=== PATIENT | male | born 1935 | race Caucasian/White ===

== ENCOUNTER 2019-03-06 07:16 | Inpatient (IN) | payer MEDICARE, MEDICAID, SELFPAY ==
[2019-03-06] VITALS (32 sets, daily range): BP systolic 44–127; BP diastolic 34–107; PULSE 9–157; RESP 14–28; TEMP 36.1–36.6; O2SAT 93–100; BMI 21.7
--- NOTE | ~2019-03-06 | XR_ITS ---
EXAMINATION: XR chest ET placement INDICATION: Endotracheal tube placement TECHNIQUE: Portable AP chest at 2126 hours COMPARISON: 1108 hours FINDINGS: The endotracheal tube ends approximately 3.8 cm above the graciela. The nasogastric tube is i n the stomach. There are bilateral pleural effusions. No pneumothorax is identified. Cardiomegaly is noted. There are airspace opacities in the lung bases and right midlung zone. Median sternotomy wires are consistent with prior cardiac surgery. IMPRESSION: 1. Endotracheal and nasogastric tubes in adequate position. 2. Stable cardiomegaly. 3. Airspace opacities of the lung bases and right midlung zone, consistent with atelectasis versus pn eumonia. Reviewed, dictated and finalized at location A. G TECHNICIAN IMPRESSION: 1. Endotracheal and nasogastric tubes in adequate position. 2. Stable cardiomegaly. 3. Airspace opacities of the lung bases and right midlung zone, consistent with atelectasis versus pneumonia.
--- NOTE | ~2019-03-06 | XR_ITS ---
EXAMINATION: XR barium swallow modified DATE: 03/22/2019 12:20 INDICATION: Aspiration TECHNIQUE: The patient was given barium-containing material of multiple consistencies to swallow by t he speech pathologist while I performed fluoroscopy. Dose-area product was 0.673 Gy-cm2. 0.1 minutes fluoroscopy time FINDINGS: The patient terminated the procedure after the thin liquid trial. Oral Preparatory Stage: Normal Oral Stage: Normal Pharyngeal Phase: Minimal vallecular residue, clearing with second swallow Cervical/Esophageal Stage: Within functional limits IMPRESSION: Limited examination; patient terminated procedure prematurely. Modified esophagram findings as above. Please refer to the speech therapy report for specific recomme ndations. Reviewed, dictated and finalized at Location A. Reviewed, dictated and finalized at location A. UCTION CELL LEADER IMPRESSION: Limited examination; patient terminated procedure prematurely. Modified esophagram findings as above. Please refer to the speech therapy repor t for specific recommendations.
--- NOTE | ~2019-03-06 | XR_ITS ---
EXAMINATION: XR abdomen NG/feed tube insert EXAM DATE: 03/10/2019 08:47 INDICATION: Nasogastric tube insertion. TECHNIQUE: Frontal projection(s) of the abdomen for interpretation. Comparison is made to prior exami nation from 03/08/2019. FINDINGS: Feeding tube tip and side-port project over gastric bubble, adequate. Upper abdominal claudine l gas pattern is unremarkable. There is an endotracheal tube. Sternotomy wires. IMPRESSION: Feeding tube adequately positioned. Reviewed, dictated and finalized at location B. LOADER
--- NOTE | ~2019-03-06 | XR_ITS ---
XR chest 1V portable 03/18/2019 20:27 Indication: Respiratory failure. Dyspnea. Procedure: AP portable chest Comparison: Comparison to multiple prior studies sequentially, with oldest reviewed study dated 02/23. Findings: Status post median sternotomy for CABG. There is a prosthetic heart valve. There are epicar dial pacing leads. There is basilar atelectasis. Small right pleural effusion. No edema, focal pneumo elda or pneumothorax. No acute osseous abnormality. Impression: 1: Bibasilar atelectasis. 2: Cardiomegaly. 3: Small right pleural effusion. Reviewed, dictated and finalized at location A. D OPERATOR Impression: 1: Bibasilar atelectasis. 2: Cardiomegaly. 3: Small right pleural effusion.
--- NOTE | ~2019-03-06 | XR_ITS ---
EXAMINATION: XR abdomen/kub 1V EXAM DATE: 03/06/2019 15:40 INDICATION: Bowel distention and shortness of breath. TECHNIQUE: Frontal projection(s) of the abdomen for interpretation. Comparison is made to prior exami nation from 04/06/2008. FINDINGS: There is moderate amount of colonic stool and gas. Some air-filled small bowel, but within normal caliber limits. There are arterial calcifications, arteriosclerosis. There is no organome price suspected. Mild to moderate lumbar scoliosis. Small right pleural effusion. IMPRESSION: Moderate amount of bowel stool and gas. Nonobstructive pattern. Reviewed, dictated and finalized at location A. ATOR ERECTOR HELPER
--- NOTE | ~2019-03-06 | CT_ITS ---
EXAMINATION: CT chest abdomen pelvis wo con DATE: 03/09/2019 00:13 INDICATION: Respiratory failure, abdominal distention TECHNIQUE: Transaxial computed tomographic images of the chest, abdomen, and pelvis were obtained aft er the administration of 100 cc of Omnipaque 350 intravenous contrast. The dose-length product (DLP) was 1055.97 mGy-cm. Automated exposure control and iterative reconstruction technique were employed. COMPARISON: 07/16/2017 FINDINGS: CHEST CT: There are areas of chronic scarring in the upper lobes, consistent with radiation fibrosis. Moderate emphysema is noted. There are moderate-sized pleural effusions with associated dependent airspace opa cities in the lungs. No pneumothorax is identified. Stable cardiomegaly is noted. The endotracheal tu be is in adequate position. Calcified pulmonary nodules and calcified bilateral hilar and mediastinal lymph nodes are consistent with old granulomatous disease. There are changes of aortic valve surgery . ABDOMEN/PELVIS CT: There is a moderate volume of ascites. Cholelithiasis is noted. The gallbladder is not distended. The re is questionable gallbladder wall thickening which could be related to abdominal ascites. Punctate calcifications in otherwise normal appearing liver and spleen likely represent healed granulomatous d isease. The adrenal glands are unremarkable. Cysts of the kidneys measure up to 2 cm on the left. The re is calcified atherosclerosis of the aorta and many of the other arteries. No pathologically enlarg ed abdominal or pelvic lymph nodes are identified. A Padilla catheter is present in the bladder. There is a small left inguinal hernia containing the antimesenteric wall of a short segment of sigmoid colo n. There are multiple mildly dilated loops of small bowel with a questionable transition point in the right lower quadrant. There is moderate lumbar spondylosis. IMPRESSION: 1. Moderate-sized pleural effusions. 2. Bilateral dependent airspace opacities, consistent with atelectasis and/or pneumonia. 3. Multiple mildly dilated loops of small bowel with possible transition point in the right lower janel drant, ileus versus partial obstruction. 4. Cardiomegaly. 5. Moderate volume of ascites. 6. Cholelithiasis with questionable gallbladder wall thickening, possibly due to ascites. Correlate f or right upper quadrant pain. Reviewed, dictated and finalized at location A. UTER ARTIST IMPRESSION: 1. Moderate-sized pleural effusions. 2. Bilateral dependent airspace opacities, consistent with atelectasis and/or p neumonia. 3. Multiple mildly dilated loops of small bowel with possible transition point in the right lower quadrant, ileus versus partial obstruction. 4. Cardiomegaly. 5. Moderate volume of ascites. 6. Cholelithiasis with questionable gallbladder wall thickening, possibly due t o ascites. Correlate for right upper quadrant pain.
--- NOTE | ~2019-03-06 | XR_ITS ---
EXAMINATION: XR chest 1V portable INDICATION: Sepsis TECHNIQUE: Portable AP chest at 0511 hours COMPARISON: 03/18/2019 FINDINGS: There is stable cardiomegaly. There are patchy opacities in the mid and lower lung zones. T here are small pleural effusions. No pneumothorax is identified. Median sternotomy wires and mediasti nal surgical clips are seen, likely from prior coronary artery bypass grafting. IMPRESSION: 1. Stable cardiomegaly. 2. Minimal opacities of the lung bases, consistent with atelectasis versus pneumonia. 3. Small pleural effusions. Reviewed, dictated and finalized at location A. PREVENTION MANAGER IMPRESSION: 1. Stable cardiomegaly. 2. Minimal opacities of the lung bases, consistent with atelectasis versus pneu monia. 3. Small pleural effusions.
--- NOTE | ~2019-03-06 | XR_ITS ---
EXAMINATION: XR abdomen NG/feed tube insert INDICATION: Nasogastric tube placement TECHNIQUE: Portable AP KUB-NG at 2129 hours COMPARISON: 1531 hours FINDINGS: The nasogastric tube is in the stomach. Again seen are partially imaged dilated small bowel loops. There are pleural effusions and airspace opacities of the visualized lung bases. Cardiomegaly is noted. IMPRESSION: 1. Nasogastric tube in the stomach. Reviewed, dictated and finalized at location A. TANK TENDER
--- NOTE | ~2019-03-06 | XR_ITS ---
EXAMINATION: XR barium swallow modified DATE: 03/11/2019 12:07 INDICATION: Dysphagia. TECHNIQUE: The patient was given barium-containing material of multiple consistencies to swallow by brianna steve speech pathologist while I performed fluoroscopy. Dose-area product was 1.689 Gy-cm2. 2.7 minutes fluoroscopy time FINDINGS: Oral Stage: Within functional limits Pharyngeal Phase: Laryngeal penetration was noted with uncontrolled thin liquid . Aspiration was noted. Mild vallecular residue Cervical/Esophageal Stage: Within functional limits IMPRESSION: Modified esophagram findings as above. Please refer to the speech therapy report [facility]. Reviewed, dictated and finalized at Location A. Reviewed, dictated and finalized at location A. TABOUT HEAD IMPRESSION: Modified esophagram findings as above. Please refer to the speech t herapy report for specific recommendations.
--- NOTE | ~2019-03-06 | XR_ITS ---
EXAMINATION: XR chest 1V portable DATE: 03/25/2019 10:13 INDICATION: Shortness of breath. TECHNIQUE: A single frontal view of the chest was obtained. COMPARISON: Chest single view 03/21/2019, chest CT 03/09/2019 FINDINGS: There are chronic airspace opacities in the upper lung zones, likely scarring. There are mi ld patchy airspace opacities in the mid and lower lung zones. There are small pleural effusions. No p neumothorax. Cardiomegaly is noted. There are changes of aortic valve replacement. IMPRESSION: 1. Mild airspace opacities in the mid and lower lung zones with worsening on the left, consistent wit h pulmonary edema versus pneumonia. 2. Unchanged small pleural effusions. 3. Mild scarring in the upper lung zones. 4. Cardiomegaly. Reviewed, dictated and finalized at location A. SSIONS OFFICER IMPRESSION: 1. Mild airspace opacities in the mid and lower lung zones with worsening on th e left, consistent with pulmonary edema versus pneumonia. 2. Unchanged small pleural effusions. 3. Mild scarring in the upper lung zones. 4. Cardiomegaly.
--- NOTE | ~2019-03-06 | XR_ITS ---
XR chest 1V portable DATE: 03/14/2019 13:36 INDICATION: Increased shortness of breath TECHNIQUE: Portable upright AP chest on 03/14/2019 at 1335 hours COMPARISON: 03/11/2019 portable upright AP chest FINDINGS: Status post sternotomy and cardiac valve replacement. Cardiomegaly. There is aortic calcifi cation, ectasia and mild unfolding. There is mild prominence of the minor fissure. There is mild infiltrate or atelectasis in the mid and lower lung zones, mildly improved since 03/11/2019. Bilateral chronic upper lobe scarring is again noted. IMPRESSION: Mild improvement of bilateral infiltrates since 03/11/2019 Reviewed, dictated and finalized at location A. CTOR OF OFFICIATING
--- NOTE | ~2019-03-06 | XR_ITS ---
XR chest 1V portable DATE: 03/11/2019 05:46 INDICATION: Acute respiratory failure. TECHNIQUE: Portable AP chest on 03/11/2019 at 0518 hours COMPARISON: 03/10/2019 portable AP chest at 0517 hours FINDINGS: Status post sternotomy. Cardiac valve replacement. Cardiomegaly. Aortic calcification, ecta yamel, mild unfolding. Removal of ET and NG tube since 03/10/2019. There is bilateral hyperinflation suggesting COPD. The elderly chest can simulate this appearance. 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 There is persistent infiltrate in the right mid and lower and to a lesser extent left lower lung fie lds. Small pleural effusions are suggested. IMPRESSION: Removal of ET and NG tube since 03/10/2019; otherwise little interval change since 2018 Reviewed, dictated and finalized at location A. UM COOKER OPERATOR IMPRESSION: Removal of ET and NG tube since 03/10/2019; otherwise little interv al change since 03/10/2019
--- NOTE | ~2019-03-06 | XR_ITS ---
EXAMINATION: XR chest 2V DATE: 03/06/2019 08:30 INDICATION: Dyspnea. TECHNIQUE: Frontal and lateral views of the chest were obtained. COMPARISON: Chest single view 01/06/2019, chest CT 07/16/2017 FINDINGS: There are chronic airspace opacities in the upper lobes, consistent with scarring. A calcif ied right lung nodule and calcified hilar and mediastinal lymph nodes are consistent with old granulo matous disease. There are small pleural effusions. No pneumothorax. Cardiomegaly is noted. There are changes of aortic valve replacement. IMPRESSION: 1. Small pleural effusions. 2. Chronic scarring in the upper lobes. 3. Cardiomegaly. Reviewed, dictated and finalized at location B. EKEEPER CLEANING COOKING
--- NOTE | ~2019-03-06 | US_ITS ---
EXAMINATION: US renal BI DATE: 03/07/2019 13:32 INDICATION: Acute renal insufficiency TECHNIQUE: Multiple ultrasound grayscale images of the kidneys were obtained. COMPARISON: None. FINDINGS: The right kidney measures 8.7 x 4.9 x 4.7 cm. The left kidney measures 9.6 x 3.8 x 3.8 cm. The kidney s demonstrate normal echogenicity. 1.5 cm anechoic cyst at the upper pole of the right kidney and 3 a nechoic cysts in the left kidney the largest measuring 2.5 cm. There is no hydronephrosis in either k idney. No stones identified. The bladder is normal. Splenomegaly measuring 15.4 cm in length. Bilate ral pleural effusions. IMPRESSION: 1. Bilateral renal cysts. No hydronephrosis. 2. Bilateral pleural effusions. 3. Splenomegaly. Reviewed, dictated and finalized at location A. AGE DYEING MACHINE OPERATOR
--- NOTE | ~2019-03-06 | XR_ITS ---
XR chest 1V portable DATE: 03/10/2019 05:58 INDICATION: Acute respiratory failure. Ventilator. TECHNIQUE: Portable AP chest on 03/10/2019 at 0517 hours COMPARISON: 03/09/2019 CT chest abdomen pelvis 03/08/2019 portable AP chest FINDINGS: ET tube in satisfactory position 4.6 cm above graciela. NG tube in stomach. Status post sternotomy and cardiac valve replacement. There is cardiomegaly. There is aortic calcification. There are mild pleural effusions, greater on th e right. There are bilateral pulmonary infiltrates, greatest in the right mid and lower lung zones, w ith lesser involvement of the left lower lung, primarily left lower lobe. 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 IMPRESSION: Bilateral infiltrates, right greater than left and bilateral mild pleural effusions; john le interval change since 03/08/2019 Reviewed, dictated and finalized at location A. GER EDUCATION IMPRESSION: Bilateral infiltrates, right greater than left and bilateral mild p leural effusions; little interval change since 03/08/2019
--- NOTE | ~2019-03-06 | XR_ITS ---
EXAMINATION: XR chest 1V portable INDICATION: Shortness of breath TECHNIQUE: Portable AP chest at 1108 hours COMPARISON: 03/06/2019 FINDINGS: There is stable cardiomegaly. There is chronic scarring in the upper lobes. No acute airspa ce opacities or. Small pleural effusions are unchanged. There is no pneumothorax. Changes of cardiac valve surgery are noted. IMPRESSION: 1. Stable cardiomegaly. 2. Small pleural effusions. Reviewed, dictated and finalized at location A. LOPMENT ADMINISTRATOR
--- NOTE | ~2019-03-06 | XR_ITS ---
EXAMINATION: XR abdomen obstructive series DATE: 03/08/2019 15:39 INDICATION: Abdominal pain. TECHNIQUE: Upright and supine views of the abdomen were obtained. COMPARISON: Abdomen radiographs 03/06/2019 FINDINGS: There are dilated loops of small bowel. The colon is decompressed. No free intraperitoneal gas. There are changes of aortic valve replacement. IMPRESSION: 1. Dilated small bowel, consistent with adynamic ileus versus small bowel obstruction. Reviewed, dictated and finalized at location A. T DOUGH MIXER IMPRESSION: 1. Dilated small bowel, consistent with adynamic ileus versus small bowel obstr uction.
--- NOTE | 2019-03-06 07:33 | ECG_ITS ---
Measurements Intervals [place] Rate: 159 P: IN: 0 QRS: 74 QRSD: 120 T: 264 QT: 283 QTc: 460 Interpretive Statements ATRIAL FIBRILLATION WITH RAPID VENTRICULAR RESPONSE INTRAVENTRICULAR CONDUCTION DELAY ST-T WAVE ABNORMALITY IN ANTEROLAT/INF LEADS- CONSIDER ISCHEMIA BASELINE ARTIFACT- V3 ABNORMAL ECG Electronically Signed On 03-06-2019 7:44:08 POWER GENERATION PLANT OPERATOR by Jerel Tony D.O.
--- NOTE | 2019-03-06 07:35 | ED.SOB ---
HPI - SOB/Dyspnea General Chief Complaint: Shortness of Breath/Dyspnea Stated Complaint: SOB Time Seen by Provider: 03/06/19 07:25 Source: patient Mode of arrival: EMS Limitations: no limitations History of Present Illness HPI Narrative: Patient is a 3-year-old male presents to the emergency department via EMS with complaint of shortness of breath. Patient has history of oxygen dependent COPD and wears 4 to 5 L of oxygen at home. Patient states he is been developing shortness of breath for a couple weeks, but is worse today. Patient reports cough and subjective fever with chills and sweats. Patient has not taken his temperature at home. He denies any chest pain. Patient arrives in atrial fibrillation states he has prior history of Fredy starks MD elicited complaint: shortness of breath Pertinent past history: COPD, congestive heart failure and other (Atrial fibrillation) Onset (ago): week(s) Timing: constant and progressively worsening Known history of: COPD and congestive heart failure Associated symptoms: fever (Subjective), cough and diaphoresis Treatment prior to arrival: bronchodilator and other (IV Solu-Medrol by EMS) Related Data Home oxygen amount: 4 liters Home Medications Medication Instructions Recorded Confirmed albuterol sulfate 2.5 mg INHALATION BID 03/06/19 03/06/19 carvedilol 12.5 mg PO BID 03/06/19 03/06/19 fluticasone furoate-vilanterol 1 inh INHALATION DAILY 03/06/19 03/06/19 [Breo Ellipta] furosemide 20 mg PO QNOON 03/06/19 03/06/19 furosemide 40 mg PO DAILY 03/06/19 03/06/19 gabapentin 800 mg PO HS 03/06/19 03/06/19 ipratropium-albuterol [Combivent 1 puff INHALATION QID PRN 03/06/19 03/06/19 Respimat] isosorbide mononitrate 15 mg PO DAILY 03/06/19 03/06/19 levothyroxine 50 mcg PO DAILY 03/06/19 03/06/19 pantoprazole 40 mg PO DAILY 03/06/19 03/06/19 potassium chloride 20 meq PO DAILY 03/06/19 03/06/19 psyllium husk [Fiber (psyllium 0.4 g PO BID 03/06/19 03/06/19 husk)] trazodone 50 mg PO HS 03/06/19 03/06/19 warfarin 1 mg PO DAILY 03/06/19 03/06/19 Allergies Allergy/AdvReac Type Severity Reaction Status Date / Time baclofen Allergy Intermediate Confusion Verified 03/06/19 12:54 Review of Systems Review of Systems: All systems reviewed & are unremarkable except as noted in HPI and below Constitutional: Constitutional: Reports chills and Reports fever(s) (Subjective) Cardiovascular: Cardiovascular: Denies chest pain and Reports diaphoresis Respiratory: Respiratory: Reports cough and Reports dyspnea PMF Past Medical History Medical History Anemia Aortic valvular disease Status post mechanical aortic valve replacement March 1997. He is on long-term warfarin, with multiple episodes of supratherapeutic INR. Atrial fibrillation CHF (congestive heart failure) Echocardiogram in December 2017 showed combined systolic and diastolic congestive heart failure with a calculated ejection fraction 38% diastolic dysfunction grade 2 as well as mild pulmonary hypertension. CKD (chronic kidney disease) Stage III. Baseline creatinine appears to be around 1.40. Colonic stricture COPD (chronic obstructive pulmonary disease) Moderate COPD by PFTs in 2008. He is followed by Dr. Garcia. GERD (gastroesophageal reflux disease) GI bleed April 2018 hospitalization for GI bleed due to esophagitis and duodenal or sores. History of Morrison's esophagus History of peptic ulcer Hypothyroidism Kidney stones Non-small cell lung cancer Status post radiation to bilateral lung lanza in 2007. Nonsustained ventricular tachycardia Peptic ulcer disease Pneumothorax Trigeminal neuralgia Ventricular tachycardia Surgical History Surgical History History of aortic valve replacement with metallic valve April 12, 1997. History of appendectomy History of cystoscopy History of exploratory lapar
[2019-03-06] MEDS: IPRATROPIUM BR 0.02% INH SOLN 0.5 MG/2.5 ML VIAL 1.5 MG INHALATION (07:48)
[2019-03-06] MEDS: ALBUTEROL SULFATE NEB 2.5 MG/0.5 ML INH 15 MG INHALATION (07:48)
[2019-03-06 07:53] LABS: Basophils Absolute Auto 0.2 K/mm3 (0.0-0.1); Basophils Percent Auto 1.4 % (0.2-1.2); Eosinophils Absolute Auto 0.2 K/mm3 (0-0.3); Eosinophils Percent Auto 1.5 % (0-4.4); Hematocrit 42.1 % (42.0-52.0); Hemoglobin 12.2 g/dL (14.0-18.0); Immature Granulocyte Absolute 0.15 K/mm3 (0.00-0.031); Immature Granulocyte Percent A 1.3 % (0-0.5); Lymphocytes Absolute Auto 1.68 K/mm3 (0.9-3.2); Lymphocytes Percent Auto 14.2 % (18.3-44.2); Mean Corpuscular Hemoglobin 25.2 pg (26-34); Mean Corpuscular Volume 86.8 fl (80-100); Mean Platelet Volume 12.7 fl (7.4-10.4); Monocytes Absolute Auto 0.9 K/mm3 (0.1-0.6); Neutrophils Absolute Auto 8.7 K/mm3 (1.3-6.7); Neutrophils Percent Auto 73.6 % (45.5-73.1); Nucleated Red Blood Cells Perc 0.3 % (0.0-0.2); Platelet Count Result 394 k/mm3 (150-375); Red Blood Count 4.85 M/mm3 (4.6-6.20); Red Cell Distribution Width 16.1 % (11.5-14.5); White Blood Count 11.8 K/mm3 (4.5-10.0)
[2019-03-06 08:02] LABS: INR 2.5; Prothrombin Time 26.1 Seconds (11.1-14.7)
[2019-03-06 08:03] LABS: Partial Thromboplastin Time 37.3 SECONDS (22.3-36.8)
[2019-03-06 08:04] LABS: Alanine Aminotransferase 24 U/L (4-50); Albumin Level 4.6 g/dL (3.5-5.1); Alkaline Phosphatase 133 U/L (38-126); Aspartate Amino Transferase 36 U/L (17-59); Bilirubin,Total 1.7 mg/dL (0.2-1.3); Blood Urea Nitrogen 53 mg/dL (9-20); Calcium 9.1 mg/dL (8.4-10.2); Carbon Dioxide 28 mmol/L (22-30); Chloride 103 mmol/L (98-107); Estimated Glomerular Filt Rate 24; Glucose 190 mg/dL (75-110); Potassium 5.5 mmol/L (3.4-5.0); Sodium 142 mmol/L (137-145)
[2019-03-06 08:12] LABS: Alveolar/Arterial O2 Gradient 100.5 mmHg; Base Excess ABG -5.7 mEq/l (+/-2.0); Fractional Inspired Oxygen 36 %; HCO3 ABG 20.6 mEq/l (22.0-26.0); Oxygen Content ABG 17.3 %vol (16.0-22.0); Oxygen Saturation ABG 97.3 % (95.0-100.0); PCO2 ABG 43.3 mmHg (35.0-45.0); PO2 FiO2 Ratio Arterial Blood 2.94 %; Total Hemoglobin 12.7 g/dL (12.0-18.0); pH ABG 7.295 (7.350-7.450)
[2019-03-06 08:14] LABS: Device NASAL CANNULA; Site Drawn RIGHT BRACHIAL
[2019-03-06 08:16] LABS: NT Pro B Type Natriuretic Pept 19600 PG/ML (5-100); Troponin I 0.024 ng/mL (0.000-0.034)
[2019-03-06] MEDS: LACTATED RINGERS 1,000 ML 150 ML IV CONT (08:32)
[2019-03-06 08:48] LABS: Lactic Acid Reflex 1.9 mmol/L (0.7-2.1)
--- NOTE | 2019-03-06 09:12 | PC.NURSE ---
Pt unable to provide medication list, states that he is having his daughter bring it to the hospital later.
--- NOTE | 2019-03-06 12:51 | ADMGEN ---
This patient, Jeff Sampson, was admitted to IMU Room 206-02 on 03-06-19 at 1209. Patient/family oriented to hospital policies and general routines including ID bracelet, bed and alarms, visiting hours, pain management, procedures, bathroom and other care routines, personal items, smoking policy, room service/diet, and visiting hours. Valuables list has been completed. Information on how to activate the Rapid Response Team has been discussed. Patient/Family are encouraged to report perceived risks to care and to ask questions if they do not understand what they are told or what they should do.
[2019-03-06] MEDS: predniSONE 20 MG TABLET 60 MG PO (13:02)
--- NOTE | 2019-03-06 13:45 | PM.IMHP ---
H&P: HPI History of Present Illness Chief complaint: Shortness of breath. Narrative: Jeff Sampson is a 83 year old male with multiple medical problems including history of lung cancer, chronic respiratory failure with hypoxia on home oxygen, COPD, combined systolic and diastolic congestive heart failure, status post mechanical aortic valve replacement on long-term warfarin, paroxysmal atrial fibrillation, and chronic kidney disease who presented to the emergency department earlier this morning via EMS for evaluation of shortness of breath. He is on 4-5 L nasal cannula at home 24 hours a day, and at baseline he is short of breath when ambulating about the home. Over the last several weeks, he notes progressive dyspnea on lesser and lesser exertion to the point where he is hardly able to get out of bed over the last 24 hours due to shortness of breath. He has a cough that is rarely productive of thick clear phlegm and that has been going on for couple of days. Jeff tells me that it feels like he just cannot take in a good deep breath nor can he expel it completely, and he has noticed abdominal distention last couple of days. He states compliance with his home medication, inhalers, and nebulizers. His appetite has been fair and he denies nausea and vomiting. He has not had diarrhea or constipation. No chest pain or pleuritic pain. He occasionally has lower extremity edema, but none at this time. Review of Systems Review of Systems: Narrative: Twelve systems were reviewed with pertinent positives and negatives as per HPI. He denies fever, chills, and sweats. Apparently complained of subjective fever in the emergency department, but denies that to me. He has frequent sinus drainage, and this is unchanged. He notes mild orthopnea. No PND. He occasionally has lower extremity edema, but nothing significant at this time. He has chronic kidney disease, but has never been told of such previously. Creatinine level today's about twice what it typically runs, with further questioning he does note that his urine output has been a bit decreased last several days and his nose that is darker than usual. He denies any recent change in medication or additions to his medical regimen. Except as documented, all other systems reviewed and are negative. [facility] Past Medical History Medical History Anemia Aortic valvular disease Status post mechanical aortic valve replacement March 1997. He is on long-term warfarin, with multiple episodes of supratherapeutic INR. Atrial fibrillation CHF (congestive heart failure) Echocardiogram in December 2017 showed combined systolic and diastolic congestive heart failure with a calculated ejection fraction 38% diastolic dysfunction grade 2 as well as mild pulmonary hypertension. CKD (chronic kidney disease) Stage III. Baseline creatinine appears to be around 1.40. Colonic stricture COPD (chronic obstructive pulmonary disease) Moderate COPD by PFTs in 2008. He is followed by Dr. Hull and Linh. GERD (gastroesophageal reflux disease) GI bleed April 2018 hospitalization for GI bleed due to esophagitis and duodenal or sores. History of Morrison's esophagus History of peptic ulcer Hypothyroidism Kidney stones Non-small cell lung cancer Status post radiation to bilateral lung lanza in 2007. Nonsustained ventricular tachycardia Peptic ulcer disease Pneumothorax Trigeminal neuralgia Ventricular tachycardia Surgical History Surgical History History of aortic valve replacement with metallic valve April 12, 1997. History of appendectomy History of cystoscopy History of exploratory laparotomy With adhesiolysis in 2007. History of extraction of renal calculus History of right hemicolectomy For benign colic stricture in February 1998. Family History Family History (Reviewed 03/06/19 @ 23:33 by
[2019-03-06] MEDS: ALBUTEROL SULFATE NEB 2.5 MG/0.5 ML INH 5 MG INHALATION ×2 (14:01→20:06)
[2019-03-06] MEDS: IPRATROPIUM BR 0.02% INH SOLN 0.5 MG/2.5 ML VIAL INHALATION ×2 (14:01→20:06)
[2019-03-06 15:03] LABS: Basophils Percent Auto 0.4 % (0.2-1.2); Eosinophils Percent Auto 0.1 % (0-4.4); Hematocrit 39.8 % (42.0-52.0); Hemoglobin 11.5 g/dL (14.0-18.0); Immature Granulocyte Absolute 0.06 K/mm3 (0.00-0.031); Immature Granulocyte Percent A 0.8 % (0-0.5); Immature Platelet Fraction Pct 8.8 % (0.9-11.2); Lymphocytes Absolute Auto 0.23 K/mm3 (0.9-3.2); Lymphocytes Percent Auto 2.9 % (18.3-44.2); Mean Corpuscular HGB Conc 28.9 g/dl (32-36); Mean Corpuscular Hemoglobin 25.3 pg (26-34); Mean Corpuscular Volume 87.7 fl (80-100); Mean Platelet Volume 12.6 fl (7.4-10.4); Monocytes Absolute Auto 0.1 K/mm3 (0.1-0.6); Monocytes Percent Auto 0.6 % (2.6-8.5); Neutrophils Absolute Auto 7.5 K/mm3 (1.3-6.7); Neutrophils Percent Auto 95.2 % (45.5-73.1); Nucleated Red Blood Cells Perc 0.3 % (0.0-0.2); Platelet Count Result 238 k/mm3 (150-375); Red Blood Count 4.54 M/mm3 (4.6-6.20); White Blood Count 7.8 K/mm3 (4.5-10.0)
[2019-03-06 15:12] LABS: Blood Urea Nitrogen 57 mg/dL (9-20); Calcium 8.9 mg/dL (8.4-10.2); Carbon Dioxide 22 mmol/L (22-30); Chloride 103 mmol/L (98-107); Estimated CRCL calculation 18 ml/min; Estimated Glomerular Filt Rate 23; Glucose 209 mg/dL (75-110); Potassium 5.4 mmol/L (3.4-5.0); Sodium 139 mmol/L (137-145)
[2019-03-06 15:30] LABS: Hemoglobin A1C 5.8 % (<5.7)
[2019-03-06 15:43] LABS: Hypochromasia 2+ (NORMAL); Platelet Estimate Adequate (Adequate)
[2019-03-06 15:45] LABS: Alveolar/Arterial O2 Gradient 124.1 mmHg; Base Excess ABG -5.5 mEq/l (+/-2.0); Carboxyhemoglobin 0.5 % THb (0-2.0); Fractional Inspired Oxygen 40 %; HCO3 ABG 20.4 mEq/l (22.0-26.0); Methemoglobin ABG 0.4 %THb (0-1.5); Oxygen Content ABG 16.9 %vol (16.0-22.0); Oxygen Saturation ABG 97.8 % (95.0-100.0); Oxyhemoglobin 96.7 % THb (90.0-100.0); PCO2 ABG 41.2 mmHg (35.0-45.0); PO2 ABG 113.7 mmHg (80.0-100.0); PO2 FiO2 Ratio Arterial Blood 2.84 %; Reduced Hemoglobin 2.4 %THb (0-5.0); Site Drawn LEFT RADIAL; Total Hemoglobin 12.3 g/dL (12.0-18.0); pH ABG 7.312 (7.350-7.450)
[2019-03-06 15:46] LABS: Device NON-INVASIVE VENT; Modified Allen's Test Pass; Non-Invasive Expiratory Pressure 5 CMH2O; Non-Invasive Inspiratory Pressure 12 CMH2O; Non-Invasive Vent Rate 4 /MIN
--- NOTE | 2019-03-06 16:31 | PM.CNCAR ---
Assessment and Plan Assessment and plan (1) Atrial fibrillation with rapid ventricular response: Code(s): I48.91 - Unspecified atrial fibrillation Status: Acute Assessment and Plan: Patient has a history of paroxysmal atrial fibrillation. Heart rate currently controlled on diltiazem infusion. Given LV dysfunction referred to avoid calcium channel jacqueline. Transition to oral carvedilol and discontinue diltiazem drip. Caution with IV fluids given LV dysfunction and history of CHF. May hold Lasix for the time being given acute on chronic renal failure and hypotension at presentation. (2) Cardiomyopathy: Code(s): I42.9 - Cardiomyopathy, unspecified Status: Acute Assessment and Plan: Moderate LV dysfunction EF 35%, chronic. History of nonischemic cardiomyopathy [place] heart Association class 3. BNP markedly elevated, however, in setting of acute renal failure, hypoxic respiratory failure without clear clinical evidence of decompensated heart failure at this time. Patient need to monitor very closely nonetheless given tendency to become volume overloaded with aggressive fluid resuscitation. Check TSH. Patient not responding clinically as anticipated repeat 2D echocardiogram. I do not feel this is necessary at this time provided patient responds as expected. (3) Acute kidney injury superimposed on chronic kidney disease: Code(s): N17.9 - Acute kidney failure, unspecified; N18.9 - Chronic kidney disease, unspecified Status: Acute Assessment and Plan: As above, cautious IV fluids. Monitor for response. Avoid nephrotoxic agents at this time. (4) S/P AVR (aortic valve replacement): Code(s): Z95.2 - Presence of prosthetic heart valve Status: Acute Assessment and Plan: Prophylactic antibiotics. Goal INR 2-3. Continue warfarin. Therapeutic at 2.5 at presentation. Daily INR while in the hospital. (5) COPD exacerbation: Code(s): J44.1 - Chronic obstructive pulmonary disease with (acute) exacerbation Status: Acute Assessment and Plan: Per primary service. Predominant respiratory distress appears secondary to exacerbation of acute on chronic COPD and hypoxic respiratory failure with metabolic acidosis. Improving on BiPAP. Methylprednisolone, bronchodilator therapy. Avoid albuterol. History of Present Illness History of Present Illness Consult date/time: Date of service: 03/06/19 16:31 This is a cardiology consultation at request of Hillary Ventura NP of the [facility] service for our opinion regarding atrial fibrillation with rapid ventricular response. Consult reason: atrial fibrillation Reason For Visit: Shortness of breath. Narrative: Mr. Sampson is a very pleasant 83-year-old gentleman well known to me whom I follow in the office with a past medical history significant for nonobstructive CAD, nonischemic cardiomyopathy with moderate to severe LV dysfunction EF 35% by echo 10/2018, mechanical aortic valve replacement, hypertension, dyslipidemia, emphysema oxygen dependent 4-5 L O2, paroxysmal atrial fibrillation, history tobacco abuse, pulmonary hypertension who presented to the emergency department with complaints of progressive exertional dyspnea, fatigue and nonproductive cough over the preceding 3 weeks. Patient states for the past 3 days symptoms progressed more rapidly. She denies chest pain or palpitations at any time. He denies falls, near-syncope, syncope, bleeding, recent illnesses, or PND. He does admit to some fullness in his abdomen making it more difficult to lie flat. In the ER he was noted to be in acute respiratory distress and in atrial fibrillation with rapid ventricular response heart rate in the 150s. His given methylprednisolone, nebulizers, IVF for Acute on chronic renal failure, and placed on BiPAP. He remains on BiPAP at this time. He was started on a diltiazem drip 5 milligrams/hour and heart rate is in the 70s to
[2019-03-06] MEDS: carvediloL 12.5 MG TABLET PO (18:00)
[2019-03-06] MEDS: PSYLLIUM POWDER PACKET 1 PACKET PO (18:00)
[2019-03-06] MEDS: WARFARIN (*PBKC) 1 MG TABLET PO (18:00)
[2019-03-06] MEDS: LACTATED RINGERS 1,000 ML 75 ML IV CONT (18:01)
[2019-03-06] MEDS: methylPREDNISolone SOD SUCC 125 MG VIAL 60 MG IV PUSH ×2 (18:01→23:11)
[2019-03-06] MEDS: GABAPENTIN 400 MG CAPSULE 800 MG PO (21:28)
[2019-03-06 22:05] LABS: Blood Urea Nitrogen 58 mg/dL (9-20); Calcium 8.7 mg/dL (8.4-10.2); Carbon Dioxide 25 mmol/L (22-30); Chloride 101 mmol/L (98-107); Estimated CRCL calculation 18 ml/min; Estimated Glomerular Filt Rate 23; Glucose 176 mg/dL (75-110); Potassium 5.5 mmol/L (3.4-5.0); Sodium 140 mmol/L (137-145)
[2019-03-07] VITALS (25 sets, daily range): BP systolic 95–102; BP diastolic 62–75; PULSE 63–165; RESP 18–24; TEMP 36.2–36.7; O2SAT 93–100
[2019-03-07] MEDS: IPRATROPIUM BR 0.02% INH SOLN 0.5 MG/2.5 ML VIAL INHALATION ×4 (01:23→20:05)
[2019-03-07] MEDS: ALBUTEROL SULFATE NEB 2.5 MG/0.5 ML INH 5 MG INHALATION ×4 (01:23→20:05)
[2019-03-07] MEDS: LACTATED RINGERS 1,000 ML 75 ML IV CONT ×2 (05:01→16:30)
[2019-03-07] MEDS: LEVOTHYROXINE SODIUM 50 MCG TABLET PO (05:02)
[2019-03-07] MEDS: methylPREDNISolone SOD SUCC 125 MG VIAL 60 MG IV PUSH ×3 (05:02→16:27)
[2019-03-07 05:17] LABS: INR 2.5; Prothrombin Time 26.8 Seconds (11.1-14.7)
[2019-03-07 05:36] LABS: Alanine Aminotransferase 24 U/L (4-50); Albumin Level 4.3 g/dL (3.5-5.1); Alkaline Phosphatase 119 U/L (38-126); Aspartate Amino Transferase 28 U/L (17-59); Bilirubin,Total 1.7 mg/dL (0.2-1.3); Blood Urea Nitrogen 59 mg/dL (9-20); Calcium 8.9 mg/dL (8.4-10.2); Carbon Dioxide 24 mmol/L (22-30); Chloride 102 mmol/L (98-107); Estimated CRCL calculation 19 ml/min; Estimated Glomerular Filt Rate 24; Glucose 168 mg/dL (75-110); Potassium 5.2 mmol/L (3.4-5.0); Sodium 140 mmol/L (137-145)
[2019-03-07] MEDS: ISOSORBIDE MONONITRATE 15 MG TAB.ER.24H PO (08:24)
[2019-03-07] MEDS: carvediloL 12.5 MG TABLET PO (08:24)
[2019-03-07] MEDS: PSYLLIUM POWDER PACKET 1 PACKET PO (08:24)
[2019-03-07] MEDS: PANTOPRAZOLE 40 MG TABLET PO (08:24)
--- NOTE | 2019-03-07 11:32 | PM.IMPN ---
Progress Note: A&P Assessment and Plan (1) Atrial fibrillation with rapid ventricular response: Code(s): I48.91 - Unspecified atrial fibrillation Status: Acute Assessment and Plan: Started on Cardizem drip with improvement in his rate. Cardiology was consulted by the emergency department physician and their input is appreciated. Diltiazem drip transitioned to COreg. Keep in IMU and contineu to moitor rate. Add TSH in the morning. (2) Acute kidney injury superimposed on chronic kidney disease: Code(s): N17.9 - Acute kidney failure, unspecified; N18.9 - Chronic kidney disease, unspecified Status: Acute Assessment and Plan: Precipitating etiology is not clear. Baseline creatinine 1.2-1.4. Cr 2.7 on admission and no significant change today. Will hold nephrotoxic agents. Continue judicious IV fluid rehydration. Be midful of his volume status given his history of CHF. Check renal US. Considre placing Padilla. Repeat BMP later today. Padilla placed due to poor UOP. Renal US showing bilateral pleural effusions, splenomegaly and renal cysts but no hydronephrosis. (3) Acidosis, metabolic, with respiratory acidosis: Code(s): E87.4 - Mixed disorder of acid-base balance Status: Acute Assessment and Plan: Metabolic acidosis likely related to worsening renal function. No evidence to suggest underlying infection or sepsis. Lactic acid normal. Patient was treated with BiPAP and repeat blood gas did show improvement to suggest a respiratory component possibly. Continue to monitor. (4) COPD exacerbation: Code(s): J44.1 - Chronic obstructive pulmonary disease with (acute) exacerbation Status: Acute Assessment and Plan: COPD exacerbation suspected. He has been started on scheduled nebulizers q.6 hours as well as Solu-Medrol. This will make the BUN rise. Abx on hold. Currently at his 4L O2 NC that he uses chronically. Check sputum. (5) CHF (congestive heart failure): Qualifiers: Heart failure chronicity: chronic Heart failure type: combined systolic and diastolic Qualified Code(s): I50.42 - Chronic combined systolic (congestive) and diastolic (congestive) heart failure Code(s): I50.9 - Heart failure, unspecified Status: Acute Assessment and Plan: Patient with cardiomyopathy with recent echo in October showing severe global LV systolic dysfunction worse in the inferoposterior segments giving an EF of 36%. There is also pseudonormal diastolic dysfunction grade 2. He also had moderate to severe biatrial enlargement. Clinically compensated at this time despite the BNP of 19K. Currently on IVF at low volume. Continue IV fluid rehydration for today and possibly stop tomorrow. Lasix on hold. (6) Hyperkalemia: Code(s): E87.5 - Hyperkalemia Status: Acute Assessment and Plan: Potassium better this morning. [place] related to his renal failure. Continue to monitor. Continue IVF. (7) S/P AVR (aortic valve replacement): Code(s): Z95.2 - Presence of prosthetic heart valve Status: Acute Assessment and Plan: Patient has a mechanical aortic valve. He is on Coumadin long-term for this. Echocardiogram in October showed normal appearing mechanical aortic valve prosthesis. Continue Coumadin to ensure INR 2-3. INR 2.5 today. (8) Chronic respiratory failure: Qualifiers: Respiratory failure complication: hypoxia Qualified Code(s): J96.11 - Chronic respiratory failure with hypoxia Code(s): J96.10 - Chronic respiratory failure, unspecified whether with hypoxia or hypercapnia Status: Acute Assessment and Plan: Patient uses 4 L O2 nasal cannula at home. He states he is on chronic oxygen due to his COPD. Patient currently at baseline. Continue to monitor. Subjective Interval history: 83yo male here for AFib/RVR and [place]. Patient uses 4L O2 NC at home since the fall. Does no
--- NOTE | 2019-03-07 12:41 | PM.PNCARD ---
Progress Note: A&P Assessment and Plan (1) Atrial fibrillation with rapid ventricular response: Code(s): I48.91 - Unspecified atrial fibrillation Status: Acute Assessment and Plan: Patient has a history of paroxysmal atrial fibrillation. Remains in atrial fibrillation with rapid ventricular response. Asymptomatic. Carvedilol not controlling heart rate adequately. Change to metoprolol as tolerated. If remains rapid amiodarone short-term option until patient has improved clinically. Give IV Metoprolol 5mg x1 then start Metoprolol 75mg BID. monitor tolerance. Continue anticoagulation goal INR 2-3. (2) Cardiomyopathy: Code(s): I42.9 - Cardiomyopathy, unspecified Status: Acute Assessment and Plan: Moderate LV dysfunction EF 35%, chronic. History of nonischemic cardiomyopathy [place] heart Association class 3. BNP markedly elevated, however, in setting of acute renal failure, hypoxic respiratory failure without clear clinical evidence of decompensated heart failure at this time. Patient continues to complain of abdominal fullness very faint crackle at bases on exam but clinically improving. Monitor very closely given tendency to become volume overloaded with fluid resuscitation. Repeat CXR and BNP. Renal function not improving with IVF. I would favor gentle diuresis if CXR worse and back off on IVF. Stop Imdur if hypotensive. (3) Acute kidney injury superimposed on chronic kidney disease: Code(s): N17.9 - Acute kidney failure, unspecified; N18.9 - Chronic kidney disease, unspecified Status: Acute Assessment and Plan: No improvemnt thus far. Avoid nephrotoxic agents at this time. Further workup per primary service. (4) S/P AVR (aortic valve replacement): Code(s): Z95.2 - Presence of prosthetic heart valve Status: Acute Assessment and Plan: Prophylactic antibiotics. Goal INR 2-3. Continue warfarin. Therapeutic at 2.5 at presentation. Daily INR while in the hospital. (5) COPD exacerbation: Code(s): J44.1 - Chronic obstructive pulmonary disease with (acute) exacerbation Status: Acute Assessment and Plan: Per primary service. Predominant respiratory distress appears secondary to exacerbation of acute on chronic COPD and hypoxic respiratory failure with metabolic acidosis. Improved on BiPAP, currently on O2 via nasl canula. Methylprednisolone, bronchodilator therapy. Avoid albuterol. Subjective Interval history: Follow-up for atrial fibrillation with rapid ventricular response Paroxysmal atrial fibrillation with rapid ventricular response Acute on chronic hypoxic respiratory failure and COPD exacerbation Moderate LV systolic dysfunction, nonischemic EF 35% History of mechanical aortic valve replacement Chronic anticoagulation Hypertension Date of service: 03/07/2019 Feels a little better today but still fairly short of breath and fatigue. More tachycardic early this morning at the 150s to 160s. Better after receiving carvedilol 110's- 120s but still rapid. Patient denies palpitations, chest pain. Still complains of shortness of breath but off BiPAP. Appetite somewhat poor, eating very little due to complaints of abdominal fullness. Had small bowel movement earlier this morning. No bleeding. No dizziness or falls. No other new issues overnight. Review of Systems Review of Systems: All systems reviewed & are unremarkable except as noted in HPI and below Constitutional: Constitutional: Reports as per HPI, Reports no additional constitutional complaints, Reports difficulty sleeping, Reports fatigue and Reports weakness Eyes: Eyes: Reports as per HPI and Reports no additional eye complaints ENT: Reports system reviewed and no additional complaints, except as documented, Reports as per HPI and Denies dysphagia Cardiovascular: Cardiovascular: Reports as per HPI, Reports no additional cardiovascular complaints, Denies chest pa
[2019-03-07] MEDS: METOPROLOL TARTRATE INJ 5 MG/5 ML VIAL IV PUSH (13:10)
--- NOTE | 2019-03-07 15:27 | PCPTNOTE ---
Attempted PT eval. Pt refused therapy, states he just got in bed and is too tired. Will try again tomorrow.
[2019-03-07] MEDS: WARFARIN (*PBKC) 1 MG TABLET PO (16:28)
[2019-03-07 17:48] LABS: Add Urine Microscopic? YES; Amorphous Sediment Urine Few; Appearance Urine Clear (Clear); Bacteria Urine Trace /hpf; Bilirubin Urine Negative (Negative); Blood Urine 1+ (Negative); Color Urine Yellow (Yellow); Glucose Urine UA Negative (Negative); Ketones Urine Negative (Negative); Leukocyte Esterase Ur Negative LEU/UL (Negative); Mucus Urine Rare /lpf; Nitrate Urine Negative (Negative); Protein Urine 1+ mg/dL (Negative); RBC Urine 0-2 /hpf (0-2); Specific Grav Ur 1.015 (1.001-1.035); Squamous Epithelial Cell Urine Rare /hpf (Few); WBC Urine 0-3 /hpf
[2019-03-07 19:40] LABS: Blood Urea Nitrogen 69 mg/dL (9-20); Calcium 8.6 mg/dL (8.4-10.2); Carbon Dioxide 23 mmol/L (22-30); Chloride 98 mmol/L (98-107); Estimated CRCL calculation 19 ml/min; Estimated Glomerular Filt Rate 24; Glucose 206 mg/dL (75-110); Sodium 136 mmol/L (137-145)
[2019-03-07] MEDS: GABAPENTIN 400 MG CAPSULE 800 MG PO (20:42)
[2019-03-07] MEDS: TRAZODONE HCL 50 MG TABLET PO (20:42)
[2019-03-07] MEDS: METOPROLOL TARTRATE 50 MG TAB PO (20:43)
[2019-03-07] MEDS: METOPROLOL TARTRATE 25 MG TABLET PO (20:43)
[2019-03-07] MEDS: SODIUM POLYSTYRENE SULFONONATE 15 GM/60 ML BTL 30 GM PO (20:49)
[2019-03-07] MEDS: DEXTROSE 50% 25 GM/50 ML SYRINGE IV PUSH (20:50)
[2019-03-07] MEDS: SODIUM BICARBONATE 8.4% 50 MEQ/50 ML SYRINGE IV PUSH (20:50)
[2019-03-07] MEDS: CALCIUM GLUC 1,000 MG/NS 50 ML 1,000 MG/50 ML BAG 100 MG IVPB (21:24)
[2019-03-07] MEDS: INSULIN HUMAN REGULAR (*BKC) 100 UNITS/ML 10 UNITS IV PUSH (21:24)
[2019-03-07 23:53] LABS: Blood Urea Nitrogen 70 mg/dL (9-20); Calcium 8.7 mg/dL (8.4-10.2); Carbon Dioxide 24 mmol/L (22-30); Chloride 100 mmol/L (98-107); Estimated CRCL calculation 18 ml/min; Estimated Glomerular Filt Rate 23; Glucose 176 mg/dL (75-110); Potassium 4.8 mmol/L (3.4-5.0); Sodium 138 mmol/L (137-145)
[2019-03-08] VITALS (26 sets, daily range): BP systolic 103–115; BP diastolic 54–86; PULSE 68–140; RESP 12–35; TEMP 36.1–36.3; O2SAT 90–99
[2019-03-08] MEDS: methylPREDNISolone SOD SUCC 125 MG VIAL 60 MG IV PUSH ×4 (01:13→16:41)
[2019-03-08] MEDS: ALBUTEROL SULFATE NEB 2.5 MG/0.5 ML INH 5 MG INHALATION ×4 (02:06→20:40)
[2019-03-08] MEDS: IPRATROPIUM BR 0.02% INH SOLN 0.5 MG/2.5 ML VIAL INHALATION ×4 (02:06→20:40)
[2019-03-08 04:58] LABS: Basophils Percent Auto 0.1 % (0.2-1.2); Hematocrit 35.5 % (42.0-52.0); Hemoglobin 10.4 g/dL (14.0-18.0); Immature Granulocyte Absolute 0.08 K/mm3 (0.00-0.031); Immature Granulocyte Percent A 0.6 % (0-0.5); Immature Platelet Fraction Pct 12.4 % (0.9-11.2); Lymphocytes Absolute Auto 0.21 K/mm3 (0.9-3.2); Lymphocytes Percent Auto 1.7 % (18.3-44.2); Mean Corpuscular HGB Conc 29.3 g/dl (32-36); Mean Corpuscular Hemoglobin 24.9 pg (26-34); Mean Corpuscular Volume 84.9 fl (80-100); Mean Platelet Volume 13.4 fl (7.4-10.4); Monocytes Absolute Auto 0.4 K/mm3 (0.1-0.6); Monocytes Percent Auto 3.5 % (2.6-8.5); Neutrophils Absolute Auto 11.9 K/mm3 (1.3-6.7); Neutrophils Percent Auto 94.1 % (45.5-73.1); Platelet Count Result 226 k/mm3 (150-375); Red Blood Count 4.18 M/mm3 (4.6-6.20); Red Cell Distribution Width 16.1 % (11.5-14.5); White Blood Count 12.7 K/mm3 (4.5-10.0)
[2019-03-08 05:12] LABS: INR 4.1; Prothrombin Time 39.5 Seconds (11.1-14.7)
[2019-03-08 05:23] LABS: Blood Urea Nitrogen 73 mg/dL (9-20); Calcium 8.8 mg/dL (8.4-10.2); Carbon Dioxide 23 mmol/L (22-30); Chloride 99 mmol/L (98-107); Estimated CRCL calculation 19 ml/min; Estimated Glomerular Filt Rate 24; Glucose 168 mg/dL (75-110); Phosphorus 4.2 mg/dL (2.5-4.5); Potassium 4.9 mmol/L (3.4-5.0); Sodium 138 mmol/L (137-145)
[2019-03-08] MEDS: LACTATED RINGERS 1,000 ML 75 ML IV CONT (05:48)
[2019-03-08] MEDS: LEVOTHYROXINE SODIUM 50 MCG TABLET PO (05:51)
[2019-03-08 07:11] LABS: Ovalocytes 1+ (NORMAL); Platelet Estimate Adequate (Adequate); Poikilocytosis 1+ (NORMAL)
[2019-03-08] MEDS: ISOSORBIDE MONONITRATE 15 MG TAB.ER.24H PO (08:08)
[2019-03-08] MEDS: METOPROLOL TARTRATE 50 MG TAB PO (08:08)
[2019-03-08] MEDS: PANTOPRAZOLE 40 MG TABLET PO (08:08)
[2019-03-08] MEDS: METOPROLOL TARTRATE 25 MG TABLET PO (08:08)
[2019-03-08] MEDS: PSYLLIUM POWDER PACKET 1 PACKET PO ×2 (08:08→15:58)
--- NOTE | 2019-03-08 10:28 | PM.CNNEP ---
Assessment and Plan Assessment and plan (1) Abnormal results of kidney function studies: Code(s): R94.4 - Abnormal results of kidney function studies Status: Acute Assessment and Plan: The patient's creatinine is elevated. It has been stable since admission. His baseline creatinine is in the mid 1s. It is unclear if this is an acute process that coincides with his current illness or if this is some independent process. At this point it appears that he might have some pre renal factor due to cardiomyopathy and his rapid ventricular rate. He did receive IV fluids but I think he has had enough of these. We can stop the IV fluids and repeat a chest x-ray to see where we are with the fluid status. On physical exam he appears euvolemic. The patient could have other issues causing higher creatinine, such as obstruction, interstitial nephritis, or less likely some glomerulonephritis. We will check serology, immunofixation, renal ultrasound, urine electrolytes and eosinophils. We will stop IV fluids. Check a chest x-ray. Discussed with Dr. Yohannes grimaldo. (2) Chronic kidney disease, stage 3 (moderate): Code(s): N18.3 - Chronic kidney disease, stage 3 (moderate) Status: Acute Assessment and Plan: The patient has chronic kidney disease. This may be chronic pre renal azotemia. He could have vascular disease in the kidneys. He has not been evaluated for the CKD so we will do so now. (3) Atrial fibrillation with rapid ventricular response: Code(s): I48.91 - Unspecified atrial fibrillation Status: Acute Assessment and Plan: The patient is in atrial fibrillation. Discussed with Dr. James (4) Cardiomyopathy: Code(s): I42.9 - Cardiomyopathy, unspecified Status: Acute (5) Chronic respiratory failure: Qualifiers: Respiratory failure complication: hypoxia Qualified Code(s): J96.11 - Chronic respiratory failure with hypoxia Code(s): J96.10 - Chronic respiratory failure, unspecified whether with hypoxia or hypercapnia Status: Acute Assessment and Plan: The patient has significant COPD. (6) Anemia: Code(s): D64.9 - Anemia, unspecified Status: Acute Assessment and Plan: Hemoglobin has dropped with hydration. Will check stool guaiacs as well. The patient could also have some component from kidney disease as well. History of Present Illness Reason for Consult Consult date: 03/08/19 Reason for consult: Other (Elevated creatinine) Chief Complaint Chief complaint: Acute exacerbation COPD,atrial fibrillation w/ RVR History of Present Illness Narrative: Mr. vieira is a very pleasant gentleman who has multiple medical problems including history of lung cancer status post radiation therapy in 2007 now RICH, COPD, congestive heart failure, atrial fibrillation on warfarin, aortic valve replacement, chronic kidney disease with a baseline creatinine of around 1.5. The patient came in the hospital because he had progressive shortness of breath over about 2 weeks. He was not having any chest pain. No back pain or belly pain. On the day of admission he had gotten so bad that he could even get out of his chair so that he decided to come in to the emergency room. In the ER he was found to have atrial fibrillation with rapid ventricular rate. He is getting diltiazem now to slow the heart rate. He feels better. He was on a BiPAP mask for a while last night he slept with just nasal cannula then this morning he started getting short of breath again so now is back on the BiPAP mask. He is not having any chest pain. He has no swelling. The patient's creatinine generally runs about 1.4-1.5. On admission his creatinine was elevated at 2.6. This is felt to possibly be pre renal azotemia on the basis of his cardiac issues and so he was given some IV fluids and supportive care for his heart but the creatinine has not improved (but it has not worsened) so renal
--- NOTE | 2019-03-08 10:48 | PM.PNCARD ---
Progress Note: A&P Assessment and Plan (1) Atrial fibrillation with rapid ventricular response: Code(s): I48.91 - Unspecified atrial fibrillation Status: Acute Assessment and Plan: Patient has a history of paroxysmal atrial fibrillation. -Unacceptably tachycardic HR 150-160's in A.Fib/RVR. Stop Metoprolol, start IV Amiodarone 150mg IV bolus then continuous gtt per protocol. Concerned about underlying conduction system disease and seven response so will hold BB for now. He needs BB due to h/o CM, plan to reintroduce as tolerated. -Amiodarone best option given h/o cardiomyopathy, desire to avoid CCB, lack of HR control on BB, and worsening respiratory and renal status. -INR elevated, warfarin has been held. INR may climb with Amiodarone, poor intake, monitor INR and bleeding closely. Continue anticoagulation goal INR 2-3. (2) Cardiomyopathy: Code(s): I42.9 - Cardiomyopathy, unspecified Status: Acute Assessment and Plan: Moderate LV dysfunction EF 35%, chronic. History of nonischemic cardiomyopathy [place] heart Association class 3. BNP markedly elevated, however, in setting of acute renal failure, hypoxic respiratory failure. -Stop IVF. -Check CXR. -IV Lasix 60mg x1 likely based upon review of Echo. His volume status is difficult to gauge as he clinically does not appear all that volume overloaded with exception of complaints of abdominal fullness. -Stop Imdur (3) Acute kidney injury superimposed on chronic kidney disease: Code(s): N17.9 - Acute kidney failure, unspecified; N18.9 - Chronic kidney disease, unspecified Status: Acute Assessment and Plan: No improvemnt thus far, with further BUN increase. Avoid nephrotoxic agents at this time. Further workup per primary service. Greatly appreciate Nephrology involvement. Avoid Digoxin given renal failure, advanced age and underlying conduction system disease. Workup underway. (4) S/P AVR (aortic valve replacement): Code(s): Z95.2 - Presence of prosthetic heart valve Status: Acute Assessment and Plan: Prophylactic antibiotics. Goal INR 2-3. Continue warfarin. INR supratherapeutic at 4.1. Follow H/H closely. Daily INR while in the hospital. -Warfarin on hold. Resume when INR <3 but will need to adjust for Amidoarone and poor oral intake. (5) COPD exacerbation: Code(s): J44.1 - Chronic obstructive pulmonary disease with (acute) exacerbation Status: Acute Assessment and Plan: Per primary service. Predominant respiratory distress appears secondary to exacerbation of acute on chronic COPD and hypoxic respiratory failure. Methylprednisolone, bronchodilator therapy. Avoid albuterol. -Given underlying lung disease, would like to avoid Amiodarone due to pulmonary toxicity risk which was once again explained to patient. However, at this time HR poorly controlled and is complicating his medical management and I fear may jeopardize his clinical status. So, will initiate as above and monitor closely for tolerance to avoid bradycardia. Subjective Interval history: Follow-up for atrial fibrillation with rapid ventricular response Paroxysmal atrial fibrillation with rapid ventricular response Acute on chronic hypoxic respiratory failure and COPD exacerbation Moderate LV systolic dysfunction, nonischemic EF 35% History of mechanical aortic valve replacement Chronic anticoagulation Hypertension Date of service: 03/08/2019 More persistently tachycardic overnight HR 150s to 160s. More SOB this AM went back on BiPAP. No CP, palps, bleeding. INR 4.1, warfarin is being held. Appetite remains poor. No dizziness or falls. States abdomen
--- NOTE | 2019-03-08 10:56 | PM.IMPN ---
Progress Note: A&P Assessment and Plan (1) Atrial fibrillation with rapid ventricular response: Code(s): I48.91 - Unspecified atrial fibrillation Status: Acute Assessment and Plan: Started on Cardizem drip with improvement in his rate. Cardiology was consulted by the emergency department physician and their input is appreciated. Diltiazem drip transitioned to Coreg then to metoprolol. TSH normal. Heart rate elevated overnight. Discussed with Cardiology. Amiodarone to be started. Continue telemetry. INR supratherapeutic and Coumadin held. HR better controlled with AMio. (2) Acute kidney injury superimposed on chronic kidney disease: Code(s): N17.9 - Acute kidney failure, unspecified; N18.9 - Chronic kidney disease, unspecified Status: Acute Assessment and Plan: Precipitating etiology is not clear. Baseline creatinine 1.2-1.4. Cr 2.7 on admission and no significant change today. Renal US showing bilateral pleural effusions, splenomegaly and renal cysts but no hydronephrosis. Will continue to hold nephrotoxic agents. Stop IV fluids. More SOB and sounds congested. Will check CXR. Appreciate Nephrology input. (3) Acidosis, metabolic, with respiratory acidosis: Code(s): E87.4 - Mixed disorder of acid-base balance Status: Acute Assessment and Plan: Metabolic acidosis likely related to worsening renal function. No evidence to suggest underlying infection or sepsis. Lactic acid normal. Bicarb normal today but AG 16. Continue to monitor. (4) COPD exacerbation: Code(s): J44.1 - Chronic obstructive pulmonary disease with (acute) exacerbation Status: Acute Assessment and Plan: COPD exacerbation suspected. He has been started on scheduled nebulizers q.6 hours as well as Solu-Medrol. This has caused the BUN to rise. Abx on hold. Remains on 4L O2 NC that he uses chronically. Sputum ordered. Patietn became more SOB and was placed back on BiPAP today. CXR showing small pleural effusions and CMG. Hold lasix. Called by RN due to patient complaining of abd distention and cramping. No flatus. KUB ordering showing dilated SB. He appeared villalobos but no cyanosis. He was placed back on the BiPAP and ABG collected showing 7.22/53/72 on BiPAP. Will adjust settings. (5) CHF (congestive heart failure): Qualifiers: Heart failure chronicity: chronic Heart failure type: combined systolic and diastolic Qualified Code(s): I50.42 - Chronic combined systolic (congestive) and diastolic (congestive) heart failure Code(s): I50.9 - Heart failure, unspecified Status: Acute Assessment and Plan: Patient with cardiomyopathy with recent echo in October showing severe global LV systolic dysfunction worse in the inferoposterior segments giving an EF of 36%. There is also pseudonormal diastolic dysfunction grade 2 with moderate to severe biatrial enlargement. More SOB probably related to mild CHF given the uncontrolled rate and the IVF. Stop IVF. Check CXR. Lasix on hold. (6) Hyperkalemia: Code(s): E87.5 - Hyperkalemia Status: Acute Assessment and Plan: Potassium now remaining normal. [place] related to his renal failure. Continue to monitor. IVF stopped. (7) S/P AVR (aortic valve replacement): Code(s): Z95.2 - Presence of prosthetic heart valve Status: Acute Assessment and Plan: Patient has a mechanical aortic valve. He is on Coumadin long-term for this. Echo in October showed normal appearing mechanical aortic valve prosthesis. INR 4.1. Will hold Coumadin for now. (8) Chronic respiratory failure: Qualifiers: Respiratory failure complication: hypoxia Qualified Code(s): J96.11 - Chronic respiratory failure with hypoxia Code(s): J96.10 - Chronic respiratory failure, unspecified whether with hypoxia or hypercapnia Status: Acute Assessment and Plan: P
[2019-03-08] MEDS: AMIODARONE 150 MG/D5W 100 ML 150 MG/100 ML BAG 600 MG IV CONT (11:12)
[2019-03-08] MEDS: AMIODARONE 360 MG/D5W 200 ML 360 MG/200 ML BAG 33.3 MG IV CONT (11:12)
[2019-03-08 11:54] LABS: Sodium Urine Random < 5 meq/L
[2019-03-08 11:55] LABS: Creatinine Urine 138.9 mg/dL; Total Protein Urine Random 39 mg/dL
[2019-03-08 13:12] LABS: Creatine Kinase 46 U/L (55-170)
[2019-03-08 13:19] LABS: Add Urine Microscopic? YES; Appearance Urine Cloudy (Clear); Bacteria Urine Trace /hpf; Bilirubin Urine Negative (Negative); Blood Urine 3+ (Negative); Color Urine Red (Yellow); Glucose Urine UA Negative (Negative); Ketones Urine Negative (Negative); Leukocyte Esterase Ur 1+ LEU/UL (NEGATIVE); Nitrate Urine Negative (Negative); Protein Urine 2+ mg/dL (Negative); RBC Urine >75 /hpf (0-2); Specific Grav Ur 1.017 (1.001-1.035); Squamous Epithelial Cell Urine Rare /hpf (Few); WBC Urine 51-75 /hpf (0-3)
[2019-03-08 14:04] LABS: Erythrocyte Sedimentation Rate 1 mm/hr (0-20)
--- NOTE | 2019-03-08 14:21 | PCPTNOTE ---
ATTEMPTED TO EVAL THIS PATIENT THIS AFTERNOON....PT IS ON BIPAP, STATES THAT HE IS HAVING A HARD TIME BREATHING...SPOKE WITH NSG, SAID DEFER PT UNTIL TOMORROW...SEE TOMORROW APPROPRIATE
[2019-03-08] MEDS: SIMETHICONE 125 MG CHEW TAB PO (15:58)
[2019-03-08] MEDS: AMIODARONE 360 MG/D5W 200 ML 360 MG/200 ML BAG 16.7 MG IV CONT (16:42)
[2019-03-08 18:07] LABS: Alveolar/Arterial O2 Gradient 152.2 mmHg; Base Excess ABG -6.9 mEq/l (+/-2.0); Fractional Inspired Oxygen 40 %; HCO3 ABG 21.1 mEq/l (22.0-26.0); Oxygen Content ABG 17.1 %vol (16.0-22.0); Oxygen Saturation ABG 91.3 % (95.0-100.0); Oxyhemoglobin 90.5 % THb (90.0-100.0); PCO2 ABG 52.7 mmHg (35.0-45.0); PO2 ABG 72.4 mmHg (80.0-100.0); PO2 FiO2 Ratio Arterial Blood 1.81 %; Total Hemoglobin 13.4 g/dL (12.0-18.0)
[2019-03-08 18:08] LABS: Site Drawn LEFT RADIAL
[2019-03-08 18:09] LABS: Device NON-INVASIVE VENT; Modified Allen's Test Pass; Non-Invasive Inspiratory Pressure 12 CMH2O; Non-Invasive Vent Rate 4 /MIN
[2019-03-08 18:10] LABS: Non-Invasive Expiratory Pressure 5 CMH2O
[2019-03-08] MEDS: BISACODYL 10 MG SUPPOSITORY RECTAL (18:24)
[2019-03-08] MEDS: LORAZEPAM INJ 2 MG/ML VIAL 0.5 MG IV PUSH (18:51)
--- NOTE | 2019-03-08 19:45 | PM.EVENT ---
Event Note Event Note: S: I was notified around turn of shift this evening by the patient's nurse and attending hospitalist, Dr. Sevilla, of his increasing shortness of breath requiring initiation of BiPAP. Despite changes in BiPAP settings, his blood gases have not changed. Given his comorbidities and deterioration, the decision was made to transfer the patient to the intensive care unit for intubation. Consent was obtained by the floor nurse from the patient's daughter/power of ip technology transactions attorney Lisseth Allen. I discussed this with the patient as well, and he was in agreement. He continues to feel short of air, and ?just wants to take a nap.? He also complains of increasing abdominal distention and discomfort due to such, but no overt abdominal pain. He denies chest pain, pleuritic pain, nausea, and vomiting. O: Acute and chronically ill-appearing elderly male sitting up in bed on the BiPAP. He frequently reaches for the mask in attempt to remove it. Mildly tachypneic with decreased breath sounds throughout and expiratory wheezing. Increased AP diameter noted. He is tachycardic with an irregular rate and rhythm, telemetry showing atrial fibrillation/rapid ventricular response. Abdomen is slightly distended, is firm, and slightly tender to palpation diffusely throughout. No voluntary guarding or rebound tenderness. Bowel sounds very hypoactive. Skin is cool and dry. Capillary refill approximately 3 seconds. Extremities perfused. Alert and oriented x2. Occasionally answers questions inappropriately, I am not certain if he is not hearing my questions or if he is confused. A: Mr. Sampson has a complex medical history with chronic respiratory failure, COPD, congestive heart failure, chronic kidney disease, and several other comorbidities. I admitted him to the hospital 03/06/2019 after he presented with shortness of breath. He is currently being treated for the following: Acute on chronic respiratory failure: Currently on BiPAP without a whole lot of improvement as detailed above. Atrial fibrillation/rapid ventricular response: Initially on a Cardizem drip, transition to Coreg and ultimately metoprolol. Heart rate elevated last evening, now on an amiodarone drip. Coumadin on hold due to supratherapeutic INR. Acute kidney injury on chronic kidney disease: Baseline creatinine 1.2-1.4. Was 2.7 on admission without significant change despite holding diuretics and hydrating cautiously. Fluids stopped this afternoon due to increasing shortness of breath and congestion. Chest x-ray with small effusions. Padilla in place with minimal output over the last 2 hours. Mixed respiratory and metabolic acidosis: Media to be due to worsening renal function and respiratory failure respectively. No evidence to suggest infection with normal lactic acid level. He has intermittently been on BiPAP due to work of breathing, and is being treated for presumed COPD exacerbation. Back on BiPAP today and despite adjustments, no significant change in the subjective shortness of breath or in pH/pCO2. Combined systolic and diastolic congestive heart failure: Clinically appears dry and furosemide continues to be on hold. IV fluids have been stopped as detailed above. Ileus versus partial small-bowel obstruction: Noted on KUB this afternoon. NG tube to be placed. P: Patient is transferred to the intensive care unit after consulting Dr. Stout. He recommends intubation, and vent settings as well as sedation orders were given via telephone. Repeat blood gas in 1 hour. Post intubation chest x-ray reviewed by myself at bedside. ET tube approximately 2.5-3 cm above the graciela. Stable cardiomegaly. Increasing infiltrates bilaterally, right greater than left and right lower lobe atelectasis. NG tube placed for ileus versus partial small-bowel obstruction with KUB demonstrates NG tube in the stomach with dilated bowel. Continue amiodarone drip for rate control. Continue to hold Lasix give
[2019-03-08 20:06] LABS: Alveolar/Arterial O2 Gradient 150.3 mmHg; Base Excess ABG -6.6 mEq/l (+/-2.0); Fractional Inspired Oxygen 40 %; HCO3 ABG 21.6 mEq/l (22.0-26.0); Oxygen Content ABG 17.3 %vol (16.0-22.0); Oxygen Saturation ABG 91.3 % (95.0-100.0); PCO2 ABG 54.2 mmHg (35.0-45.0); PO2 ABG 72.6 mmHg (80.0-100.0); PO2 FiO2 Ratio Arterial Blood 1.81 %; Total Hemoglobin 13.5 g/dL (12.0-18.0)
[2019-03-08 20:08] LABS: Device NON-INVASIVE VENT; Modified Allen's Test Pass; Site Drawn LEFT RADIAL; pH ABG 7.218 (7.350-7.450)
[2019-03-08 20:09] LABS: Non-Invasive Expiratory Pressure 6 CMH2O; Non-Invasive Inspiratory Pressure 16 CMH2O; Non-Invasive Vent Rate 14 /MIN
--- NOTE | 2019-03-08 20:45 | PC.NURSE ---
This patient, Jeff Sampson, was received from [ ] on 03/09/19 at 0703. Personal belongings list checked and signed. Patient/family oriented to unit policies and routines
--- NOTE | 2019-03-08 20:45 | PC.NURSE ---
This patient, Jeff Sampson, was received from IMU on 03/08/19 at 2045. Personal belongings list checked and signed. Patient/family oriented to unit policies and routines
--- NOTE | 2019-03-08 20:45 | PC.NURSE ---
2044- Lisseth Allen (daughter) POA notified that patient is being transferred to ICU-2, for increased oxygen demands. Questions answered and daughter agrees to plan.
--- NOTE | 2019-03-08 21:15 | WPDPROCEDUR ---
Procedures Intubation: Intubation Date: 03/08/19 <Hillary Ventura PA-C - Last Filed: 03/08/19 21:45> Intubation Time: 21:15 <ANA Green Last Filed: 03/08/19 21:45> Consent: Consent obtained by bedside nurse from the patients POKathy/daughterLisseth. <Hillary Ventura PA-C - Last Filed: 03/08/19 21:45> A pre-procedural Time-Out was completed immediately before starting the procedure and confirmed: Patient Identification, Site, Procedure, Patient Position and the Availability of Requisite Equipment: Yes <ANA Green Last Filed: 03/08/19 21:45> Sedative: etomidate <Hillary Ventura PA-C - Last Filed: 03/08/19 21:45> Mg given: 15 <Hillary Ventura PA-C - Last Filed: 03/08/19 21:45> Paralytic: succinylcholine <Hillary Ventura PA-C - Last Filed: 03/08/19 21:45> Mg given: 75 <ANA Green Last Filed: 03/08/19 21:45> Laryngoscope: fiber optic video scope <ANA Green Last Filed: 03/08/19 21:45> ET tube size: 7.5 <ANA Green Last Filed: 03/08/19 21:45> Tube secured depth (cm): 21 <ANA Green Last Filed: 03/08/19 21:45> Tube secured location: lips <ANA Green Last Filed: 03/08/19 21:45> Tube placement confirmation: visualized tube passing through cords, equal breath sounds bilaterally, no breath sounds over epigastrium and confirmation by capnometry <ANA Green Last Filed: 03/08/19 21:45> Patient tolerated procedure: well and no complications <ANA Green Last Filed: 03/08/19 21:45> Intubation complications: none <Hillary Ventura PA-C - Last Filed: 03/08/19 21:45> Additional comments: Chest x-ray reviewed by myself at bedside. ET tube approximately 2.5-3 cm above the graciela. Stable cardiomegaly. Increasing infiltrates bilaterally, right greater than left and right lower lobe atelectasis. KUB demonstrates NG tube in the stomach with dilated bowel. Dr. Ross Buenrostro, attending ED physician, was notified prior to the procedure and was available if needed. <Hillary Ventura PA-C - Last Filed: 03/08/19 21:45>
[2019-03-08] MEDS: MIDAZOLAM HCL 50 MG in DEXTROSE 5% 90 ML IV CONT (21:41)
[2019-03-08] MEDS: ETOMIDATE 20 MG/10 ML AMPUL 15 MG IV PUSH (22:05)
[2019-03-08] MEDS: SUCCINYLCHOLINE CHLORIDE 20 MG/ML 10 ML VIAL 75 MG IV PUSH (22:05)
[2019-03-08 22:21] LABS: Alanine Aminotransferase 50 U/L (4-50); Albumin Level 4.4 g/dL (3.5-5.1); Alkaline Phosphatase 102 U/L (38-126); Aspartate Amino Transferase 80 U/L (17-59); Bilirubin,Total 2.4 mg/dL (0.2-1.3); Blood Urea Nitrogen 77 mg/dL (9-20); Calcium 8.3 mg/dL (8.4-10.2); Carbon Dioxide 18 mmol/L (22-30); Chloride 100 mmol/L (98-107); Estimated CRCL calculation 15 ml/min; Estimated Glomerular Filt Rate 18; Glucose 186 mg/dL (75-110); Potassium 6.2 mmol/L (3.4-5.0); Sodium 136 mmol/L (137-145)
[2019-03-08] MEDS: INSULIN HUMAN REGULAR (*BKC) 100 UNITS/ML 10 UNITS IV PUSH (22:54)
[2019-03-08] MEDS: DEXTROSE 50% 25 GM/50 ML SYRINGE IV PUSH (22:54)
[2019-03-08] MEDS: SODIUM BICARBONATE 8.4% 50 MEQ/50 ML SYRINGE IV PUSH (22:54)
[2019-03-08 23:14] LABS: Alveolar/Arterial O2 Gradient 405.2 mmHg; Base Excess ABG -0.5 mEq/l (+/-2.0); Carboxyhemoglobin 0.5 % THb (0-2.0); Fractional Inspired Oxygen 80 %; HCO3 ABG 26.3 mEq/l (22.0-26.0); Methemoglobin ABG 0.4 %THb (0-1.5); Oxygen Content ABG 17.9 %vol (16.0-22.0); Oxygen Saturation ABG 97.6 % (95.0-100.0); Oxyhemoglobin 96.5 % THb (90.0-100.0); PO2 ABG 110.6 mmHg (80.0-100.0); PO2 FiO2 Ratio Arterial Blood 1.38 %; Reduced Hemoglobin 2.6 %THb (0-5.0); Total Hemoglobin 13.1 g/dL (12.0-18.0); pH ABG 7.321 (7.350-7.450)
[2019-03-08 23:15] LABS: Device VENTILATOR; Modified Allen's Test Pass; Site Drawn RIGHT BRACHIAL
[2019-03-08 23:17] LABS: Arterial Blood Gas PEEP 5 cmH2O; Arterial Blood Gas Tidal Volume 500 ml; Arterial Blood Gas Vent Mode CMV; Arterial Blood Gas Ventilator rate 16 /MIN
[2019-03-08] MEDS: CALCIUM GLUC 1,000 MG/NS 50 ML 1,000 MG/50 ML BAG 100 MG IVPB (23:46)
[2019-03-09] VITALS (41 sets, daily range): BP systolic 79–133; BP diastolic 56–105; PULSE 84–127; RESP 16–19; TEMP 35.9–36.9; O2SAT 92–100
[2019-03-09 01:03] LABS: Reflex Lactic Acid Yes or No Add Lactic
[2019-03-09 01:06] LABS: Magnesium 2.2 mg/dL (1.6-2.3); Phosphorus 6.4 mg/dL (2.5-4.5)
[2019-03-09 01:08] LABS: Potassium 5.6 mmol/L (3.4-5.0)
[2019-03-09 01:09] LABS: Lactic Acid 4.6 mmol/L (0.7-2.1)
[2019-03-09] MEDS: SODIUM CHLORIDE 0.9% IV 250 ML 100 ML IV CONT (01:09)
[2019-03-09 01:12] LABS: Blood Urea Nitrogen 79 mg/dL (9-20); Calcium 8.5 mg/dL (8.4-10.2); Carbon Dioxide 17 mmol/L (22-30); Chloride 100 mmol/L (98-107); Estimated CRCL calculation 16 ml/min; Estimated Glomerular Filt Rate 19; Glucose 174 mg/dL (75-110); Sodium 138 mmol/L (137-145)
[2019-03-09] MEDS: methylPREDNISolone SOD SUCC 125 MG VIAL 60 MG IV PUSH ×4 (01:12→17:28)
[2019-03-09] MEDS: ALBUTEROL SULFATE NEB 2.5 MG/0.5 ML INH 5 MG INHALATION ×4 (01:42→19:41)
[2019-03-09] MEDS: IPRATROPIUM BR 0.02% INH SOLN 0.5 MG/2.5 ML VIAL INHALATION ×4 (01:43→19:41)
[2019-03-09 02:03] LABS: Prothrombin Time 64.3 Seconds (11.1-14.7)
[2019-03-09] MEDS: SODIUM CHLORIDE 0.9% IV 500 ML IV CONT (02:07)
[2019-03-09 02:08] LABS: INR 7.7
[2019-03-09 02:48] LABS: Mean Platelet Volume 11.9 fl (7.4-10.4); Platelet Count Result 232 k/mm3 (150-375)
[2019-03-09] MEDS: AMPICILLIN SODIUM/SULBACTAM 3 GM in SODIUM CHLORIDE 0.9% IV 100 ML IVPB ×3 (02:49→22:16)
[2019-03-09 03:01] LABS: Partial Thromboplastin Time 47.1 SECONDS (22.3-36.8)
[2019-03-09 03:02] LABS: Magnesium 1.9 mg/dL (1.6-2.3)
[2019-03-09 03:12] LABS: Fibrinogen 131 mg/dl (215-510)
--- NOTE | 2019-03-09 03:15 | P.PCNBED_ITS ---
Procedures Central Line Placement: Right Femoral: Discussed w/ patient and/or surrogate, the non-emergent placement of a central venous catheter, including its clinical necessity/indication & associated potential risks & complications.: Yes The patient and/or surrogate understand(s) and acknowledge(s) the need to proceed with central venous catheter insertion as an important element of the patient's clinical management.: Yes Central Line Date: 03/09/19 Central Line Time: 02:00 Pre-procedural Time-Out was completed immediately before starting the procedure and confirmed: Patient Identification, Site, Procedure, Patient Position and the Availability of Requisite Equipment.: Yes Patient Position: other (Vascular) Patient placed on monitor/pulse ox: Yes Provider Prep: mask, sterile gown, sterile gloves, Max. sterile barrier precautions, cap and hand hygiene Central line prep: Chlorhexidine scrub and sterile full body sheet applied Ultrasound used for placement: Yes Central line lumen inserted: triple Nepalese: 7 Length (cm): 16 Depth of Insertion (cm): 15 Post procedure: sutured in place, good blood return, all ports aspirated, flushed, capped, tegaderm, hemostatic disc and aseptic technique maintained throughout procedure Post procedure x-ray: other (Not indicated for femoral line) Patient tolerated procedure: well Additional comments: Patient's INR is 7. Patient had a fair amount of oozing and there was subsequently about 20-25 mL of estimated blood loss.
--- NOTE | 2019-03-09 03:26 | PM.EVENT ---
Event Note Event Note: The patient said further decline in his clinical condition. He has had persistent hypotension and worsening lactic acidosis. Subsequently I placed a right femoral central venous catheter. Patient was known to have an elevated INR but his INR continued to climb to 7.7. A DIC panel was ordered. Initially I given an order for 10 mg of IV vitamin K. However this still has not arrived from the pharmacy. Patient's bicarb remains low and his lactic acid is climbed to 4.6. I called brokerage purchase and sale clerk to discuss the patient's condition and new lab results. We had initially decided to give the patient a unit of cryoprecipitate since had already ordered the vitamin K we were not going to give FFP. However, patient still has not received vitamin K. so at this time I have discontinued the vitamin K and instead of ordered 1 unit of FFP and 1 unit of cryoprecipitate. Repeat labs have been ordered for a.m.. 30 minutes was spent in critical care activities in exclusion of procedures including initiating pressor therapy, and in consultation with brokerage purchase and sale clerk.
[2019-03-09] MEDS: AMIODARONE 360 MG/D5W 200 ML 360 MG/200 ML BAG 16.7 MG IV CONT ×2 (04:03→16:32)
[2019-03-09] MEDS: SODIUM BICARBONATE 8.4% 150 MEQ in DEXTROSE 5% 1,000 ML 950 ML 50 MEQ IV CONT (04:03)
[2019-03-09 04:36] LABS: Basophils Percent Auto 0.1 % (0.2-1.2); Eosinophils Percent Auto 0.1 % (0-4.4); Hematocrit 36.3 % (42.0-52.0); Immature Granulocyte Percent A 0.6 % (0-0.5); Immature Platelet Fraction Pct 10.2 % (0.9-11.2); Lymphocytes Absolute Auto 0.18 K/mm3 (0.9-3.2); Lymphocytes Percent Auto 1.1 % (18.3-44.2); Mean Corpuscular HGB Conc 30.3 g/dl (32-36); Mean Corpuscular Hemoglobin 25.2 pg (26-34); Mean Corpuscular Volume 83.3 fl (80-100); Mean Platelet Volume 12.6 fl (7.4-10.4); Monocytes Absolute Auto 1.1 K/mm3 (0.1-0.6); Monocytes Percent Auto 6.6 % (2.6-8.5); Neutrophils Absolute Auto 14.6 K/mm3 (1.3-6.7); Neutrophils Percent Auto 91.5 % (45.5-73.1); Nucleated Red Blood Cells Perc 0.2 % (0.0-0.2); Platelet Count Result 200 k/mm3 (150-375); Red Blood Count 4.36 M/mm3 (4.6-6.20)
[2019-03-09 04:50] LABS: Albumin Level 3.6 g/dL (3.5-5.1); Blood Urea Nitrogen 83 mg/dL (9-20); Carbon Dioxide 24 mmol/L (22-30); Chloride 99 mmol/L (98-107); Estimated CRCL calculation 15 ml/min; Estimated Glomerular Filt Rate 18; Glucose 142 mg/dL (75-110); Phosphorus 4.4 mg/dL (2.5-4.5); Sodium 136 mmol/L (137-145)
[2019-03-09 04:57] LABS: INR 7.8
[2019-03-09 05:42] LABS: Alveolar/Arterial O2 Gradient 279.6 mmHg; Base Excess ABG -0.1 mEq/l (+/-2.0); Fractional Inspired Oxygen 80 %; HCO3 ABG 24.9 mEq/l (22.0-26.0); Oxygen Content ABG 17.3 %vol (16.0-22.0); Oxygen Saturation ABG 99.6 % (95.0-100.0); PCO2 ABG 41.9 mmHg (35.0-45.0); PO2 ABG 246.8 mmHg (80.0-100.0); PO2 FiO2 Ratio Arterial Blood 3.09 %; Total Hemoglobin 12.1 g/dL (12.0-18.0); pH ABG 7.392 (7.350-7.450)
[2019-03-09 05:43] LABS: Device VENTILATOR; Modified Allen's Test Pass; Site Drawn LEFT RADIAL
[2019-03-09 05:44] LABS: Arterial Blood Gas PEEP 5 cmH2O; Arterial Blood Gas Tidal Volume 500 ml; Arterial Blood Gas Vent Mode CMV; Arterial Blood Gas Ventilator rate 16 /MIN
[2019-03-09] MEDS: SODIUM CHLORIDE 0.9% IV 250 ML 30 ML IV CONT (06:13)
[2019-03-09] MEDS: CENTRAL LINE FLUSH 10 ML XX ×3 (06:20→22:17)
[2019-03-09 07:22] LABS: Platelet Estimate Adequate (Adequate); Poikilocytosis 1+ (NORMAL)
[2019-03-09 07:23] LABS: Ovalocytes 1+ (NORMAL)
[2019-03-09] MEDS: DORNASE ALFA INH SOLN 1 MG/ML 2.5 ML AMP 2.5 MG INHALATION ×2 (08:53→19:40)
--- NOTE | 2019-03-09 09:22 | WPDCNINT ---
Assessment and Plan Assessment and plan (1) Acute respiratory failure: Code(s): J96.00 - Acute respiratory failure, unspecified whether with hypoxia or hypercapnia Status: Acute Assessment and Plan: acute respiratory failure likely related to COPD exacerbation, pneumonia, congestive heart failure due to diastolic dysfunction, pleural effusions as seen on CT scan of the chest. - It CMV mode of ventilation, will decrease tidal volumes, will decrease FiO2. Maintain O2 sats greater 90% - chest x-ray, CT scan of chest/abdomen /pelvis, ABGs reviewed - continue Unasyn, will add vancomycin - cultures have been obtained (2) Severe sepsis: Code(s): A41.9 - Sepsis, unspecified organism; R65.20 - Severe sepsis without septic shock Status: Acute Assessment and Plan: patient with severe sepsis elevated lactic acidosis, 4.6 last night, 2.0 this morning after receiving IV fluids - patient currently with decreased urine output, acute on chronic renal failure - continue bicarbonate infusion, will increase to 75 mL/hour - continue antibiotics as above, cultures have been obtained (3) CHF (congestive heart failure): Qualifiers: Heart failure chronicity: chronic Heart failure type: combined systolic and diastolic Qualified Code(s): I50.42 - Chronic combined systolic (congestive) and diastolic (congestive) heart failure Code(s): I50.9 - Heart failure, unspecified Status: Acute Assessment and Plan: echocardiogram thoughts on 11/20/2018 showed EF of 35%, related to diastolic dysfunction, moderate enlargement of the LV cavity, severe enlargement of LA, moderate enlargement of RA. Mild pulmonary hypertension with RVSP of 38 mmHg, normal appearing mechanical aortic valve prosthesis valve area of 1.17 cm2 (4) Acute kidney injury superimposed on chronic kidney disease: Code(s): N17.9 - Acute kidney failure, unspecified; N18.9 - Chronic kidney disease, unspecified Status: Acute Assessment and Plan: patient with history of chronic kidney disease. Now with worsening creatinine, likely secondary to hypotension, severe sepsis, pneumonia, hypoxia, hypovolemia - patient given IV fluid bolus and currently on maintenance IV fluids with sodium bicarb infusion. Patient also received FFP and cryoprecipitate - will continue to monitor urine output, renal function electrolytes - nephrology following the patient (5) A-fib: Code(s): I48.91 - Unspecified atrial fibrillation Status: Acute Assessment and Plan: patient with history of AFib, was in AFib RVR overnight and started on amiodarone infusion - currently on amiodarone infusion at 0.5 mg, rate controlled (6) COPD exacerbation: Code(s): J44.1 - Chronic obstructive pulmonary disease with (acute) exacerbation Status: Acute Assessment and Plan: patient with history of severe COPD and uses 4-5 L of oxygen at at home at all times according the daughter - chest CT shows blebs - will decrease tidal volume on the mechanical ventilator, will wean FiO2 and maintain O2 sats greater than 90% (7) S/P AVR (aortic valve replacement): Code(s): Z95.2 - Presence of prosthetic heart valve Status: Acute Assessment and Plan: see echocardiogram report is above - patient with mechanical aortic valve, on Coumadin - INR currently supratherapeutic at 7.8 (8) Coagulopathy: Code(s): D68.9 - Coagulation defect, unspecified Status: Acute Assessment and Plan: supratherapeutic INR, likely related to Coumadin, severe sepsis - will give vitamin K 5 mg IVPB, patient also was received FFP 1 unit - DIC panel showed low fibrinogen and patient receive some cryoprecipitate - will repeat INR later this afternoon (9) DVT prophylaxis: Code(s): Z29.9 - Encounter for prophylactic measures, unspecified Status: Acute Assessment and Plan:
[2019-03-09] MEDS: PHYTONADIONE ADULT INJ 5 MG in DEXTROSE 5% IN WATER 50 ML 100 MG IVPB (09:23)
--- NOTE | 2019-03-09 09:55 | PCPTNOTE ---
Attempted to see this pt this morning for PT evaluation....declined by NSG....PT came to ICU from IMU earlier...he is intubated and sedated...will see tomorrow as appropriate
--- NOTE | 2019-03-09 10:07 | PM.PNNEP ---
Progress Note: A&P Assessment and Plan (1) Abnormal results of kidney function studies: Code(s): R94.4 - Abnormal results of kidney function studies Status: Acute Assessment and Plan: The patient's creatinine is elevated. Renal ultrasound shows no hydronephrosis. Urine electrolytes show pre renal azotemia. He does have mildly reduced ejection fraction but not bad enough to cause cardiorenal syndrome. Chest x-ray does have infiltrates. He has lots of pulmonary issues including COPD, radiation injury possibly, he may be acute issues due to this episode. At this point I agree with continuing IV fluids but we are watching the pulmonary status closely. Discussed with Overall prognosis is very poor considering his severe chronic morbidities as well his severe acute issues (2) Chronic kidney disease, stage 3 (moderate): Code(s): N18.3 - Chronic kidney disease, stage 3 (moderate) Status: Acute Assessment and Plan: The patient has chronic kidney disease. This may be chronic pre renal azotemia. He could have vascular disease in the kidneys. (3) Atrial fibrillation with rapid ventricular response: Code(s): I48.91 - Unspecified atrial fibrillation Status: Acute Assessment and Plan: The patient is in atrial fibrillation. Dr Dean is on the case. (4) Cardiomyopathy: Code(s): I42.9 - Cardiomyopathy, unspecified Status: Acute Assessment and Plan: EF 36% and diastolic dysfunction grade 2. (5) Chronic respiratory failure: Qualifiers: Respiratory failure complication: hypoxia Qualified Code(s): J96.11 - Chronic respiratory failure with hypoxia Code(s): J96.10 - Chronic respiratory failure, unspecified whether with hypoxia or hypercapnia Status: Acute Assessment and Plan: The patient has significant COPD. (6) Anemia: Code(s): D64.9 - Anemia, unspecified Status: Acute Assessment and Plan: Hemoglobin has dropped with hydration. His stools are guaiac positive. His INR is very high. This is being corrected gingerly Hemoglobin is 11. No need for EPO yet. Subjective Interval history: Patient has deteriorated since my visit yesterday. His shortness of breath continued to worsen and so he moved to ICU and is now intubated. He is sedated and cannot give a history Review of Systems Cardiovascular: Cardiovascular: Reports no additional cardiovascular complaints Respiratory: Respiratory: Reports no additional respiratory complaints Gastrointestinal: Gastrointestinal: Reports no additional gastrointestinal complaints Genitourinary: Genitourinary: Reports no additional male genitourinary complaints Exam Narrative: Exam Narrative: Well developed well-nourished in no acute distress Lungs course Heart regular without rub Abdomen bowel sounds positive soft nontender Extremities no edema Skin no rash Objective Data Vital Signs Vital Signs: Vital Signs - 24 hr 03/08/19 10:46 03/08/19 12:00 03/08/19 12:17 Temperature 36.3 C L Pulse Rate 101 H 102 H Respiratory Rate 12 22 H Blood Pressure 103/82 104/59 L Pulse Oximetry 93 99 03/08/19 14:00 03/08/19 15:20 03/08/19 15:24 Temperature Pulse Rate 101 H 102 H Respiratory Rate 22 H Blood Pressure Pulse Oximetry 93 03/08/19 15:31 03/08/19 16:00 03/08/19 17:31 Temperature 36.3 C L Pulse Rate 100 118 H 97 Respiratory Rate 20 28 H 35 H Blood Pressure 115/86 Pulse Oximetry 96 90 03/08/19 18:00 03/08/19 19:29 03/08/19 20:00 Temperature 36.2 C L Pulse Rate 108 H 97 Respiratory Rate 22 H Blood Pressure 107/78 Pulse Oximetry 92 03/08/19 21:59 03/08/19 22:00 03/08/19 23:21 Temperature Pulse Rate 122 H 109 H 121 H Respiratory Rate 22 H Blood Pressure 115/54 L Pulse Oximetry 99 03/09/19 00:00 03/09/19 01:22 03/09/19 01:43 Temperature Pulse Rate 108 H 103
[2019-03-09 11:38] LABS: Creatinine 24 Hour Urine 0.2 gm/24 (1.0-2.0); Total Volume 24 Hour Urine 250 ml
[2019-03-09] MEDS: PANTOPRAZOLE SODIUM IV 40 MG VIAL IV PUSH ×2 (11:43→20:07)
--- NOTE | 2019-03-09 11:55 | PM.PNCARD ---
Progress Note: A&P Assessment and Plan (1) Atrial fibrillation with rapid ventricular response: Code(s): I48.91 - Unspecified atrial fibrillation Status: Acute Assessment and Plan: Patient has a history of paroxysmal atrial fibrillation. Persistent atrial fibrillation on amiodarone, heart rate better controlled. INR elevated despite holding warfarin, developing DIC given FFP, cryo and 5mg Vit K. IDeally, would want to avoid reversal unless bleeding, however, given clinical circumstances and hig risk for bleeding critical care and primary service felt this was warranted. I agree although will need to monitor closely and resume A/C as soon as we are able. Fortunately, mechanical valve in aortic position carries a lower thromboembolic risk than mitral position. (2) Cardiomyopathy: Code(s): I42.9 - Cardiomyopathy, unspecified Status: Acute Assessment and Plan: Moderate LV dysfunction EF 35%, chronic. History of nonischemic cardiomyopathy [place] heart Association class 3. BNP markedly elevated, however, in setting of acute renal failure, hypoxic respiratory failure. -continue to monitor clinically. Hold on diuretics. (3) Acute kidney injury superimposed on chronic kidney disease: Code(s): N17.9 - Acute kidney failure, unspecified; N18.9 - Chronic kidney disease, unspecified Status: Acute Assessment and Plan: No improvemnt thus far, with further BUN increase. Avoid nephrotoxic agents at this time. Further workup per primary service. (4) S/P AVR (aortic valve replacement): Code(s): Z95.2 - Presence of prosthetic heart valve Status: Acute Assessment and Plan: Prophylactic antibiotics. Goal INR 2-3. As above. (5) COPD exacerbation: Code(s): J44.1 - Chronic obstructive pulmonary disease with (acute) exacerbation Status: Acute Assessment and Plan: Per Critical Care. (6) Acute respiratory failure: Code(s): J96.00 - Acute respiratory failure, unspecified whether with hypoxia or hypercapnia Status: Acute Assessment and Plan: s/p intubation due to progressive failure. (7) Severe sepsis: Code(s): A41.9 - Sepsis, unspecified organism; R65.20 - Severe sepsis without septic shock Status: Acute Assessment and Plan: IV ABx,, supportive care. (8) Coagulopathy: Code(s): D68.9 - Coagulation defect, unspecified Status: Acute Assessment and Plan: As above. Follow coags. Warfarin on hold. Clinical picture, DIC concerns and rapidly worsening coagulopathy warranted aggressive management to lessen bleeding risk. Pt is critically ill with poor overall prognosis. Subjective Interval history: Follow-up for atrial fibrillation with rapid ventricular response Paroxysmal atrial fibrillation with rapid ventricular response Acute on chronic hypoxic respiratory failure and COPD exacerbation Moderate LV systolic dysfunction, nonischemic EF 35% History of mechanical aortic valve replacement Chronic anticoagulation Hypertension Date of service: 03/09/2019 Overnight patient developed worsening acute on chronic hypoxic respiratory failure, severe sepsis with elevated lactic acid, coagulopathy INR greater than 7, persistent renal failure decreased urine output required transfer to the ICU and intubation. He remains on amiodarone, heart rate better controlled. Unable to provide history due to intubation and sedation. He is not on pressors as yet. Received FFP, cryo, and 5mg Vit K for DIC and coagulopathy. Review of Systems Review of Systems: All systems reviewed & are unremarkable except as noted in HPI and below ROS unobtainable: kahlil
[2019-03-09 15:31] LABS: INR 2.9; Prothrombin Time 29.6 Seconds (11.1-14.7)
--- NOTE | 2019-03-09 16:09 | PM.IMPN ---
Progress Note: A&P Assessment and Plan (1) Severe sepsis: Code(s): A41.9 - Sepsis, unspecified organism; R65.20 - Severe sepsis without septic shock Status: Acute Assessment and Plan: Patient with severe sepsis and now with HoTN requiring Levophed. Consider PNA as the source. BCx collected and broad spectrum abx ordered. Remains on neb treatments and Pulmozyme. COntinue supportive care. (2) Acute respiratory failure: Code(s): J96.00 - Acute respiratory failure, unspecified whether with hypoxia or hypercapnia Status: Acute Assessment and Plan: Was being treated for COPD exacerbation but patient developed acute respiratory failure yesterday possibly from combination of PNA and CHF. He has moderate sized pleural effsions with dependent opacities (atel vs PNA). Broad-spectrum antibiotics started. Probably fluid overloaded causing the ascites. Aortic valve is well position by recent echocardiogram. Probably more CHF related given the IV fluids for his acute kidney injury. Continue nebulizer treatments. Continue Solu-Medrol. (3) Coagulopathy: Code(s): D68.9 - Coagulation defect, unspecified Status: Acute Assessment and Plan: INR climbed to 7.8 related to the sepsis. INR better at 2.9 after the FFP and cryoglobulin. Start heparin drip possibly tomorrow. (4) Atrial fibrillation with rapid ventricular response: Code(s): I48.91 - Unspecified atrial fibrillation Status: Acute Assessment and Plan: Started on Cardizem drip with improvement in his rate. Diltiazem drip transitioned to Coreg then to metoprolol. TSH normal. Heart rate became more elevated and amiodarone was started on 03/08/19. Overall heart rate has become better controlled. Appreciate cardiology input. Continue telemetry. INR was supratherapeutic but better now. Continue amiodarone drip and monitor INR daily. (5) Ileus: Code(s): K56.7 - Ileus, unspecified Status: Acute Assessment and Plan: Patient's abdomen was noted to be distended yesterday and obstructive series showing dilated small bowel. We were trying to improve his respiratory status before placing NG tube. NG tube was attempted last evening which may have contributed to his worsening respiratory failure since he was off the BiPAP to place NG. NG tube ultimately placed. Mildly dilated loops of small bowel with questionable transition point by CT. Continue NG tube to suction for now. (6) Acute kidney injury superimposed on chronic kidney disease: Code(s): N17.9 - Acute kidney failure, unspecified; N18.9 - Chronic kidney disease, unspecified Status: Acute Assessment and Plan: Precipitating etiology is not clear. Baseline creatinine 1.2-1.4. Cr 2.7 on admission and has climbed to 3.3 today related to above. Renal US showing bilateral pleural effusions, splenomegaly and renal cysts but no hydronephrosis. Will continue to hold nephrotoxic agents. Appreciate Nephrology input. Continue to monitor. (7) Acidosis, metabolic, with respiratory acidosis: Code(s): E87.4 - Mixed disorder of acid-base balance Status: Acute Assessment and Plan: Metabolic acidosis likely related to worsening renal function but consider related to the underlying infection and sepsis. Lactic acid normal on admission but climbed to 4.6 with the respiratory failure. Bicarb drip started. Continue to monitor. (8) COPD exacerbation: Code(s): J44.1 - Chronic obstructive pulmonary disease with (acute) exacerbation Status: Acute Assessment and Plan: Patient is being treated for a COPD exacerbation. He has been started on scheduled nebulizers q.6 hours as well as Solu-Medrol. CXR showing small pleural effusions and CMG. Continue the same. (9) CHF (congestive heart failure): Qualifiers: Heart failure chronicity: chronic Heart failure type: combined systolic and diastolic
[2019-03-09] MEDS: NOREPINEPHRINE 8 MG/D5W 250 ML 8 MG/250 ML BAG 9.4 MG IV CONT (16:30)
[2019-03-09] MEDS: SODIUM BICARBONATE 8.4% 150 MEQ in DEXTROSE 5% 1,000 ML 950 ML 75 MEQ IV CONT (20:48)
[2019-03-10] VITALS (52 sets, daily range): BP systolic 86–133; BP diastolic 59–94; PULSE 78–143; RESP 10–26; TEMP 36.6–37.3; O2SAT 96–100; BMI 24.2
[2019-03-10] MEDS: methylPREDNISolone SOD SUCC 125 MG VIAL 60 MG IV PUSH ×5 (01:33→23:58)
[2019-03-10] MEDS: AMIODARONE 360 MG/D5W 200 ML 360 MG/200 ML BAG 33.3 MG IV CONT ×4 (03:39→19:50)
[2019-03-10 05:31] LABS: Alveolar/Arterial O2 Gradient 156.2 mmHg; Base Excess ABG 5.9 mEq/l (+/-2.0); Carboxyhemoglobin 0.3 % THb (0-2.0); Fractional Inspired Oxygen 40 %; HCO3 ABG 30.2 mEq/l (22.0-26.0); Methemoglobin ABG 0.5 %THb (0-1.5); Oxygen Content ABG 16.3 %vol (16.0-22.0); Oxygen Saturation ABG 96.4 % (95.0-100.0); Oxyhemoglobin 94.7 % THb (90.0-100.0); PCO2 ABG 42.8 mmHg (35.0-45.0); PO2 ABG 79.8 mmHg (80.0-100.0); Reduced Hemoglobin 4.5 %THb (0-5.0); Total Hemoglobin 12.2 g/dL (12.0-18.0); pH ABG 7.467 (7.350-7.450)
[2019-03-10 05:33] LABS: Arterial Blood Gas Minute Volume 7 LPM; Arterial Blood Gas PEEP 5 cmH2O; Arterial Blood Gas Tidal Volume 450 ml; Arterial Blood Gas Vent Mode CMV; Arterial Blood Gas Ventilator rate 16 /MIN; Device VENTILATOR; Modified Allen's Test Pass; Site Drawn LEFT RADIAL
[2019-03-10] MEDS: MIDAZOLAM HCL 50 MG in DEXTROSE 5% 90 ML IV CONT (05:50)
[2019-03-10] MEDS: CENTRAL LINE FLUSH 10 ML XX ×3 (06:14→21:42)
[2019-03-10 06:19] LABS: Hematocrit 36.7 % (42.0-52.0); Hemoglobin 11.1 g/dL (14.0-18.0); Immature Platelet Fraction Pct 13.5 % (0.9-11.2); Mean Corpuscular HGB Conc 30.2 g/dl (32-36); Mean Corpuscular Hemoglobin 25.2 pg (26-34); Mean Corpuscular Volume 83.4 fl (80-100); Mean Platelet Volume 13.8 fl (7.4-10.4); Platelet Count Result 228 k/mm3 (150-375); Red Cell Distribution Width 15.9 % (11.5-14.5); White Blood Count 15.5 K/mm3 (4.5-10.0)
[2019-03-10 06:24] LABS: Lactic Acid 1.9 mmol/L (0.7-2.1)
[2019-03-10 06:25] LABS: Prothrombin Time 21.8 Seconds (11.1-14.7)
[2019-03-10 06:38] LABS: Alanine Aminotransferase 86 U/L (4-50); Albumin Level 3.4 g/dL (3.5-5.1); Alkaline Phosphatase 85 U/L (38-126); Aspartate Amino Transferase 50 U/L (17-59); Bilirubin,Total 2.1 mg/dL (0.2-1.3); Blood Urea Nitrogen 71 mg/dL (9-20); CRP 8.2 mg/dL (<1.0); Calcium 7.8 mg/dL (8.4-10.2); Carbon Dioxide 32 mmol/L (22-30); Chloride 93 mmol/L (98-107); Estimated CRCL calculation 19 ml/min; Estimated Glomerular Filt Rate 22; Glucose 246 mg/dL (75-110); Magnesium 1.9 mg/dL (1.6-2.3); Phosphorus 3.6 mg/dL (2.5-4.5); Potassium 4.1 mmol/L (3.4-5.0); Sodium 138 mmol/L (137-145)
--- NOTE | 2019-03-10 06:51 | PM.PNNEP ---
Progress Note: A&P Assessment and Plan (1) Abnormal results of kidney function studies: Code(s): R94.4 - Abnormal results of kidney function studies Status: Acute Assessment and Plan: The patient's creatinine is elevated. Renal ultrasound shows no hydronephrosis. Urine electrolytes show pre renal azotemia. He is getting some IV fluids. He made more urine last night. Today's creatinine is pending Bicarbonate level has been low. He is getting some bicarbonate now. His bicarbonate level is high on the blood gas. Will change to saline Overall prognosis is very poor considering his severe chronic morbidities as well his severe acute issues Continuing intensive supportive care for now. (2) Chronic kidney disease, stage 3 (moderate): Code(s): N18.3 - Chronic kidney disease, stage 3 (moderate) Status: Acute Assessment and Plan: The patient has chronic kidney disease. This may be chronic pre renal azotemia. He could have vascular disease in the kidneys. (3) Atrial fibrillation with rapid ventricular response: Code(s): I48.91 - Unspecified atrial fibrillation Status: Acute Assessment and Plan: The patient is in atrial fibrillation. Heart rate david a bit overnight. He his amiodarone was adjust Dr Dean is on the case. (4) Cardiomyopathy: Code(s): I42.9 - Cardiomyopathy, unspecified Status: Acute Assessment and Plan: EF 36% and diastolic dysfunction grade 2. (5) Chronic respiratory failure: Qualifiers: Respiratory failure complication: hypoxia Qualified Code(s): J96.11 - Chronic respiratory failure with hypoxia Code(s): J96.10 - Chronic respiratory failure, unspecified whether with hypoxia or hypercapnia Status: Acute Assessment and Plan: The patient has significant COPD. (6) Anemia: Code(s): D64.9 - Anemia, unspecified Status: Acute Assessment and Plan: Hemoglobin seems to have stabilized. His stools are guaiac positive. Subjective Interval history: Patient has been about the same overnight. Still intubated. Sedated. Sedatives were stopped for a while and he became somewhat agitated but non focused. He moved all fours. Now is back on sedatives His blood pressure dropped a little bit so he is on norepinephrine. Heart rate david a little bit so his amiodarone drip was adjusted Review of Systems Review of Systems: ROS unobtainable: unobtainable due to mental condition Exam Narrative: Exam Narrative: Well developed well-nourished in no acute distress Lungs course bilaterally Heart regular and a bit fast without rub or gallop Abdomen bowel sounds positive soft nontender Extremities no edema Skin no rash or subcu nodules Objective Data Vital Signs Vital Signs: Vital Signs - 24 hr 03/09/19 08:00 03/09/19 08:01 03/09/19 08:15 Temperature Pulse Rate 95 97 113 H Respiratory Rate 16 16 Blood Pressure 94/63 L 96/72 L Pulse Oximetry 03/09/19 08:27 03/09/19 08:31 03/09/19 08:43 Temperature 36.4 C L Pulse Rate 84 108 H 111 H Respiratory Rate 16 16 16 Blood Pressure 96/72 L 93/66 L 93/66 L Pulse Oximetry 100 100 03/09/19 08:55 03/09/19 08:59 03/09/19 09:16 Temperature Pulse Rate 102 H 87 107 H Respiratory Rate 16 16 Blood Pressure Pulse Oximetry 100 03/09/19 09:30 03/09/19 10:00 03/09/19 10:01 Temperature Pulse Rate 88 96 94 Respiratory Rate 16 16 Blood Pressure 99/79 L 100/59 L Pulse Oximetry 03/09/19 11:41 03/09/19 12:00 03/09/19 12:02 Temperature 36.7 C Pulse Rate 92 102 H 96 Respiratory Rate 19 Blood Pressure 133/100 H Pulse Oximetry 92 03/09/19 14:00 03/09/19 14:01 03/09/19 14:15 Temperature Pulse Rate 98 104 H 100 Respiratory Rate 16 16 Blood Pressure 115/61 Pulse Oximetry 03/09/19 14:20 03/09/19 14:27 03/09/19 16:00 Temperature Pulse Rate 88 106 H 96 Respiratory
--- NOTE | 2019-03-10 07:17 | WPDINTPN ---
Progress Note: A&P Assessment and Plan (1) Acute respiratory failure: Code(s): J96.00 - Acute respiratory failure, unspecified whether with hypoxia or hypercapnia Status: Acute Assessment and Plan: acute respiratory failure likely related to COPD exacerbation, pneumonia, congestive heart failure due to diastolic dysfunction, pleural effusions as seen on CT scan of the chest. - SAT/SBT today, extubate to BiPAP if passes. Maintain O2 sats greater 90% - chest x-ray, CT scan of chest/abdomen /pelvis, ABGs reviewed - continue Unasyn and vancomycin - cultures have been obtained (2) Severe sepsis: Code(s): A41.9 - Sepsis, unspecified organism; R65.20 - Severe sepsis without septic shock Status: Acute Assessment and Plan: patient with severe sepsis elevated lactic acidosis, improved - patient currently with decreased urine output, acute on chronic renal failure - continue antibiotics as above, cultures have been obtained (3) CHF (congestive heart failure): Qualifiers: Heart failure chronicity: chronic Heart failure type: combined systolic and diastolic Qualified Code(s): I50.42 - Chronic combined systolic (congestive) and diastolic (congestive) heart failure Code(s): I50.9 - Heart failure, unspecified Status: Acute Assessment and Plan: Echocardiogram from 11/20/2018 showed EF of 35%, diastolic dysfunction, moderate enlargement of the LV cavity, severe enlargement of LA, moderate enlargement of RA. Mild pulmonary hypertension with RVSP of 38 mmHg, normal appearing mechanical aortic valve prosthesis valve area of 1.17 cm2 (4) Acute kidney injury superimposed on chronic kidney disease: Code(s): N17.9 - Acute kidney failure, unspecified; N18.9 - Chronic kidney disease, unspecified Status: Acute Assessment and Plan: patient with history of chronic kidney disease. Had worsening creatinine, likely secondary to hypotension, severe sepsis, pneumonia, hypoxia, hypovolemia - patient given IV fluid bolus and currently on maintenance IV fluids but will stop today and start diuresis. Patient also received FFP and cryoprecipitate - will continue to monitor urine output, renal function electrolytes - nephrology following the patient - SCr better today (5) A-fib: Code(s): I48.91 - Unspecified atrial fibrillation Status: Acute Assessment and Plan: patient with history of AFib, was in AFib RVR overnight and continues on amiodarone infusion - currently on amiodarone infusion at 1 mg/min, rates high but BP improved, was given metoprolol 2.5mg IV x1 this AM with improvement (6) COPD exacerbation: Code(s): J44.1 - Chronic obstructive pulmonary disease with (acute) exacerbation Status: Acute Assessment and Plan: patient with history of severe COPD and uses 4-5 L of oxygen at at home at all times according the daughter - chest CT shows blebs (7) S/P AVR (aortic valve replacement): Code(s): Z95.2 - Presence of prosthetic heart valve Status: Acute Assessment and Plan: see echocardiogram report as above - patient with mechanical aortic valve, on Coumadin - INR was supratherapeutic, now subtherapeutic after FFP and vitamin K, will start heparin gtt (8) Coagulopathy: Code(s): D68.9 - Coagulation defect, unspecified Status: Acute Assessment and Plan: See above. (9) DVT prophylaxis: Code(s): Z29.9 - Encounter for prophylactic measures, unspecified Status: Acute Assessment and Plan: DVT prophylaxis: heparin gtt, restart warfarin soon stress ulcer prophylaxis: Protonix (10) Ileus: Code(s): K56.7 - Ileus, unspecified Status: Acute Assessment and Plan: NG tube placed to low intermittent suction. Continue bowel rest for now. Additional Plan code status: DNR critical care time spent: 60 minutes Due to a high probability o
[2019-03-10] MEDS: SODIUM CHLORIDE 0.9% IV 1,000 ML 75 ML IV CONT (07:32)
[2019-03-10] MEDS: METOPROLOL TARTRATE INJ 5 MG/5 ML VIAL 2.5 MG IV PUSH (08:01)
[2019-03-10] MEDS: PANTOPRAZOLE SODIUM IV 40 MG VIAL IV PUSH ×2 (08:29→19:54)
[2019-03-10 08:33] LABS: Alveolar/Arterial O2 Gradient 168.9 mmHg; Base Excess ABG 5.3 mEq/l (+/-2.0); Fractional Inspired Oxygen 40 %; HCO3 ABG 30.4 mEq/l (22.0-26.0); Oxygen Content ABG 16.3 %vol (16.0-22.0); Oxygen Saturation ABG 92.7 % (95.0-100.0); Oxyhemoglobin 91.2 % THb (90.0-100.0); PCO2 ABG 46.3 mmHg (35.0-45.0); PO2 ABG 63.1 mmHg (80.0-100.0); PO2 FiO2 Ratio Arterial Blood 1.58 %; Total Hemoglobin 12.7 g/dL (12.0-18.0); pH ABG 7.435 (7.350-7.450)
[2019-03-10 08:34] LABS: Arterial Blood Gas PEEP 5 cmH2O; Arterial Blood Gas Pressure Support 10 cmH2O; Arterial Blood Gas Vent Mode SPONTANEOUS; Device VENTILATOR; Modified Allen's Test Pass; Site Drawn RIGHT RADIAL
[2019-03-10] MEDS: DORNASE ALFA INH SOLN 1 MG/ML 2.5 ML AMP 2.5 MG INHALATION ×2 (08:50→20:12)
[2019-03-10] MEDS: IPRATROPIUM BR 0.02% INH SOLN 0.5 MG/2.5 ML VIAL INHALATION ×3 (08:50→19:50)
[2019-03-10 08:54] LABS: Basophils Percent Auto 0.2 % (0.2-1.2); Hemoglobin 11.1 g/dL (14.0-18.0); Immature Granulocyte Absolute 0.06 K/mm3 (0.00-0.031); Immature Granulocyte Percent A 0.5 % (0-0.5); Immature Platelet Fraction Pct 11.1 % (0.9-11.2); Lymphocytes Absolute Auto 0.12 K/mm3 (0.9-3.2); Lymphocytes Percent Auto 0.9 % (18.3-44.2); Mean Corpuscular Volume 83.3 fl (80-100); Mean Platelet Volume 13.2 fl (7.4-10.4); Monocytes Absolute Auto 0.6 K/mm3 (0.1-0.6); Monocytes Percent Auto 4.7 % (2.6-8.5); Neutrophils Absolute Auto 12.1 K/mm3 (1.3-6.7); Neutrophils Percent Auto 93.7 % (45.5-73.1); Nucleated Red Blood Cells Perc 0.2 % (0.0-0.2); Platelet Count Result 202 k/mm3 (150-375); Red Blood Count 4.44 M/mm3 (4.6-6.20); Red Cell Distribution Width 15.8 % (11.5-14.5); White Blood Count 12.9 K/mm3 (4.5-10.0)
[2019-03-10] MEDS: HEPARIN SODIUM 5,000 UNITS/ML VIAL 6000 UNITS IV PUSH (08:55)
[2019-03-10] MEDS: HEPARIN SOD/D5W 100 UNITS/ML 25,000 UNITS/250 ML BAG 14 UNITS IV CONT (08:56)
[2019-03-10 09:02] LABS: INR 1.8; Prothrombin Time 20.5 Seconds (11.1-14.7)
[2019-03-10 09:03] LABS: Partial Thromboplastin Time 33.8 SECONDS (22.3-36.8)
[2019-03-10] MEDS: FUROSEMIDE INJ 40 MG/4 ML VIAL IV PUSH ×2 (09:08→17:09)
[2019-03-10] MEDS: AMPICILLIN SODIUM/SULBACTAM 3 GM in SODIUM CHLORIDE 0.9% IV 100 ML IVPB ×2 (09:08→21:42)
--- NOTE | 2019-03-10 09:20 | PM.PNCARD ---
Progress Note: A&P Assessment and Plan (1) Atrial fibrillation with rapid ventricular response: Code(s): I48.91 - Unspecified atrial fibrillation Status: Acute Assessment and Plan: History of paroxysmal atrial fibrillation. Episodes been more persistent. Remains on amiodarone at 1 mg/min. Also received 2.5 mg of Metoprolol this morning. Rate is better. Now off pressors as well. INR elevated despite holding warfarin, developing DIC. Given FFP, cryo and 5mg Vit K. Ideally, would want to avoid reversal unless bleeding, however, given clinical circumstances and high risk for bleeding critical care and primary service felt this was warranted. INR 2.0 this morning with repeat of 1.8. Heparin drip has been started. Fortunately, mechanical valve in aortic position carries a lower thromboembolic risk than mitral position. (2) Cardiomyopathy: Code(s): I42.9 - Cardiomyopathy, unspecified Status: Acute Assessment and Plan: Moderate LV dysfunction EF 35%, chronic. History of nonischemic cardiomyopathy [place] heart Association class 3. BNP markedly elevated, however, in setting of acute renal failure, hypoxic respiratory failure. Continue to monitor clinically. Given a dose of diuretics this morning. (3) Acute kidney injury superimposed on chronic kidney disease: Code(s): N17.9 - Acute kidney failure, unspecified; N18.9 - Chronic kidney disease, unspecified Status: Acute Assessment and Plan: Per primary service. Creatinine improving. (4) S/P AVR (aortic valve replacement): Code(s): Z95.2 - Presence of prosthetic heart valve Status: Acute Assessment and Plan: Prophylactic antibiotics. Goal INR 2-3. As above. (5) COPD exacerbation: Code(s): J44.1 - Chronic obstructive pulmonary disease with (acute) exacerbation Status: Acute Assessment and Plan: Per Critical Care. Plan is to extubate him today. (6) Acute respiratory failure: Code(s): J96.00 - Acute respiratory failure, unspecified whether with hypoxia or hypercapnia Status: Acute Assessment and Plan: As above (7) Severe sepsis: Code(s): A41.9 - Sepsis, unspecified organism; R65.20 - Severe sepsis without septic shock Status: Acute Assessment and Plan: IV ABx,, supportive care. (8) Coagulopathy: Code(s): D68.9 - Coagulation defect, unspecified Status: Acute Assessment and Plan: As above. Now on heparin drip. Restart warfarin when able. Additional Plan Plan discussed with Dr. Monterroso 0930 03/10/2019 Time Spent With Patient Time with patient: less than 15 minutes Subjective Interval history: Follow-up for: atrial fibrillation with rapid ventricular response, Acute on chronic hypoxic respiratory failure and COPD exacerbation, moderate LV systolic dysfunction, nonischemic EF 35%, History of mechanical aortic valve replacement, Chronic anticoagulation, Hypertension Date of service: 03/10/2019 Subjective: Remains intubated on the ventilator. Opens eyes and follow some simple commands but will not answer questions. Review of Systems Review of Systems: ROS unobtainable: due to endotracheal tube and unobtainable due to mental status Exam Narrative: Exam Narrative: Intubated, remains on Precedex, on ventilator.. Const: General: no acute distress HENMT: General nose exam: no epistaxis Eyes: Sclera: sclerae normal Neck: Neck: supple Resp: Auscultation: clear to auscultation bilaterally Other: Remains intubated on ventilator Cardio: Rate: regular rate Rhythm: abnormal rhythm irregularly irregular GI: Auscultation: abnormal bowel sounds
[2019-03-10 09:39] LABS: Platelet Estimate Adequate (Adequate)
[2019-03-10 09:40] LABS: Helmet Cells 1+ (NORMAL); Hypochromasia 2+ (NORMAL); Ovalocytes 2+ (NORMAL)
[2019-03-10 09:41] LABS: Tear Drop Cells 1+ (NORMAL)
[2019-03-10 09:42] LABS: Stomatocytes 1+ (NORMAL)
--- NOTE | 2019-03-10 11:16 | PM.IMPN ---
Progress Note: A&P Assessment and Plan (1) Severe sepsis: Code(s): A41.9 - Sepsis, unspecified organism; R65.20 - Severe sepsis without septic shock Status: Acute Assessment and Plan: Patient with severe sepsis with HoTN requiring Levophed. Consider PNA as the source. BCx collected and broad spectrum abx ordered. Remains on neb treatments and Pulmozyme. Levophed able to be stopped this morning. Continue supportive care. (2) Acute respiratory failure: Code(s): J96.00 - Acute respiratory failure, unspecified whether with hypoxia or hypercapnia Status: Acute Assessment and Plan: Was being treated for COPD exacerbation but patient developed acute respiratory failure on 03/08/19 possibly from combination of PNA and CHF. He has moderate sized pleural effsions with dependent opacities (atel vs PNA). Broad-spectrum antibiotics started. Probably more CHF related from the IVF, AFib/RVR and being off diuretics. Aortic valve is well position by recent echocardiogram. Continue nebulizer treatments. Continue Solu-Medrol and abx. Vent being weaned for possible extubation later today. Lamont was able to be extubated successfully. Continue pulmonary toilet, nebs. Resume therapy and increase activity tomorrow as toelrated. (3) Coagulopathy: Code(s): D68.9 - Coagulation defect, unspecified Status: Acute Assessment and Plan: INR climbed to 7.8 related to the sepsis and patient received FFP and cryoglobulin. INR 2 today. Heparin drip ordered. (4) Atrial fibrillation with rapid ventricular response: Code(s): I48.91 - Unspecified atrial fibrillation Status: Acute Assessment and Plan: Started on Cardizem drip with improvement in his rate. Diltiazem drip transitioned to Coreg then to metoprolol. TSH normal. Heart rate became more elevated and amiodarone drip was started on 03/08/19. Heart rate still poorly controlled. Appreciate cardiology input. Continue telemetry. INR was supratherapeutic but now down to 2.0. Continue amiodarone drip. Heparin to be started. . (5) Ileus: Code(s): K56.7 - Ileus, unspecified Status: Acute Assessment and Plan: Patient's abdomen was noted to be distended and obstructive series showing dilated small bowel. NG tube was ultimately placed. Mildly dilated loops of small bowel with questionable transition point by CT. Upper abd xray showing normal bowel gas pattern. Continue NG tube to suction. (6) Acute kidney injury superimposed on chronic kidney disease: Code(s): N17.9 - Acute kidney failure, unspecified; N18.9 - Chronic kidney disease, unspecified Status: Acute Assessment and Plan: Precipitating etiology is not clear. Baseline creatinine 1.2-1.4. Cr 2.7 on admission and has climbed to 3.3 yesterday but back down to 2.8 today. UOP 785 yesterday but UOP increased today. Renal US showing no hydronephrosis. Will continue to hold nephrotoxic agents. Appreciate Nephrology input. Continue to monitor. (7) Acidosis, metabolic, with respiratory acidosis: Code(s): E87.4 - Mixed disorder of acid-base balance Status: Acute Assessment and Plan: Metabolic acidosis likely related to worsening renal function but consider related to the underlying infection and sepsis. Lactic acid normal on admission but climbed to 4.6 on 03/09/19 with the respiratory failure. Bicarb drip started. Acidosis resolved and Lactic acid level normal today. Continue to monitor. (8) COPD exacerbation: Code(s): J44.1 - Chronic obstructive pulmonary disease with (acute) exacerbation Status: Acute Assessment and Plan: Patient is being treated for a COPD exacerbation. He has been started on scheduled nebulizers q.6 hours as well as Solu-Medrol and abx. CXR reviewed today showing R>L bilateral infiltrates. Continue the same. (9) CHF (congestive heart failure): Qualifi
--- NOTE | 2019-03-10 11:35 | PCPTNOTE ---
Pt had decline in medical status, transferred to ICU and on vent. OT spoke w/ Dr Sevilla and received Hold orders for PT/OT.
[2019-03-10 15:15] LABS: Partial Thromboplastin Time 100.5 SECONDS (22.3-36.8)
[2019-03-10 21:12] LABS: Partial Thromboplastin Time 82.8 SECONDS (22.3-36.8)
[2019-03-11] VITALS (53 sets, daily range): BP systolic 99–116; BP diastolic 57–93; PULSE 72–126; RESP 9–24; TEMP 36.4–36.6; O2SAT 96–100
[2019-03-11] MEDS: IPRATROPIUM BR 0.02% INH SOLN 0.5 MG/2.5 ML VIAL INHALATION ×4 (01:28→19:55)
[2019-03-11] MEDS: AMIODARONE 360 MG/D5W 200 ML 360 MG/200 ML BAG 33.3 MG IV CONT ×2 (01:28→06:29)
[2019-03-11] MEDS: HEPARIN SOD/D5W 100 UNITS/ML 25,000 UNITS/250 ML BAG 14 UNITS IV CONT ×2 (01:51→20:21)
--- NOTE | 2019-03-11 05:00 | PC.NURSE ---
Patient removed NG tube. patient is alert and oriented at this time. States he is hungry. Patient instructed that he will have a swallow eval. Continue to monitor. Patient refuses NG tube placement again.
[2019-03-11 05:18] LABS: Hematocrit 33.5 % (42.0-52.0); Immature Granulocyte Absolute 0.02 K/mm3 (0.00-0.031); Immature Granulocyte Percent A 0.3 % (0-0.5); Lymphocytes Percent Auto 1.4 % (18.3-44.2); Mean Corpuscular HGB Conc 29.9 g/dl (32-36); Mean Corpuscular Volume 83.8 fl (80-100); Mean Platelet Volume 12.8 fl (7.4-10.4); Monocytes Absolute Auto 0.2 K/mm3 (0.1-0.6); Monocytes Percent Auto 3.3 % (2.6-8.5); Neutrophils Absolute Auto 6.6 K/mm3 (1.3-6.7); Nucleated Red Blood Cells Perc 0.3 % (0.0-0.2); Platelet Count Result 188 k/mm3 (150-375); Red Cell Distribution Width 15.7 % (11.5-14.5); White Blood Count 6.9 K/mm3 (4.5-10.0)
[2019-03-11 05:28] LABS: Albumin Level 3.3 g/dL (3.5-5.1); Blood Urea Nitrogen 71 mg/dL (9-20); Calcium 7.4 mg/dL (8.4-10.2); Carbon Dioxide 36 mmol/L (22-30); Chloride 93 mmol/L (98-107); Estimated CRCL calculation 20 ml/min; Estimated Glomerular Filt Rate 23; Glucose 243 mg/dL (75-110); Phosphorus 4.4 mg/dL (2.5-4.5); Potassium 3.3 mmol/L (3.4-5.0); Sodium 138 mmol/L (137-145)
[2019-03-11 05:30] LABS: Blood Urea Nitrogen 70 mg/dL (9-20); Calcium 7.5 mg/dL (8.4-10.2); Carbon Dioxide 36 mmol/L (22-30); Chloride 92 mmol/L (98-107); Estimated CRCL calculation 20 ml/min; Estimated Glomerular Filt Rate 23; Glucose 242 mg/dL (75-110); Lactic Acid 1.3 mmol/L (0.7-2.1); Phosphorus 4.3 mg/dL (2.5-4.5); Potassium 3.3 mmol/L (3.4-5.0); Sodium 139 mmol/L (137-145)
[2019-03-11 05:34] LABS: INR 1.5; Prothrombin Time 17.6 Seconds (11.1-14.7)
[2019-03-11 05:57] LABS: Creatinine Urine 45.5 mg/dL; Sodium Urine Random 26 meq/L; Urea Random Urine 653 MG/DL
[2019-03-11 06:06] LABS: Partial Thromboplastin Time 88.6 SECONDS (22.3-36.8)
[2019-03-11] MEDS: methylPREDNISolone SOD SUCC 125 MG VIAL 60 MG IV PUSH ×3 (06:27→16:47)
[2019-03-11] MEDS: CENTRAL LINE FLUSH 10 ML XX ×2 (06:28→15:33)
--- NOTE | 2019-03-11 06:38 | PM.PNNEP ---
Progress Note: A&P Assessment and Plan (1) Abnormal results of kidney function studies: Code(s): R94.4 - Abnormal results of kidney function studies Status: Acute Assessment and Plan: The patient's creatinine is elevated. Renal ultrasound shows no hydronephrosis. Urine electrolytes show pre renal azotemia. Creatinine is stable. He made a L of urine overnight. He is off IV fluids. However he is getting plenty of fluid along with his medications. No need for routine fluids. Overall he looks much better. (2) Chronic kidney disease, stage 3 (moderate): Code(s): N18.3 - Chronic kidney disease, stage 3 (moderate) Status: Acute Assessment and Plan: The patient has chronic kidney disease. This may be chronic pre renal azotemia. He could have vascular disease in the kidneys. (3) Atrial fibrillation with rapid ventricular response: Code(s): I48.91 - Unspecified atrial fibrillation Status: Acute Assessment and Plan: The patient is in atrial fibrillation. Heart rate is doing better. (4) Cardiomyopathy: Code(s): I42.9 - Cardiomyopathy, unspecified Status: Acute Assessment and Plan: EF 36% and diastolic dysfunction grade 2. (5) Chronic respiratory failure: Qualifiers: Respiratory failure complication: hypoxia Qualified Code(s): J96.11 - Chronic respiratory failure with hypoxia Code(s): J96.10 - Chronic respiratory failure, unspecified whether with hypoxia or hypercapnia Status: Acute Assessment and Plan: The patient has significant COPD. (6) Anemia: Code(s): D64.9 - Anemia, unspecified Status: Acute Assessment and Plan: Hemoglobin is up and down between 10 and 11 His stools are guaiac positive. Subjective Interval history: Patient has been extubated. Hungry. Blood pressure is doing pretty well. He is not on any pressors. Review of Systems Cardiovascular: Cardiovascular: Reports no additional cardiovascular complaints Respiratory: Respiratory: Reports no additional respiratory complaints Gastrointestinal: Gastrointestinal: Reports no additional gastrointestinal complaints Genitourinary: Genitourinary: Reports no additional male genitourinary complaints Exam Narrative: Exam Narrative: Well developed well-nourished in no acute distress Lungs mildly course breath sounds Heart regular and a bit fast without rub or gallop Abdomen bowel sounds positive soft nontender Extremities no edema or cyanosis Skin no rash Objective Data Vital Signs Vital Signs: Vital Signs - 24 hr 03/10/19 07:35 03/10/19 07:44 03/10/19 08:00 Temperature 36.6 C Pulse Rate 140 H 143 H 139 H Respiratory Rate 22 H 26 H Blood Pressure 113/83 Pulse Oximetry 99 100 03/10/19 08:01 03/10/19 08:51 03/10/19 08:56 Temperature Pulse Rate 128 H 103 H 118 H Respiratory Rate 14 Blood Pressure Pulse Oximetry 100 03/10/19 09:06 03/10/19 10:00 03/10/19 11:10 Temperature Pulse Rate 101 H 100 95 Respiratory Rate 15 10 L 19 Blood Pressure 95/65 L Pulse Oximetry 98 100 03/10/19 12:00 03/10/19 14:00 03/10/19 14:21 Temperature 36.6 C Pulse Rate 89 93 92 Respiratory Rate 14 16 16 Blood Pressure 103/62 90/70 L Pulse Oximetry 100 100 03/10/19 14:26 03/10/19 14:28 03/10/19 16:00 Temperature 36.6 C Pulse Rate 91 93 91 Respiratory Rate 16 22 H 17 Blood Pressure 86/72 L Pulse Oximetry 100 99 03/10/19 18:00 03/10/19 19:00 03/10/19 19:01 Temperature Pulse Rate 87 86 79 Respiratory Rate 13 12 12 Blood Pressure 101/59 L 103/68 Pulse Oximetry 100 03/10/19 19:15 03/10/19 19:16 03/10/19 19:29 Temperature Pulse Rate 86 85 92 Respiratory Rate 14 20 16 Blood Pressure 106/62 Pulse Oximetry 100 03/10/19 19:30 03/10/19 19:45 03/10/19 19:50 Temperature Pulse Rate 89 91 93 Respiratory Rate 18 22 H 20 Blood Pressure Pulse Oximet
--- NOTE | 2019-03-11 07:44 | WPDINTPN ---
Progress Note: A&P Assessment and Plan (1) Acute respiratory failure: Code(s): J96.00 - Acute respiratory failure, unspecified whether with hypoxia or hypercapnia Status: Acute Assessment and Plan: acute respiratory failure likely related to COPD exacerbation, pneumonia, congestive heart failure due to diastolic dysfunction, pleural effusions as seen on CT scan of the chest. - extubated 03/10; currently on home regimen of 4L/min. Maintain O2 sats greater 90% - chest x-ray, CT scan of chest/abdomen /pelvis, ABGs reviewed - continue Unasyn and vancomycin - cultures have been obtained (2) Severe sepsis: Code(s): A41.9 - Sepsis, unspecified organism; R65.20 - Severe sepsis without septic shock Status: Acute Assessment and Plan: patient with severe sepsis, elevated lactic acidosis, improved - patient currently with decreased urine output, acute on chronic renal failure - continue antibiotics as above, cultures have been obtained (3) CHF (congestive heart failure): Qualifiers: Heart failure chronicity: chronic Heart failure type: combined systolic and diastolic Qualified Code(s): I50.42 - Chronic combined systolic (congestive) and diastolic (congestive) heart failure Code(s): I50.9 - Heart failure, unspecified Status: Acute Assessment and Plan: Echocardiogram from 11/20/2018 showed EF of 35%, diastolic dysfunction, moderate enlargement of the LV cavity, severe enlargement of LA, moderate enlargement of RA. Mild pulmonary hypertension with RVSP of 38 mmHg, normal appearing mechanical aortic valve prosthesis valve area of 1.17 cm2 (4) Acute kidney injury superimposed on chronic kidney disease: Code(s): N17.9 - Acute kidney failure, unspecified; N18.9 - Chronic kidney disease, unspecified Status: Acute Assessment and Plan: patient with history of chronic kidney disease. Had worsening creatinine, likely secondary to hypotension, severe sepsis, pneumonia, hypoxia, hypovolemia - currently off of IVF and are diuresing - will continue to monitor urine output, renal function electrolytes - nephrology following the patient - SCr better today (5) A-fib: Code(s): I48.91 - Unspecified atrial fibrillation Status: Acute Assessment and Plan: patient with history of AFib, continues on amiodarone infusion - switch to PO when passes swallow eval (6) COPD exacerbation: Code(s): J44.1 - Chronic obstructive pulmonary disease with (acute) exacerbation Status: Acute Assessment and Plan: patient with history of severe COPD and uses 4-5 L/min of oxygen at at home at all times according the daughter - chest CT shows blebs (7) S/P AVR (aortic valve replacement): Code(s): Z95.2 - Presence of prosthetic heart valve Status: Acute Assessment and Plan: see echocardiogram report as above - patient with mechanical aortic valve, on Coumadin - INR was supratherapeutic, now subtherapeutic after FFP and vitamin K, contine heparin gtt; start warfarin when able to take PO (8) Coagulopathy: Code(s): D68.9 - Coagulation defect, unspecified Status: Acute Assessment and Plan: See above. (9) DVT prophylaxis: Code(s): Z29.9 - Encounter for prophylactic measures, unspecified Status: Acute Assessment and Plan: DVT prophylaxis: heparin gtt, restart warfarin when able to take PO stress ulcer prophylaxis: Protonix (10) Ileus: Code(s): K56.7 - Ileus, unspecified Status: Acute Assessment and Plan: Bowel sounds improved. Pt pulled out NG tube this AM and will leave out for now. Additional Plan code status: DNR Level 3: 35 minutes Due to a high probability of clinically significant, life threatening deterioration, the patient required my highest level of preparedness to intervene emergently and I personally spent this critical care time direct
--- NOTE | 2019-03-11 08:16 | PM.IMPN ---
Progress Note: A&P Assessment and Plan (1) Severe sepsis: Code(s): A41.9 - Sepsis, unspecified organism; R65.20 - Severe sepsis without septic shock Status: Acute Assessment and Plan: Criteria met on admission. Result of pneumonia. Blood cultures negative. MRSA surveillance culture negative. Sputum culture now growing Serratia marcescens. IV Unasyn and vancomycin for now. Discussed with multimedia author. Will transfer to IMU as improving. (2) Respiratory failure: Qualifiers: Chronicity: acute on chronic Respiratory failure complication: hypoxia and hypercapnia Qualified Code(s): J96.21 - Acute and chronic respiratory failure with hypoxia; J96.22 - Acute and chronic respiratory failure with hypercapnia Code(s): J96.90 - Respiratory failure, unspecified, unspecified whether with hypoxia or hypercapnia Status: Acute Assessment and Plan: Was being treated for COPD exacerbation but patient developed acute respiratory failure on 03/08/19 possibly from combination of PNA and CHF. Successfully extubated on 03/10/2019. Will continue IV antibiotics as noted above. Continue nebulizer treatments. On IV steroids. Will also continue inhaled Pulmicort. MBS done today with recommendation for mildly thickened liquids and midst and moist diet. No ivis aspiration. Will monitor. Of note, he was on 4 L of oxygen at home. (3) Coagulopathy: Code(s): D68.9 - Coagulation defect, unspecified Status: Acute Assessment and Plan: INR climbed to 7.8 related to the sepsis and patient received FFP and cryoglobulin. INR now. Will continue heparin drip with warfarin now restarted as he passed MBS. Will continue to monitor and adjust as needed. (4) Atrial fibrillation with rapid ventricular response: Code(s): I48.91 - Unspecified atrial fibrillation Status: Acute Assessment and Plan: Cardiology consulted and appreciate input. Telemetry reviewed on 03/11/2019 with atrial fibrillation with heart rate in the 110s. With passing and BS, converted from amiodarone drip to oral amiodarone. Previously on diltiazem drip followed by Coreg and then metoprolol but rate was not well controlled and thus now on amiodarone. Now on heparin drip with warfarin started. Continue to monitor INR. (5) Ileus: Code(s): K56.7 - Ileus, unspecified Status: Acute Assessment and Plan: Patient's abdomen was noted to be distended and obstructive series showing dilated small bowel. NG tube was ultimately placed. Patient removed NG tube this morning. Good bowel sounds. Passed MBS. Diet allow. Will follow. (6) Acute kidney injury superimposed on chronic kidney disease: Code(s): N17.9 - Acute kidney failure, unspecified; N18.9 - Chronic kidney disease, unspecified Status: Acute Assessment and Plan: Precipitating etiology is not clear. Baseline creatinine 1.20-1.40. Creatinine back down to 2.70 today. Renal ultrasound with no hydronephrosis. Continue to hold nephrotoxic agents. Nephrology following and appreciate input. Will continue to monitor. (7) Acidosis, metabolic, with respiratory acidosis: Code(s): E87.4 - Mixed disorder of acid-base balance Status: Acute Assessment and Plan: Metabolic acidosis likely related to worsening renal function but consider related to the underlying infection and sepsis. Corrected. No longer on bicarb. Will follow. (8) COPD exacerbation: Code(s): J44.1 - Chronic obstructive pulmonary disease with (acute) exacerbation Status: Acute Assessment and Plan: Remains intubated as noted above. Continue respiratory treatments as noted above. (9) CHF (congestive heart failure): Qualifiers: Heart failure chronicity: chronic Heart failure type: combined systolic and diastolic Qualified Code(s): I50.42 - Chronic combined systolic (congestive) and diastolic (congestive) heart failure
[2019-03-11] MEDS: DORNASE ALFA INH SOLN 1 MG/ML 2.5 ML AMP 2.5 MG INHALATION ×2 (08:19→19:56)
[2019-03-11] MEDS: FUROSEMIDE INJ 40 MG/4 ML VIAL IV PUSH ×2 (08:30→16:45)
[2019-03-11] MEDS: PANTOPRAZOLE SODIUM IV 40 MG VIAL IV PUSH ×2 (08:30→20:23)
[2019-03-11] MEDS: AMPICILLIN SODIUM/SULBACTAM 3 GM in SODIUM CHLORIDE 0.9% IV 100 ML IVPB ×2 (09:42→20:23)
--- NOTE | 2019-03-11 11:27 | PCDIET ---
ICU Rounding Note: Pt current nutrition is NPO post-extubation. Plan for swallow study today. Last recorded weight is 78.2kg which is increased. I/O positive. Bowel Motility: BM x 3 on 03/07/19 Labs Reviewed: Glu (243), BUN (71), Cr (2.7), Alb (3.3), K (3.3) Meds Noted: Lasix, Solu Medrol, Protonix, Vancomycin Additional Notes: No reported skin breakdown. Recommend K+ replacement and medication to promote bowel movement, if medically appropriate. Nutrition Monitoring and Evaluation: Following daily in ICU rounds. Assessing/reassessing every 3 days.
--- NOTE | 2019-03-11 12:00 | PCSTNOTE ---
Bedside swallow evaluation warranted need for further testing (MBS) due to overt s/s of aspiration. MBS is required to definitively rule out aspiration, determine a safe diet, and to identify appropriate therapeutic interventions.
[2019-03-11 12:39] LABS: Complement Total CH50 41 U/mL (31-60)
--- NOTE | 2019-03-11 13:07 | PCSTNOTE ---
Patient was seen for a Modified Barium Swallow study and found to have penetration on uncontrolled thin liquid but able to handle slightly thickened liquids per cup and straw and using head flexion without any new penetration or aspiration. Recommend may try Minced and Moist Diet and slightly thickened liquids. Contact BRI Fang in ICU and will contact Dr. Singh to confirm diet and continuing ST.
--- NOTE | 2019-03-11 13:11 | PM.PNCARD ---
Progress Note: A&P Assessment and Plan (1) Atrial fibrillation with rapid ventricular response: Code(s): I48.91 - Unspecified atrial fibrillation Status: Acute Assessment and Plan: History of paroxysmal atrial fibrillation. Episodes been more persistent. Remains on amiodarone at 1 mg/min. Rate is reasonably controlled, 85-110 beats per minute. Will change to p.o. amiodarone. INR 1.5 this morning and therapeutically anticoagulated with his Heparin drip. Will resume p.o. warfarin. (2) Cardiomyopathy: Code(s): I42.9 - Cardiomyopathy, unspecified Status: Acute Assessment and Plan: Remains extubated and off pressors. Moderate LV dysfunction EF 35%, chronic. History of nonischemic cardiomyopathy. Remains overall fluid overload with pleural effusions and ascites. Currently on Lasix 40 mg IV push b.i.d., started 03/10/2019. (3) Acute kidney injury superimposed on chronic kidney disease: Code(s): N17.9 - Acute kidney failure, unspecified; N18.9 - Chronic kidney disease, unspecified Status: Acute Assessment and Plan: Per primary service. Creatinine improving. (4) S/P AVR (aortic valve replacement): Code(s): Z95.2 - Presence of prosthetic heart valve Status: Acute Assessment and Plan: On heparin drip, will resume warfarin since the patient is extubated and passed his swallow study. Was taking warfarin 1 mg daily at home, so will start with that but since he is now mild nourished he may need less. goal INR 2-3. (5) COPD exacerbation: Code(s): J44.1 - Chronic obstructive pulmonary disease with (acute) exacerbation Status: Acute Assessment and Plan: Per Critical Care. Plan is to extubate him today. (6) Acute respiratory failure: Code(s): J96.00 - Acute respiratory failure, unspecified whether with hypoxia or hypercapnia Status: Acute Assessment and Plan: As above (7) Severe sepsis: Code(s): A41.9 - Sepsis, unspecified organism; R65.20 - Severe sepsis without septic shock Status: Acute Assessment and Plan: IV ABx,, supportive care. (8) Coagulopathy: Code(s): D68.9 - Coagulation defect, unspecified Status: Acute Assessment and Plan: Coagulopathy improved, as platelets are stable. Subjective Interval history: Follow-up for: atrial fibrillation with rapid ventricular response, acute on chronic systolic heart failure, Acute on chronic hypoxic respiratory failure and COPD exacerbation, moderate LV systolic dysfunction, nonischemic EF 35%, History of mechanical aortic valve replacement, Chronic anticoagulation, Hypertension Last visit 03/10/2019: Subjective: Remains intubated on the ventilator. Opens eyes and follow some simple commands but will not answer questions. Date of service 03/11/2019 Patient was extubated yesterday. Says he is feeling better, still has a productive cough, is thirsty. No chest pain, not much shortness of breath, no abdominal pain. He passed his barium swallow today. remains on heparin and amiodarone drips. Review of Systems Constitutional: Constitutional: Reports weakness Eyes: Eyes: Reports no additional eye complaints Cardiovascular: Cardiovascular: Denies chest pain and Denies palpitations Respiratory: Respiratory: Reports chest congestion, Reports cough, Denies hemoptysis and Denies dyspnea Gastrointestinal: Gastrointestinal: Denies abdominal pain, Denies melena and Denies heartburn Genitourinary: Genitourinary: Denies dysuria Musculoskeletal: Musculoskeletal: Reports no additional musculoskeletal complaints Integumentary/Breasts: Comments: Some ecchymosis ove
[2019-03-11] MEDS: WARFARIN (*PBKC) 1 MG TABLET PO (16:45)
[2019-03-11] MEDS: AMIODARONE HCL 200 MG TABLET PO (16:45)
--- NOTE | 2019-03-11 18:20 | PC.NURSE ---
This patient, Jeff Sampson, was transferred to [[id number]] on 03/11/19 at 1825. Personal belongings sent with patient. Belongings list checked and signed with receiving [ ]. Report given to [YAN GREGORY]. Appropriate documentation sent with patient.
--- NOTE | 2019-03-11 18:45 | PC.NURSE ---
This patient, Jeff Sampson, was received from ICU-2 on 03/11/19 at 1825. Personal belongings list checked and signed. Patient/family oriented to unit policies and routines
[2019-03-12] VITALS (29 sets, daily range): BP systolic 111–124; BP diastolic 57–72; PULSE 74–129; RESP 16–22; TEMP 36.2–36.9; O2SAT 93–100
[2019-03-12] MEDS: methylPREDNISolone SOD SUCC 125 MG VIAL 60 MG IV PUSH ×4 (00:32→18:20)
[2019-03-12] MEDS: CENTRAL LINE FLUSH 10 ML XX ×3 (00:32→21:01)
[2019-03-12] MEDS: IPRATROPIUM BR 0.02% INH SOLN 0.5 MG/2.5 ML VIAL INHALATION ×4 (02:42→19:40)
[2019-03-12] MEDS: LEVOTHYROXINE SODIUM 50 MCG TABLET PO (04:58)
[2019-03-12 05:20] LABS: Hematocrit 32.1 % (42.0-52.0); Hemoglobin 9.7 g/dL (14.0-18.0); Immature Platelet Fraction Pct 11.3 % (0.9-11.2); Mean Corpuscular HGB Conc 30.2 g/dl (32-36); Mean Corpuscular Hemoglobin 24.9 pg (26-34); Mean Corpuscular Volume 82.5 fl (80-100); Mean Platelet Volume 13.2 fl (7.4-10.4); Platelet Count Result 171 k/mm3 (150-375); Red Blood Count 3.89 M/mm3 (4.6-6.20); Red Cell Distribution Width 15.9 % (11.5-14.5); White Blood Count 7.6 K/mm3 (4.5-10.0)
[2019-03-12 05:30] LABS: Albumin 4.1 g/dL (3.8-4.8); Alpha 1 Globulin 0.3 g/dL (0.2-0.3); Alpha 2 Globulin 0.4 g/dL (0.5-0.9); Beta 1 Globulin 0.4 g/dL (0.4-0.6); Gamma Globulin 1.1 g/dL (0.8-1.7); Protein, Total 6.5 g/dL (6.1-8.1)
[2019-03-12 05:31] LABS: INR 1.6; Prothrombin Time 18.2 Seconds (11.1-14.7)
[2019-03-12 05:32] LABS: Partial Thromboplastin Time 72.9 SECONDS (22.3-36.8)
[2019-03-12 05:40] LABS: Blood Urea Nitrogen 68 mg/dL (9-20); Calcium 7.6 mg/dL (8.4-10.2); Carbon Dioxide 39 mmol/L (22-30); Chloride 93 mmol/L (98-107); Estimated CRCL calculation 24 ml/min; Estimated Glomerular Filt Rate 29; Glucose 211 mg/dL (75-110); Magnesium 1.9 mg/dL (1.6-2.3); Phosphorus 3.7 mg/dL (2.5-4.5); Potassium 2.7 mmol/L (3.4-5.0); Sodium 141 mmol/L (137-145)
[2019-03-12] MEDS: PANTOPRAZOLE SODIUM IV 40 MG VIAL IV PUSH ×2 (08:09→21:01)
[2019-03-12] MEDS: FUROSEMIDE INJ 40 MG/4 ML VIAL IV PUSH ×2 (08:10→16:08)
[2019-03-12] MEDS: AMIODARONE HCL 200 MG TABLET PO ×2 (08:10→16:08)
[2019-03-12] MEDS: DORNASE ALFA INH SOLN 1 MG/ML 2.5 ML AMP 2.5 MG INHALATION ×2 (08:38→19:40)
--- NOTE | 2019-03-12 10:40 | PM.IMPN ---
Progress Note: A&P Assessment and Plan (1) Severe sepsis: Code(s): A41.9 - Sepsis, unspecified organism; R65.20 - Severe sepsis without septic shock Status: Acute Assessment and Plan: Criteria met on admission. Result of pneumonia. Blood cultures negative. MRSA surveillance culture negative. Sputum culture now growing Serratia marcescens. Has been on IV Unasyn and vancomycin but sputum culture sensitivities showed resistance to amoxicillin clavulanate. Will discontinue IV Unasyn as result and switched to IV ceftriaxone. Will stop IV vancomycin with MRSA surveillance culture negative. WBC normal at 7.6 today. Will continue to monitor. (2) Respiratory failure: Qualifiers: Chronicity: acute on chronic Respiratory failure complication: hypoxia and hypercapnia Qualified Code(s): J96.21 - Acute and chronic respiratory failure with hypoxia; J96.22 - Acute and chronic respiratory failure with hypercapnia Code(s): J96.90 - Respiratory failure, unspecified, unspecified whether with hypoxia or hypercapnia Status: Acute Assessment and Plan: Was being treated for COPD exacerbation but patient developed acute respiratory failure on 03/08/19 possibly from combination of pneumonia and CHF. Successfully extubated on 03/10/2019. Adjusting IV antibiotics as noted above. Continue nebulizer treatments. Will start weaning IV steroids. Continue inhaled Pulmicort. MBS done on 03/11/2019 with recommendation for mildly thickened liquids and midst and moist diet. No ivis aspiration. Will monitor. Of note, he was on 4 L of oxygen at home but down to 2 L of oxygen at time of my exam today. (3) Hypokalemia: Code(s): E87.6 - Hypokalemia Status: Acute Assessment and Plan: Potassium 2.7 this morning with IV replacement given. Will continue to follow and replace as needed. (4) Atrial fibrillation with rapid ventricular response: Code(s): I48.91 - Unspecified atrial fibrillation Status: Acute Assessment and Plan: Cardiology consulted and appreciate input. Telemetry reviewed on 03/12/2019 with episodes of atrial fibrillation with heart rate reasonably controlled. Will continue oral amiodarone. Previously on diltiazem drip followed by Coreg and then metoprolol but rate was not well controlled and thus now on amiodarone. Now on heparin drip with warfarin as noted below. Continue to monitor. (5) Coagulopathy: Code(s): D68.9 - Coagulation defect, unspecified Status: Acute Assessment and Plan: INR climbed to 7.8 related to the sepsis and patient received FFP and cryoglobulin. INR now only 1.6 today. Back on warfarin. Will need to continue heparin drip as still subtherapeutic. Continue to monitor INR. Adjust treatment as needed. (6) Acute kidney injury superimposed on chronic kidney disease: Code(s): N17.9 - Acute kidney failure, unspecified; N18.9 - Chronic kidney disease, unspecified Status: Acute Assessment and Plan: Precipitating etiology is not clear. Baseline creatinine 1.20-1.40. Creatinine has decreased to 2.20 today. Renal ultrasound with no hydronephrosis. Continue to hold nephrotoxic agents. Nephrology following and appreciate input. Will continue to monitor. (7) COPD exacerbation: Code(s): J44.1 - Chronic obstructive pulmonary disease with (acute) exacerbation Status: Acute Assessment and Plan: Continue respiratory treatments as noted above. Start weaning IV steroids. (8) Ileus: Code(s): K56.7 - Ileus, unspecified Status: Acute Assessment and Plan: Patient's abdomen was noted to be distended and obstructive series showing dilated small bowel. NG tube was ultimately placed with patient removing on 03/11/2019. Now resolved. Continue diet. Will monitor. (9) Acidosis, metabolic, with respiratory acidosis: Code(s): E87.4 - Mixed disorder of acid-base balance Status: A
[2019-03-12] MEDS: AMPICILLIN SODIUM/SULBACTAM 3 GM in SODIUM CHLORIDE 0.9% IV 100 ML IVPB (11:50)
--- NOTE | 2019-03-12 13:06 | PM.PNCARD ---
Progress Note: A&P Assessment and Plan (1) Atrial fibrillation with rapid ventricular response: Code(s): I48.91 - Unspecified atrial fibrillation Status: Acute Assessment and Plan: History of paroxysmal atrial fibrillation. Episodes has been more persistent. Now on p.o. amiodarone 200 mg b.i.d. rate is reasonably controlled, 85-110 beats per minute. INR 1.6 this morning and therapeutically anticoagulated with his Heparin drip. Continue warfarin at 1 mg daily. Monitor INR closely (2) Cardiomyopathy: Code(s): I42.9 - Cardiomyopathy, unspecified Status: Acute Assessment and Plan: Moderate LV dysfunction EF 35%, chronic. History of nonischemic cardiomyopathy. Continue Lasix 40 mg IV push b.i.d. (started 03/10/2019). May transition to p.o. tomorrow. Potassium 2.7 this morning. Has received 40 mEq of potassium. Will give him another 40 mEq IV. (3) Acute kidney injury superimposed on chronic kidney disease: Code(s): N17.9 - Acute kidney failure, unspecified; N18.9 - Chronic kidney disease, unspecified Status: Acute Assessment and Plan: Per primary service. Creatinine improving (4) S/P AVR (aortic valve replacement): Code(s): Z95.2 - Presence of prosthetic heart valve Status: Acute Assessment and Plan: Remains on heparin drip. Continue warfarin 1 mg daily. Goal INR 2-3. (5) COPD exacerbation: Code(s): J44.1 - Chronic obstructive pulmonary disease with (acute) exacerbation Status: Acute Assessment and Plan: For primary team. On 2 L of nasal cannula oxygen at this time (6) Acute respiratory failure: Qualifiers: Respiratory failure complication: hypoxia and hypercapnia Qualified Code(s): J96.01 - Acute respiratory failure with hypoxia; J96.02 - Acute respiratory failure with hypercapnia Code(s): J96.00 - Acute respiratory failure, unspecified whether with hypoxia or hypercapnia Status: Acute Assessment and Plan: As above (7) Severe sepsis: Code(s): A41.9 - Sepsis, unspecified organism; R65.20 - Severe sepsis without septic shock Status: Acute Assessment and Plan: IV ABx,, supportive care. (8) Coagulopathy: Code(s): D68.9 - Coagulation defect, unspecified Status: Acute Assessment and Plan: Coagulopathy improved. Platelets are stable. Additional Plan Plan discussed with Dr Tutu Ledesma 03/12/2019 Time Spent With Patient Time with patient: less than 15 minutes Subjective Interval history: Follow-up for: atrial fibrillation with rapid ventricular response, Acute on chronic hypoxic respiratory failure and COPD exacerbation, moderate LV systolic dysfunction, nonischemic EF 35%, History of mechanical aortic valve replacement, Chronic anticoagulation, Hypertension Date of service: 03/12/2019 Subjective: Feeling much better. Denies any discomfort. Breathing is improving and comfortable. No lightheadedness. Has not been out of bed due to catheters and femoral IV line Review of Systems Constitutional: Constitutional: Reports fatigue and Reports weakness (Generalized) Eyes: Eyes: Reports no additional eye complaints ENT: Reports dysphagia (Past swallow study. Needs thickened liquids) Cardiovascular: Cardiovascular: Denies chest pain, Reports pedal edema (Improving), Denies lightheadedness, Denies palpitations and Denies dyspnea Respiratory: Respiratory: Reports cough, Denies hemoptysis, Denies dyspnea, Denies dyspnea on exertion and Reports wheezing Gastrointestinal: Gastrointestinal: Denies abdominal pain, Denies melena, Denies dysphagia and Denies heartburn Genitourinar
[2019-03-12] MEDS: HEPARIN SOD/D5W 100 UNITS/ML 25,000 UNITS/250 ML BAG 14 UNITS IV CONT (14:42)
[2019-03-12] MEDS: WARFARIN (*PBKC) 1 MG TABLET PO (16:08)
--- NOTE | 2019-03-12 16:49 | PM.PNNEP ---
Progress Note: A&P Assessment and Plan (1) Abnormal results of kidney function studies: Code(s): R94.4 - Abnormal results of kidney function studies Status: Acute Assessment and Plan: The patient's creatinine is elevated. Renal ultrasound shows no hydronephrosis. Urine electrolytes show pre renal azotemia. Creatinine is improved at 2.2 K is low. getting a K run. lets decrease the lasix and add spironolactone to try to continue gentle diuresis but not make the K so low. (2) Chronic kidney disease, stage 3 (moderate): Code(s): N18.3 - Chronic kidney disease, stage 3 (moderate) Status: Acute Assessment and Plan: The patient has chronic kidney disease. This may be chronic pre renal azotemia. He could have vascular disease in the kidneys. (3) Atrial fibrillation with rapid ventricular response: Code(s): I48.91 - Unspecified atrial fibrillation Status: Acute Assessment and Plan: The patient is in atrial fibrillation. Heart rate is doing better. (4) Cardiomyopathy: Code(s): I42.9 - Cardiomyopathy, unspecified Status: Acute Assessment and Plan: EF 36% and diastolic dysfunction grade 2. (5) Chronic respiratory failure: Qualifiers: Respiratory failure complication: hypoxia Qualified Code(s): J96.11 - Chronic respiratory failure with hypoxia Code(s): J96.10 - Chronic respiratory failure, unspecified whether with hypoxia or hypercapnia Status: Acute Assessment and Plan: The patient has significant COPD. (6) Anemia: Code(s): D64.9 - Anemia, unspecified Status: Acute Assessment and Plan: Hemoglobin is up and down between 10 and 11 His stools are guaiac positive. Subjective Date/time seen: 03/12/19 16:49 Interval history: Patient is feeling okay. no cp or sob. he is on a heparin drip and antibiotics. Radha is looking at him to see if there is any IV access we can use besides the femoral line he has now. Review of Systems Cardiovascular: Cardiovascular: Reports no additional cardiovascular complaints Gastrointestinal: Gastrointestinal: Reports no additional gastrointestinal complaints Genitourinary: Genitourinary: Reports no additional male genitourinary complaints Exam Narrative: Exam Narrative: Well developed well-nourished in no acute distress Lungs mildly course breath sounds Heart regular and a bit fast without rub or gallop Abdomen bowel sounds positive soft nontender Extremities no edema or cyanosis Skin no rash or sq nodules Objective Data Vital Signs Vital Signs: Vital Signs - 24 hr 03/11/19 18:00 03/11/19 19:51 03/11/19 20:00 Temperature 36.6 C Pulse Rate 105 H 98 96 Respiratory Rate 21 H 20 Blood Pressure 116/64 Pulse Oximetry 99 96 03/11/19 20:16 03/11/19 22:00 03/11/19 23:38 Temperature Pulse Rate 85 108 H 105 H Respiratory Rate 20 Blood Pressure Pulse Oximetry 03/12/19 00:00 03/12/19 02:00 03/12/19 02:42 Temperature Pulse Rate 101 H 101 H 94 Respiratory Rate 20 Blood Pressure Pulse Oximetry 03/12/19 02:51 03/12/19 04:00 03/12/19 06:00 Temperature 36.2 C L Pulse Rate 96 88 102 H Respiratory Rate 18 21 H Blood Pressure 124/72 Pulse Oximetry 100 03/12/19 08:00 03/12/19 08:10 03/12/19 08:38 Temperature 36.6 C Pulse Rate 102 H 85 84 Respiratory Rate 22 H 16 Blood Pressure 115/62 Pulse Oximetry 100 98 03/12/19 09:02 03/12/19 09:48 03/12/19 10:00 Temperature Pulse Rate 88 129 H 96 Respiratory Rate 18 20 Blood Pressure Pulse Oximetry 97 03/12/19 12:00 03/12/19 13:38 03/12/19 13:46 Temperature 36.7 C Pulse Rate 100 106 H 99 Respiratory Rate 22 H 20 20 Blood Pressure 111/63 Pulse Oximetry 98 97 03/12/19 14:10 03/12/19 16:08 Temperature Pulse Rate 113 H 113 H Respiratory Rate 20 Blood Pressure Pulse Oximetry 93 Intake/Output Intake/Out
[2019-03-12] MEDS: MELATONIN 3 MG TABLET PO (21:01)
[2019-03-12 21:13] LABS: Kappa\\Lambda Light Chains 1.49 (0.26-1.65); Lambda Light Chain 30.9 mg/L (5.7-26.3)
[2019-03-12 21:27] LABS: Vancomycin Trough 9.4 ug/mL (10.0-20.0)
[2019-03-12] MEDS: methylPREDNISolone SOD SUCC 40 MG VIAL IV PUSH (23:17)
[2019-03-13] VITALS (28 sets, daily range): BP systolic 115–120; BP diastolic 64–73; PULSE 53–128; RESP 16–22; TEMP 36.2–36.9; O2SAT 97–100
[2019-03-13] MEDS: IPRATROPIUM BR 0.02% INH SOLN 0.5 MG/2.5 ML VIAL INHALATION ×4 (01:15→20:29)
[2019-03-13] MEDS: CENTRAL LINE FLUSH 10 ML XX ×3 (05:28→20:54)
[2019-03-13] MEDS: methylPREDNISolone SOD SUCC 40 MG VIAL IV PUSH ×3 (05:28→20:52)
[2019-03-13] MEDS: LEVOTHYROXINE SODIUM 50 MCG TABLET PO (05:28)
[2019-03-13 05:30] LABS: Basophils Percent Auto 0.1 % (0.2-1.2); Immature Granulocyte Absolute 0.04 K/mm3 (0.00-0.031); Immature Granulocyte Percent A 0.5 % (0-0.5); Immature Platelet Fraction Pct 11.8 % (0.9-11.2); Lymphocytes Absolute Auto 0.12 K/mm3 (0.9-3.2); Lymphocytes Percent Auto 1.4 % (18.3-44.2); Mean Corpuscular HGB Conc 29.4 g/dl (32-36); Mean Corpuscular Hemoglobin 24.7 pg (26-34); Monocytes Absolute Auto 0.3 K/mm3 (0.1-0.6); Monocytes Percent Auto 3.4 % (2.6-8.5); Neutrophils Percent Auto 94.6 % (45.5-73.1); Nucleated Red Blood Cells Perc 0.2 % (0.0-0.2); Platelet Count Result 178 k/mm3 (150-375); Red Blood Count 4.05 M/mm3 (4.6-6.20); Red Cell Distribution Width 15.9 % (11.5-14.5); White Blood Count 8.5 K/mm3 (4.5-10.0)
[2019-03-13 05:41] LABS: INR 1.6; Prothrombin Time 18.4 Seconds (11.1-14.7)
[2019-03-13 05:44] LABS: Albumin Level 3.4 g/dL (3.5-5.1); Blood Urea Nitrogen 64 mg/dL (9-20); Calcium 7.7 mg/dL (8.4-10.2); Carbon Dioxide > 40 mmol/L (22-30); Chloride 93 mmol/L (98-107); Estimated CRCL calculation 24 ml/min; Estimated Glomerular Filt Rate 29; Glucose 227 mg/dL (75-110); Phosphorus 3.7 mg/dL (2.5-4.5); Potassium 3.1 mmol/L (3.4-5.0); Sodium 141 mmol/L (137-145)
[2019-03-13 05:47] LABS: Lactic Acid 1.2 mmol/L (0.7-2.1)
[2019-03-13 06:23] LABS: Hypochromasia 3+ (NORMAL); Large Platelets Present; Platelet Estimate Adequate (Adequate)
[2019-03-13 06:24] LABS: Stomatocytes 2+ (NORMAL); Tear Drop Cells 1+ (NORMAL)
[2019-03-13 08:18] LABS: Glucose Point of Care 199 (65-105)
[2019-03-13] MEDS: DORNASE ALFA INH SOLN 1 MG/ML 2.5 ML AMP 2.5 MG INHALATION ×2 (08:21→20:29)
[2019-03-13] MEDS: POTASSIUM CHLORIDE 20 MEQ TABLET 40 MEQ PO ×2 (09:19→12:42)
[2019-03-13] MEDS: AMIODARONE HCL 200 MG TABLET PO ×2 (09:23→17:28)
[2019-03-13] MEDS: PANTOPRAZOLE SODIUM IV 40 MG VIAL IV PUSH (09:24)
[2019-03-13] MEDS: FUROSEMIDE 40 MG TABLET PO (09:24)
[2019-03-13] MEDS: SPIRONOLACTONE 25 MG TABLET PO (09:24)
[2019-03-13] MEDS: HEPARIN SOD/D5W 100 UNITS/ML 25,000 UNITS/250 ML BAG 14 UNITS IV CONT (10:50)
--- NOTE | 2019-03-13 10:50 | PCDIET ---
Nutrition Follow-Up Complete: Nutrition Diagnosis: Inadequate oral intake related to oral intubation as evidenced by NPO status. Nutrition Goal: Patient to meet estimated nutritional needs. Goal in progress. Patient with variable intakes on minced and moist, heart healthy diet with mildly thick liquids (0-100%). Patient reports taking Ensure Enlive (350kcal, 20g protein) and feels he would eat better if diet could be upgraded. SKETCH [employer]ER working with patient. Last recorded weight is 76.9 kg which is down from last review (although up from admission). I/O negative. Bowel Motility: No documented bowel movement. Patient denies BM but reports flatus. Labs Reviewed: Glu (199), BUN (64), Cr (2.2), K (3.1), Alb (3.4) Meds Noted: Rocephin, Lasix, Atrovent, Solu Medrol, Protonix, Coumadin Additional Notes: No documented skin breakdown. Recommend continuing present diet until able to be upgraded, per speech therapy, with mildly thickened Ensure Enlive TID. Will continue to monitor with same goals. Nutrition Monitoring and Evaluation: Follow up every 5 days.
--- NOTE | 2019-03-13 10:57 | PM.PNCARD ---
Progress Note: A&P Assessment and Plan (1) Atrial fibrillation with rapid ventricular response: Code(s): I48.91 - Unspecified atrial fibrillation Status: Acute Assessment and Plan: History of paroxysmal atrial fibrillation. Episodes has been more persistent. Continue amiodarone 200 mg b.i.d.. Rate is reasonably controlled, 85-110 beats per minute. INR 1.6 again this morning and therapeutically anticoagulated with his Heparin drip. Change warfarin to 2 mg daily. Continue to monitor daily INR. Plan discussed with Dr Cam 111Lynn 03/13/2019 (2) Cardiomyopathy: Code(s): I42.9 - Cardiomyopathy, unspecified Status: Acute Assessment and Plan: Moderate LV dysfunction EF 35%, chronic. History of nonischemic cardiomyopathy. No longer volume overloaded. Transition to p.o. diuretics. Took 40 mg in the morning and 20 mg at noon at home. Will start with just 40 mg daily. (3) Acute kidney injury superimposed on chronic kidney disease: Code(s): N17.9 - Acute kidney failure, unspecified; N18.9 - Chronic kidney disease, unspecified Status: Acute Assessment and Plan: Per primary service. Creatinine improved. (4) S/P AVR (aortic valve replacement): Code(s): Z95.2 - Presence of prosthetic heart valve Status: Acute Assessment and Plan: Remains on heparin drip. Warfarin as above. Goal INR 2-3. (5) COPD exacerbation: Code(s): J44.1 - Chronic obstructive pulmonary disease with (acute) exacerbation Status: Acute Assessment and Plan: For primary team. On 2 L of nasal cannula oxygen at this time (6) Acute respiratory failure: Qualifiers: Respiratory failure complication: hypoxia and hypercapnia Qualified Code(s): J96.01 - Acute respiratory failure with hypoxia; J96.02 - Acute respiratory failure with hypercapnia Code(s): J96.00 - Acute respiratory failure, unspecified whether with hypoxia or hypercapnia Status: Acute Assessment and Plan: As above (7) Severe sepsis: Code(s): A41.9 - Sepsis, unspecified organism; R65.20 - Severe sepsis without septic shock Status: Acute Assessment and Plan: IV ABx, supportive care. (8) Coagulopathy: Code(s): D68.9 - Coagulation defect, unspecified Status: Acute Assessment and Plan: Resolved. Time Spent With Patient Time with patient: less than 15 minutes Subjective Date/time seen: 03/13/19 10:57 Interval history: Follow-up for: atrial fibrillation with rapid ventricular response, Acute on chronic hypoxic respiratory failure and COPD exacerbation, moderate LV systolic dysfunction, nonischemic EF 35%, History of mechanical aortic valve replacement, Chronic anticoagulation, Hypertension Date of service: 03/13/2019 Subjective: Feeling much better. Denies any discomfort. Breathing is improving and comfortable. No lightheadedness. Has not been out of bed due to catheters and femoral IV line Review of Systems Constitutional: Constitutional: Reports weakness (Generalize) Eyes: Eyes: Reports no additional eye complaints ENT: Denies dysphagia and Denies neck pain Cardiovascular: Cardiovascular: Denies chest pain, Reports pedal edema (Improving), Denies lightheadedness, Denies palpitations, Denies dyspnea and Denies dyspnea on exertion Respiratory: Respiratory: Reports cough, Denies hemoptysis, Denies dyspnea, Denies dyspnea on exertion and Denies wheezing Gastrointestinal: Gastrointestinal: Denies abdominal pain, Denies melena, Denies dysphagia and Denies heartburn Genitourinary: Genitourinary: Denies hematuria and Denies dysuria Musculoskeletal: Mus
[2019-03-13 12:35] LABS: Glucose Point of Care 228 (65-105)
--- NOTE | 2019-03-13 13:52 | PM.IMPN ---
Progress Note: A&P Assessment and Plan (1) Severe sepsis: Code(s): A41.9 - Sepsis, unspecified organism; R65.20 - Severe sepsis without septic shock Status: Acute Assessment and Plan: Criteria met on admission. Result of pneumonia. Blood cultures negative. MRSA surveillance culture negative. Sputum culture now growing Serratia marcescens. With final sensitivities of sputum culture and MRSA surveillance culture negative, antibiotics adjusted to IV ceftriaxone with IV vancomycin and Unasyn stopped. WBC remains normal at 8.5 today. Will continue to monitor. (2) Respiratory failure: Qualifiers: Chronicity: acute on chronic Respiratory failure complication: hypoxia and hypercapnia Qualified Code(s): J96.21 - Acute and chronic respiratory failure with hypoxia; J96.22 - Acute and chronic respiratory failure with hypercapnia Code(s): J96.90 - Respiratory failure, unspecified, unspecified whether with hypoxia or hypercapnia Status: Acute Assessment and Plan: Was being treated for COPD exacerbation but developed acute respiratory failure on 03/08/19 possibly from combination of pneumonia and CHF requiring intubation. Successfully extubated on 03/10/2019. Normally on 4 L of oxygen at home but currently on 3 L. Now on IV ceftriaxone based on sputum culture as above. Will continue nebulizer treatments along with inhaled Pulmicort. Continue to wean IV steroids. MBS done on 03/11/2019 with recommendation for mildly thickened liquids and midst and moist diet. No ivis aspiration. Continue to monitor. (3) Hypokalemia: Code(s): E87.6 - Hypokalemia Status: Acute Assessment and Plan: Potassium still low at 3.1 this morning. Oral replacement given x2. Repeat potassium level this afternoon 3.7. Discussed with Cardiology. Will need to keep potassium around 4. Continues to have episodes of nonsustained ventricular tachycardia on review of telemetry on 03/13/2019. Will give additional potassium this afternoon and placed on scheduled potassium. Magnesium 2.0 today. Will continue to follow and adjust replacement as needed. (4) Atrial fibrillation with rapid ventricular response: Code(s): I48.91 - Unspecified atrial fibrillation Status: Acute Assessment and Plan: Cardiology consulted and appreciate input. Telemetry reviewed on 03/13/2019 with continued episodes of nonsustained ventricular tachycardia as noted above. Will still have elevation of heart rate with activity. Remains on oral amiodarone after previously being on diltiazem followed by Coreg and then metoprolol all of which do not provide adequate rate control. On heparin drip with warfarin for anticoagulation. Will continue to monitor. (5) Coagulopathy: Code(s): D68.9 - Coagulation defect, unspecified Status: Acute Assessment and Plan: INR climbed to 7.8 related to the sepsis and patient received FFP and cryoglobulin. INR now only 1.6 again today as noted above. Back on warfarin. Will need to continue heparin drip as still subtherapeutic. Continue to monitor INR. Adjust treatment as needed. (6) Acute kidney injury superimposed on chronic kidney disease: Code(s): N17.9 - Acute kidney failure, unspecified; N18.9 - Chronic kidney disease, unspecified Status: Acute Assessment and Plan: Precipitating etiology is not clear. Nephrology consulted and appreciate input. Creatinine remains 2.20 today although baseline is 1.20-1.40. Renal ultrasound with no hydronephrosis. Continue to hold nephrotoxic agents. Will continue to monitor. (7) COPD exacerbation: Code(s): J44.1 - Chronic obstructive pulmonary disease with (acute) exacerbation Status: Acute Assessment and Plan: Continue respiratory treatments as noted above. Continue to wean IV steroids. (8) CHF (congestive heart failure): Qualifiers: Heart failure chronicity: chronic Heart
[2019-03-13 15:13] LABS: Potassium 3.7 mmol/L (3.4-5.0)
[2019-03-13] MEDS: BISACODYL 10 MG SUPPOSITORY RECTAL (17:25)
[2019-03-13] MEDS: POTASSIUM CHLORIDE 20 MEQ TABLET.ER 40 MEQ PO (17:28)
[2019-03-13 19:09] LABS: Partial Thromboplastin Time 65.2 SECONDS (22.3-36.8)
[2019-03-13] MEDS: WARFARIN (*PBKC) 2 MG TABLET PO (19:17)
[2019-03-13] MEDS: HEPARIN SODIUM 5,000 UNITS/ML VIAL 3000 UNITS IV PUSH (19:19)
--- NOTE | 2019-03-13 19:40 | PM.PNNEP ---
Progress Note: A&P Assessment and Plan (1) Abnormal results of kidney function studies: Code(s): R94.4 - Abnormal results of kidney function studies Status: Acute Assessment and Plan: The patient's creatinine is elevated. Renal ultrasound shows no hydronephrosis. Urine electrolytes show pre renal azotemia. Creatinine is stable at baseline. K is good today CO2 is high. on no bicarb . on smaller dose of diuretics. (2) Chronic kidney disease, stage 3 (moderate): Code(s): N18.3 - Chronic kidney disease, stage 3 (moderate) Status: Acute Assessment and Plan: The patient has chronic kidney disease. This may be chronic pre renal azotemia. He could have vascular disease in the kidneys. he is at baseline (3) Atrial fibrillation with rapid ventricular response: Code(s): I48.91 - Unspecified atrial fibrillation Status: Acute Assessment and Plan: The patient is in atrial fibrillation. Heart rate is okay (4) Cardiomyopathy: Code(s): I42.9 - Cardiomyopathy, unspecified Status: Acute Assessment and Plan: EF 36% and diastolic dysfunction grade 2. (5) Chronic respiratory failure: Qualifiers: Respiratory failure complication: hypoxia Qualified Code(s): J96.11 - Chronic respiratory failure with hypoxia Code(s): J96.10 - Chronic respiratory failure, unspecified whether with hypoxia or hypercapnia Status: Acute Assessment and Plan: The patient has significant COPD. (6) Anemia: Code(s): D64.9 - Anemia, unspecified Status: Acute Assessment and Plan: Hemoglobin is up and down between 10 and 11 His stools are guaiac positive. Subjective Date/time seen: 03/13/19 08:15 Interval history: Patient is feeling okay. no cp or sob. eating okay. Review of Systems Cardiovascular: Cardiovascular: Reports no additional cardiovascular complaints Respiratory: Respiratory: Reports no additional respiratory complaints Gastrointestinal: Gastrointestinal: Reports no additional gastrointestinal complaints Genitourinary: Genitourinary: Reports no additional male genitourinary complaints Exam Narrative: Exam Narrative: Well developed well-nourished in no acute distress Lungs mildly course breath sounds Heart regular and a bit fast without rub or gallop Abdomen bowel sounds positive soft nontender Extremities no edema or cyanosis Skin no rash or sq nodules Objective Data Vital Signs Vital Signs: Vital Signs - 24 hr 03/12/19 19:41 03/12/19 19:50 03/12/19 20:00 Temperature 36.6 C Pulse Rate 74 107 H 92 Respiratory Rate 19 20 20 Blood Pressure 113/64 Pulse Oximetry 98 98 03/12/19 22:00 03/12/19 23:38 03/12/19 23:49 Temperature Pulse Rate 92 94 94 Respiratory Rate 20 Blood Pressure Pulse Oximetry 98 03/13/19 01:15 03/13/19 01:25 03/13/19 02:00 Temperature Pulse Rate 98 92 88 Respiratory Rate 20 20 Blood Pressure Pulse Oximetry 03/13/19 04:00 03/13/19 06:00 03/13/19 08:00 Temperature 36.2 C L 36.3 C L Pulse Rate 96 96 82 Respiratory Rate 18 18 Blood Pressure 120/70 119/73 Pulse Oximetry 100 03/13/19 08:22 03/13/19 08:23 03/13/19 08:35 Temperature Pulse Rate 103 H 100 Respiratory Rate 20 20 Blood Pressure Pulse Oximetry 98 03/13/19 08:51 03/13/19 09:23 03/13/19 10:00 Temperature Pulse Rate 104 H 108 H Respiratory Rate Blood Pressure Pulse Oximetry 97 03/13/19 11:57 03/13/19 12:00 03/13/19 14:00 Temperature 36.8 C Pulse Rate 95 108 H 106 H Respiratory Rate 18 Blood Pressure 118/68 Pulse Oximetry 99 03/13/19 14:27 03/13/19 14:30 03/13/19 14:36 Temperature Pulse Rate 110 H 108 H 111 H Respiratory Rate 20 22 H Blood Pressure Pulse Oximetry 03/13/19 16:00 03/13/19 17:28 03/13/19 18:00 Temperature 36.9 C Pulse Rate 115 H 104 H 110 H Respiratory Rate 20 Blood
[2019-03-13] MEDS: carvediloL 12.5 MG TABLET PO (20:53)
[2019-03-13] MEDS: MELATONIN 3 MG TABLET PO (20:53)
[2019-03-13] MEDS: PANTOPRAZOLE 40 MG TABLET PO (20:53)
[2019-03-13] MEDS: GABAPENTIN 400 MG CAPSULE 800 MG PO (21:48)
[2019-03-14] VITALS (27 sets, daily range): BP systolic 96–111; BP diastolic 53–77; PULSE 82–144; RESP 14–26; TEMP 36.3–36.8; O2SAT 94–100
[2019-03-14] MEDS: HEPARIN SOD/D5W 100 UNITS/ML 25,000 UNITS/250 ML BAG 16 UNITS IV CONT (01:22)
[2019-03-14] MEDS: IPRATROPIUM BR 0.02% INH SOLN 0.5 MG/2.5 ML VIAL INHALATION ×4 (02:16→19:19)
[2019-03-14 03:11] LABS: Partial Thromboplastin Time > 200.0 SECONDS (22.3-36.8)
[2019-03-14 05:48] LABS: Hematocrit 34.2 % (42.0-52.0); Hemoglobin 10.1 g/dL (14.0-18.0); Immature Platelet Fraction Pct 12.5 % (0.9-11.2); Mean Corpuscular HGB Conc 29.5 g/dl (32-36); Mean Corpuscular Hemoglobin 25.1 pg (26-34); Mean Corpuscular Volume 85.1 fl (80-100); Mean Platelet Volume 13.3 fl (7.4-10.4); Platelet Count Result 175 k/mm3 (150-375); Red Blood Count 4.02 M/mm3 (4.6-6.20); Red Cell Distribution Width 15.9 % (11.5-14.5); White Blood Count 11.4 K/mm3 (4.5-10.0)
[2019-03-14] MEDS: LEVOTHYROXINE SODIUM 50 MCG TABLET PO (05:52)
[2019-03-14] MEDS: CENTRAL LINE FLUSH 10 ML XX ×3 (05:52→22:15)
[2019-03-14 05:58] LABS: Blood Urea Nitrogen 64 mg/dL (9-20); Calcium 7.9 mg/dL (8.4-10.2); Carbon Dioxide 38 mmol/L (22-30); Chloride 93 mmol/L (98-107); Estimated CRCL calculation 24 ml/min; Estimated Glomerular Filt Rate 29; Glucose 224 mg/dL (75-110); Magnesium 1.9 mg/dL (1.6-2.3); Phosphorus 3.8 mg/dL (2.5-4.5); Potassium 3.9 mmol/L (3.4-5.0); Sodium 140 mmol/L (137-145)
[2019-03-14 06:00] LABS: INR 1.8; Prothrombin Time 20.1 Seconds (11.1-14.7)
[2019-03-14] MEDS: DORNASE ALFA INH SOLN 1 MG/ML 2.5 ML AMP 2.5 MG INHALATION ×2 (08:26→19:21)
[2019-03-14 08:28] LABS: Glucose Point of Care 214 (65-105)
[2019-03-14] MEDS: POTASSIUM CHLORIDE 20 MEQ TABLET.ER 40 MEQ PO ×2 (08:48→17:34)
[2019-03-14] MEDS: methylPREDNISolone SOD SUCC 40 MG VIAL IV PUSH ×2 (08:49→20:48)
[2019-03-14] MEDS: SPIRONOLACTONE 25 MG TABLET PO (08:49)
[2019-03-14] MEDS: carvediloL 12.5 MG TABLET PO ×2 (08:49→20:47)
[2019-03-14] MEDS: AMIODARONE HCL 200 MG TABLET PO ×2 (08:49→17:34)
[2019-03-14] MEDS: PANTOPRAZOLE 40 MG TABLET PO ×2 (08:49→20:48)
[2019-03-14] MEDS: FUROSEMIDE 40 MG TABLET PO (08:49)
[2019-03-14 11:20] LABS: Glucose Point of Care 245 (65-105)
[2019-03-14 11:25] LABS: Partial Thromboplastin Time 79.3 SECONDS (22.3-36.8)
--- NOTE | 2019-03-14 11:37 | PM.IMPN ---
Progress Note: A&P Assessment and Plan (1) Severe sepsis: Code(s): A41.9 - Sepsis, unspecified organism; R65.20 - Severe sepsis without septic shock Status: Acute Assessment and Plan: Criteria met on admission. Result of pneumonia. Blood cultures negative. MRSA surveillance culture negative. Sputum culture now growing Serratia marcescens. With final sensitivities of sputum culture and MRSA surveillance culture negative, antibiotics adjusted to IV ceftriaxone with IV vancomycin and Unasyn stopped. WBC 11.4 today. Will continue to monitor. (2) Respiratory failure: Qualifiers: Chronicity: acute on chronic Respiratory failure complication: hypoxia and hypercapnia Qualified Code(s): J96.21 - Acute and chronic respiratory failure with hypoxia; J96.22 - Acute and chronic respiratory failure with hypercapnia Code(s): J96.90 - Respiratory failure, unspecified, unspecified whether with hypoxia or hypercapnia Status: Acute Assessment and Plan: Was being treated for COPD exacerbation but developed acute respiratory failure on 03/08/19 possibly from combination of pneumonia and CHF requiring intubation. Successfully extubated on 03/10/2019. Subjectively noticing more shortness of breath today and does sound more congested. Portable chest x-ray ordered and reviewed showing slight improvement in infiltrates. On 4 L of oxygen which is his home requirement but noted to have more difficulty and discussed with respiratory therapy. Will adjust PAP therapy. Additionally, I did speak with Dr. Hernandez as patient on less diuretic than he is normally on at home. Will give 1 mg IV Bumex today. Continue IV ceftriaxone as noted above. Will leave current IV steroids. Continue nebulizer treatments along with inhaled Pulmicort. MBS done on 03/11/2019 with recommendation for mildly thickened liquids and midst and moist diet. No ivis aspiration. Continue to monitor closely. (3) Hypokalemia: Code(s): E87.6 - Hypokalemia Status: Acute Assessment and Plan: Now resolved with potassium 3.9 today. Will leave 2nd dose of oral potassium tonight as will be giving IV Bumex. May be able to cut back on potassium dosing tomorrow morning. Telemetry reviewed on 03/14/2019 with atrial fibrillation. Continue to monitor and adjust treatment as needed. (4) Atrial fibrillation with rapid ventricular response: Code(s): I48.91 - Unspecified atrial fibrillation Status: Acute Assessment and Plan: Cardiology consulted and appreciate input. Telemetry reviewed on 03/14/2019 with improvement noted as he is no longer having episodes of nonsustained ventricular tachycardia. Continue oral amiodarone. Previously on IV diltiazem followed by Coreg and the metoprolol all of which did not appropriately control his rate. Remains on oral heparin with warfarin for anticoagulation. Will monitor. (5) Coagulopathy: Code(s): D68.9 - Coagulation defect, unspecified Status: Acute Assessment and Plan: INR climbed to 7.8 related to the sepsis and patient received FFP and cryoglobulin. INR slightly better at 1.8 today. Continue heparin along with warfarin. Continue to monitor INR and adjust warfarin as needed. (6) Acute kidney injury superimposed on chronic kidney disease: Code(s): N17.9 - Acute kidney failure, unspecified; N18.9 - Chronic kidney disease, unspecified Status: Acute Assessment and Plan: Precipitating etiology is not clear. Nephrology consulted and appreciate input. Creatinine remains above baseline of 1.20-1.40 and unchanged at 2.20 again today. Renal ultrasound with no hydronephrosis. Continue to hold nephrotoxic agents other than diuretics. Will continue to monitor. (7) COPD exacerbation: Code(s): J44.1 - Chronic obstructive pulmonary disease with (acute) exacerbation Status: Acute Assessment and Plan: Continue respiratory treatments as
--- NOTE | 2019-03-14 12:02 | PM.PNNEP ---
Progress Note: A&P Assessment and Plan (1) Abnormal results of kidney function studies: Code(s): R94.4 - Abnormal results of kidney function studies Status: Acute Assessment and Plan: The patient's creatinine is elevated. Renal ultrasound shows no hydronephrosis. Urine electrolytes show pre renal azotemia. creatinine is doing well. (2) Chronic kidney disease, stage 3 (moderate): Code(s): N18.3 - Chronic kidney disease, stage 3 (moderate) Status: Acute Assessment and Plan: The patient has chronic kidney disease. This may be chronic pre renal azotemia. He could have vascular disease in the kidneys. he is at baseline (3) Atrial fibrillation with rapid ventricular response: Code(s): I48.91 - Unspecified atrial fibrillation Status: Acute Assessment and Plan: The patient is in atrial fibrillation. Heart rate is okay (4) Cardiomyopathy: Code(s): I42.9 - Cardiomyopathy, unspecified Status: Acute Assessment and Plan: EF 36% and diastolic dysfunction grade 2. He is not short of breath. He has no swelling. He looks compensated (5) Chronic respiratory failure: Qualifiers: Respiratory failure complication: hypoxia Qualified Code(s): J96.11 - Chronic respiratory failure with hypoxia Code(s): J96.10 - Chronic respiratory failure, unspecified whether with hypoxia or hypercapnia Status: Acute Assessment and Plan: The patient has significant COPD. he is getting supportive care (6) Anemia: Code(s): D64.9 - Anemia, unspecified Status: Acute Assessment and Plan: Hemoglobin is up and down between 10 and 11 His stools are guaiac positive. Subjective Date/time seen: 03/14/19 12:02 Interval history: Patient is feeling okay. Up in a chair. Denies shortness of breath Review of Systems Cardiovascular: Cardiovascular: Reports no additional cardiovascular complaints Respiratory: Respiratory: Reports no additional respiratory complaints Gastrointestinal: Gastrointestinal: Reports no additional gastrointestinal complaints Genitourinary: Genitourinary: Reports no additional male genitourinary complaints Exam Narrative: Exam Narrative: Well developed well-nourished in no acute distress Lungs mildly course breath sounds Heart regular and a bit fast without rub or gallop Abdomen bowel sounds positive soft nontender Extremities no edema or cyanosis Skin no rash or sq nodules Objective Data Vital Signs Vital Signs: Vital Signs - 24 hr 03/13/19 14:00 03/13/19 14:27 03/13/19 14:30 Temperature Pulse Rate 106 H 110 H 108 H Respiratory Rate 20 Blood Pressure Pulse Oximetry 03/13/19 14:36 03/13/19 16:00 03/13/19 17:28 Temperature 36.9 C Pulse Rate 111 H 115 H 104 H Respiratory Rate 22 H 20 Blood Pressure 115/64 Pulse Oximetry 98 03/13/19 18:00 03/13/19 20:00 03/13/19 20:30 Temperature 36.5 C Pulse Rate 110 H 124 H 53 L Respiratory Rate 20 20 Blood Pressure 115/69 Pulse Oximetry 98 03/13/19 20:31 03/13/19 20:38 03/13/19 20:53 Temperature Pulse Rate 53 L 118 H Respiratory Rate 20 Blood Pressure Pulse Oximetry 98 03/13/19 22:00 03/13/19 23:56 03/14/19 00:00 Temperature Pulse Rate 98 87 87 Respiratory Rate 20 Blood Pressure Pulse Oximetry 98 03/14/19 01:41 03/14/19 02:17 03/14/19 02:23 Temperature Pulse Rate 87 95 96 Respiratory Rate 20 20 Blood Pressure Pulse Oximetry 03/14/19 04:00 03/14/19 05:46 03/14/19 08:00 Temperature 36.6 C 36.3 C L Pulse Rate 103 H 106 H 108 H Respiratory Rate 16 20 Blood Pressure 103/53 L 110/64 Pulse Oximetry 98 100 03/14/19 08:22 03/14/19 08:42 03/14/19 08:49 Temperature Pulse Rate 82 105 H 109 H Respiratory Rate 20 20 Blood Pressure Pulse Oximetry 94 03/14/19 10:00 Temperature Pulse Rate 116 H Respiratory Rate Blo
--- NOTE | 2019-03-14 12:40 | PM.PNCARD ---
Progress Note: A&P Additional Plan No change in medical regimen today continue p.o. amiodarone as well as p.o. warfarin INR is nearing therapeutic at 1.8 today. Will continue IV heparin until INR is at least 2.0 Time Spent With Patient Time with patient: 15 - 25 minutes Subjective Date/time seen: 03/14/19 12:41 Date of service 03/14/2019 Interval history: Follow-up visit today for paroxysmal atrial fibrillation and nonischemic cardiomyopathy Patient has no cardiovascular symptoms today. Exam Const: General: no acute distress HENMT: Mouth: Yes moist mucous membranes Eyes: Sclera: sclerae normal Pupils: PERRL Neck: Neck: supple and no JVD Thyroid: thyroid normal Resp: Effort & Inspection: normal respiratory effort Other: Few central rhonchi are appreciated Cardio: Rhythm: abnormal rhythm irregularly irregular GI: Auscultation: normal bowel sounds Skin: General skin exam: normal color Extrem: General: normal to inspection Objective Data Vital Signs Vital Signs: Vital Signs - 24 hr 03/13/19 14:00 03/13/19 14:27 03/13/19 14:30 Temperature Pulse Rate 106 H 110 H 108 H Respiratory Rate 20 Blood Pressure Pulse Oximetry 03/13/19 14:36 03/13/19 16:00 03/13/19 17:28 Temperature 36.9 C Pulse Rate 111 H 115 H 104 H Respiratory Rate 22 H 20 Blood Pressure 115/64 Pulse Oximetry 98 03/13/19 18:00 03/13/19 20:00 03/13/19 20:30 Temperature 36.5 C Pulse Rate 110 H 124 H 53 L Respiratory Rate 20 20 Blood Pressure 115/69 Pulse Oximetry 98 03/13/19 20:31 03/13/19 20:38 03/13/19 20:53 Temperature Pulse Rate 53 L 118 H Respiratory Rate 20 Blood Pressure Pulse Oximetry 98 03/13/19 22:00 03/13/19 23:56 03/14/19 00:00 Temperature Pulse Rate 98 87 87 Respiratory Rate 20 Blood Pressure Pulse Oximetry 98 03/14/19 01:41 03/14/19 02:17 03/14/19 02:23 Temperature Pulse Rate 87 95 96 Respiratory Rate 20 20 Blood Pressure Pulse Oximetry 03/14/19 04:00 03/14/19 05:46 03/14/19 08:00 Temperature 36.6 C 36.3 C L Pulse Rate 103 H 106 H 108 H Respiratory Rate 16 20 Blood Pressure 103/53 L 110/64 Pulse Oximetry 98 100 03/14/19 08:22 03/14/19 08:42 03/14/19 08:49 Temperature Pulse Rate 82 105 H 109 H Respiratory Rate 20 20 Blood Pressure Pulse Oximetry 94 03/14/19 10:00 03/14/19 12:00 Temperature 36.8 C Pulse Rate 116 H 105 H Respiratory Rate 26 H Blood Pressure 96/54 L Pulse Oximetry 99 Intake/Output Intake/Output: Intake & Output 03/11/19 03/12/19 03/13/19 03/14/19 23:59 23:59 23:59 23:59 Intake Total 1826.0 1516 2524 696 Output Total 2550 3100 1800 400 Balance -724.0 -1584 724 296 Meds/Results Medications: Active Medications Generic Name Dose Route Start Last Admin Trade Name Freq PRN Reason Stop Dose Admin Amiodarone HCl 200 mg 03/11/19 17:00 03/14/19 08:49 Pacerone PO 200 mg BID JAVY Administration Budesonide 0.5 mg 03/10/19 08:00 03/14/19 08:22 Pulmicort Respule INHALATION 0.5 mg Q12HRT JAVY Administration Carvedilol 12.5 mg 03/13/19 21:00 03/14/19 08:49 Coreg PO 12.5 mg Q12HR JAVY Administration Dornase Johnny 2.5 mg 03/08/19 20:00 03/14/19 08:26 Pulmozyme INHALATION 2.5 mg Q12HRT JAVY Administration Furosemide 40 mg 03/13/19 09:00 03/14/19 08:49 Lasix Tablet PO 40 mg DAILY JAVY Administration Gabapentin 800 mg 03/06/19 21:00 03/13/19 21:48 Neurontin PO 800 mg HS JAVY Administration Heparin Sodium (Porcine) 6,000 units 03/10/19 08:26 Heparin Sodium IV PUSH PRN PRN aPTT less than 55 seconds Heparin Sodium (Porcine) 3,000 units 03/10/19 08:26 03/13/19 19:19 Heparin Sodium IV PUSH 3,000 units PRN PRN Administration aPTT 55 - 70 seconds Heparin Sodium/Dextrose 25,000 units in 250 mls @ 16 mls/hr 03/10/19 08:30 03/14/19 05:54 Heparin Sodium/D5w 100 Units/Ml IV CONT
[2019-03-14 15:59] LABS: Glucose Point of Care 208 (65-105)
--- NOTE | 2019-03-14 16:05 | PCSTNOTE ---
The patient treatment was not able to be completed on [03/14/19] due to [patient complaints of shortness of breath]. Will plan to continue treatment per plan of care.
[2019-03-14] MEDS: BUMETANIDE INJ 1 MG/4 ML VIAL IV PUSH (17:34)
[2019-03-14] MEDS: WARFARIN (*PBKC) 2 MG TABLET PO (17:34)
[2019-03-14 18:18] LABS: Partial Thromboplastin Time > 200.0 SECONDS (22.3-36.8)
[2019-03-14 18:44] LABS: Alveolar/Arterial O2 Gradient 111.8 mmHg; Base Excess ABG 9.2 mEq/l (+/-2.0); Carboxyhemoglobin 0.4 % THb (0-2.0); Fractional Inspired Oxygen 36 %; HCO3 ABG 34.3 mEq/l (22.0-26.0); Methemoglobin ABG 0.3 %THb (0-1.5); Oxygen Content ABG 16.5 %vol (16.0-22.0); Oxyhemoglobin 95.7 % THb (90.0-100.0); PCO2 ABG 49.1 mmHg (35.0-45.0); PO2 ABG 87.9 mmHg (80.0-100.0); PO2 FiO2 Ratio Arterial Blood 2.44 %; Reduced Hemoglobin 3.6 %THb (0-5.0); Total Hemoglobin 12.2 g/dL (12.0-18.0); pH ABG 7.462 (7.350-7.450)
[2019-03-14 18:45] LABS: Partial Thromboplastin Time 90.3 SECONDS (22.3-36.8)
[2019-03-14 18:45] LABS: Site Drawn RIGHT BRACHIAL
[2019-03-14 18:46] LABS: Device NASAL CANNULA
[2019-03-14 20:13] LABS: Alveolar/Arterial O2 Gradient 110.4 mmHg; Base Excess ABG 8.6 mEq/l (+/-2.0); Fractional Inspired Oxygen 40 %; HCO3 ABG 33.7 mEq/l (22.0-26.0); Oxygen Content ABG 16.7 %vol (16.0-22.0); Oxygen Saturation ABG 98.4 % (95.0-100.0); Oxyhemoglobin 97.3 % THb (90.0-100.0); PCO2 ABG 48.7 mmHg (35.0-45.0); PO2 ABG 118.8 mmHg (80.0-100.0); PO2 FiO2 Ratio Arterial Blood 2.97 %; Total Hemoglobin 12.1 g/dL (12.0-18.0); pH ABG 7.458 (7.350-7.450)
[2019-03-14 20:40] LABS: Device NON-INVASIVE VENT; Modified Allen's Test Pass; Site Drawn RIGHT BRACHIAL
[2019-03-14 20:41] LABS: Non-Invasive Expiratory Pressure 5 CMH2O; Non-Invasive Inspiratory Pressure 10 CMH2O; Non-Invasive Vent Rate 12 /MIN
[2019-03-14] MEDS: GABAPENTIN 400 MG CAPSULE 800 MG PO (20:47)
[2019-03-14] MEDS: MELATONIN 3 MG TABLET PO (20:47)
[2019-03-14] MEDS: HEPARIN SOD/D5W 100 UNITS/ML 25,000 UNITS/250 ML BAG 14 UNITS IV CONT (20:49)
[2019-03-15] VITALS (29 sets, daily range): BP systolic 98–136; BP diastolic 52–96; PULSE 84–137; RESP 13–26; TEMP 36.3–36.6; O2SAT 73–100
--- NOTE | 2019-03-15 00:02 | ECG_ITS ---
Measurements Intervals [place] Rate: 136 P: IA: 0 QRS: 66 QRSD: 129 T: 268 QT: 316 QTc: 476 Interpretive Statements ATRIAL FLUTTER/TACHYCARDIA WITH RAPID VENTRICULAR RESPONSE INTRAVENTRICULAR CONDUCTION DELAY ST-T WAVE ABNORMALITY IN ANTEROLAT/INF LEADS- CONSIDER ISCHEMIA ABNORMAL ECG Electronically Signed On 03-15-2019 7:43:11 [employer] by Jerel Tony D.O.
[2019-03-15] MEDS: LORAZEPAM INJ 2 MG/ML VIAL 0.25 MG IV PUSH (00:18)
[2019-03-15] MEDS: AMIODARONE 150 MG/D5W 100 ML 150 MG/100 ML BAG 600 MG IV CONT (01:06)
[2019-03-15] MEDS: IPRATROPIUM BR 0.02% INH SOLN 0.5 MG/2.5 ML VIAL INHALATION ×4 (01:14→19:50)
[2019-03-15] MEDS: AMIODARONE 360 MG/D5W 200 ML 360 MG/200 ML BAG 33.3 MG IV CONT (01:18)
[2019-03-15] MEDS: CENTRAL LINE FLUSH 10 ML XX ×3 (05:20→21:14)
[2019-03-15 05:53] LABS: INR 2.3; Prothrombin Time 24.7 Seconds (11.1-14.7)
[2019-03-15 05:55] LABS: Partial Thromboplastin Time 102.8 SECONDS (22.3-36.8)
[2019-03-15] MEDS: LEVOTHYROXINE SODIUM 50 MCG TABLET PO (05:55)
[2019-03-15 05:57] LABS: Blood Urea Nitrogen 75 mg/dL (9-20); Calcium 8.1 mg/dL (8.4-10.2); Carbon Dioxide 35 mmol/L (22-30); Chloride 93 mmol/L (98-107); Estimated CRCL calculation 20 ml/min; Estimated Glomerular Filt Rate 23; Glucose 237 mg/dL (75-110); Potassium 5.4 mmol/L (3.4-5.0); Sodium 139 mmol/L (137-145)
[2019-03-15] MEDS: AMIODARONE 360 MG/D5W 200 ML 360 MG/200 ML BAG 16.7 MG IV CONT ×2 (06:57→19:13)
[2019-03-15 08:01] LABS: Alveolar/Arterial O2 Gradient 118.5 mmHg; Fractional Inspired Oxygen 40 %; HCO3 ABG 32.2 mEq/l (22.0-26.0); Oxygen Saturation ABG 97.6 % (95.0-100.0); Oxyhemoglobin 96.2 % THb (90.0-100.0); PCO2 ABG 54.2 mmHg (35.0-45.0); PO2 ABG 104.4 mmHg (80.0-100.0); PO2 FiO2 Ratio Arterial Blood 2.61 %; Total Hemoglobin 11.7 g/dL (12.0-18.0); pH ABG 7.392 (7.350-7.450)
[2019-03-15 08:03] LABS: Device NON-INVASIVE VENT; Modified Allen's Test Pass; Non-Invasive Expiratory Pressure 5 CMH2O; Non-Invasive Inspiratory Pressure 10 CMH2O; Non-Invasive Vent Rate 12 /MIN; Site Drawn RIGHT RADIAL
[2019-03-15] MEDS: DORNASE ALFA INH SOLN 1 MG/ML 2.5 ML AMP 2.5 MG INHALATION ×2 (08:51→19:50)
--- NOTE | 2019-03-15 09:22 | PM.IMPN ---
Progress Note: A&P Assessment and Plan (1) Respiratory failure: Qualifiers: Chronicity: acute on chronic Respiratory failure complication: hypoxia and hypercapnia Qualified Code(s): J96.21 - Acute and chronic respiratory failure with hypoxia; J96.22 - Acute and chronic respiratory failure with hypercapnia Code(s): J96.90 - Respiratory failure, unspecified, unspecified whether with hypoxia or hypercapnia Status: Acute Assessment and Plan: Developed acute respiratory failure on 03/08/2019 while being treated for COPD exacerbation requiring intubation. Successfully extubated on 03/10/2019. Noted to have increased problems with breathing last night requiring moved to BiPAP. Reported to have some hallucinations overnight receive low-dose IV Ativan. Remains drowsy this morning. ABG improved. Once more awake, can try taking off BiPAP and using nasal cannula. Was on 4 L nasal cannula prior to BiPAP. Home oxygen is 4 L. will continue IV ceftriaxone with sputum culture growing Serratia marcescens. Continue nebulizer treatments along with inhaled Pulmicort. MBS done on 03/11/2019 with recommendation for mildly thickened liquids and midst and moist diet with no ivis aspiration. Will allow to eat if able. Continue to monitor closely. (2) Severe sepsis: Code(s): A41.9 - Sepsis, unspecified organism; R65.20 - Severe sepsis without septic shock Status: Acute Assessment and Plan: Criteria met on admission. Result of pneumonia. Blood cultures negative. MRSA surveillance culture negative. Sputum culture growing Serratia marcescens. With final sensitivities of sputum culture and MRSA surveillance culture negative, antibiotics adjusted to IV ceftriaxone with IV vancomycin and Unasyn stopped. Will continue to monitor. (3) Pneumonia: Qualifiers: Pneumonia type: due to other aerobic Gram-negative bacteria Laterality: bilateral Lung location: unspecified part of lung Qualified Code(s): J15.6 - Pneumonia due to other Gram-negative bacteria Code(s): J18.9 - Pneumonia, unspecified organism Status: Acute Assessment and Plan: Chest xray on 03/15/19 with slight improvement in bilateral infiltrates. Sputum culture as noted above. Continue IV ceftriaxone along with respiratory treatments as noted. (4) Hyperkalemia: Code(s): E87.5 - Hyperkalemia Status: Acute Assessment and Plan: Potassium 5.4 today but creatinine increased to 2.70. Still on spironolactone but may need to hold if potassium remains elevated. (5) Acute kidney injury superimposed on chronic kidney disease: Code(s): N17.9 - Acute kidney failure, unspecified; N18.9 - Chronic kidney disease, unspecified Status: Acute Assessment and Plan: Precipitating etiology is not clear. Nephrology consulted and appreciate input. Creatinine remains above baseline of 1.20-1.40 at 2.70 today. Renal ultrasound with no hydronephrosis. Continue to hold nephrotoxic agents other than diuretics. Will continue to monitor. (6) Hypokalemia: Code(s): E87.6 - Hypokalemia Status: Acute Assessment and Plan: Potassium now elevated as noted above. (7) Atrial fibrillation with rapid ventricular response: Code(s): I48.91 - Unspecified atrial fibrillation Status: Acute Assessment and Plan: Cardiology consulted and appreciate input. Telemetry reviewed on 03/15/2019 with atrial fibrillation with some episodes of elevated heart rate otherwise acceptably controlled. Switched IV amiodarone with need for BiPAP yesterday. Anticipate return to oral amiodarone tomorrow. Previously on IV diltiazem followed by Coreg and the metoprolol all of which did not appropriately control his rate. Remains on oral heparin with warfarin for anticoagulation. Will monitor. (8) Coagulopathy: Code(s): D68.9 - Coagulation defect, unspecified Status: Acute Assessment and Plan:
--- NOTE | 2019-03-15 10:25 | PCSTNOTE ---
The patient treatment was not able to be completed on 03/15/19 due to patient continuing to have shortness of breath, on oxygen mask. Patient refused at this time due to these issues. Will plan to continue treatment per plan of care.
--- NOTE | 2019-03-15 12:21 | PM.PNCARD ---
Progress Note: A&P Assessment and Plan (1) Atrial fibrillation with rapid ventricular response: Code(s): I48.91 - Unspecified atrial fibrillation Status: Acute Assessment and Plan: History of paroxysmal atrial fibrillation. Episodes has been more persistent. Amiodarone switched back to IV on 03/14/2019, hopefully go back to oral amiodarone tomorrow. Heart rate is reasonably well controlled. (2) Cardiomyopathy: Qualifiers: Cardiomyopathy type: dilated Qualified Code(s): I42.0 - Dilated cardiomyopathy Code(s): I42.9 - Cardiomyopathy, unspecified Status: Acute Assessment and Plan: Moderate LV dysfunction EF 35%, chronic. History of nonischemic cardiomyopathy. Does not appear to be severely volume overloaded but had more shortness of breath last night. Continue Lasix 40 mg daily with extra dose of Bumex 1 mg IV push today. (3) S/P AVR (aortic valve replacement): Code(s): Z95.2 - Presence of prosthetic heart valve Status: Acute Assessment and Plan: INR today is 2.3; will discontinue heparin drip Continue warfarin 2 mg daily although that may need to be decreased in a couple of days. (4) Acute kidney injury superimposed on chronic kidney disease: Code(s): N17.9 - Acute kidney failure, unspecified; N18.9 - Chronic kidney disease, unspecified Status: Acute Assessment and Plan: Per primary service. Creatinine fairly stable (5) COPD exacerbation: Code(s): J44.1 - Chronic obstructive pulmonary disease with (acute) exacerbation Status: Acute Assessment and Plan: For primary team. On 2 L of nasal cannula oxygen at this time (6) Acute respiratory failure: Qualifiers: Respiratory failure complication: hypoxia and hypercapnia Qualified Code(s): J96.01 - Acute respiratory failure with hypoxia; J96.02 - Acute respiratory failure with hypercapnia Code(s): J96.00 - Acute respiratory failure, unspecified whether with hypoxia or hypercapnia Status: Acute Assessment and Plan: As above (7) Severe sepsis: Code(s): A41.9 - Sepsis, unspecified organism; R65.20 - Severe sepsis without septic shock Status: Acute Assessment and Plan: IV ABx, supportive care. (8) Coagulopathy: Code(s): D68.9 - Coagulation defect, unspecified Status: Acute Assessment and Plan: Resolved. (9) Acute on chronic systolic heart failure: Code(s): I50.23 - Acute on chronic systolic (congestive) heart failure Status: Acute Assessment and Plan: Improved Subjective Date/time seen: 03/15/19 12:21 Interval history: Follow-up visit for paroxysmal atrial fibrillation and nonischemic cardiomyopathy, anticoagulation for prosthetic aortic valve Date of service: 03/15/2019 Patient said he was lousy yesterday and last night, with more shortness of breath. Patient's AFib rate increased last night, 120 is 130s, and he was restarted on a amiodarone drip. Now running about 95-105 be p.m.. Still with a cough, some shortness of breath. Were CPAP all night. INR today was 2.3. Still on a heparin drip. Not diuresing much on furosemide 40 mg daily but is getting extruded dose of Bumex 1 mg IV push today. Review of Systems Constitutional: Constitutional: Reports difficulty sleeping, Reports fatigue and Reports weakness Cardiovascular: Cardiovascular: Denies chest pain, Denies diaphoresis, Denies pedal edema, Denies lightheadedness and Denies palpitations Respiratory: Respiratory: Reports chest congestion, Reports cough, Reports dyspnea and Reports wheezing Gastrointestinal: Gastrointestinal: Denies a
[2019-03-15] MEDS: methylPREDNISolone SOD SUCC 40 MG VIAL IV PUSH ×2 (12:36→21:14)
[2019-03-15] MEDS: carvediloL 12.5 MG TABLET PO ×2 (12:37→21:14)
[2019-03-15] MEDS: SPIRONOLACTONE 25 MG TABLET PO (12:37)
[2019-03-15] MEDS: PANTOPRAZOLE 40 MG TABLET PO ×2 (12:37→21:14)
[2019-03-15] MEDS: FUROSEMIDE 40 MG TABLET PO (12:38)
--- NOTE | 2019-03-15 13:17 | PM.PNNEP ---
Progress Note: A&P Assessment and Plan (1) [place] (acute kidney injury): Code(s): N17.9 - Acute kidney failure, unspecified Status: Acute Assessment and Plan: creatinine still elevated above baseline renal ultrasound shows no hydronephrosis urine electrolytes consistent with pre-renal azotemia suspect higher creatinine a manifesation of cardiomyopathy/depressed EF worsened by the need for ongoing diuretic therapy to maintain his respiratory status (probably a degree of cardiorenal syndrome) (2) Chronic kidney disease, stage 3 (moderate): Code(s): N18.3 - Chronic kidney disease, stage 3 (moderate) Status: Acute Assessment and Plan: baseline creatinine earlier this year ~ 1.5 - 1.8mg/dl suspect due to vascular disease coupled with need for diuretics in the setting of chronic pre-renal azotemia (3) Atrial fibrillation with rapid ventricular response: Code(s): I48.91 - Unspecified atrial fibrillation Status: Acute Assessment and Plan: continue rate control strategy currently on amiodarone gtt Cardiology following (4) Cardiomyopathy: Qualifiers: Cardiomyopathy type: dilated Qualified Code(s): I42.0 - Dilated cardiomyopathy Code(s): I42.9 - Cardiomyopathy, unspecified Status: Acute Assessment and Plan: as noted by recent Echo both systolic and diastolic component fluctuating shortness of breath noted in spite of the fact he has no edema and looks compensated extra dosing of diuretics noted...but is his shortness of breath more related to his COPD??? (5) Chronic respiratory failure: Qualifiers: Respiratory failure complication: hypoxia Qualified Code(s): J96.11 - Chronic respiratory failure with hypoxia Code(s): J96.10 - Chronic respiratory failure, unspecified whether with hypoxia or hypercapnia Status: Acute Assessment and Plan: quite significant and severe continue supportive therapy (6) Anemia: Code(s): D64.9 - Anemia, unspecified Status: Acute Assessment and Plan: H/H relatively stable likely related to CKD however, stools are are guaiac positive Will continue to follow. Subjective Date/time seen: 03/15/19 13:17 Interval history: Chart/Interim reviewed -- did not do well overnight due to worsening shortness of breath associated with increased heart rate/atrial fibrillation; on amiodarone gtt at this time; more IV diuretics today given his shortness of breath. Exam Narrative: Exam Narrative: General: chronically ill appearing male in NAD Heart: IRRR, normal S1 and S2; no rub Lungs: coarse breath sounds throughout Abdomen: soft, nontender, nondistended, positive bowel sounds Extremities: no cyanosis or clubbing; no edema Skin: warm and dry Objective Data Vital Signs Vital Signs: Vital Signs Temp Pulse Resp BP Pulse Ox 03/15/19 12:37 98 03/15/19 12:00 36.3 C L 93 17 136/96 H 100 03/15/19 10:00 94 03/15/19 09:10 101 H 20 03/15/19 08:58 105 H 26 H 100 03/15/19 08:50 105 H 13 03/15/19 08:00 100 100 03/15/19 07:53 36.6 C 85 15 101/61 03/15/19 06:00 96 03/15/19 04:00 115 H 03/15/19 03:58 36.4 C L 113 H 20 101/52 L 98 03/15/19 02:00 124 H 03/15/19 01:22 101 H 22 H 03/15/19 01:14 95 20 03/15/19 00:16 106 H 26 H 100 03/15/19 00:00 137 H 03/14/19 23:50 36.7 C 144 H 20 111/77 100 03/14/19 22:00 124 H 03/14/19 20:47 106 H 03/14/19 20:00 122 H 03/14/19 19:47 36.7 C 130 H 22 H 108/59 L 03/14/19 19:41 101 H 17 03/14/19 19:39 98 15 100 03/14/19 19:30 98 15 03/14/19 18:46 124 H 14 100 03/14/19 18:00 124 H 03/14/19 17:34 118 H 03/14/19 16:00 36.7 C 111 H 20 100/64 98 03/14/19 14:29 115 H 24 H 03/14/19 14:20 109 H 20 03/14/19 14:00 96 Intake/Output Intake/Output:
[2019-03-15] MEDS: WARFARIN (*PBKC) 2 MG TABLET PO (16:49)
[2019-03-15] MEDS: GABAPENTIN 400 MG CAPSULE 800 MG PO (21:14)
[2019-03-15] MEDS: MELATONIN 3 MG TABLET PO (21:14)
[2019-03-16] VITALS (27 sets, daily range): BP systolic 90–110; BP diastolic 54–87; PULSE 75–138; RESP 14–26; TEMP 36.2–36.8; O2SAT 92–100
[2019-03-16] MEDS: IPRATROPIUM BR 0.02% INH SOLN 0.5 MG/2.5 ML VIAL INHALATION ×4 (02:06→21:36)
[2019-03-16 05:03] LABS: Hematocrit 32.4 % (42.0-52.0); Hemoglobin 9.5 g/dL (14.0-18.0); Mean Corpuscular HGB Conc 29.3 g/dl (32-36); Mean Corpuscular Volume 85.3 fl (80-100); Mean Platelet Volume 13.9 fl (7.4-10.4); Platelet Count Result 189 k/mm3 (150-375); Red Cell Distribution Width 16.2 % (11.5-14.5); White Blood Count 12.3 K/mm3 (4.5-10.0)
[2019-03-16 05:20] LABS: Blood Urea Nitrogen 88 mg/dL (9-20); Calcium 7.8 mg/dL (8.4-10.2); Carbon Dioxide 34 mmol/L (22-30); Chloride 92 mmol/L (98-107); Estimated CRCL calculation 20 ml/min; Estimated Glomerular Filt Rate 23; Glucose 236 mg/dL (75-110); INR 2.5; Magnesium 1.9 mg/dL (1.6-2.3); Prothrombin Time 26.8 Seconds (11.1-14.7); Sodium 137 mmol/L (137-145)
[2019-03-16] MEDS: LEVOTHYROXINE SODIUM 50 MCG TABLET PO (06:36)
[2019-03-16] MEDS: AMIODARONE 360 MG/D5W 200 ML 360 MG/200 ML BAG 16.7 MG IV CONT (06:37)
[2019-03-16] MEDS: CENTRAL LINE FLUSH 10 ML XX ×3 (06:40→21:15)
[2019-03-16] MEDS: PANTOPRAZOLE 40 MG TABLET PO ×2 (08:12→21:14)
[2019-03-16] MEDS: methylPREDNISolone SOD SUCC 40 MG VIAL IV PUSH (08:12)
[2019-03-16] MEDS: carvediloL 12.5 MG TABLET PO ×2 (08:14→21:14)
[2019-03-16] MEDS: FUROSEMIDE 40 MG TABLET PO (08:14)
[2019-03-16] MEDS: SPIRONOLACTONE 25 MG TABLET PO (08:15)
--- NOTE | 2019-03-16 08:21 | PM.PNNEP ---
Progress Note: A&P Assessment and Plan (1) [place] (acute kidney injury): Code(s): N17.9 - Acute kidney failure, unspecified Status: Acute Assessment and Plan: creatinine still elevated above baseline renal ultrasound shows no hydronephrosis urine electrolytes consistent with pre-renal azotemia suspect higher creatinine a manifesation of cardiomyopathy/depressed EF worsened by the need for ongoing diuretic therapy to maintain his respiratory status (probably a degree of cardiorenal syndrome) (2) Chronic kidney disease, stage 3 (moderate): Code(s): N18.3 - Chronic kidney disease, stage 3 (moderate) Status: Acute Assessment and Plan: baseline creatinine earlier this year ~ 1.5 - 1.8mg/dl suspect due to vascular disease coupled with need for diuretics in the setting of chronic pre-renal azotemia (3) Atrial fibrillation with rapid ventricular response: Code(s): I48.91 - Unspecified atrial fibrillation Status: Acute Assessment and Plan: continue rate control strategy currently on amiodarone gtt Cardiology following (4) Cardiomyopathy: Qualifiers: Cardiomyopathy type: dilated Qualified Code(s): I42.0 - Dilated cardiomyopathy Code(s): I42.9 - Cardiomyopathy, unspecified Status: Acute Assessment and Plan: as noted by recent Echo both systolic and diastolic component fluctuating shortness of breath noted in spite of the fact he has no edema and looks compensated iis his shortness of breath/hypoxia more related to his COPD??? (5) Chronic respiratory failure: Qualifiers: Respiratory failure complication: hypoxia Qualified Code(s): J96.11 - Chronic respiratory failure with hypoxia Code(s): J96.10 - Chronic respiratory failure, unspecified whether with hypoxia or hypercapnia Status: Acute Assessment and Plan: quite significant and severe continue supportive therapy (6) Anemia: Code(s): D64.9 - Anemia, unspecified Status: Acute Assessment and Plan: H/H relatively stable likely related to CKD however, stools are guaiac positive Will continue to follow. Subjective Date/time seen: 03/16/19 08:21 Feels slightly better than yesterday -- no acute shortness of breath but issues with hypoxia noted; overall, major complaint is that of weakness. Exam Narrative: Exam Narrative: General: chronically ill appearing male in NAD Heart: IRRR, normal S1 and S2; no rub Lungs: coarse breath sounds throughout Abdomen: soft, nontender, nondistended, positive bowel sounds Extremities: no cyanosis or clubbing; no edema Skin: warm and intact Objective Data Vital Signs Vital Signs: Vital Signs Temp Pulse Resp BP Pulse Ox 03/16/19 08:14 96 03/16/19 08:00 36.4 C 138 H 14 90/63 L 100 03/16/19 06:00 75 03/16/19 04:54 90 16 100 03/16/19 04:00 78 03/16/19 03:27 36.6 C 94 22 H 100/66 100 03/16/19 02:16 91 20 03/16/19 02:08 80 100 03/16/19 02:07 96 20 03/16/19 02:00 88 03/16/19 00:00 83 03/15/19 23:35 97 17 73 L 03/15/19 22:00 92 03/15/19 21:14 91 03/15/19 20:00 36.6 C 85 26 H 107/64 100 03/15/19 19:58 104 H 20 03/15/19 19:54 97 19 100 03/15/19 19:53 97 20 03/15/19 18:00 111 H 03/15/19 16:15 36.4 C 84 16 98/64 L 99 03/15/19 16:00 98 03/15/19 14:14 86 20 03/15/19 14:01 88 18 03/15/19 14:00 100 03/15/19 12:37 98 03/15/19 12:00 36.3 C L 86 20 136/96 H 100 03/15/19 10:00 94 03/15/19 09:10 101 H 20 03/15/19 08:58 105 H 26 H 100 03/15/19 08:50 105 H 13 Intake/Output Intake/Output: Intake & Output 03/13/19 03/14/19 03/15/19 03/16/19 23:59 23:59 23:59 23:59 Intake Total 2524 1000 795 383 Output Total 1800 825 600 450 Balance 724 175 195 -67 Meds/Results Medications: Active Medications
[2019-03-16] MEDS: DORNASE ALFA INH SOLN 1 MG/ML 2.5 ML AMP 2.5 MG INHALATION ×2 (09:03→21:37)
--- NOTE | 2019-03-16 09:43 | PM.PNCARD ---
Progress Note: A&P Assessment and Plan (1) Atrial fibrillation with rapid ventricular response: Code(s): I48.91 - Unspecified atrial fibrillation Status: Acute Assessment and Plan: History of paroxysmal atrial fibrillation, persistent since admitted.. Amiodarone switched back to IV on 03/14/2019, will change to amiodarone 400 mg p.o. b.i.d.. Heart rate is reasonably well controlled. \. (2) Cardiomyopathy: Qualifiers: Cardiomyopathy type: dilated Qualified Code(s): I42.0 - Dilated cardiomyopathy Code(s): I42.9 - Cardiomyopathy, unspecified Status: Acute Assessment and Plan: Moderate LV dysfunction EF 35%, chronic. History of nonischemic cardiomyopathy. Does not appear to be volume overloaded. Continue furosemide 40 mg daily and carvedilol 12.5 b.i.d.. . (3) S/P AVR (aortic valve replacement): Code(s): Z95.2 - Presence of prosthetic heart valve Status: Acute Assessment and Plan: INR today is 2.5. Continue warfarin 2 mg daily although that may need to be decreased in a couple of days. (4) Acute kidney injury superimposed on chronic kidney disease: Code(s): N17.9 - Acute kidney failure, unspecified; N18.9 - Chronic kidney disease, unspecified Status: Acute Assessment and Plan: Per primary service. Creatinine fairly stable the BUN continues to rise. (5) COPD exacerbation: Code(s): J44.1 - Chronic obstructive pulmonary disease with (acute) exacerbation Status: Acute Assessment and Plan: For primary team. On 2 L of nasal cannula oxygen at this time (6) Acute respiratory failure: Qualifiers: Respiratory failure complication: hypoxia and hypercapnia Qualified Code(s): J96.01 - Acute respiratory failure with hypoxia; J96.02 - Acute respiratory failure with hypercapnia Code(s): J96.00 - Acute respiratory failure, unspecified whether with hypoxia or hypercapnia Status: Acute Assessment and Plan: As above (7) Severe sepsis: Code(s): A41.9 - Sepsis, unspecified organism; R65.20 - Severe sepsis without septic shock Status: Acute Assessment and Plan: IV ABx, supportive care., resolving (8) Coagulopathy: Code(s): D68.9 - Coagulation defect, unspecified Status: Acute Assessment and Plan: Resolved. (9) Acute on chronic systolic heart failure: Code(s): I50.23 - Acute on chronic systolic (congestive) heart failure Status: Acute Assessment and Plan: Improved Subjective Date/time seen: 03/16/19 09:43 Interval history: Follow-up visit for paroxysmal atrial fibrillation and nonischemic cardiomyopathy, anticoagulation for prosthetic aortic valve 03/15/2019: Patient said he was lousy yesterday and last night, with more shortness of breath. Patient's AFib rate increased last night, 120 is 130s, and he was restarted on a amiodarone drip. Now running about 95-105 be p.m.. Still with a cough, some shortness of breath. Were CPAP all night. INR today was 2.3. Still on a heparin drip. Not diuresing much on furosemide 40 mg daily but is getting extra dose of Bumex 1 mg IV push today. DATE OF SERVICE: 03/16/2019: Feeling a little better, was not out of bed any yesterday, glad to get real food today. Legs very weak. Not much shortness of breath. No chest pain or palpitations. Remains on amiodarone drip with heart rate running 80-110 be p.m.. O2 sat sometimes is a little low. Review of Systems Constitutional: Constitutional: Reports fatigue and Reports weakness Cardiovascular: Cardiovascular: Denies chest pain, Denies pedal edema, Denies lightheadedness
--- NOTE | 2019-03-16 12:58 | PM.IMPN ---
Progress Note: A&P Assessment and Plan (1) Respiratory failure: Qualifiers: Chronicity: acute on chronic Respiratory failure complication: hypoxia and hypercapnia Qualified Code(s): J96.21 - Acute and chronic respiratory failure with hypoxia; J96.22 - Acute and chronic respiratory failure with hypercapnia Code(s): J96.90 - Respiratory failure, unspecified, unspecified whether with hypoxia or hypercapnia Status: Acute Assessment and Plan: Developed acute respiratory failure on 03/08/2019 while being treated for COPD exacerbation requiring intubation. Successfully extubated on 03/10/2019. Increased problems with breathing on the evening of 03/14/2019 requiring BiPAP. Was able to wean back to oxygen by nasal cannula during the day yesterday but did use BiPAP last night again. Respiratory status improved once again with patient on 2 L of oxygen currently although normally on 4 L of oxygen at home. Will continue nebulizer treatments and inhaled Pulmicort. Continue Pulmozyme. did have MBS on 03/11/2019 with recommendation for mildly thickened liquids with minced and moist diet but no ivis aspiration. May do better once able to be more upright once able to remove femoral central line. Continue IV ceftriaxone with sputum culture growing Serratia marcescens. Will continue to monitor closely. (2) Severe sepsis: Code(s): A41.9 - Sepsis, unspecified organism; R65.20 - Severe sepsis without septic shock Status: Acute Assessment and Plan: Criteria met on admission. Result of pneumonia. Blood cultures negative. MRSA surveillance culture negative. Sputum culture growing Serratia marcescens as noted above with patient now on IV ceftriaxone alone. May be able to transition to oral antibiotic in a.m. to help facilitate removal of central line. WBC 12.3 today and will monitor. (3) Pneumonia: Qualifiers: Laterality: bilateral Lung location: unspecified part of lung Pneumonia type: due to other aerobic Gram-negative bacteria Qualified Code(s): J15.6 - Pneumonia due to other Gram-negative bacteria Code(s): J18.9 - Pneumonia, unspecified organism Status: Acute Assessment and Plan: Chest xray on 03/14/19 with slight improvement in bilateral infiltrates. Sputum culture as noted above. Continue IV ceftriaxone along with respiratory treatments as noted. (4) Hyperkalemia: Code(s): E87.5 - Hyperkalemia Status: Acute Assessment and Plan: Potassium down to 5.0 today with creatinine remaining 2.70. Oral potassium replacement now on hold. Will monitor. (5) Acute kidney injury superimposed on chronic kidney disease: Code(s): N17.9 - Acute kidney failure, unspecified; N18.9 - Chronic kidney disease, unspecified Status: Acute Assessment and Plan: Precipitating etiology is not clear. Nephrology consulted and appreciate input. Creatinine remains above baseline of 1.20-1.40 at 2.70 again today. Renal ultrasound with no hydronephrosis. Continue to hold nephrotoxic agents other than diuretics. Will continue to monitor. (6) Hypokalemia: Code(s): E87.6 - Hypokalemia Status: Acute Assessment and Plan: Potassium now elevated as noted above. (7) Atrial fibrillation with rapid ventricular response: Code(s): I48.91 - Unspecified atrial fibrillation Status: Acute Assessment and Plan: Cardiology consulted and appreciate input. Telemetry reviewed on 03/16/2019 with atrial fibrillation with heart rate acceptably controlled. Switched IV amiodarone with need for BiPAP on 03/14/2019. Returned to oral amiodarone earlier today. Previously on IV diltiazem followed by Coreg and the metoprolol all of which did not appropriately control his rate. Heparin stopped yesterday. Patient remains on warfarin with INR 2.5 today. Will monitor. (8) Coagulopathy: Code(s): D68.9 - Coagulation defect, unspecified Stat
[2019-03-16] MEDS: WARFARIN (*PBKC) 2 MG TABLET PO (19:48)
[2019-03-16] MEDS: DOCUSATE SODIUM 100 MG CAPSULE PO (19:49)
[2019-03-16] MEDS: MELATONIN 3 MG TABLET PO (21:14)
[2019-03-16] MEDS: GABAPENTIN 400 MG CAPSULE 800 MG PO (21:14)
[2019-03-17] VITALS (28 sets, daily range): BP systolic 88–161; BP diastolic 49–64; PULSE 68–120; RESP 16–24; TEMP 36.2–36.7; O2SAT 93–99
[2019-03-17] MEDS: IPRATROPIUM BR 0.02% INH SOLN 0.5 MG/2.5 ML VIAL INHALATION ×4 (02:53→21:13)
[2019-03-17 04:37] LABS: INR 3.3; Prothrombin Time 33.3 Seconds (11.1-14.7)
[2019-03-17 04:38] LABS: Blood Urea Nitrogen 81 mg/dL (9-20); Carbon Dioxide 38 mmol/L (22-30); Chloride 92 mmol/L (98-107); Estimated CRCL calculation 20 ml/min; Estimated Glomerular Filt Rate 23; Glucose 200 mg/dL (75-110); Potassium 4.6 mmol/L (3.4-5.0); Sodium 138 mmol/L (137-145)
[2019-03-17] MEDS: LEVOTHYROXINE SODIUM 50 MCG TABLET PO (05:55)
[2019-03-17] MEDS: CENTRAL LINE FLUSH 10 ML XX ×2 (05:57→13:10)
[2019-03-17] MEDS: DOCUSATE SODIUM 100 MG CAPSULE PO (08:38)
[2019-03-17] MEDS: predniSONE 10 MG TABLET PO (08:38)
[2019-03-17] MEDS: PANTOPRAZOLE 40 MG TABLET PO ×2 (08:39→20:42)
[2019-03-17] MEDS: SPIRONOLACTONE 25 MG TABLET PO (08:39)
[2019-03-17] MEDS: carvediloL 12.5 MG TABLET PO ×2 (08:39→20:42)
[2019-03-17] MEDS: FUROSEMIDE 40 MG TABLET PO (08:39)
[2019-03-17] MEDS: DORNASE ALFA INH SOLN 1 MG/ML 2.5 ML AMP 2.5 MG INHALATION ×2 (09:38→21:13)
--- NOTE | 2019-03-17 09:38 | PM.IMPN ---
Progress Note: A&P Assessment and Plan (1) Respiratory failure: Qualifiers: Chronicity: acute on chronic Respiratory failure complication: hypoxia and hypercapnia Qualified Code(s): J96.21 - Acute and chronic respiratory failure with hypoxia; J96.22 - Acute and chronic respiratory failure with hypercapnia Code(s): J96.90 - Respiratory failure, unspecified, unspecified whether with hypoxia or hypercapnia Status: Acute Assessment and Plan: Developed acute respiratory failure on 03/08/2019 while being treated for COPD exacerbation requiring intubation. Successfully extubated on 03/10/2019. Increased problems with breathing on the evening of 03/14/2019 requiring BiPAP. Has been back on oxygen by nasal cannula since 03/15/2019. Normally on 4 L of oxygen at home. Currently on 2 L of oxygen. Will continue nebulizer treatments and inhaled Pulmicort. Continue Pulmozyme. Did have MBS on 03/11/2019 with recommendation for mildly thickened liquids with minced and moist diet but no ivis aspiration. Was given dose of IV Bumex by Nephrology today with the increased edema. Suspect will do better once able to have femoral central line removed and more mobile. IV ceftriaxone discontinued today. No other regularly scheduled IV medications. Await evaluation by Nephrology today. If okay with Nephrology, will remove femoral line although patient only has small peripheral line in place. (2) Severe sepsis: Code(s): A41.9 - Sepsis, unspecified organism; R65.20 - Severe sepsis without septic shock Status: Acute Assessment and Plan: Criteria met on admission. Result of pneumonia. Blood cultures negative. MRSA surveillance culture negative. Sputum culture growing Serratia marcescens with patient on IV ceftriaxone alone for the past 5 days. Will discontinue IV antibiotics as no longer felt necessary at this time. Will confirm when monitor. (3) Pneumonia: Qualifiers: Laterality: bilateral Lung location: unspecified part of lung Pneumonia type: due to other aerobic Gram-negative bacteria Qualified Code(s): J15.6 - Pneumonia due to other Gram-negative bacteria Code(s): J18.9 - Pneumonia, unspecified organism Status: Acute Assessment and Plan: Chest xray on 03/14/19 with slight improvement in bilateral infiltrates. Sputum culture as noted above. Discontinue IV ceftriaxone stay after 5 days treatment. Did have IV Unasyn and IV vancomycin prior to IV ceftriaxone. Continue other respiratory treatments. Will monitor. (4) Acute kidney injury superimposed on chronic kidney disease: Code(s): N17.9 - Acute kidney failure, unspecified; N18.9 - Chronic kidney disease, unspecified Status: Acute Assessment and Plan: Precipitating etiology is not clear. Nephrology consulted and appreciate input. Creatinine remains 2.70 today which is above his baseline of 1.20 and 1.40. Renal ultrasound with no hydronephrosis. Does have increased edema. IV Bumex given today. Remains on oral Lasix and spironolactone but no other nephrotoxic medications. Will continue to monitor. Await further recommendations from Nephrology. (5) Hyperkalemia: Code(s): E87.5 - Hyperkalemia Status: Acute Assessment and Plan: Potassium 4.6 today. No oral replacement being given but is on spironolactone. Will monitor. (6) Hypokalemia: Code(s): E87.6 - Hypokalemia Status: Acute Assessment and Plan: Potassium as noted above. (7) Atrial fibrillation with rapid ventricular response: Code(s): I48.91 - Unspecified atrial fibrillation Status: Acute Assessment and Plan: Cardiology consulted and appreciate input. Telemetry reviewed on 03/17/2019 with atrial fibrillation with heart rate remaining acceptably controlled. Continue oral amiodarone. Discussed with Dr. Munoz today. INR was 3.3 with warfarin to be held today. Continue to monitor INR
--- NOTE | 2019-03-17 10:39 | PM.PNCARD ---
Progress Note: A&P Assessment and Plan (1) Atrial fibrillation with rapid ventricular response: Code(s): I48.91 - Unspecified atrial fibrillation Status: Acute Assessment and Plan: History of paroxysmal atrial fibrillation, persistent since admitted.. Continue p.o. amiodarone. On anticoagulation but his INR is increasing. (2) Cardiomyopathy: Qualifiers: Cardiomyopathy type: dilated Qualified Code(s): I42.0 - Dilated cardiomyopathy Code(s): I42.9 - Cardiomyopathy, unspecified Status: Acute Assessment and Plan: Moderate LV dysfunction EF 35%, chronic. History of nonischemic cardiomyopathy. Does not appear to be volume overloaded. Continue furosemide 40 mg daily and carvedilol 12.5 b.i.d.. . (3) S/P AVR (aortic valve replacement): Code(s): Z95.2 - Presence of prosthetic heart valve Status: Acute Assessment and Plan: INR today is 3.3. Hold warfarin today (4) Acute kidney injury superimposed on chronic kidney disease: Code(s): N17.9 - Acute kidney failure, unspecified; N18.9 - Chronic kidney disease, unspecified Status: Acute Assessment and Plan: Per primary service. Creatinine fairly stable the BUN continues to rise. (5) COPD exacerbation: Code(s): J44.1 - Chronic obstructive pulmonary disease with (acute) exacerbation Status: Acute Assessment and Plan: For primary team. On 2 L of nasal cannula oxygen at this time (6) Acute respiratory failure: Qualifiers: Respiratory failure complication: hypoxia and hypercapnia Qualified Code(s): J96.01 - Acute respiratory failure with hypoxia; J96.02 - Acute respiratory failure with hypercapnia Code(s): J96.00 - Acute respiratory failure, unspecified whether with hypoxia or hypercapnia Status: Acute Assessment and Plan: As above (7) Severe sepsis: Code(s): A41.9 - Sepsis, unspecified organism; R65.20 - Severe sepsis without septic shock Status: Acute Assessment and Plan: IV ABx, supportive care., resolving (8) Coagulopathy: Code(s): D68.9 - Coagulation defect, unspecified Status: Acute Assessment and Plan: Resolved. (9) Acute on chronic systolic heart failure: Code(s): I50.23 - Acute on chronic systolic (congestive) heart failure Status: Acute Assessment and Plan: Improved Subjective Date/time seen: 03/17/19 10:39 Interval history: Follow-up visit for paroxysmal atrial fibrillation and nonischemic cardiomyopathy, anticoagulation for prosthetic aortic valve 03/15/2019: Patient said he was lousy yesterday and last night, with more shortness of breath. Patient's AFib rate increased last night, 120 is 130s, and he was restarted on a amiodarone drip. Now running about 95-105 be p.m.. Still with a cough, some shortness of breath. Were CPAP all night. INR today was 2.3. Still on a heparin drip. Not diuresing much on furosemide 40 mg daily but is getting extra dose of Bumex 1 mg IV push today. DATE OF SERVICE: 03/17/2019: Not much shortness of breath. No chest pain or palpitations. Off of amiodarone drip. On amiodarone p.o.. Heart rate is reasonably controlled. INR is elevated Review of Systems Review of Systems: All systems reviewed & are unremarkable except as noted in HPI and below ROS unobtainable: due to endotracheal tube and unobtainable due to mental status Constitutional: Constitutional: Reports difficulty sleeping, Reports fatigue and Reports weakness Eyes: Eyes: Reports no additional eye complaints ENT: Reports hearing normal, Denies dysphagia and Denies neck pain Cardiovascu
[2019-03-17] MEDS: BUMETANIDE INJ 2.5 MG/10 ML VIAL 2 MG IV PUSH (13:10)
--- NOTE | 2019-03-17 15:30 | P.PNNP_ITS ---
Progress Note: A&P Assessment and Plan (1) MODESTO (acute kidney injury): Code(s): N17.9 - Acute kidney failure, unspecified Status: Acute Assessment and Plan: * creatinine still elevated above baseline (but stable) * renal ultrasound shows no hydronephrosis * urine electrolytes consistent with pre-renal azotemia * suspect higher creatinine a manifesation of cardiomyopathy/depressed EF worsened by the need for ongoing diuretic therapy to maintain his respiratory status (probably a degree of cardiorenal syndrome) as well as edema * we may have to accept a higher creatinine at this time * more edema today -- probably due to bed bound status/immobilization; IV bumex today and attempt ambulation (2) Chronic kidney disease, stage 3 (moderate): Code(s): N18.3 - Chronic kidney disease, stage 3 (moderate) Status: Acute Assessment and Plan: * baseline creatinine earlier this year ~ 1.5 - 1.8mg/dl * suspect due to vascular disease coupled with need for diuretics in the setting of chronic pre-renal azotemia (3) Atrial fibrillation with rapid ventricular response: Code(s): I48.91 - Unspecified atrial fibrillation Status: Acute Assessment and Plan: * continue rate control strategy * on amiodarone * Cardiology following (4) Cardiomyopathy: Qualifiers: Cardiomyopathy type: dilated Qualified Code(s): I42.0 - Dilated cardiomyopathy Code(s): I42.9 - Cardiomyopathy, unspecified Status: Acute Assessment and Plan: * as noted by recent Echo * both systolic and diastolic component * fluctuating shortness of breath noted in spite of the fact he has no edema and looks compensated * is his shortness of breath/hypoxia more related to his COPD??? (5) Chronic respiratory failure: Qualifiers: Respiratory failure complication: hypoxia Qualified Code(s): J96.11 - Chronic respiratory failure with hypoxia Code(s): J96.10 - Chronic respiratory failure, unspecified whether with hypoxia or hypercapnia Status: Acute Assessment and Plan: * quite significant and severe * continue supportive therapy (6) Anemia: Code(s): D64.9 - Anemia, unspecified Status: Acute Assessment and Plan: * H/H relatively stable * likely related to CKD * however, stools are guaiac positive Will continue to follow. Subjective Date/time seen: 03/17/19 15:30 Nursing reporting more swelling/edema today -- given one time dose of IV bumex in an effort to compensate; respiratory status seems relatively stable (although tenuous as evidenced by history); no acute distress noted. Exam Narrative: Exam Narrative: General: chronically ill appearing male in NAD Heart: IRRR, normal S1 and S2; no rub Lungs: coarse breath sounds throughout Abdomen: soft, nontender, nondistended, positive bowel sounds Extremities: no cyanosis or clubbing; 1 - 2+ edema Skin: warm and intact Objective Data Vital Signs Vital Signs: Vital Signs Temp Pulse Resp BP Pulse Ox 03/17/19 14:59 110 H 20 03/17/19 14:45 107 H 20 03/17/19 14:00 101 H 03/17/19 12:23 86 03/17/19 12:14 36.3 C L 120 H 16 94/57 L 98 03/17/19 10:00 95 03/17/19 09:56 115 H 22 H 03/17/19 09:44 96 03/17/19 09:38 120 H 20 03/17/19 08:39 114 H 03/17/19 08:04 36.2 C L 98 23 H 110/62
--- NOTE | 2019-03-17 15:30 | PM.PNNEP ---
Progress Note: A&P Assessment and Plan (1) MODESTO (acute kidney injury): Code(s): N17.9 - Acute kidney failure, unspecified Status: Acute Assessment and Plan: creatinine still elevated above baseline (but stable) renal ultrasound shows no hydronephrosis urine electrolytes consistent with pre-renal azotemia suspect higher creatinine a manifesation of cardiomyopathy/depressed EF worsened by the need for ongoing diuretic therapy to maintain his respiratory status (probably a degree of cardiorenal syndrome) as well as edema we may have to accept a higher creatinine at this time more edema today -- probably due to bed bound status/immobilization; IV bumex today and attempt ambulation (2) Chronic kidney disease, stage 3 (moderate): Code(s): N18.3 - Chronic kidney disease, stage 3 (moderate) Status: Acute Assessment and Plan: baseline creatinine earlier this year ~ 1.5 - 1.8mg/dl suspect due to vascular disease coupled with need for diuretics in the setting of chronic pre-renal azotemia (3) Atrial fibrillation with rapid ventricular response: Code(s): I48.91 - Unspecified atrial fibrillation Status: Acute Assessment and Plan: continue rate control strategy on amiodarone Cardiology following (4) Cardiomyopathy: Qualifiers: Cardiomyopathy type: dilated Qualified Code(s): I42.0 - Dilated cardiomyopathy Code(s): I42.9 - Cardiomyopathy, unspecified Status: Acute Assessment and Plan: as noted by recent Echo both systolic and diastolic component fluctuating shortness of breath noted in spite of the fact he has no edema and looks compensated is his shortness of breath/hypoxia more related to his COPD??? (5) Chronic respiratory failure: Qualifiers: Respiratory failure complication: hypoxia Qualified Code(s): J96.11 - Chronic respiratory failure with hypoxia Code(s): J96.10 - Chronic respiratory failure, unspecified whether with hypoxia or hypercapnia Status: Acute Assessment and Plan: quite significant and severe continue supportive therapy (6) Anemia: Code(s): D64.9 - Anemia, unspecified Status: Acute Assessment and Plan: H/H relatively stable likely related to CKD however, stools are guaiac positive Will continue to follow. Subjective Date/time seen: 03/17/19 15:30 Nursing reporting more swelling/edema today -- given one time dose of IV bumex in an effort to compensate; respiratory status seems relatively stable (although tenuous as evidenced by history); no acute distress noted. Exam Narrative: Exam Narrative: General: chronically ill appearing male in NAD Heart: IRRR, normal S1 and S2; no rub Lungs: coarse breath sounds throughout Abdomen: soft, nontender, nondistended, positive bowel sounds Extremities: no cyanosis or clubbing; 1 - 2+ edema Skin: warm and intact Objective Data Vital Signs Vital Signs: Vital Signs Temp Pulse Resp BP Pulse Ox 03/17/19 14:59 110 H 20 03/17/19 14:45 107 H 20 03/17/19 14:00 101 H 03/17/19 12:23 86 03/17/19 12:14 36.3 C L 120 H 16 94/57 L 98 03/17/19 10:00 95 03/17/19 09:56 115 H 22 H 03/17/19 09:44 96 03/17/19 09:38 120 H 20 03/17/19 08:39 114 H 03/17/19 08:04 36.2 C L 98 23 H 110/62 98 03/17/19 08:00 103 H 03/17/19 06:00 80 03/17/19 04:00 36.6 C 96 18 91/54 L 99 03/17/19 03:02 79 20 03/17/19 02:53 85 20 03/17/19 02:00 93 03/17/19 00:00 88 99 03/16/19 23:13 36.8 C 96 22 H 90/54 L 100 03/16/19 22:00 97 03/16/19 21:51 86 20 03/16/19 21:37 78 20 94 03/16/19 21:14 95 03/16/19 20:00 93 03/16/19 19:39 36.6 C 79 26 H 110/87 97 03/16/19 18:00 95 03/16/19 16:45 36.4 C 83 22 H 94/58 L 94 03/16/19 16:00 104 H 22 H 94 Intake/Output Intake/Output: Inta
[2019-03-17] MEDS: NEOMYCIN/POLYMYXIN/BACITRACIN OINTMENT PACKET 1 PACKET (18:45)
[2019-03-17] MEDS: MELATONIN 3 MG TABLET PO (20:42)
[2019-03-17] MEDS: GABAPENTIN 400 MG CAPSULE 800 MG PO (20:42)
[2019-03-18] VITALS (31 sets, daily range): BP systolic 95–130; BP diastolic 54–98; PULSE 90–130; RESP 20–33; TEMP 36.3–36.7; O2SAT 93–100
[2019-03-18] MEDS: IPRATROPIUM BR 0.02% INH SOLN 0.5 MG/2.5 ML VIAL INHALATION ×4 (03:26→20:06)
[2019-03-18] MEDS: LEVOTHYROXINE SODIUM 50 MCG TABLET PO (05:22)
[2019-03-18] MEDS: DOCUSATE SODIUM 100 MG CAPSULE PO (08:52)
[2019-03-18] MEDS: predniSONE 10 MG TABLET PO (08:52)
[2019-03-18] MEDS: FUROSEMIDE 40 MG TABLET PO (08:52)
[2019-03-18] MEDS: carvediloL 12.5 MG TABLET PO ×2 (08:53→20:41)
[2019-03-18] MEDS: PANTOPRAZOLE 40 MG TABLET PO ×2 (08:53→20:41)
[2019-03-18] MEDS: SPIRONOLACTONE 25 MG TABLET PO (08:53)
[2019-03-18] MEDS: DORNASE ALFA INH SOLN 1 MG/ML 2.5 ML AMP 2.5 MG INHALATION ×2 (09:38→20:06)
--- NOTE | 2019-03-18 09:40 | PM.PNCARD ---
Progress Note: A&P Assessment and Plan (1) Atrial fibrillation with rapid ventricular response: Code(s): I48.91 - Unspecified atrial fibrillation Status: Acute Assessment and Plan: History of paroxysmal atrial fibrillation, persistent since admitted.. Continue p.o. amiodarone. On anticoagulation but his INR is increasing. (2) Cardiomyopathy: Qualifiers: Cardiomyopathy type: dilated Qualified Code(s): I42.0 - Dilated cardiomyopathy Code(s): I42.9 - Cardiomyopathy, unspecified Status: Acute Assessment and Plan: Moderate LV dysfunction EF 35%, chronic. History of nonischemic cardiomyopathy. Does not appear to be volume overloaded. Continue furosemide 40 mg daily and carvedilol 12.5 b.i.d.. . (3) S/P AVR (aortic valve replacement): Code(s): Z95.2 - Presence of prosthetic heart valve Status: Acute Assessment and Plan: INR today is pending. Warfarin on hold. Would restart if INR is stable or is down . Continue to hold if increasing. (4) Acute kidney injury superimposed on chronic kidney disease: Code(s): N17.9 - Acute kidney failure, unspecified; N18.9 - Chronic kidney disease, unspecified Status: Acute Assessment and Plan: Per primary service. Creatinine fairly stable the BUN continues to rise. (5) COPD exacerbation: Code(s): J44.1 - Chronic obstructive pulmonary disease with (acute) exacerbation Status: Acute Assessment and Plan: For primary team. On 2 L of nasal cannula oxygen at this time (6) Acute respiratory failure: Qualifiers: Respiratory failure complication: hypoxia and hypercapnia Qualified Code(s): J96.01 - Acute respiratory failure with hypoxia; J96.02 - Acute respiratory failure with hypercapnia Code(s): J96.00 - Acute respiratory failure, unspecified whether with hypoxia or hypercapnia Status: Acute Assessment and Plan: As above (7) Severe sepsis: Code(s): A41.9 - Sepsis, unspecified organism; R65.20 - Severe sepsis without septic shock Status: Acute Assessment and Plan: IV ABx, supportive care., resolving (8) Coagulopathy: Code(s): D68.9 - Coagulation defect, unspecified Status: Acute Assessment and Plan: Resolved. (9) Acute on chronic systolic heart failure: Code(s): I50.23 - Acute on chronic systolic (congestive) heart failure Status: Acute Assessment and Plan: Improved Subjective Date/time seen: 03/18/19 09:40 Interval history: Follow-up visit for paroxysmal atrial fibrillation and nonischemic cardiomyopathy, anticoagulation for prosthetic aortic valve 03/15/2019: Patient said he was lousy yesterday and last night, with more shortness of breath. Patient's AFib rate increased last night, 120 is 130s, and he was restarted on a amiodarone drip. Now running about 95-105 be p.m.. Still with a cough, some shortness of breath. Were CPAP all night. INR today was 2.3. Still on a heparin drip. Not diuresing much on furosemide 40 mg daily but is getting extra dose of Bumex 1 mg IV push today. DATE OF SERVICE: 03/18/2019: Not much shortness of breath. No chest pain or palpitations. Off of amiodarone drip. On amiodarone p.o.. Heart rate is reasonably controlled. INR is elevated Review of Systems Review of Systems: All systems reviewed & are unremarkable except as noted in HPI and below ROS unobtainable: due to endotracheal tube and unobtainable due to mental status Constitutional: Constitutional: Reports difficulty sleeping, Reports fatigue and Reports weakness Eyes: Eyes: Reports no additional eye complaints
[2019-03-18 10:35] LABS: Hematocrit 35.5 % (42.0-52.0); Hemoglobin 10.4 g/dL (14.0-18.0); Immature Platelet Fraction Pct 16.5 % (0.9-11.2); Mean Corpuscular HGB Conc 29.3 g/dl (32-36); Mean Corpuscular Hemoglobin 25.2 pg (26-34); Mean Corpuscular Volume 86.2 fl (80-100); Platelet Count Result 155 k/mm3 (150-375); Red Blood Count 4.12 M/mm3 (4.6-6.20); Red Cell Distribution Width 17.2 % (11.5-14.5); White Blood Count 20.2 K/mm3 (4.5-10.0)
[2019-03-18 10:44] LABS: INR 3.3; Prothrombin Time 33.3 Seconds (11.1-14.7)
[2019-03-18 10:46] LABS: Magnesium 1.9 mg/dL (1.6-2.3)
[2019-03-18 10:50] LABS: Albumin Level 3.7 g/dL (3.5-5.1); Blood Urea Nitrogen 76 mg/dL (9-20); Calcium 8.5 mg/dL (8.4-10.2); Carbon Dioxide 35 mmol/L (22-30); Chloride 91 mmol/L (98-107); Estimated CRCL calculation 24 ml/min; Estimated Glomerular Filt Rate 29; Glucose 149 mg/dL (75-110); Phosphorus 3.6 mg/dL (2.5-4.5); Potassium 4.1 mmol/L (3.4-5.0); Sodium 136 mmol/L (137-145)
--- NOTE | 2019-03-18 13:40 | PCDIET ---
Nutrition Follow-Up Complete: Inadequate oral intake related to oral intubation as evidenced by NPO status. Patient to meet estimated nutritional needs. Goal in progress. Pt current nutrition is Regular, minced & moist, mildly thick liquids. Nutrition recommendation: Pt may benefit from appetite stimulant. Diet per SH[employer]PING AND RECEIVING ASSOCIATE recommendation. Continue with Ensure Enlive TID. Last recorded weight is 79.4 kg. Bowel Motility:Per pt report he hasn't had a BM since last week, per chart review he had a BM this morning. Labs Reviewed:GFR 23, BUN 81, Cr 2,7, Glu 200, Ca 8 Meds Noted:synthroid, prednisone, coumadin, lasix, colace, aldactone Additional Notes: Per [employer]PING AND RECEIVING ASSOCIATE note, unable to work with pt d/t SOB. Pt was up in chair today for the first time. Pt would really prefer to have soft to chew foods versus the minced and moist feels it would greatly improve intake. Pt also c/o of recent taste changes some foods taste funny while most just do not have a taste. Pt states he loved the biscuits and gravy and would love maldivian toast that looks like maldivian toast . Encouraged pt to at minimum drink the Enlives and try to work with SHIPPING AND RECEIVING ASSOCIATE for diet changes. Follow up every 5 days.
--- NOTE | 2019-03-18 14:59 | P.PNNP_ITS ---
Progress Note: A&P Assessment and Plan (1) [place] (acute kidney injury): Code(s): N17.9 - Acute kidney failure, unspecified Status: Acute Assessment and Plan: * creatinine still elevated above baseline (but stable if not better) * renal ultrasound shows no hydronephrosis * urine electrolytes consistent with pre-renal azotemia * suspect higher creatinine a manifestation of his cardiomyopathy/depressed EF worsened by the need for ongoing diuretic therapy to maintain his respiratory status (probably a degree of cardiorenal syndrome) as well as edema * we may have to accept a higher creatinine at this time; elevated BUN likely secondary to steroid use * IV diuretics PRN (on oral diuretics already) (2) Chronic kidney disease, stage 3 (moderate): Code(s): N18.3 - Chronic kidney disease, stage 3 (moderate) Status: Acute Assessment and Plan: * baseline creatinine earlier this year ~ 1.5 - 1.8mg/dl * suspect due to vascular disease coupled with need for diuretics in the setting of chronic pre-renal azotemia (3) Atrial fibrillation with rapid ventricular response: Code(s): I48.91 - Unspecified atrial fibrillation Status: Acute Assessment and Plan: * continue rate control strategy * on amiodarone * Cardiology following (4) Cardiomyopathy: Qualifiers: Cardiomyopathy type: dilated Qualified Code(s): I42.0 - Dilated cardiomyopathy Code(s): I42.9 - Cardiomyopathy, unspecified Status: Acute Assessment and Plan: * as noted by recent Echo * both systolic and diastolic component * fluctuating shortness of breath noted in spite of the fact he looks compensated * is his shortness of breath/hypoxia more related to his COPD??? (5) Chronic respiratory failure: Qualifiers: Respiratory failure complication: hypoxia Qualified Code(s): J96.11 - Chronic respiratory failure with hypoxia Code(s): J96.10 - Chronic respiratory failure, unspecified whether with hypoxia or hypercapnia Status: Acute Assessment and Plan: * quite significant and severe * continue supportive therapy (6) Anemia: Code(s): D64.9 - Anemia, unspecified Status: Acute Assessment and Plan: * H/H relatively stable * likely related to CKD * however, stools are guaiac positive Will continue to follow. Subjective Date/time seen: 03/18/19 14:59 Shortness of breath seems stable if not better at this time; reasonable response to IV bumex x 1 yesterday with relative stability if not improvement in creatinine/renal function; no acute distress voiced. Exam Narrative: Exam Narrative: General: chronically ill appearing male in NAD Heart: IRRR, normal S1 and S2; no rub Lungs: coarse breath sounds throughout Abdomen: soft, nontender, nondistended, positive bowel sounds Extremities: no cyanosis or clubbing; 1 - 2+ edema Skin: no rash Objective Data Vital Signs Vital Signs: Vital Signs Temp Pulse Resp BP Pulse Ox 03/18/19 14:00 109 H 03/18/19 12:04 36.3 C L 108 H 22 H 114/89 95 03/18/19 12:00 116 H 97 03/18/19 10:00 103 H 03/18/19 09:45 115 H 24 H 03/18/19 09:29 109 H 24 H 96 03/18/19 08:53 106 H 03/18/19 08:45 97 03/18/19 08:00 119 H 03/18/19 07:59 36.7 C 106 H 22 H 95/62 L 100 03/18/19 06:00 114 H 03/18/19
--- NOTE | 2019-03-18 14:59 | PM.PNNEP ---
Progress Note: A&P Assessment and Plan (1) [place] (acute kidney injury): Code(s): N17.9 - Acute kidney failure, unspecified Status: Acute Assessment and Plan: creatinine still elevated above baseline (but stable if not better) renal ultrasound shows no hydronephrosis urine electrolytes consistent with pre-renal azotemia suspect higher creatinine a manifestation of his cardiomyopathy/depressed EF worsened by the need for ongoing diuretic therapy to maintain his respiratory status (probably a degree of cardiorenal syndrome) as well as edema we may have to accept a higher creatinine at this time; elevated BUN likely secondary to steroid use IV diuretics PRN (on oral diuretics already) (2) Chronic kidney disease, stage 3 (moderate): Code(s): N18.3 - Chronic kidney disease, stage 3 (moderate) Status: Acute Assessment and Plan: baseline creatinine earlier this year ~ 1.5 - 1.8mg/dl suspect due to vascular disease coupled with need for diuretics in the setting of chronic pre-renal azotemia (3) Atrial fibrillation with rapid ventricular response: Code(s): I48.91 - Unspecified atrial fibrillation Status: Acute Assessment and Plan: continue rate control strategy on amiodarone Cardiology following (4) Cardiomyopathy: Qualifiers: Cardiomyopathy type: dilated Qualified Code(s): I42.0 - Dilated cardiomyopathy Code(s): I42.9 - Cardiomyopathy, unspecified Status: Acute Assessment and Plan: as noted by recent Echo both systolic and diastolic component fluctuating shortness of breath noted in spite of the fact he looks compensated is his shortness of breath/hypoxia more related to his COPD??? (5) Chronic respiratory failure: Qualifiers: Respiratory failure complication: hypoxia Qualified Code(s): J96.11 - Chronic respiratory failure with hypoxia Code(s): J96.10 - Chronic respiratory failure, unspecified whether with hypoxia or hypercapnia Status: Acute Assessment and Plan: quite significant and severe continue supportive therapy (6) Anemia: Code(s): D64.9 - Anemia, unspecified Status: Acute Assessment and Plan: H/H relatively stable likely related to CKD however, stools are guaiac positive Will continue to follow. Subjective Date/time seen: 03/18/19 14:59 Shortness of breath seems stable if not better at this time; reasonable response to IV bumex x 1 yesterday with relative stability if not improvement in creatinine/renal function; no acute distress voiced. Exam Narrative: Exam Narrative: General: chronically ill appearing male in NAD Heart: IRRR, normal S1 and S2; no rub Lungs: coarse breath sounds throughout Abdomen: soft, nontender, nondistended, positive bowel sounds Extremities: no cyanosis or clubbing; 1 - 2+ edema Skin: no rash Objective Data Vital Signs Vital Signs: Vital Signs Temp Pulse Resp BP Pulse Ox 03/18/19 14:00 109 H 03/18/19 12:04 36.3 C L 108 H 22 H 114/89 95 03/18/19 12:00 116 H 97 03/18/19 10:00 103 H 03/18/19 09:45 115 H 24 H 03/18/19 09:29 109 H 24 H 96 03/18/19 08:53 106 H 03/18/19 08:45 97 03/18/19 08:00 119 H 03/18/19 07:59 36.7 C 106 H 22 H 95/62 L 100 03/18/19 06:00 114 H 03/18/19 04:00 36.4 C 122 H 20 100/61 93 03/18/19 03:37 106 H 24 H 03/18/19 03:29 107 H 24 H 03/18/19 02:00 93 03/18/19 00:00 90 93 03/17/19 23:54 36.7 C 68 20 161/64 H 99 03/17/19 22:00 97 03/17/19 21:37 119 H 24 H 03/17/19 21:13 94 20 93 03/17/19 20:42 115 H 03/17/19 20:00 116 H 93 03/17/19 19:50 36.6 C 119 H 22 H 92/60 L 93 03/17/19 18:00 110 H 03/17/19 16:27 36.3 C L 97 22 H 88/49 L 98 03/17/19 16:00 114 H Intake/Output Intake/Output: Intake & Output 03/15/19 03/16/19 03/17/19 03/18/19
[2019-03-18] MEDS: WARFARIN (*PBKC) 2 MG TABLET PO (16:58)
--- NOTE | 2019-03-18 17:55 | PM.IMPN ---
Progress Note: A&P Assessment and Plan (1) Respiratory failure: Qualifiers: Chronicity: acute on chronic Respiratory failure complication: hypoxia and hypercapnia Qualified Code(s): J96.21 - Acute and chronic respiratory failure with hypoxia; J96.22 - Acute and chronic respiratory failure with hypercapnia Code(s): J96.90 - Respiratory failure, unspecified, unspecified whether with hypoxia or hypercapnia Status: Acute Assessment and Plan: Developed acute respiratory failure on 03/08/2019 while being treated for COPD exacerbation requiring intubation. Successfully extubated on 03/10/2019. Increased problems with breathing on the evening of 03/14/2019 requiring BiPAP. Has been back on oxygen by nasal cannula since 03/15/2019. Normally on 4 L of oxygen at home. Currently on 2 L of oxygen. Will continue nebulizer treatments and inhaled Pulmicort. Continue Pulmozyme. Did have MBS on 03/11/2019 with recommendation for mildly thickened liquids with minced and moist diet but no ivis aspiration. Was given dose of IV Bumex by Nephrology today with the increased edema. Suspect will do better once able to have femoral central line removed and more mobile. IV ceftriaxone discontinued on 03/17. No other regularly scheduled IV medications. was seen by by Nephrology femoral catheter was removed recommended continue oral diuresis if needed may use IV and closely monitor kidney function (2) Severe sepsis: Code(s): A41.9 - Sepsis, unspecified organism; R65.20 - Severe sepsis without septic shock Status: Acute Assessment and Plan: Criteria met on admission. Result of pneumonia. Blood cultures negative. MRSA surveillance culture negative. Sputum culture growing Serratia marcescens with patient on IV ceftriaxone alone for the past 5 days. discontinued IV antibiotics as no longer felt necessary at this time. Will confirm when monitor. (3) Pneumonia: Qualifiers: Pneumonia type: due to other aerobic Gram-negative bacteria Laterality: bilateral Lung location: unspecified part of lung Qualified Code(s): J15.6 - Pneumonia due to other Gram-negative bacteria Code(s): J18.9 - Pneumonia, unspecified organism Status: Acute Assessment and Plan: Chest xray on 03/14/19 with slight improvement in bilateral infiltrates. Sputum culture as noted above. Discontinue IV ceftriaxone stay after 5 days treatment. Did have IV Unasyn and IV vancomycin prior to IV ceftriaxone. Continue other respiratory treatments. Will monitor. (4) Acute kidney injury superimposed on chronic kidney disease: Code(s): N17.9 - Acute kidney failure, unspecified; N18.9 - Chronic kidney disease, unspecified Status: Acute Assessment and Plan: Precipitating etiology is not clear. Nephrology consulted and appreciate input. Creatinine remains 2.20 today which is above his baseline of 1.20 and 1.40. however it is improed compare to 03/17, Renal ultrasound with no hydronephrosis. Does have increased edema. IV Bumex given on 03/17. Remains on oral Lasix and spironolactone but no other nephrotoxic medications. Will continue to monitor. Await further recommendations from Nephrology. (5) Hyperkalemia: Code(s): E87.5 - Hyperkalemia Status: Acute Assessment and Plan: Potassium 4.1 today. No oral replacement being given but is on spironolactone. Will monitor. (6) Hypokalemia: Code(s): E87.6 - Hypokalemia Status: Acute Assessment and Plan: Potassium as noted above. (7) Atrial fibrillation with rapid ventricular response: Code(s): I48.91 - Unspecified atrial fibrillation Status: Acute Assessment and Plan: Cardiology consulted and appreciate input. Rate is controlled continue oral amiodarone. Discussed with Dr. Munoz today. INR was 3.3 with warfarin to be held today. Continue to monitor INR. Warfarin dosing per Cardiology. (8) Coagulo
[2019-03-18] MEDS: MELATONIN 3 MG TABLET PO (20:41)
[2019-03-18] MEDS: GABAPENTIN 400 MG CAPSULE 800 MG PO (20:41)
[2019-03-19] VITALS (30 sets, daily range): BP systolic 91–109; BP diastolic 41–77; PULSE 82–124; RESP 16–22; TEMP 36.3–36.8; O2SAT 93–99
[2019-03-19] MEDS: IPRATROPIUM BR 0.02% INH SOLN 0.5 MG/2.5 ML VIAL INHALATION ×4 (01:50→20:00)
[2019-03-19 05:18] LABS: INR 3.9; Prothrombin Time 37.8 Seconds (11.1-14.7)
[2019-03-19 05:26] LABS: Blood Urea Nitrogen 78 mg/dL (9-20); Calcium 8.3 mg/dL (8.4-10.2); Carbon Dioxide 33 mmol/L (22-30); Chloride 93 mmol/L (98-107); Estimated CRCL calculation 23 ml/min; Estimated Glomerular Filt Rate 27; Glucose 167 mg/dL (75-110); Potassium 4.4 mmol/L (3.4-5.0); Sodium 138 mmol/L (137-145)
[2019-03-19] MEDS: LEVOTHYROXINE SODIUM 50 MCG TABLET PO (05:42)
[2019-03-19] MEDS: DORNASE ALFA INH SOLN 1 MG/ML 2.5 ML AMP 2.5 MG INHALATION ×2 (08:46→20:00)
[2019-03-19] MEDS: carvediloL 12.5 MG TABLET PO ×2 (09:16→20:00)
[2019-03-19] MEDS: predniSONE 10 MG TABLET PO (09:16)
[2019-03-19] MEDS: DOCUSATE SODIUM 100 MG CAPSULE PO (09:16)
[2019-03-19] MEDS: SPIRONOLACTONE 25 MG TABLET PO (09:17)
[2019-03-19] MEDS: PANTOPRAZOLE 40 MG TABLET PO ×2 (09:17→20:00)
[2019-03-19] MEDS: FUROSEMIDE 40 MG TABLET PO (09:17)
--- NOTE | 2019-03-19 12:30 | PM.PNCARD ---
Progress Note: A&P Assessment and Plan (1) Atrial fibrillation with rapid ventricular response: Code(s): I48.91 - Unspecified atrial fibrillation Status: Acute Assessment and Plan: History of paroxysmal atrial fibrillation, persistent since admitted.. Continue p.o. amiodarone. On anticoagulation but his INR is increasing. (2) Cardiomyopathy: Qualifiers: Cardiomyopathy type: dilated Qualified Code(s): I42.0 - Dilated cardiomyopathy Code(s): I42.9 - Cardiomyopathy, unspecified Status: Acute Assessment and Plan: Moderate LV dysfunction EF 35%, chronic. History of nonischemic cardiomyopathy. Does not appear to be volume overloaded. Continue furosemide 40 mg daily and carvedilol 12.5 b.i.d.. BP somewhat soft. . (3) S/P AVR (aortic valve replacement): Code(s): Z95.2 - Presence of prosthetic heart valve Status: Acute Assessment and Plan: Was getting warfarin 2 mg daily; warfarin was not held yesterday. Will hold warfarin starting today. Patient's home dose was 1 or 2 mg daily, he is uncertain, but that was before he was started on amiodarone. (4) Acute on chronic systolic heart failure: Code(s): I50.23 - Acute on chronic systolic (congestive) heart failure Status: Acute Assessment and Plan: Improved (5) Acute kidney injury superimposed on chronic kidney disease: Code(s): N17.9 - Acute kidney failure, unspecified; N18.9 - Chronic kidney disease, unspecified Status: Acute Assessment and Plan: Per primary service. Creatinine fairly stable. (6) COPD exacerbation: Code(s): J44.1 - Chronic obstructive pulmonary disease with (acute) exacerbation Status: Acute Assessment and Plan: For primary team. Subjective Date/time seen: 03/19/19 12:30 Interval history: Interval history: Follow-up visit for paroxysmal atrial fibrillation and nonischemic cardiomyopathy, anticoagulation for prosthetic aortic valve 03/15/2019: Patient said he was lousy yesterday and last night, with more shortness of breath. Patient's AFib rate increased last night, 120 is 130s, and he was restarted on a amiodarone drip. Now running about 95-105 be p.m.. Still with a cough, some shortness of breath. Were CPAP all night. INR today was 2.3. Still on a heparin drip. Not diuresing much on furosemide 40 mg daily but is getting extra dose of Bumex 1 mg IV push today. DATE OF SERVICE: 03/18/2019: Not much shortness of breath. No chest pain or palpitations. Off of amiodarone drip. On amiodarone p.o.. Heart rate is reasonably controlled. INR is elevated Date of service 03/19/2019: Still with congestion and cough. Set up in a chair for while but legs are very weak. Telemetry shows heart rate running 90-120 ppm. INR up to 3.9 today. Review of Systems Constitutional: Constitutional: Reports fatigue and Reports weakness ENT: Denies epistaxis Cardiovascular: Cardiovascular: Denies chest pain and Denies palpitations Respiratory: Respiratory: Reports chest congestion, Reports cough, Reports dyspnea on exertion and Reports wheezing Gastrointestinal: Gastrointestinal: Denies abdominal pain and Denies melena Genitourinary: Genitourinary: Denies dysuria Musculoskeletal: Musculoskeletal: Reports no additional musculoskeletal complaints Integumentary/Breasts: Skin/Breast: Denies rash Neurologic: Reports system reviewed and no additional complaints, except as documented Psychiatric: Psychiatric: Reports no additional psychiatric complaints Exam Const: General: no acute distress HENMT: Mouth: Yes moist mucous membranes Eyes: EOM: EOM intac
--- NOTE | 2019-03-19 16:00 | P.PNNP_ITS ---
Progress Note: A&P Assessment and Plan (1) [place] (acute kidney injury): Code(s): N17.9 - Acute kidney failure, unspecified Status: Acute Assessment and Plan: * creatinine still elevated above baseline (but stable if not better) * renal ultrasound shows no hydronephrosis * urine electrolytes consistent with pre-renal azotemia * suspect higher creatinine a manifestation of his cardiomyopathy/depressed EF worsened by the need for ongoing diuretic therapy to maintain his respiratory status (probably a degree of cardiorenal syndrome) as well as edema * we may have to accept a higher creatinine at this time; elevated BUN likely secondary to steroid use * IV diuretics PRN [on oral diuretics (lasix + spironolactone) already] (2) Chronic kidney disease, stage 3 (moderate): Code(s): N18.3 - Chronic kidney disease, stage 3 (moderate) Status: Acute Assessment and Plan: * baseline creatinine earlier this year ~ 1.5 - 1.8mg/dl * suspect due to vascular disease coupled with need for diuretics in the setting of chronic pre-renal azotemia (3) Atrial fibrillation with rapid ventricular response: Code(s): I48.91 - Unspecified atrial fibrillation Status: Acute Assessment and Plan: * continue rate control strategy * on amiodarone * Cardiology following (4) Cardiomyopathy: Qualifiers: Cardiomyopathy type: dilated Qualified Code(s): I42.0 - Dilated cardiomyopathy Code(s): I42.9 - Cardiomyopathy, unspecified Status: Acute Assessment and Plan: * as noted by recent Echo * both systolic and diastolic component * fluctuating shortness of breath noted in spite of the fact he looks compensated * suspect his shortness of breath/hypoxia may be more related to his COPD(?) (5) Chronic respiratory failure: Qualifiers: Respiratory failure complication: hypoxia Qualified Code(s): J96.11 - Chronic respiratory failure with hypoxia Code(s): J96.10 - Chronic respiratory failure, unspecified whether with hypoxia or hypercapnia Status: Acute Assessment and Plan: * quite significant and severe * continue supportive therapy (6) Anemia: Code(s): D64.9 - Anemia, unspecified Status: Acute Assessment and Plan: * H/H relatively stable * likely related to CKD * however, stools are guaiac positive Will continue to follow. Subjective Date/time seen: 03/19/19 16:00 Major complaint is that of cough and associated congestion; states he also feels quite weak, particulary in his lower extremities; no other apparent issues or complaints voiced at this time. Exam Narrative: Exam Narrative: General: chronically ill appearing male in NAD Heart: IRRR, normal S1 and S2; no rub Lungs: coarse breath sounds throughout Abdomen: soft, nontender, nondistended, positive bowel sounds Extremities: no cyanosis or clubbing; 1 - 2+ edema Skin: no rash Objective Data Vital Signs Vital Signs: Vital Signs Temp Pulse Resp BP Pulse Ox 03/19/19 15:45 36.8 C 105 H 16 92/60 L 96 03/19/19 14:00 101 H 03/19/19 13:59 108 H 22 H 03/19/19 13:49 111 H 22 H 03/19/19 12:00 102 H 03/19/19 11:56 36.3 C L 93 16 91/41 L 97 03/19/19 10:00 113 H 03/19/19 09:16 105 H 03/19/19 08:59 105 H 22 H 96 03/19/19 08:47 123 H 22 H 03/19/19 08:00 36.8 C
--- NOTE | 2019-03-19 16:00 | PM.PNNEP ---
Progress Note: A&P Assessment and Plan (1) [place] (acute kidney injury): Code(s): N17.9 - Acute kidney failure, unspecified Status: Acute Assessment and Plan: creatinine still elevated above baseline (but stable if not better) renal ultrasound shows no hydronephrosis urine electrolytes consistent with pre-renal azotemia suspect higher creatinine a manifestation of his cardiomyopathy/depressed EF worsened by the need for ongoing diuretic therapy to maintain his respiratory status (probably a degree of cardiorenal syndrome) as well as edema we may have to accept a higher creatinine at this time; elevated BUN likely secondary to steroid use IV diuretics PRN [on oral diuretics (lasix + spironolactone) already] (2) Chronic kidney disease, stage 3 (moderate): Code(s): N18.3 - Chronic kidney disease, stage 3 (moderate) Status: Acute Assessment and Plan: baseline creatinine earlier this year ~ 1.5 - 1.8mg/dl suspect due to vascular disease coupled with need for diuretics in the setting of chronic pre-renal azotemia (3) Atrial fibrillation with rapid ventricular response: Code(s): I48.91 - Unspecified atrial fibrillation Status: Acute Assessment and Plan: continue rate control strategy on amiodarone Cardiology following (4) Cardiomyopathy: Qualifiers: Cardiomyopathy type: dilated Qualified Code(s): I42.0 - Dilated cardiomyopathy Code(s): I42.9 - Cardiomyopathy, unspecified Status: Acute Assessment and Plan: as noted by recent Echo both systolic and diastolic component fluctuating shortness of breath noted in spite of the fact he looks compensated suspect his shortness of breath/hypoxia may be more related to his COPD(?) (5) Chronic respiratory failure: Qualifiers: Respiratory failure complication: hypoxia Qualified Code(s): J96.11 - Chronic respiratory failure with hypoxia Code(s): J96.10 - Chronic respiratory failure, unspecified whether with hypoxia or hypercapnia Status: Acute Assessment and Plan: quite significant and severe continue supportive therapy (6) Anemia: Code(s): D64.9 - Anemia, unspecified Status: Acute Assessment and Plan: H/H relatively stable likely related to CKD however, stools are guaiac positive Will continue to follow. Subjective Date/time seen: 03/19/19 16:00 Major complaint is that of cough and associated congestion; states he also feels quite weak, particulary in his lower extremities; no other apparent issues or complaints voiced at this time. Exam Narrative: Exam Narrative: General: chronically ill appearing male in NAD Heart: IRRR, normal S1 and S2; no rub Lungs: coarse breath sounds throughout Abdomen: soft, nontender, nondistended, positive bowel sounds Extremities: no cyanosis or clubbing; 1 - 2+ edema Skin: no rash Objective Data Vital Signs Vital Signs: Vital Signs Temp Pulse Resp BP Pulse Ox 03/19/19 15:45 36.8 C 105 H 16 92/60 L 96 03/19/19 14:00 101 H 03/19/19 13:59 108 H 22 H 03/19/19 13:49 111 H 22 H 03/19/19 12:00 102 H 03/19/19 11:56 36.3 C L 93 16 91/41 L 97 03/19/19 10:00 113 H 03/19/19 09:16 105 H 03/19/19 08:59 105 H 22 H 96 03/19/19 08:47 123 H 22 H 03/19/19 08:00 36.8 C 117 H 16 109/57 L 97 03/19/19 06:00 93 03/19/19 04:00 99 99 03/19/19 03:54 97 20 95 03/19/19 03:53 36.7 C 99 20 105/46 L 93 03/19/19 02:00 106 H 03/19/19 01:56 82 20 03/19/19 01:52 83 20 98 03/19/19 01:50 82 20 03/19/19 00:00 105 H 99 03/18/19 23:29 113 H 22 H 130/98 H 96 03/18/19 23:18 119 H 20 97 03/18/19 22:00 108 H 03/18/19 20:41 130 H 03/18/19 20:13 124 H 33 H 03/18/19 20:09 124 H 33 H 96 03/18/19 20:08 20 03/18/19 20:00 36.6 C 126 H 22 H 106/55 L 97 12/2
--- NOTE | 2019-03-19 17:29 | PM.IMPN ---
Progress Note: A&P Assessment and Plan (1) Respiratory failure: Qualifiers: Chronicity: acute on chronic Respiratory failure complication: hypoxia and hypercapnia Qualified Code(s): J96.21 - Acute and chronic respiratory failure with hypoxia; J96.22 - Acute and chronic respiratory failure with hypercapnia Code(s): J96.90 - Respiratory failure, unspecified, unspecified whether with hypoxia or hypercapnia Status: Acute Assessment and Plan: Developed acute respiratory failure on 03/08/2019 while being treated for COPD exacerbation requiring intubation. Successfully extubated on 03/10/2019. Increased problems with breathing on the evening of 03/14/2019 requiring BiPAP. Has been back on oxygen by nasal cannula since 03/15/2019. Normally on 4 L of oxygen at home. Currently on 2 L of oxygen. Will continue nebulizer treatments and inhaled Pulmicort. Continue Pulmozyme. Did have MBS on 03/11/2019 with recommendation for mildly thickened liquids with minced and moist diet but no ivis aspiration. Was given dose of IV Bumex by Nephrology with the increased edema. Suspect will do better once able to have femoral central line removed and more mobile. IV ceftriaxone discontinued on 03/17. No other regularly scheduled IV medications. was seen by by Nephrology femoral catheter was removed recommended continue oral diuresis if needed may use IV and closely monitor kidney function, patient is seen supervisor landscape for A. Fib on PO amiodorane rate is high normal, patient with AVR on prosthetic valve on cumadin INR 3.9 will hold and monitor, patient stats he doing fine at rest with exertion he gets short winded and had difficulty with cathing his breath. will continue to monitor (2) Severe sepsis: Code(s): A41.9 - Sepsis, unspecified organism; R65.20 - Severe sepsis without septic shock Status: Acute Assessment and Plan: Criteria met on admission. Result of pneumonia. Blood cultures negative. MRSA surveillance culture negative. Sputum culture growing Serratia marcescens with patient on IV ceftriaxone alone for the past 5 days. discontinued IV antibiotics as no longer felt necessary at this time. Will confirm when monitor. (3) Pneumonia: Qualifiers: Pneumonia type: due to other aerobic Gram-negative bacteria Laterality: bilateral Lung location: unspecified part of lung Qualified Code(s): J15.6 - Pneumonia due to other Gram-negative bacteria Code(s): J18.9 - Pneumonia, unspecified organism Status: Acute Assessment and Plan: Chest xray on 03/14/19 with slight improvement in bilateral infiltrates. Sputum culture as noted above. Discontinue IV ceftriaxone stay after 5 days treatment. Did have IV Unasyn and IV vancomycin prior to IV ceftriaxone. Continue other respiratory treatments. Will monitor. (4) Acute kidney injury superimposed on chronic kidney disease: Code(s): N17.9 - Acute kidney failure, unspecified; N18.9 - Chronic kidney disease, unspecified Status: Acute Assessment and Plan: Precipitating etiology is not clear. Nephrology consulted and appreciate input. Creatinine remains 2.20 today which is above his baseline of 1.20 and 1.40. however it is improed compare to 03/17, Renal ultrasound with no hydronephrosis. Does have increased edema. IV Bumex given on 03/17. Remains on oral Lasix and spironolactone but no other nephrotoxic medications. Will continue to monitor. Await further recommendations from Nephrology. (5) Hyperkalemia: Code(s): E87.5 - Hyperkalemia Status: Acute Assessment and Plan: Potassium 4.1 today. No oral replacement being given but is on spironolactone. Will monitor. (6) Hypokalemia: Code(s): E87.6 - Hypokalemia Status: Acute Assessment and Plan: Potassium as noted above. (7) Atrial fibrillation with rapid ventricular response: Code(s): I48.91 - Unspecified atrial fibrilla
[2019-03-19] MEDS: GABAPENTIN 400 MG CAPSULE 800 MG PO (20:00)
[2019-03-19] MEDS: MELATONIN 3 MG TABLET PO (20:00)
[2019-03-20] VITALS (27 sets, daily range): BP systolic 92–117; BP diastolic 50–91; PULSE 82–175; RESP 14–27; TEMP 36.1–36.6; O2SAT 95–100
[2019-03-20] MEDS: IPRATROPIUM BR 0.02% INH SOLN 0.5 MG/2.5 ML VIAL INHALATION ×4 (01:35→20:31)
--- NOTE | 2019-03-20 04:59 | PC.NURSE ---
Patient noted to have a 6 beat run of ventricular tachycardia. Denies complaints of pain. Vital signs stable. Dr. Elaine notified. Orders received.
[2019-03-20 05:10] LABS: Blood Urea Nitrogen 70 mg/dL (9-20); Calcium 8.5 mg/dL (8.4-10.2); Carbon Dioxide 38 mmol/L (22-30); Chloride 93 mmol/L (98-107); Estimated CRCL calculation 22 ml/min; Estimated Glomerular Filt Rate 26; Glucose 165 mg/dL (75-110); Potassium 3.9 mmol/L (3.4-5.0); Sodium 139 mmol/L (137-145)
[2019-03-20 05:20] LABS: INR 4.7; Prothrombin Time 43.9 Seconds (11.1-14.7)
[2019-03-20] MEDS: LEVOTHYROXINE SODIUM 50 MCG TABLET PO (05:32)
--- NOTE | 2019-03-20 07:03 | ECG_ITS ---
Measurements Intervals [place] Rate: 136 P: HI: 0 QRS: 75 QRSD: 122 T: 269 QT: 300 QTc: 452 Interpretive Statements ATRIAL FIBRILLATION WITH RAPID VENTRICULAR RESPONSE INTRAVENTRICULAR CONDUCTION DELAY POOR R WAVE PROGRESSION, ANTERIOR LEADS ST-T WAVE ABNORMALITY IN LATERAL LEADS- CONSIDER ISCHEMIA BASELINE ARTIFACT- V6 ABNORMAL ECG Electronically Signed On 03-20-2019 11:56:21 [employer] OPERATOR by Jerel Tony D.O.
[2019-03-20 07:04] LABS: Glucose Point of Care 163 (65-105)
--- NOTE | 2019-03-20 07:10 | P.CODEBLUE_ITS ---
Code Blue Note Code Blue Note Time Arrived at [facility]: 06:59 hrs [facility] Summary: Called to bedside by [facility] overhead. Nursing staff reports that the patient into V-tach and loss consciousness. As nursing staff was about to start CPR patient took a large gasping breath and woke up. EKG was obtained which demonstrated atrial fibrillation with RVR. Patient's heart rate oscillating between 130s to 150s. Blood pressure was obtained and was stable. Patient was started on amiodarone IV drip. Patient is answering my questions appropriately denies any chest pain at this time does not remember what happened. Patient was transferred to ICU for further care. Supervisor [employer], Dr. Stout was consulted. EKG: HR 136 bpm, Qtc 380 ms. Atrial Fibrillation w/ RVR.
[2019-03-20] MEDS: AMIODARONE 150 MG/D5W 100 ML 150 MG/100 ML BAG 600 MG IV CONT (07:18)
[2019-03-20] MEDS: AMIODARONE 360 MG/D5W 200 ML 360 MG/200 ML BAG 33.3 MG IV CONT (07:21)
[2019-03-20 07:43] LABS: Alveolar/Arterial O2 Gradient 105.7 mmHg; Base Excess ABG 9.6 mEq/l (+/-2.0); Carboxyhemoglobin 0.9 % THb (0-2.0); Fractional Inspired Oxygen 30 %; HCO3 ABG 35.2 mEq/l (22.0-26.0); Methemoglobin ABG 0.4 %THb (0-1.5); Oxygen Content ABG 14.2 %vol (16.0-22.0); Oxyhemoglobin 82.9 % THb (90.0-100.0); PCO2 ABG 52.6 mmHg (35.0-45.0); PO2 FiO2 Ratio Arterial Blood 1.55 %; Reduced Hemoglobin 15.8 %THb (0-5.0); Total Hemoglobin 12.2 g/dL (12.0-18.0); pH ABG 7.444 (7.350-7.450)
[2019-03-20 07:47] LABS: Modified Allen's Test Pass; Oxygen Saturation ABG 83.3 % (95.0-100.0); PO2 ABG 46.4 mmHg (80.0-100.0); Site Drawn RIGHT RADIAL
[2019-03-20 07:48] LABS: Magnesium 2.1 mg/dL (1.6-2.3); Phosphorus 3.3 mg/dL (2.5-4.5)
[2019-03-20 07:48] LABS: Expiratory Pressure 5 cmH2O; Inspiratory Pressure 10 cmH2O
[2019-03-20 07:49] LABS: Device NON-INVASIVE VENT
--- NOTE | 2019-03-20 08:02 | PC.NURSE ---
Patient noted to be in Ventricular Tachycardia at 0655. Upon entering his room, patient was noted to be cyanotic, unresponsive and pulseless. A code blue was called. Prior to starting chest compressions, patient was noted to inhale deeply. He became responsive and his skin color returned to normal pink. His heart rate remained in the 160's and was noted to be atrial fibrillation with frequent multifocal PVC's. Dr Stout and Dr Elaine responded and orders for an amiodarone drip, labs, an EKG and patient transfer to ICU were received.
[2019-03-20 08:07] LABS: Troponin I 0.052 ng/mL (0.000-0.034)
[2019-03-20] MEDS: DORNASE ALFA INH SOLN 1 MG/ML 2.5 ML AMP 2.5 MG INHALATION ×2 (08:17→20:31)
[2019-03-20 09:16] LABS: Alveolar/Arterial O2 Gradient 76.5 mmHg; Base Excess ABG 9.1 mEq/l (+/-2.0); Carboxyhemoglobin 0.7 % THb (0-2.0); Fractional Inspired Oxygen 30 %; HCO3 ABG 34.7 mEq/l (22.0-26.0); Methemoglobin ABG 0.5 %THb (0-1.5); Oxygen Content ABG 15.7 %vol (16.0-22.0); Oxygen Saturation ABG 95.4 % (95.0-100.0); Oxyhemoglobin 93.6 % THb (90.0-100.0); PCO2 ABG 52.3 mmHg (35.0-45.0); PO2 FiO2 Ratio Arterial Blood 2.53 %; Reduced Hemoglobin 5.2 %THb (0-5.0); Total Hemoglobin 11.9 g/dL (12.0-18.0)
[2019-03-20 09:17] LABS: Device NON-INVASIVE VENT; Non-Invasive Expiratory Pressure 5 CMH2O; Non-Invasive Inspiratory Pressure 10 CMH2O; Non-Invasive Vent Rate 14 /MIN; Site Drawn RIGHT BRACHIAL
--- NOTE | 2019-03-20 09:25 | WPDINTPN ---
Progress Note: A&P Assessment and Plan (1) Pulseless ventricular tachycardia: Code(s): I47.2 - Ventricular tachycardia Status: Acute Assessment and Plan: patient had episode of pulseless V-tach on the morning of 05/21/2018, before the could do any CPR or shock patient came back to irregular heart rhythm with rapid ventricular rate. Patient was started on amiodarone bolus and infusion - likely cause could be a hypoxic - cardiology following the patient - discussed with Cardiology, will switch Coreg to metoprolol IV, continue amiodarone infusion for now (2) Acute on chronic systolic heart failure: Code(s): I50.23 - Acute on chronic systolic (congestive) heart failure Status: Acute Assessment and Plan: acute on chronic heart failure, continue IV diuretics, metoprolol IV. - Patient does have lower extremity edema and generalized anasarca (3) DVT prophylaxis: Code(s): Z29.9 - Encounter for prophylactic measures, unspecified Status: Acute Assessment and Plan: therapeutic INR, patient is on Coumadin (4) Chronic kidney disease, stage 3 (moderate): Code(s): N18.3 - Chronic kidney disease, stage 3 (moderate) Status: Acute Assessment and Plan: acute on chronic kidney disease most likely related to ischemic cardiomyopathy, hypoxia from COPD exacerbation, low blood pressures - nephrology following the patient - continue IV Lasix (5) S/P AVR (aortic valve replacement): Code(s): Z95.2 - Presence of prosthetic heart valve Status: Acute Assessment and Plan: patient on Coumadin, supratherapeutic INR, will hold Coumadin for now. - No active bleeding noted, hemoglobin has been stable (6) A-fib: Code(s): I48.91 - Unspecified atrial fibrillation Status: Acute Assessment and Plan: patient in AFib RVR, was given amiodarone bolus and started on amiodarone infusion. - patient also on metoprolol 5 mg IV q.6 hours scheduled - INR is supratherapeutic (7) Cardiomyopathy: Qualifiers: Cardiomyopathy type: dilated Qualified Code(s): I42.0 - Dilated cardiomyopathy Code(s): I42.9 - Cardiomyopathy, unspecified Status: Acute Assessment and Plan: patient with history of ischemic cardiomyopathy, moderate LV dysfunction, EF 35%. - Continue diuretics for lower extremity swelling. (8) COPD exacerbation: Code(s): J44.1 - Chronic obstructive pulmonary disease with (acute) exacerbation Status: Acute Assessment and Plan: Patient on BiPAP, continue steroids, prednisone changed to IV Solu-Medrol Additional Plan discuss with patient him with his condition and plan of care. Will also call his daughter who is the POA and updated her code status; full code critical care time spent: 39 minutes Due to a high probability of clinically significant, life threatening deterioration, the patient required my highest level of preparedness to intervene emergently and I personally spent this critical care time directly and personally managing the patient. This critical care time included obtaining a history; examining the patient; pulse oximetry; ordering and review of studies; arranging urgent treatment with development of a management plan; evaluation of patient's response to treatment; frequent reassessment; and discussions with other providers. It was exclusive of separately billable procedures and treating other patients and teaching time. Please see Assessment and Plan section and the rest of the note for further information on patient assessment and treatment Subjective Date/time seen: 03/20/19 09:25 Interval history: Acute respiratory failure, coagulopathy, acute kidney injury, pneumonia, severe sepsis, copd, A.fib RVR 03/20/2019: Patient was in the IMU, patient had an episode off 40 second pulseless V-tach, and before the nurse could perform a CPR patient took a deep breath and
--- NOTE | 2019-03-20 10:37 | PM.PNCARD ---
Progress Note: A&P Assessment and Plan (1) Atrial fibrillation with rapid ventricular response: Code(s): I48.91 - Unspecified atrial fibrillation Status: Acute Assessment and Plan: History of paroxysmal atrial fibrillation. Persistent since admitted. Has been on increased dose of amiodarone PO since 03/16/2019. Warfarin on hold due to increasing INR. Beta Alaina changed to IVP q 6 hours for rate control, VT and cardiomyopathy (2) Cardiomyopathy: Qualifiers: Cardiomyopathy type: dilated Qualified Code(s): I42.0 - Dilated cardiomyopathy Code(s): I42.9 - Cardiomyopathy, unspecified Status: Acute Assessment and Plan: Moderate LV dysfunction EF 35%, chronic. History of nonischemic cardiomyopathy. Pulseless VT this morning. 44 seconds at rate of 196 beets per min. Spontaneously converted to afib RVR. Telemetry strips reviewed with Dr Monterroso at 1200 03/20/2019. QTc 452 ms on EKG after event. Potassium 3.9. Magnesium 2.1. Agree with amiodarone drip. Lower extremity edema increasing. Furosemide has been changed to IV due to desaturation when takes off BiPAP mask. Event possibly due to hypoxia. Continue supportive care. . (3) S/P AVR (aortic valve replacement): Code(s): Z95.2 - Presence of prosthetic heart valve Status: Acute Assessment and Plan: INR 4.7 today. Warfarin on hold (4) Acute on chronic systolic heart failure: Code(s): I50.23 - Acute on chronic systolic (congestive) heart failure Status: Acute Assessment and Plan: As above (5) Acute kidney injury superimposed on chronic kidney disease: Code(s): N17.9 - Acute kidney failure, unspecified; N18.9 - Chronic kidney disease, unspecified Status: Acute Assessment and Plan: Per primary service. Creatinine fairly stable. (6) COPD exacerbation: Code(s): J44.1 - Chronic obstructive pulmonary disease with (acute) exacerbation Status: Acute Assessment and Plan: For primary team. Back on BiPAP today. Additional Plan Plan discussed with Dr Kriss Scott 03/20/2019 Subjective Date/time seen: 03/20/19 10:37 Interval history: Interval history: Follow-up visit for paroxysmal atrial fibrillation and nonischemic cardiomyopathy, anticoagulation for prosthetic aortic valve, pulseless V-tach episode Date of service: 03/20/2019 Subjective: Denied chest discomfort or shortness of breath. Pulling off BiPAP mask. Review of Systems Constitutional: Constitutional: Reports fatigue and Reports weakness Eyes: Eyes: Denies blurry vision ENT: Reports hearing normal, Denies dysphagia, Denies epistaxis and Denies neck pain Cardiovascular: Cardiovascular: Denies chest pain, Denies diaphoresis, Reports pedal edema, Reports leg edema, Denies lightheadedness, Denies palpitations, Reports dyspnea and Reports dyspnea on exertion Respiratory: Respiratory: Reports chest congestion, Reports cough, Denies hemoptysis, Denies dyspnea, Reports dyspnea on exertion and Reports wheezing Gastrointestinal: Gastrointestinal: Denies abdominal pain, Denies melena, Denies dysphagia and Denies heartburn Genitourinary: Genitourinary: Denies hematuria and Denies dysuria Musculoskeletal: Musculoskeletal: Denies back pain and Denies neck pain Integumentary/Breasts: Skin/Breast: Reports dry skin and Denies rash Neurologic: Reports system reviewed and no additional complaints, except as documented, Reports Normal hearing present, Denies confusion and Reports weakness Psychiatric: Psychiatric: Denies anxiety, Reports confusion and Denies depression Endocrine: Endocrine: Reports fa
[2019-03-20] MEDS: PANTOPRAZOLE SODIUM IV 40 MG VIAL IV PUSH ×2 (10:46→19:56)
[2019-03-20] MEDS: LEVOTHYROXINE SODIUM INJ 100 MCG/5 ML VIAL 25 MCG IV PUSH (10:47)
[2019-03-20] MEDS: FUROSEMIDE INJ 40 MG/4 ML VIAL IV PUSH (10:48)
--- NOTE | 2019-03-20 11:13 | PCDIET ---
ICU Rounding Note: Pt current nutrition is NPO. Nutrition recommendation: Follow recommendations per PROFESSOR/NURSE ANESTHETIST. Pt was on regular minced & moist, per RN pt was still choking on this diet. Last recorded weight is 76kg. Bowel Motility: Labs Reviewed:BUN 70, Cr 2.4, Glu 165 Meds Noted: Additional Notes: Pt seen 2 days ago and c/o poor taste and modified texture diet, pt then stopped breathing and before code was called pt started breathing again and moved to ICU and made NPO. Will continue to monitor for nutrition needs. Following daily in ICU rounds. Assessing/reassessing every 3 days.
[2019-03-20 11:38] LABS: Basophils Absolute Auto 0.1 K/mm3 (0.0-0.1); Basophils Percent Auto 0.2 % (0.2-1.2); Hematocrit 38.7 % (42.0-52.0); Hemoglobin 11.1 g/dL (14.0-18.0); Immature Granulocyte Absolute 0.22 K/mm3 (0.00-0.031); Immature Granulocyte Percent A 0.8 % (0-0.5); Immature Platelet Fraction Pct 17.4 % (0.9-11.2); Lymphocytes Absolute Auto 0.52 K/mm3 (0.9-3.2); Lymphocytes Percent Auto 1.9 % (18.3-44.2); Mean Corpuscular HGB Conc 28.7 g/dl (32-36); Mean Corpuscular Hemoglobin 25.5 pg (26-34); Mean Corpuscular Volume 88.8 fl (80-100); Monocytes Absolute Auto 1.7 K/mm3 (0.1-0.6); Monocytes Percent Auto 6.1 % (2.6-8.5); Neutrophils Absolute Auto 24.7 K/mm3 (1.3-6.7); Nucleated Red Blood Cells Perc 0.1 % (0.0-0.2); Platelet Count Result 197 k/mm3 (150-375); Red Blood Count 4.36 M/mm3 (4.6-6.20); Red Cell Distribution Width 18.2 % (11.5-14.5); White Blood Count 27.2 K/mm3 (4.5-10.0)
[2019-03-20] MEDS: methylPREDNISolone SOD SUCC 40 MG VIAL IV PUSH ×3 (12:23→23:17)
[2019-03-20] MEDS: METOPROLOL TARTRATE INJ 5 MG/5 ML VIAL IV PUSH ×3 (12:24→23:18)
[2019-03-20 12:52] LABS: Add Urine Microscopic? YES; Appearance Urine Clear (Clear); Bilirubin Urine Negative (Negative); Blood Urine 2+ (Negative); Color Urine Straw (Yellow); Glucose Urine UA 1+ mg/dL (Negative); Ketones Urine Negative (Negative); Leukocyte Esterase Ur Negative LEU/UL (NEGATIVE); Mucus Urine Rare /lpf; Nitrate Urine Negative (Negative); Protein Urine 1+ mg/dL (Negative); RBC Urine 21-50 /hpf (0-2); Urobilinogen Urine Negative mg/dL (<2.0); WBC Urine 0-3 /hpf (0-3)
[2019-03-20] MEDS: AMIODARONE 360 MG/D5W 200 ML 360 MG/200 ML BAG 16.7 MG IV CONT (13:22)
--- NOTE | 2019-03-20 13:30 | PCPTNOTE ---
Spoke w/ Dr Stout regarding pt's decline in medical status and transfer to ICU. Received verbal orders to hold PT/OT.
--- NOTE | 2019-03-20 13:50 | P.PNNP_ITS ---
Progress Note: A&P Assessment and Plan (1) MODESTO (acute kidney injury): Code(s): N17.9 - Acute kidney failure, unspecified Status: Acute Assessment and Plan: * creatinine still elevated above baseline (but stable if not better) * renal ultrasound shows no hydronephrosis * urine electrolytes consistent with pre-renal azotemia * suspect higher creatinine a manifestation of his cardiomyopathy/depressed EF worsened by the need for ongoing diuretic therapy to maintain his respiratory status (probably a degree of cardiorenal syndrome) as well as edema * we may have to accept a higher creatinine at this time; elevated BUN likely secondary to steroid use * switched to IV lasix given events this AM (2) Chronic kidney disease, stage 3 (moderate): Code(s): N18.3 - Chronic kidney disease, stage 3 (moderate) Status: Acute Assessment and Plan: * baseline creatinine earlier this year ~ 1.5 - 1.8mg/dl * suspect due to vascular disease coupled with need for diuretics in the setting of chronic pre-renal azotemia (3) Atrial fibrillation with rapid ventricular response: Code(s): I48.91 - Unspecified atrial fibrillation Status: Acute Assessment and Plan: * continue rate control strategy * on IV amiodarone * Cardiology following (4) Cardiomyopathy: Qualifiers: Cardiomyopathy type: dilated Qualified Code(s): I42.0 - Dilated cardiomyopathy Code(s): I42.9 - Cardiomyopathy, unspecified Status: Acute Assessment and Plan: * as noted by recent Echo * both systolic and diastolic component * fluctuating shortness of breath noted in spite of the fact he looks compensated * suspect his shortness of breath/hypoxia may be more related to his COPD(?) (5) Chronic respiratory failure: Qualifiers: Respiratory failure complication: hypoxia Qualified Code(s): J96.11 - Chronic respiratory failure with hypoxia Code(s): J96.10 - Chronic respiratory failure, unspecified whether with hypoxia or hypercapnia Status: Acute Assessment and Plan: * quite significant and severe * continue supportive therapy (6) Anemia: Code(s): D64.9 - Anemia, unspecified Status: Acute Assessment and Plan: * H/H relatively stable * likely related to CKD * however, stools are guaiac positive Will continue to follow. Subjective Date/time seen: 03/20/19 13:50 Events early this AM noted -- episode of pulseless V-tach but before any intervention (CPR, medications..etc.), he regain pulse and found to be in Afib with RVR -- transferred to ICU for closer monitoring and started on IV amiodarone; no other acute issues or complaints voiced at this time; wearing BiPAP at this time. Exam Narrative: Exam Narrative: General: chronically ill appearing male in NAD Heart: IRRR, normal S1 and S2; no rub Lungs: coarse breath sounds throughout Abdomen: soft, nontender, nondistended, positive bowel sounds Extremities: no cyanosis or clubbing; 1 - 2+ edema Skin: no rash Objective Data Vital Signs Vital Signs: Vital Signs Temp Pulse Resp BP Pulse Ox 03/20/19 12:28 99 27 H 95 03/20/19 12:24 103 H 03/20/19 12:00 105 H 15 112/71 96 03/20/19 10:00 115 H 03/20/19 09:26 128 H 21 H 03/20/19 08:33 125 H 20 117/70 96 03/20/19 08:00 128 H 21 H 96 03/20/19 07:05 175 H 27 H 98
--- NOTE | 2019-03-20 13:50 | PM.PNNEP ---
Progress Note: A&P Assessment and Plan (1) [place] (acute kidney injury): Code(s): N17.9 - Acute kidney failure, unspecified Status: Acute Assessment and Plan: creatinine still elevated above baseline (but stable if not better) renal ultrasound shows no hydronephrosis urine electrolytes consistent with pre-renal azotemia suspect higher creatinine a manifestation of his cardiomyopathy/depressed EF worsened by the need for ongoing diuretic therapy to maintain his respiratory status (probably a degree of cardiorenal syndrome) as well as edema we may have to accept a higher creatinine at this time; elevated BUN likely secondary to steroid use switched to IV lasix given events this AM (2) Chronic kidney disease, stage 3 (moderate): Code(s): N18.3 - Chronic kidney disease, stage 3 (moderate) Status: Acute Assessment and Plan: baseline creatinine earlier this year ~ 1.5 - 1.8mg/dl suspect due to vascular disease coupled with need for diuretics in the setting of chronic pre-renal azotemia (3) Atrial fibrillation with rapid ventricular response: Code(s): I48.91 - Unspecified atrial fibrillation Status: Acute Assessment and Plan: continue rate control strategy on IV amiodarone Cardiology following (4) Cardiomyopathy: Qualifiers: Cardiomyopathy type: dilated Qualified Code(s): I42.0 - Dilated cardiomyopathy Code(s): I42.9 - Cardiomyopathy, unspecified Status: Acute Assessment and Plan: as noted by recent Echo both systolic and diastolic component fluctuating shortness of breath noted in spite of the fact he looks compensated suspect his shortness of breath/hypoxia may be more related to his COPD(?) (5) Chronic respiratory failure: Qualifiers: Respiratory failure complication: hypoxia Qualified Code(s): J96.11 - Chronic respiratory failure with hypoxia Code(s): J96.10 - Chronic respiratory failure, unspecified whether with hypoxia or hypercapnia Status: Acute Assessment and Plan: quite significant and severe continue supportive therapy (6) Anemia: Code(s): D64.9 - Anemia, unspecified Status: Acute Assessment and Plan: H/H relatively stable likely related to CKD however, stools are guaiac positive Will continue to follow. Subjective Date/time seen: 03/20/19 13:50 Events early this AM noted -- episode of pulseless V-tach but before any intervention (CPR, medications..etc.), he regain pulse and found to be in Afib with RVR -- transferred to ICU for closer monitoring and started on IV amiodarone; no other acute issues or complaints voiced at this time; wearing BiPAP at this time. Exam Narrative: Exam Narrative: General: chronically ill appearing male in NAD Heart: IRRR, normal S1 and S2; no rub Lungs: coarse breath sounds throughout Abdomen: soft, nontender, nondistended, positive bowel sounds Extremities: no cyanosis or clubbing; 1 - 2+ edema Skin: no rash Objective Data Vital Signs Vital Signs: Vital Signs Temp Pulse Resp BP Pulse Ox 03/20/19 12:28 99 27 H 95 03/20/19 12:24 103 H 03/20/19 12:00 105 H 15 112/71 96 03/20/19 10:00 115 H 03/20/19 09:26 128 H 21 H 03/20/19 08:33 125 H 20 117/70 96 03/20/19 08:00 128 H 21 H 96 03/20/19 07:05 175 H 27 H 98 03/20/19 06:00 109 H 03/20/19 04:00 106 H 03/20/19 03:44 36.6 C 101 H 20 94/59 L 99 03/20/19 02:00 98 03/20/19 01:44 124 H 24 H 03/20/19 01:35 118 H 24 H 03/20/19 00:00 119 H 03/19/19 23:52 108 H 03/19/19 23:04 99 21 H 95 03/19/19 22:00 100 03/19/19 20:13 124 H 22 H 03/19/19 20:02 96 03/19/19 20:01 124 H 22 H 03/19/19 20:00 116 H 03/19/19 19:36 36.7 C 105 H 20 102/77 97 03/19/19 18:00 113 H 03/19/19 16:00 101 H 03/19/19 15:45 36.8 C 105 H 16 92/6
--- NOTE | 2019-03-20 16:09 | PM.IMPN ---
Progress Note: A&P Assessment and Plan (1) Respiratory failure: Qualifiers: Chronicity: acute on chronic Respiratory failure complication: hypoxia and hypercapnia Qualified Code(s): J96.21 - Acute and chronic respiratory failure with hypoxia; J96.22 - Acute and chronic respiratory failure with hypercapnia Code(s): J96.90 - Respiratory failure, unspecified, unspecified whether with hypoxia or hypercapnia Status: Acute Assessment and Plan: Developed acute respiratory failure on 03/08/2019 while being treated for COPD exacerbation requiring intubation. Successfully extubated on 03/10/2019. Increased problems with breathing on the evening of 03/14/2019 requiring BiPAP. Has been back on oxygen by nasal cannula since 03/15/2019. Normally on 4 L of oxygen at home. Currently on 2 L of oxygen. Will continue nebulizer treatments and inhaled Pulmicort. Continue Pulmozyme. Did have MBS on 03/11/2019 with recommendation for mildly thickened liquids with minced and moist diet but no ivis aspiration. Was given dose of IV Bumex by Nephrology with the increased edema. Suspect will do better once able to have femoral central line removed and more mobile. IV ceftriaxone discontinued on 03/17. No other regularly scheduled IV medications. was seen by by Nephrology femoral catheter was removed recommended continue oral diuresis if needed may use IV and closely monitor kidney function, on 03/19 patient was seen supervisor wood crew for A. Fib on PO amiodorane rate was high normal, patient with AVR on prosthetic valve on cumadin INR 3.9 will held, on 03/20/19 early today while in IMU patient patient had about 20 secons pulesless activity however before any intervention developed A.Fib with RVR he was starred on Amiodoran drip and transferred to ICU currently on BIPAP (2) Severe sepsis: Code(s): A41.9 - Sepsis, unspecified organism; R65.20 - Severe sepsis without septic shock Status: Acute Assessment and Plan: Criteria met on admission. Result of pneumonia. Blood cultures negative. MRSA surveillance culture negative. Sputum culture growing Serratia marcescens with patient on IV ceftriaxone alone for the past 5 days. discontinued IV antibiotics as no longer felt necessary at this time. Will confirm when monitor. (3) Pneumonia: Qualifiers: Pneumonia type: due to other aerobic Gram-negative bacteria Laterality: bilateral Lung location: unspecified part of lung Qualified Code(s): J15.6 - Pneumonia due to other Gram-negative bacteria Code(s): J18.9 - Pneumonia, unspecified organism Status: Acute Assessment and Plan: Chest xray on 03/14/19 with slight improvement in bilateral infiltrates. Sputum culture as noted above. Discontinue IV ceftriaxone stay after 5 days treatment. Did have IV Unasyn and IV vancomycin prior to IV ceftriaxone. Continue other respiratory treatments. Will monitor. (4) Acute kidney injury superimposed on chronic kidney disease: Code(s): N17.9 - Acute kidney failure, unspecified; N18.9 - Chronic kidney disease, unspecified Status: Acute Assessment and Plan: Precipitating etiology is not clear. Nephrology consulted and appreciate input. Creatinine remains 2.20 today which is above his baseline of 1.20 and 1.40. however it is improed compare to 03/17, Renal ultrasound with no hydronephrosis. Does have increased edema. IV Bumex given on 03/17. Remains on oral Lasix and spironolactone but no other nephrotoxic medications. Will continue to monitor. Await further recommendations from Nephrology. (5) Hyperkalemia: Code(s): E87.5 - Hyperkalemia Status: Acute Assessment and Plan: Potassium 4.1 today. No oral replacement being given but is on spironolactone. Will monitor. (6) Hypokalemia: Code(s): E87.6 - Hypokalemia Status: Acute Assessment and Plan: Potassium as noted above. (7) Atrial fibrillation wit
[2019-03-21] VITALS (30 sets, daily range): BP systolic 97–147; BP diastolic 55–87; PULSE 79–110; RESP 13–26; TEMP 36.1–36.9; O2SAT 95–100
[2019-03-21] MEDS: AMIODARONE 360 MG/D5W 200 ML 360 MG/200 ML BAG 16.7 MG IV CONT (01:07)
[2019-03-21] MEDS: IPRATROPIUM BR 0.02% INH SOLN 0.5 MG/2.5 ML VIAL INHALATION ×4 (01:13→19:23)
[2019-03-21 04:26] LABS: Basophils Percent Auto 0.1 % (0.2-1.2); Hemoglobin 9.8 g/dL (14.0-18.0); Immature Granulocyte Absolute 0.08 K/mm3 (0.00-0.031); Immature Granulocyte Percent A 0.7 % (0-0.5); Immature Platelet Fraction Pct 12.6 % (0.9-11.2); Lymphocytes Absolute Auto 0.12 K/mm3 (0.9-3.2); Mean Corpuscular HGB Conc 28.8 g/dl (32-36); Mean Corpuscular Hemoglobin 25.5 pg (26-34); Mean Corpuscular Volume 88.3 fl (80-100); Monocytes Absolute Auto 0.2 K/mm3 (0.1-0.6); Monocytes Percent Auto 1.5 % (2.6-8.5); Neutrophils Absolute Auto 11.8 K/mm3 (1.3-6.7); Neutrophils Percent Auto 96.7 % (45.5-73.1); Platelet Count Result 128 k/mm3 (150-375); Red Blood Count 3.85 M/mm3 (4.6-6.20); White Blood Count 12.2 K/mm3 (4.5-10.0)
[2019-03-21 04:39] LABS: Prothrombin Time 47.7 Seconds (11.1-14.7)
[2019-03-21 04:42] LABS: Lactic Acid 1.2 mmol/L (0.7-2.1)
[2019-03-21 04:43] LABS: INR 5.3
[2019-03-21 04:45] LABS: Alanine Aminotransferase 32 U/L (4-50); Albumin Level 3.2 g/dL (3.5-5.1); Alkaline Phosphatase 61 U/L (38-126); Aspartate Amino Transferase 21 U/L (17-59); Bilirubin,Total 1.1 mg/dL (0.2-1.3); Blood Urea Nitrogen 71 mg/dL (9-20); CRP 4.7 mg/dL (<1.0); Calcium 8.3 mg/dL (8.4-10.2); Carbon Dioxide 38 mmol/L (22-30); Chloride 93 mmol/L (98-107); Estimated CRCL calculation 24 ml/min; Estimated Glomerular Filt Rate 29; Glucose 194 mg/dL (75-110); Magnesium 2.1 mg/dL (1.6-2.3); Potassium 3.5 mmol/L (3.4-5.0); Sodium 140 mmol/L (137-145)
[2019-03-21 05:11] LABS: Base Excess ABG 10.4 mEq/l (+/-2.0); Carboxyhemoglobin 0.7 % THb (0-2.0); Fractional Inspired Oxygen 30 %; HCO3 ABG 36.2 mEq/l (22.0-26.0); Methemoglobin ABG 0.3 %THb (0-1.5); Oxygen Content ABG 14.7 %vol (16.0-22.0); Oxygen Saturation ABG 97.2 % (95.0-100.0); Oxyhemoglobin 95.8 % THb (90.0-100.0); PCO2 ABG 55.3 mmHg (35.0-45.0); PO2 ABG 93.9 mmHg (80.0-100.0); PO2 FiO2 Ratio Arterial Blood 3.13 %; Reduced Hemoglobin 3.2 %THb (0-5.0); Total Hemoglobin 10.8 g/dL (12.0-18.0); pH ABG 7.434 (7.350-7.450)
[2019-03-21 05:12] LABS: Modified Allen's Test Pass; Site Drawn LEFT RADIAL
[2019-03-21 05:14] LABS: Device NON-INVASIVE VENT
[2019-03-21 05:16] LABS: Non-Invasive Expiratory Pressure 5 CMH2O; Non-Invasive Inspiratory Pressure 10 CMH2O; Non-Invasive Vent Rate 14 /MIN
[2019-03-21] MEDS: METOPROLOL TARTRATE INJ 5 MG/5 ML VIAL IV PUSH ×4 (05:29→23:26)
[2019-03-21] MEDS: methylPREDNISolone SOD SUCC 40 MG VIAL IV PUSH ×4 (05:30→23:26)
[2019-03-21] MEDS: LEVOTHYROXINE SODIUM INJ 100 MCG/5 ML VIAL 25 MCG IV PUSH (05:30)
[2019-03-21] MEDS: DORNASE ALFA INH SOLN 1 MG/ML 2.5 ML AMP 2.5 MG INHALATION ×2 (08:26→19:23)
--- NOTE | 2019-03-21 08:59 | WPDINTPN ---
Progress Note: A&P Assessment and Plan (1) Pulseless ventricular tachycardia: Code(s): I47.2 - Ventricular tachycardia Status: Acute Assessment and Plan: patient had episode of pulseless V-tach on the morning of 05/21/2018, before the could do any CPR or shock patient came back to irregular heart rhythm with rapid ventricular rate. Patient was started on amiodarone bolus and infusion - likely cause could be a hypoxic - cardiology following the patient - discussed with Cardiology, continue - on metoprolol IV, - continue amiodarone infusion for now (2) Acute on chronic systolic heart failure: Code(s): I50.23 - Acute on chronic systolic (congestive) heart failure Status: Acute Assessment and Plan: acute on chronic heart failure, continue IV diuretics, metoprolol IV. - patient diuresing well, edema is improved on the lower extremities (3) Chronic kidney disease, stage 3 (moderate): Code(s): N18.3 - Chronic kidney disease, stage 3 (moderate) Status: Acute Assessment and Plan: acute on chronic kidney disease most likely related to ischemic cardiomyopathy, hypoxia from COPD exacerbation, low blood pressures - nephrology following the patient - continue IV Lasix (4) S/P AVR (aortic valve replacement): Code(s): Z95.2 - Presence of prosthetic heart valve Status: Acute Assessment and Plan: patient on Coumadin, supratherapeutic INR, will hold Coumadin for now. - INR 5.3 this morning, will give 1 unit of FFP - hemoglobin dropped from 11.1 to 9.8 (5) A-fib: Code(s): I48.91 - Unspecified atrial fibrillation Status: Acute Assessment and Plan: patient in AFib RVR, will continue amiodarone infusion. - patient also on metoprolol 5 mg IV q.6 hours scheduled - INR is supratherapeutic (6) Cardiomyopathy: Qualifiers: Cardiomyopathy type: dilated Qualified Code(s): I42.0 - Dilated cardiomyopathy Code(s): I42.9 - Cardiomyopathy, unspecified Status: Acute Assessment and Plan: patient with history of ischemic cardiomyopathy, moderate LV dysfunction, EF 35%. - Continue diuretics for lower extremity swelling. (7) COPD exacerbation: Code(s): J44.1 - Chronic obstructive pulmonary disease with (acute) exacerbation Status: Acute Assessment and Plan: Patient on BiPAP, continue steroids, prednisone changed to IV Solu-Medrol (8) DVT prophylaxis: Code(s): Z29.9 - Encounter for prophylactic measures, unspecified Status: Acute Assessment and Plan: therapeutic INR, patient is on Coumadin Additional Plan discuss with patient And updated with his condition, lab and radiology reports. patient stated that he was so talk to her daughter today regarding his code status.r code status; full code critical care time spent: 33 minutes Due to a high probability of clinically significant, life threatening deterioration, the patient required my highest level of preparedness to intervene emergently and I personally spent this critical care time directly and personally managing the patient. This critical care time included obtaining a history; examining the patient; pulse oximetry; ordering and review of studies; arranging urgent treatment with development of a management plan; evaluation of patient's response to treatment; frequent reassessment; and discussions with other providers. It was exclusive of separately billable procedures and treating other patients and teaching time. Please see Assessment and Plan section and the rest of the note for further information on patient assessment and treatment Subjective Date/time seen: 03/21/19 08:59 Interval history: Acute respiratory failure, coagulopathy, acute kidney injury, pneumonia, severe sepsis, copd, A.fib RVR Patient was in the IMU, patient had an episode off 40 second pulseless V-tach, and before the nurse could per
[2019-03-21] MEDS: SODIUM CHLORIDE 0.9% IV 250 ML 30 ML IV CONT (09:57)
[2019-03-21] MEDS: FUROSEMIDE INJ 40 MG/4 ML VIAL IV PUSH (09:58)
[2019-03-21] MEDS: PANTOPRAZOLE SODIUM IV 40 MG VIAL IV PUSH ×2 (09:58→20:39)
--- NOTE | 2019-03-21 10:14 | PM.PNCARD ---
Progress Note: A&P Additional Plan Patient with history of mechanical aortic valve prosthesis, persistent atrial fibrillation and chronic renal failure Episode of pulseless ventricular tachycardia that was self-limited lasted 30-40 seconds last evening. Return patient to the ICU and now on IV amiodarone at currently asymptomatic.. This episode occurred while he was taking amiodarone at a dosage of 800 mg per day. Long discussion with the patient about his risk for sudden given this situation and the concept of whether he wants to be considered a candidate for an ICD device. He is anticipating having a lengthy discussion with his family will be here this afternoon about this and the rest of his care. For the rest of the day today that I will continue him on IV amiodarone and probably shift him back to oral dosage tomorrow. Because of high INR he was given vitamin K and FFP today although there has been no overt bleeding Time Spent With Patient Time with patient: 25 - 35 minutes Subjective Date/time seen: 03/21/19 10:14 Date of service 03/21/2019 Interval history: Follow-up visit for valvular heart disease atrial fibrillation and last night an episode of pulseless ventricular tachycardia Patient in good spirits and appears to be totally asymptomatic this morning in the ICU Exam Const: General: no acute distress HENMT: Mouth: Yes moist mucous membranes Eyes: Sclera: sclerae normal Pupils: PERRL Neck: Neck: supple and no JVD Thyroid: thyroid normal Resp: Auscultation: clear to auscultation bilaterally and diminished lung sounds Other: Breath sounds relatively clear but diminished throughout Cardio: Rhythm: abnormal rhythm irregularly irregular Heart sounds: murmur Other: Normal mechanical aortic valve sounds noted. Grade 2 holosystolic apical murmur compatible with MR Skin: General skin exam: normal color Extrem: General: normal to inspection Other: No peripheral edema Objective Data Vital Signs Vital Signs: Vital Signs - 24 hr 03/20/19 12:00 03/20/19 12:24 03/20/19 12:28 Temperature Pulse Rate 105 H 103 H 99 Respiratory Rate 15 27 H Blood Pressure 112/71 Pulse Oximetry 96 95 03/20/19 14:00 03/20/19 14:20 03/20/19 14:28 Temperature Pulse Rate 104 H 116 H 113 H Respiratory Rate 19 15 15 Blood Pressure 104/91 H Pulse Oximetry 96 100 03/20/19 16:00 03/20/19 17:20 03/20/19 17:43 Temperature Pulse Rate 83 90 84 Respiratory Rate 14 16 Blood Pressure 109/65 Pulse Oximetry 98 99 03/20/19 18:00 03/20/19 20:00 03/20/19 20:31 Temperature 36.1 C L Pulse Rate 82 108 H 89 Respiratory Rate 15 17 17 Blood Pressure 93/54 L 111/72 Pulse Oximetry 98 100 03/20/19 20:48 03/20/19 22:00 03/20/19 23:18 Temperature Pulse Rate 91 87 97 Respiratory Rate 22 H 19 Blood Pressure 92/50 L Pulse Oximetry 95 98 03/21/19 00:00 03/21/19 01:13 03/21/19 01:21 Temperature 36.1 C L Pulse Rate 89 88 102 H Respiratory Rate 18 18 18 Blood Pressure 115/55 L Pulse Oximetry 100 100 03/21/19 02:00 03/21/19 04:00 03/21/19 05:29 Temperature 36.1 C L Pulse Rate 87 103 H 103 H Respiratory Rate 14 19 Blood Pressure 114/74 117/87 Pulse Oximetry 100 100 03/21/19 06:00 03/21/19 07:42 03/21/19 07:53 Temperature 36.6 C Pulse Rate 99 95 92 Respiratory Rate 14 26 H Blood Pressure 107/68 116/68 Pulse Oximetry 98 99 03/21/19 07:56 03/21/19 07:58 03/21/19 08:15 Temperature 36.5 C 36.5 C Pulse Rate 98 98 110 H Respiratory Rate 13 13 22 H Blood Pressure 116/68 116/68 Pulse Oximetry 99 100 03/21/19 08:25 03/21/19 08:47 Temperature 36.5 C Pulse Rate 105 H 109 H Respiratory Rate 21 H 23 H Blood Pressure 111/71 Pulse Oximetry 97 Intake/Output Intake/Output: Intake & Output 03/18/19 03/19/19 03/20/19 03/21/19 23:59 23:59 23:59 23:59 Intake Total 390 420 870 204 Output Total 1999 6497 4312 625 Balance -1610 -755 -705 -421 Meds/Results
[2019-03-21] MEDS: AMIODARONE 360 MG/D5W 200 ML 360 MG/200 ML BAG 33.3 MG IV CONT ×3 (12:02→23:23)
--- NOTE | 2019-03-21 12:03 | P.PNNP_ITS ---
Progress Note: A&P Assessment and Plan (1) [place] (acute kidney injury): Code(s): N17.9 - Acute kidney failure, unspecified Status: Acute Assessment and Plan: * creatinine still elevated above baseline (but stable if not better) * renal ultrasound shows no hydronephrosis * urine electrolytes consistent with pre-renal azotemia * Creatinine is stable. (2) Chronic kidney disease, stage 3 (moderate): Code(s): N18.3 - Chronic kidney disease, stage 3 (moderate) Status: Acute Assessment and Plan: * baseline creatinine earlier this year ~ 1.5 - 1.8mg/dl * suspect due to vascular disease coupled with need for diuretics in the setting of chronic pre-renal azotemia * I agree that the creatinine is probably going to stay a little bit higher than his usual baseline because of the need for diuretics. (3) Atrial fibrillation with rapid ventricular response: Code(s): I48.91 - Unspecified atrial fibrillation Status: Acute Assessment and Plan: * continue rate control strategy * on amiodarone * Cardiology following (4) Cardiomyopathy: Qualifiers: Cardiomyopathy type: dilated Qualified Code(s): I42.0 - Dilated cardiomyopathy Code(s): I42.9 - Cardiomyopathy, unspecified Status: Acute Assessment and Plan: * as noted by recent Echo * both systolic and diastolic component * fluctuating shortness of breath probably multifactorial due to COPD mostly. His volume status looks relatively well compensated by chest x-ray. (5) Chronic respiratory failure: Qualifiers: Respiratory failure complication: hypoxia Qualified Code(s): J96.11 - Chronic respiratory failure with hypoxia Code(s): J96.10 - Chronic respiratory failure, unspecified whether with hypoxia or hypercapnia Status: Acute Assessment and Plan: * quite significant and severe * continue supportive therapy (6) Anemia: Code(s): D64.9 - Anemia, unspecified Status: Acute Assessment and Plan: * H/H relatively stable * likely related to CKD * however, stools are guaiac positive Will continue to follow. Subjective Date/time seen: 03/21/19 12:03 The patient is alert. Lying in bed. Daughter in the room. Review of Systems Cardiovascular: Cardiovascular: Reports no additional cardiovascular complaints Respiratory: Respiratory: Reports no additional respiratory complaints Gastrointestinal: Gastrointestinal: Reports no additional gastrointestinal complaints Genitourinary: Genitourinary: Reports no additional male genitourinary complaints Exam Narrative: Exam Narrative: General: chronically ill appearing male in NAD Heart: IRRR, normal S1 and S2; no rub Lungs: coarse breath sounds throughout Abdomen: soft, nontender, nondistended, positive bowel sounds Extremities: 1 - 2+ edema Skin: no rash or subcu nodules Objective Data Vital Signs Vital Signs: Vital Signs - 24 hr 03/20/19 12:24 03/20/19 12:28 03/20/19 14:00 Temperature Pulse Rate 103 H 99 104 H Respiratory Rate 27 H 19 Blood Pressure 104/91 H Pulse Oximetry 95 96 03/20/19 14:20 03/20/19 14:28 03/20/19 16:00 Temperature Pulse Rate 116 H 113 H 83 Respiratory Rate 15 15 14 Blood Pressure 109/65 Pulse Oximetry 100 98
--- NOTE | 2019-03-21 12:03 | PM.PNNEP ---
Progress Note: A&P Assessment and Plan (1) [place] (acute kidney injury): Code(s): N17.9 - Acute kidney failure, unspecified Status: Acute Assessment and Plan: creatinine still elevated above baseline (but stable if not better) renal ultrasound shows no hydronephrosis urine electrolytes consistent with pre-renal azotemia Creatinine is stable. (2) Chronic kidney disease, stage 3 (moderate): Code(s): N18.3 - Chronic kidney disease, stage 3 (moderate) Status: Acute Assessment and Plan: baseline creatinine earlier this year ~ 1.5 - 1.8mg/dl suspect due to vascular disease coupled with need for diuretics in the setting of chronic pre-renal azotemia I agree that the creatinine is probably going to stay a little bit higher than his usual baseline because of the need for diuretics. (3) Atrial fibrillation with rapid ventricular response: Code(s): I48.91 - Unspecified atrial fibrillation Status: Acute Assessment and Plan: continue rate control strategy on amiodarone Cardiology following (4) Cardiomyopathy: Qualifiers: Cardiomyopathy type: dilated Qualified Code(s): I42.0 - Dilated cardiomyopathy Code(s): I42.9 - Cardiomyopathy, unspecified Status: Acute Assessment and Plan: as noted by recent Echo both systolic and diastolic component fluctuating shortness of breath probably multifactorial due to COPD mostly. His volume status looks relatively well compensated by chest x-ray. (5) Chronic respiratory failure: Qualifiers: Respiratory failure complication: hypoxia Qualified Code(s): J96.11 - Chronic respiratory failure with hypoxia Code(s): J96.10 - Chronic respiratory failure, unspecified whether with hypoxia or hypercapnia Status: Acute Assessment and Plan: quite significant and severe continue supportive therapy (6) Anemia: Code(s): D64.9 - Anemia, unspecified Status: Acute Assessment and Plan: H/H relatively stable likely related to CKD however, stools are guaiac positive Will continue to follow. Subjective Date/time seen: 03/21/19 12:03 The patient is alert. Lying in bed. Daughter in the room. Review of Systems Cardiovascular: Cardiovascular: Reports no additional cardiovascular complaints Respiratory: Respiratory: Reports no additional respiratory complaints Gastrointestinal: Gastrointestinal: Reports no additional gastrointestinal complaints Genitourinary: Genitourinary: Reports no additional male genitourinary complaints Exam Narrative: Exam Narrative: General: chronically ill appearing male in NAD Heart: IRRR, normal S1 and S2; no rub Lungs: coarse breath sounds throughout Abdomen: soft, nontender, nondistended, positive bowel sounds Extremities: 1 - 2+ edema Skin: no rash or subcu nodules Objective Data Vital Signs Vital Signs: Vital Signs - 24 hr 03/20/19 12:24 03/20/19 12:28 03/20/19 14:00 Temperature Pulse Rate 103 H 99 104 H Respiratory Rate 27 H 19 Blood Pressure 104/91 H Pulse Oximetry 95 96 03/20/19 14:20 03/20/19 14:28 03/20/19 16:00 Temperature Pulse Rate 116 H 113 H 83 Respiratory Rate 15 15 14 Blood Pressure 109/65 Pulse Oximetry 100 98 03/20/19 17:20 03/20/19 17:43 03/20/19 18:00 Temperature Pulse Rate 90 84 82 Respiratory Rate 16 15 Blood Pressure 93/54 L Pulse Oximetry 99 98 03/20/19 20:00 03/20/19 20:31 03/20/19 20:48 Temperature 36.1 C L Pulse Rate 108 H 89 91 Respiratory Rate 17 17 22 H Blood Pressure 111/72 Pulse Oximetry 100 95 03/20/19 22:00 03/20/19 23:18 03/21/19 00:00 Temperature 36.1 C L Pulse Rate 87 97 89 Respiratory Rate 19 18 Blood Pressure 92/50 L 115/55 L Pulse Oximetry 98 100 03/21/19 01:13 03/21/19 01:21 03/21/19 02:00 Temperature Pulse Rate 88 102 H 87 Respiratory Rate 18 18 14 Blood Pressure 114/74 Pulse Oximetry 1
--- NOTE | 2019-03-21 13:07 | PCDIET ---
Nutrition Follow-Up Complete: Nutrition Diagnosis: Inadequate oral intake related to oral intubation as evidenced by NPO status. Nutrition Goal: Patient to meet estimated nutritional needs. Goal not met. MD ordered swallow study today. Diet to be advanced, if able. If unable to safely advance diet, recommend Glucerna 1.2 tube feedings at goal of 65mL/hr x 22 hours/day for 1716kcal, 85g protein and 1151mL free water. Suggest 30mL water flush every 4 hours at this time. Last recorded weight is 74.2 kg which is decreased. I/O reflect fluid loss. Bowel Motility: +BM today. Labs Reviewed: Glu (194), BUN (71), Cr (2.2), Alb (3.2), Hgb (9.8), Hct (34.0) Meds Noted: Protonix, Prednisone, Amiodarone, Colace, Lasix, Solu Medrol. Additional Notes: Coccyx with friction shear; scrotum macerated; left lower arm skin tear. Nutrition Monitoring and Evaluation: Follow up every 3 days. Follow daily in ICU rounds.
[2019-03-22] VITALS (49 sets, daily range): BP systolic 95–122; BP diastolic 61–86; PULSE 75–153; RESP 10–30; TEMP 35–36.4; O2SAT 98–100
[2019-03-22] MEDS: IPRATROPIUM BR 0.02% INH SOLN 0.5 MG/2.5 ML VIAL INHALATION ×4 (01:55→19:30)
[2019-03-22 04:45] LABS: Albumin Level 3.3 g/dL (3.5-5.1); Blood Urea Nitrogen 72 mg/dL (9-20); Calcium 8.4 mg/dL (8.4-10.2); Carbon Dioxide 37 mmol/L (22-30); Chloride 95 mmol/L (98-107); Estimated CRCL calculation 25 ml/min; Estimated Glomerular Filt Rate 30; Glucose 224 mg/dL (75-110); Phosphorus 3.9 mg/dL (2.5-4.5); Potassium 3.4 mmol/L (3.4-5.0); Prothrombin Time 60.8 Seconds (11.1-14.7); Sodium 143 mmol/L (137-145)
[2019-03-22 04:58] LABS: INR 7.2
[2019-03-22] MEDS: AMIODARONE 360 MG/D5W 200 ML 360 MG/200 ML BAG 33.3 MG IV CONT (05:35)
[2019-03-22] MEDS: METOPROLOL TARTRATE INJ 5 MG/5 ML VIAL IV PUSH ×3 (05:37→17:23)
[2019-03-22] MEDS: methylPREDNISolone SOD SUCC 40 MG VIAL IV PUSH ×3 (05:37→17:23)
[2019-03-22] MEDS: LEVOTHYROXINE SODIUM INJ 100 MCG/5 ML VIAL 25 MCG IV PUSH (05:38)
[2019-03-22] MEDS: DORNASE ALFA INH SOLN 1 MG/ML 2.5 ML AMP 2.5 MG INHALATION ×2 (08:29→19:30)
[2019-03-22] MEDS: PANTOPRAZOLE SODIUM IV 40 MG VIAL IV PUSH ×2 (08:57→20:38)
[2019-03-22] MEDS: FUROSEMIDE INJ 40 MG/4 ML VIAL IV PUSH (08:57)
--- NOTE | 2019-03-22 09:24 | PM.PNCARD ---
Progress Note: A&P Assessment and Plan (1) Atrial fibrillation with rapid ventricular response: Code(s): I48.91 - Unspecified atrial fibrillation Status: Acute Assessment and Plan: History of paroxysmal atrial fibrillation. Persistent since admitted. Warfarin on hold due to increasing INR. (2) Cardiomyopathy: Qualifiers: Cardiomyopathy type: dilated Qualified Code(s): I42.0 - Dilated cardiomyopathy Code(s): I42.9 - Cardiomyopathy, unspecified Status: Acute Assessment and Plan: Moderate LV dysfunction EF 35%, chronic. History of nonischemic cardiomyopathy. Pulseless VT this morning. 44 seconds at rate of 196 beets per min. Spontaneously converted to afib RVR. Will DC a amiodarone drip. Resume amiodarone 400 mg p.o. b.i.d. Lower extremity edema increasing. Furosemide has been changed to IV due to desaturation when takes off BiPAP mask. Event possibly due to hypoxia. Continue supportive care. . (3) S/P AVR (aortic valve replacement): Code(s): Z95.2 - Presence of prosthetic heart valve Status: Acute Assessment and Plan: INR supratherapeutic. Will give 2.5 mg of vitamin K p.o. times (4) Acute on chronic systolic heart failure: Code(s): I50.23 - Acute on chronic systolic (congestive) heart failure Status: Acute Assessment and Plan: As above (5) Acute kidney injury superimposed on chronic kidney disease: Code(s): N17.9 - Acute kidney failure, unspecified; N18.9 - Chronic kidney disease, unspecified Status: Acute Assessment and Plan: Per primary service. Creatinine fairly stable. (6) COPD exacerbation: Code(s): J44.1 - Chronic obstructive pulmonary disease with (acute) exacerbation Status: Acute Assessment and Plan: For primary team. Back on BiPAP today. (7) Pulseless ventricular tachycardia: Code(s): I47.2 - Ventricular tachycardia Status: Acute Assessment and Plan: Transition to oral amiodarone today Subjective Date/time seen: 03/22/19 09:24 Interval history: Reason for visit: atrial fibrillation, ventricular tachycardia Date of service 03/22/2019: He is currently feeling okay. BiPAP in place. He does not complaining of any active chest pain or shortness of breath. Review of Systems Review of Systems: All systems reviewed & are unremarkable except as noted in HPI and below Constitutional: Constitutional: Reports fatigue and Reports weakness Eyes: Eyes: Denies blurry vision ENT: Reports hearing normal, Denies dysphagia, Denies epistaxis and Denies neck pain Cardiovascular: Cardiovascular: Denies chest pain, Denies diaphoresis, Reports pedal edema, Reports leg edema, Denies lightheadedness, Denies palpitations, Denies dyspnea and Reports dyspnea on exertion Respiratory: Respiratory: Reports chest congestion, Reports cough, Denies hemoptysis, Denies dyspnea, Reports dyspnea on exertion and Reports wheezing Gastrointestinal: Gastrointestinal: Denies abdominal pain, Denies melena, Denies dysphagia and Denies heartburn Genitourinary: Genitourinary: Denies hematuria and Denies dysuria Musculoskeletal: Musculoskeletal: Denies back pain and Denies neck pain Integumentary/Breasts: Skin/Breast: Reports dry skin and Denies rash Neurologic: Reports system reviewed and no additional complaints, except as documented, Reports Normal hearing present, Denies confusion and Reports weakness Psychiatric: Psychiatric: Denies anxiety, Reports confusion and Denies depression Endocrine: Endocrine: Reports fatigue and Denies palpitations Hematologic/Lymphatic: Hematologic/Lymp
[2019-03-22] MEDS: PHYTONADIONE 2.5 MG TAB PO (10:08)
[2019-03-22] MEDS: SODIUM CHLORIDE 0.9% IV 250 ML 30 ML IV CONT (10:41)
[2019-03-22] MEDS: TUBING, BLOOD PLUM PUMP TUBING 1 EACH XX (10:42)
--- NOTE | 2019-03-22 11:32 | PC.NURSE ---
Patient to radiology for modified barium swallow.
--- NOTE | 2019-03-22 12:47 | P.PNNP_ITS ---
Progress Note: A&P Assessment and Plan (1) [place] (acute kidney injury): Code(s): N17.9 - Acute kidney failure, unspecified Status: Acute Assessment and Plan: * creatinine still elevated above baseline but stable. * renal ultrasound shows no hydronephrosis * urine electrolytes were consistent with pre-renal azotemia (2) Chronic kidney disease, stage 3 (moderate): Code(s): N18.3 - Chronic kidney disease, stage 3 (moderate) Status: Acute Assessment and Plan: * baseline creatinine earlier this year ~ 1.5 - 1.8mg/dl * suspect due to vascular disease coupled with need for diuretics in the setting of chronic pre-renal azotemia * I agree that the creatinine is probably going to stay a little bit higher than his usual baseline because of the need for diuretics. (3) Atrial fibrillation with rapid ventricular response: Code(s): I48.91 - Unspecified atrial fibrillation Status: Acute Assessment and Plan: * continue rate control strategy * on amiodarone * Cardiology following (4) Cardiomyopathy: Qualifiers: Cardiomyopathy type: dilated Qualified Code(s): I42.0 - Dilated cardiomyopathy Code(s): I42.9 - Cardiomyopathy, unspecified Status: Acute Assessment and Plan: * as noted by recent Echo * both systolic and diastolic component * Seems like he is in a good place with respect was heart (5) Chronic respiratory failure: Qualifiers: Respiratory failure complication: hypoxia Qualified Code(s): J96.11 - Chronic respiratory failure with hypoxia Code(s): J96.10 - Chronic respiratory failure, unspecified whether with hypoxia or hypercapnia Status: Acute Assessment and Plan: * quite significant and severe * This is most of his shortness of breath * continue supportive therapy (6) Anemia: Code(s): D64.9 - Anemia, unspecified Status: Acute Assessment and Plan: * H/H relatively stable * likely related to CKD * however, stools are guaiac positive Will continue to follow. Subjective Date/time seen: 03/22/19 12:47 Interval history: Alert. Feels okay per Just came back from barium swallow. Results pending Review of Systems Cardiovascular: Cardiovascular: Reports no additional cardiovascular complaints Respiratory: Respiratory: Reports no additional respiratory complaints Gastrointestinal: Gastrointestinal: Reports no additional gastrointestinal complaints Genitourinary: Genitourinary: Reports no additional male genitourinary complaints Exam Narrative: Exam Narrative: General: chronically ill appearing male in NAD Heart: IRRR, normal S1 and S2; no rub Lungs: Decreased breath sounds. Increased expiratory phase Abdomen: soft, nontender, nondistended, positive bowel sounds Extremities: 1 - 2+ edema Skin: no rash Objective Data Vital Signs Vital Signs: Vital Signs - 24 hr 03/21/19 13:50 03/21/19 13:58 03/21/19 14:00 Temperature Pulse Rate 104 H 105 H 99 Respiratory Rate 21 H 21 H 18 Blood Pressure 126/66 Pulse Oximetry 100 03/21/19 16:00 03/21/19 17:05 03/21/19 18:00 Temperature 36.9 C Pulse Rate 84 83 93 Respiratory Rate 20 18 Blood Pressure 147/77 H 118/68 Pulse Oximetry 100 100 03/21/19
--- NOTE | 2019-03-22 12:47 | PM.PNNEP ---
Progress Note: A&P Assessment and Plan (1) [place] (acute kidney injury): Code(s): N17.9 - Acute kidney failure, unspecified Status: Acute Assessment and Plan: creatinine still elevated above baseline but stable. renal ultrasound shows no hydronephrosis urine electrolytes were consistent with pre-renal azotemia (2) Chronic kidney disease, stage 3 (moderate): Code(s): N18.3 - Chronic kidney disease, stage 3 (moderate) Status: Acute Assessment and Plan: baseline creatinine earlier this year ~ 1.5 - 1.8mg/dl suspect due to vascular disease coupled with need for diuretics in the setting of chronic pre-renal azotemia I agree that the creatinine is probably going to stay a little bit higher than his usual baseline because of the need for diuretics. (3) Atrial fibrillation with rapid ventricular response: Code(s): I48.91 - Unspecified atrial fibrillation Status: Acute Assessment and Plan: continue rate control strategy on amiodarone Cardiology following (4) Cardiomyopathy: Qualifiers: Cardiomyopathy type: dilated Qualified Code(s): I42.0 - Dilated cardiomyopathy Code(s): I42.9 - Cardiomyopathy, unspecified Status: Acute Assessment and Plan: as noted by recent Echo both systolic and diastolic component Seems like he is in a good place with respect was heart (5) Chronic respiratory failure: Qualifiers: Respiratory failure complication: hypoxia Qualified Code(s): J96.11 - Chronic respiratory failure with hypoxia Code(s): J96.10 - Chronic respiratory failure, unspecified whether with hypoxia or hypercapnia Status: Acute Assessment and Plan: quite significant and severe This is most of his shortness of breath continue supportive therapy (6) Anemia: Code(s): D64.9 - Anemia, unspecified Status: Acute Assessment and Plan: H/H relatively stable likely related to CKD however, stools are guaiac positive Will continue to follow. Subjective Date/time seen: 03/22/19 12:47 Interval history: Alert. Feels okay per Just came back from barium swallow. Results pending Review of Systems Cardiovascular: Cardiovascular: Reports no additional cardiovascular complaints Respiratory: Respiratory: Reports no additional respiratory complaints Gastrointestinal: Gastrointestinal: Reports no additional gastrointestinal complaints Genitourinary: Genitourinary: Reports no additional male genitourinary complaints Exam Narrative: Exam Narrative: General: chronically ill appearing male in NAD Heart: IRRR, normal S1 and S2; no rub Lungs: Decreased breath sounds. Increased expiratory phase Abdomen: soft, nontender, nondistended, positive bowel sounds Extremities: 1 - 2+ edema Skin: no rash Objective Data Vital Signs Vital Signs: Vital Signs - 24 hr 03/21/19 13:50 03/21/19 13:58 03/21/19 14:00 Temperature Pulse Rate 104 H 105 H 99 Respiratory Rate 21 H 21 H 18 Blood Pressure 126/66 Pulse Oximetry 100 03/21/19 16:00 03/21/19 17:05 03/21/19 18:00 Temperature 36.9 C Pulse Rate 84 83 93 Respiratory Rate 20 18 Blood Pressure 147/77 H 118/68 Pulse Oximetry 100 100 03/21/19 19:25 03/21/19 19:26 03/21/19 19:37 Temperature Pulse Rate 97 93 104 H Respiratory Rate 18 18 14 Blood Pressure Pulse Oximetry 96 03/21/19 20:00 03/21/19 22:00 03/21/19 23:26 Temperature 36.1 C L Pulse Rate 95 94 81 Respiratory Rate 20 Blood Pressure 106/73 Pulse Oximetry 95 03/21/19 23:55 03/22/19 00:00 03/22/19 01:56 Temperature Pulse Rate 79 89 86 Respiratory Rate 21 H 19 14 Blood Pressure 112/62 Pulse Oximetry 97 98 03/22/19 01:57 03/22/19 02:00 03/22/19 02:01 Temperature Pulse Rate 75 77 95 Respiratory Rate 22 H 22 H Blood Pressure Pulse Oximetry 100 03/22/19 04:00 03/22/19 05:07 03/22/19 05:37 Temper[place]
[2019-03-22] MEDS: ALPRAZOLAM 0.25 MG TABLET PO (13:39)
[2019-03-22] MEDS: AMIODARONE HCL 200 MG TABLET 400 MG PO (17:23)
--- NOTE | 2019-03-22 17:26 | PM.IMPN ---
Progress Note: A&P Assessment and Plan (1) Respiratory failure: Qualifiers: Chronicity: acute on chronic Respiratory failure complication: hypoxia and hypercapnia Qualified Code(s): J96.21 - Acute and chronic respiratory failure with hypoxia; J96.22 - Acute and chronic respiratory failure with hypercapnia Code(s): J96.90 - Respiratory failure, unspecified, unspecified whether with hypoxia or hypercapnia Status: Acute Assessment and Plan: 03/22/19 17:26 Developed acute respiratory failure on 03/08/2019 while being treated for COPD exacerbation requiring intubation. Successfully extubated on 03/10/2019. Increased problems with breathing on the evening of 03/14/2019 requiring BiPAP. Has been back on oxygen by nasal cannula since 03/15/2019. Normally on 4 L of oxygen at home. Currently on 2 L of oxygen. Will continue nebulizer treatments and inhaled Pulmicort. Continue Pulmozyme. Did have MBS on 03/11/2019 with recommendation for mildly thickened liquids with minced and moist diet but no ivis aspiration. Was given dose of IV Bumex by Nephrology with the increased edema. Suspect will do better once able to have femoral central line removed and more mobile. IV ceftriaxone discontinued on 03/17. No other regularly scheduled IV medications. was seen by by Nephrology femoral catheter was removed recommended continue oral diuresis if needed may use IV and closely monitor kidney function, on 03/19 patient was seen executor of estate for A. Fib on PO amiodorane rate was high normal, patient with AVR on prosthetic valve on cumadin INR 3.9 will held, on 03/20/19 professional benefits sales consultant while in IMU patient patient had about 20 secons pulesless activity however before any intervention, he developed A.Fib with RVR he was starred on Amiodoran drip and transferred to ICU, patient is seen executor of estate and patient is off amiodoran drip, and oral amiodoran 400mg BID, patient nonischemic cardiomyopathy and lower extremtiy edema, on IV lasix also seen by jig operator, (2) Severe sepsis: Code(s): A41.9 - Sepsis, unspecified organism; R65.20 - Severe sepsis without septic shock Status: Acute Assessment and Plan: Criteria met on admission. Result of pneumonia. Blood cultures negative. MRSA surveillance culture negative. Sputum culture growing Serratia marcescens with patient on IV ceftriaxone alone for the past 5 days. discontinued IV antibiotics as no longer felt necessary at this time. Will confirm when monitor. (3) Pneumonia: Qualifiers: Pneumonia type: due to other aerobic Gram-negative bacteria Laterality: bilateral Lung location: unspecified part of lung Qualified Code(s): J15.6 - Pneumonia due to other Gram-negative bacteria Code(s): J18.9 - Pneumonia, unspecified organism Status: Acute Assessment and Plan: Chest xray on 03/14/19 with slight improvement in bilateral infiltrates. Sputum culture as noted above. Discontinue IV ceftriaxone stay after 5 days treatment. Did have IV Unasyn and IV vancomycin prior to IV ceftriaxone. Continue other respiratory treatments. Will monitor. (4) Acute kidney injury superimposed on chronic kidney disease: Code(s): N17.9 - Acute kidney failure, unspecified; N18.9 - Chronic kidney disease, unspecified Status: Acute Assessment and Plan: Precipitating etiology is not clear. Nephrology consulted and appreciate input. Creatinine remains 2.20 today which is above his baseline of 1.20 and 1.40. however it is improed compare to 03/17, Renal ultrasound with no hydronephrosis. Does have increased edema. IV Bumex given on 03/17. Remains on oral Lasix and spironolactone but no other nephrotoxic medications. Will continue to monitor. Await further recommendations from Nephrology. (5) Hyperkalemia: Code(s): E87.5 - Hyperkalemia Status: Acute Assessment and Plan: Potassium 4.1 today. No oral replacement being given b
[2019-03-22] MEDS: busPIRone HCL 5 MG TABLET PO (20:38)
[2019-03-22 22:13] LABS: Hematocrit 32.1 % (42.0-52.0); Hemoglobin 9.4 g/dL (14.0-18.0)
[2019-03-22 22:24] LABS: INR 4.2; Prothrombin Time 40.2 Seconds (11.1-14.7)
[2019-03-23] VITALS (32 sets, daily range): BP systolic 98–124; BP diastolic 57–79; PULSE 68–130; RESP 1–23; TEMP 36–37; O2SAT 95–100
[2019-03-23] MEDS: METOPROLOL TARTRATE INJ 5 MG/5 ML VIAL IV PUSH ×2 (00:45→06:57)
[2019-03-23] MEDS: methylPREDNISolone SOD SUCC 40 MG VIAL IV PUSH ×5 (00:45→23:58)
[2019-03-23] MEDS: IPRATROPIUM BR 0.02% INH SOLN 0.5 MG/2.5 ML VIAL INHALATION ×4 (02:13→19:54)
[2019-03-23 05:13] LABS: Prothrombin Time 30.5 Seconds (11.1-14.7)
[2019-03-23 05:19] LABS: Albumin Level 3.4 g/dL (3.5-5.1); Blood Urea Nitrogen 85 mg/dL (9-20); Calcium 8.4 mg/dL (8.4-10.2); Carbon Dioxide 38 mmol/L (22-30); Chloride 93 mmol/L (98-107); Estimated CRCL calculation 22 ml/min; Estimated Glomerular Filt Rate 26; Glucose 170 mg/dL (75-110); Phosphorus 4.7 mg/dL (2.5-4.5); Potassium 3.2 mmol/L (3.4-5.0); Sodium 142 mmol/L (137-145)
[2019-03-23] MEDS: LEVOTHYROXINE SODIUM INJ 100 MCG/5 ML VIAL 25 MCG IV PUSH (06:58)
[2019-03-23] MEDS: DORNASE ALFA INH SOLN 1 MG/ML 2.5 ML AMP 2.5 MG INHALATION ×2 (07:38→19:54)
[2019-03-23] MEDS: busPIRone HCL 5 MG TABLET PO ×2 (08:11→20:48)
[2019-03-23] MEDS: FUROSEMIDE INJ 40 MG/4 ML VIAL IV PUSH (08:11)
[2019-03-23] MEDS: AMIODARONE HCL 200 MG TABLET 400 MG PO ×2 (08:11→17:17)
[2019-03-23] MEDS: PANTOPRAZOLE SODIUM IV 40 MG VIAL IV PUSH ×2 (08:11→20:48)
[2019-03-23] MEDS: POTASSIUM CHLORIDE 20 MEQ PACKET (FOR LIQUID) PO (09:50)
[2019-03-23 09:53] LABS: Magnesium 2.2 mg/dL (1.6-2.3)
--- NOTE | 2019-03-23 11:14 | PM.PNCARD ---
Progress Note: A&P Assessment and Plan (1) Atrial fibrillation with rapid ventricular response: Code(s): I48.91 - Unspecified atrial fibrillation Status: Acute Assessment and Plan: History of paroxysmal atrial fibrillation. Persistent since admitted. Warfarin on hold due to increasing INR. (2) Cardiomyopathy: Qualifiers: Cardiomyopathy type: dilated Qualified Code(s): I42.0 - Dilated cardiomyopathy Code(s): I42.9 - Cardiomyopathy, unspecified Status: Acute Assessment and Plan: Moderate LV dysfunction EF 35%, chronic. History of nonischemic cardiomyopathy. Pulseless VT 44 seconds at rate of 196 beets per min. Spontaneously converted to afib RVR. Continue amiodarone 400 mg p.o. b.i.d. DC IV Lasix. Resume oral Lasix at 40 mg daily. . (3) S/P AVR (aortic valve replacement): Code(s): Z95.2 - Presence of prosthetic heart valve Status: Acute Assessment and Plan: INR is better today after vitamin K. likely resume warfarin tomorrow (4) Acute on chronic systolic heart failure: Code(s): I50.23 - Acute on chronic systolic (congestive) heart failure Status: Acute Assessment and Plan: As above (5) Acute kidney injury superimposed on chronic kidney disease: Code(s): N17.9 - Acute kidney failure, unspecified; N18.9 - Chronic kidney disease, unspecified Status: Acute Assessment and Plan: Per primary service. Creatinine fairly stable. (6) COPD exacerbation: Code(s): J44.1 - Chronic obstructive pulmonary disease with (acute) exacerbation Status: Acute Assessment and Plan: For primary team. Back on BiPAP today. (7) Pulseless ventricular tachycardia: Code(s): I47.2 - Ventricular tachycardia Status: Acute Assessment and Plan: On oral amiodarone. Potassium level is low today and replace with 40 mEq p.o. x1 DC IV metoprolol and switch to metoprolol tartrate 25 mg p.o. b.i.d.. Additional Plan Patient with history of mechanical aortic valve prosthesis, persistent atrial fibrillation and chronic renal failure Subjective Date/time seen: 03/23/19 11:14 Interval history: Reason for visit: atrial fibrillation, ventricular tachycardia Date of service 03/23/2019: He is currently feeling okay. Now on nasal cannula. He does not complaining of any active chest pain or shortness of breath. Heart rate is reasonably controlled Review of Systems Review of Systems: All systems reviewed & are unremarkable except as noted in HPI and below ROS unobtainable: due to endotracheal tube and unobtainable due to mental status Constitutional: Constitutional: Reports fatigue and Reports weakness Eyes: Eyes: Denies blurry vision ENT: Reports hearing normal, Denies dysphagia, Denies epistaxis and Denies neck pain Cardiovascular: Cardiovascular: Denies chest pain, Denies diaphoresis, Reports pedal edema, Reports leg edema, Denies lightheadedness, Denies palpitations, Denies dyspnea and Reports dyspnea on exertion Respiratory: Respiratory: Reports chest congestion, Reports cough, Denies hemoptysis, Denies dyspnea, Reports dyspnea on exertion and Reports wheezing Gastrointestinal: Gastrointestinal: Denies abdominal pain, Denies melena, Denies dysphagia and Denies heartburn Genitourinary: Genitourinary: Denies hematuria and Denies dysuria Musculoskeletal: Musculoskeletal: Denies back pain and Denies neck pain Integumentary/Breasts: Skin/Breast: Reports dry skin and Denies rash Neurologic: Reports system reviewed and no additional complaints, except as documented, Reports Normal hearing present, Reports confusion and Reports weakness Psych
[2019-03-23] MEDS: METOPROLOL TARTRATE 25 MG TABLET PO ×2 (12:10→20:48)
[2019-03-23] MEDS: POTASSIUM CHLORIDE 20 MEQ TABLET 40 MEQ PO (12:16)
--- NOTE | 2019-03-23 13:56 | P.PNNP_ITS ---
Progress Note: A&P Assessment and Plan (1) [place] (acute kidney injury): Code(s): N17.9 - Acute kidney failure, unspecified Status: Acute Assessment and Plan: * creatinine stable. * Probably resolved. (2) Chronic kidney disease, stage 3 (moderate): Code(s): N18.3 - Chronic kidney disease, stage 3 (moderate) Status: Acute Assessment and Plan: * baseline creatinine earlier this year ~ 1.5 - 1.8mg/dl * suspect due to vascular disease coupled with need for diuretics in the setting of chronic pre-renal azotemia * He is at a new baseline (3) Atrial fibrillation with rapid ventricular response: Code(s): I48.91 - Unspecified atrial fibrillation Status: Acute Assessment and Plan: * continue rate control strategy * on amiodarone * Cardiology following (4) Cardiomyopathy: Qualifiers: Cardiomyopathy type: dilated Qualified Code(s): I42.0 - Dilated cardiomyopathy Code(s): I42.9 - Cardiomyopathy, unspecified Status: Acute Assessment and Plan: * as noted by recent Echo * both systolic and diastolic component * His creatinine is up a little bit. We will cut back on his diuretics * HIS Potassium is a little low. He had supplementation. (5) Chronic respiratory failure: Qualifiers: Respiratory failure complication: hypoxia Qualified Code(s): J96.11 - Chronic respiratory failure with hypoxia Code(s): J96.10 - Chronic respiratory failure, unspecified whether with hypoxia or hypercapnia Status: Acute Assessment and Plan: * quite significant and severe * This is most of his shortness of breath * continue supportive therapy (6) Anemia: Code(s): D64.9 - Anemia, unspecified Status: Acute Assessment and Plan: * Hemoglobin ranging from 9-11 * likely related to CKD * however, stools are guaiac positive Subjective Date/time seen: 03/23/19 13:56 Interval history: Patient is alert. He feels better today. Not too short of breath. He is lying flat in bed. Review of Systems Cardiovascular: Cardiovascular: Reports no additional cardiovascular complaints Respiratory: Respiratory: Reports no additional respiratory complaints Gastrointestinal: Gastrointestinal: Reports no additional gastrointestinal complaints Genitourinary: Genitourinary: Reports no additional male genitourinary complaints Exam Narrative: Exam Narrative: General: chronically ill appearing male in NAD Heart: IRRR, normal S1 and S2; no rub or gallop Lungs: Decreased breath sounds. Increased expiratory phase Abdomen: soft, nontender, nondistended, positive bowel sounds Extremities: 1 - 2+ edema Skin: no rash or subcu nodules Objective Data Vital Signs Vital Signs: Vital Signs - 24 hr 03/22/19 14:00 03/22/19 14:02 03/22/19 16:00 Temperature 36.4 C L Pulse Rate 102 H 127 H 89 Respiratory Rate 19 19 Blood Pressure 122/70 Pulse Oximetry 100 03/22/19 17:23 03/22/19 17:49 03/22/19 18:00 Temperature Pulse Rate 91 96 89 Respiratory Rate 17 Blood Pressure Pulse Oximetry 100 03/22/19 19:30 03/22/19 19:40 03/22/19 20:00 Temperature Pulse Rate 81 84 92 Respiratory Rate 17 16 10 L Blood Pressure 11
--- NOTE | 2019-03-23 13:56 | PM.PNNEP ---
Progress Note: A&P Assessment and Plan (1) [place] (acute kidney injury): Code(s): N17.9 - Acute kidney failure, unspecified Status: Acute Assessment and Plan: creatinine stable. Probably resolved. (2) Chronic kidney disease, stage 3 (moderate): Code(s): N18.3 - Chronic kidney disease, stage 3 (moderate) Status: Acute Assessment and Plan: baseline creatinine earlier this year ~ 1.5 - 1.8mg/dl suspect due to vascular disease coupled with need for diuretics in the setting of chronic pre-renal azotemia He is at a new baseline (3) Atrial fibrillation with rapid ventricular response: Code(s): I48.91 - Unspecified atrial fibrillation Status: Acute Assessment and Plan: continue rate control strategy on amiodarone Cardiology following (4) Cardiomyopathy: Qualifiers: Cardiomyopathy type: dilated Qualified Code(s): I42.0 - Dilated cardiomyopathy Code(s): I42.9 - Cardiomyopathy, unspecified Status: Acute Assessment and Plan: as noted by recent Echo both systolic and diastolic component His creatinine is up a little bit. We will cut back on his diuretics HIS Potassium is a little low. He had supplementation. (5) Chronic respiratory failure: Qualifiers: Respiratory failure complication: hypoxia Qualified Code(s): J96.11 - Chronic respiratory failure with hypoxia Code(s): J96.10 - Chronic respiratory failure, unspecified whether with hypoxia or hypercapnia Status: Acute Assessment and Plan: quite significant and severe This is most of his shortness of breath continue supportive therapy (6) Anemia: Code(s): D64.9 - Anemia, unspecified Status: Acute Assessment and Plan: Hemoglobin ranging from 9-11 likely related to CKD however, stools are guaiac positive Subjective Date/time seen: 03/23/19 13:56 Interval history: Patient is alert. He feels better today. Not too short of breath. He is lying flat in bed. Review of Systems Cardiovascular: Cardiovascular: Reports no additional cardiovascular complaints Respiratory: Respiratory: Reports no additional respiratory complaints Gastrointestinal: Gastrointestinal: Reports no additional gastrointestinal complaints Genitourinary: Genitourinary: Reports no additional male genitourinary complaints Exam Narrative: Exam Narrative: General: chronically ill appearing male in NAD Heart: IRRR, normal S1 and S2; no rub or gallop Lungs: Decreased breath sounds. Increased expiratory phase Abdomen: soft, nontender, nondistended, positive bowel sounds Extremities: 1 - 2+ edema Skin: no rash or subcu nodules Objective Data Vital Signs Vital Signs: Vital Signs - 24 hr 03/22/19 14:00 03/22/19 14:02 03/22/19 16:00 Temperature 36.4 C L Pulse Rate 102 H 127 H 89 Respiratory Rate 19 19 Blood Pressure 122/70 Pulse Oximetry 100 03/22/19 17:23 03/22/19 17:49 03/22/19 18:00 Temperature Pulse Rate 91 96 89 Respiratory Rate 17 Blood Pressure Pulse Oximetry 100 03/22/19 19:30 03/22/19 19:40 03/22/19 20:00 Temperature Pulse Rate 81 84 92 Respiratory Rate 17 16 10 L Blood Pressure 111/66 Pulse Oximetry 98 100 03/22/19 21:00 03/22/19 21:15 03/22/19 21:30 Temperature 35.2 C L 35.0 C L 35.6 C L Pulse Rate 88 96 87 Respiratory Rate 16 16 15 Blood Pressure 116/67 108/68 107/81 Pulse Oximetry 100 99 100 03/22/19 21:45 03/22/19 21:55 03/22/19 22:00 Temperature 35.8 C L 35.8 C L 35.8 C L Pulse Rate 82 81 Respiratory Rate 19 20 Blood Pressure 109/62 101/72 Pulse Oximetry 100 100 03/22/19 22:07 03/22/19 22:15 03/22/19 22:30 Temperature 35.8 C L 35.7 C L 35.7 C L Pulse Rate 87 86 Respiratory Rate 15 16 Blood Pressure 100/65 95/84 L Pulse Oximetry 100 100 03/22/19 22:45 03/22/19 23:00 03/22/19 23:15 Temperature 35.7 C L 35.8 C L 35.9 C L Pulse Rate 89 79 86
--- NOTE | 2019-03-23 15:59 | PM.IMPN ---
Progress Note: A&P Assessment and Plan (1) Respiratory failure: Qualifiers: Chronicity: acute on chronic Respiratory failure complication: hypoxia and hypercapnia Qualified Code(s): J96.21 - Acute and chronic respiratory failure with hypoxia; J96.22 - Acute and chronic respiratory failure with hypercapnia Code(s): J96.90 - Respiratory failure, unspecified, unspecified whether with hypoxia or hypercapnia Status: Acute Assessment and Plan: 03/23/19 15:59 Developed acute respiratory failure on 03/08/2019 while being treated for COPD exacerbation requiring intubation. Successfully extubated on 03/10/2019. Increased problems with breathing on the evening of 03/14/2019 requiring BiPAP. Has been back on oxygen by nasal cannula since 03/15/2019. Normally on 4 L of oxygen at home. Currently on 2 L of oxygen. Will continue nebulizer treatments and inhaled Pulmicort. Continue Pulmozyme. Did have MBS on 03/11/2019 with recommendation for mildly thickened liquids with minced and moist diet but no ivis aspiration. Was given dose of IV Bumex by Nephrology with the increased edema. Suspect will do better once able to have femoral central line removed and more mobile. IV ceftriaxone discontinued on 03/17. No other regularly scheduled IV medications. was seen by by Nephrology femoral catheter was removed recommended continue oral diuresis if needed may use IV and closely monitor kidney function, on 03/19 patient was seen return clerk for A. Fib on PO amiodorane rate was high normal, patient with AVR on prosthetic valve on cumadin INR 3.9 will held, on 03/20/19 scow hand while in IMU patient patient had about 20 secons pulesless activity however before any intervention, he developed A.Fib with RVR he was starred on Amiodoran drip and transferred to ICU, patient is seen return clerk and patient is off amiodoran drip, and oral amiodoran 400mg BID, his rate is high normal, patient has moderate nonischemic cardiomyopathy with EF 35% and lower extremtiy edema, on IV lasix also seen by customer engagement manager, (2) Severe sepsis: Code(s): A41.9 - Sepsis, unspecified organism; R65.20 - Severe sepsis without septic shock Status: Acute Assessment and Plan: Criteria met on admission. Result of pneumonia. Blood cultures negative. MRSA surveillance culture negative. Sputum culture growing Serratia marcescens with patient on IV ceftriaxone alone for the past 5 days. discontinued IV antibiotics as no longer felt necessary at this time. Will confirm when monitor. (3) Pneumonia: Qualifiers: Pneumonia type: due to other aerobic Gram-negative bacteria Laterality: bilateral Lung location: unspecified part of lung Qualified Code(s): J15.6 - Pneumonia due to other Gram-negative bacteria Code(s): J18.9 - Pneumonia, unspecified organism Status: Acute Assessment and Plan: Chest xray on 03/14/19 with slight improvement in bilateral infiltrates. Sputum culture as noted above. Discontinue IV ceftriaxone stay after 5 days treatment. Did have IV Unasyn and IV vancomycin prior to IV ceftriaxone. Continue other respiratory treatments. Will monitor. (4) Acute kidney injury superimposed on chronic kidney disease: Code(s): N17.9 - Acute kidney failure, unspecified; N18.9 - Chronic kidney disease, unspecified Status: Acute Assessment and Plan: Precipitating etiology is not clear. Nephrology consulted and appreciate input. Creatinine remains 2.20 today which is above his baseline of 1.20 and 1.40. however it is improed compare to 03/17, Renal ultrasound with no hydronephrosis. Does have increased edema. IV Bumex given on 03/17. Remains on oral Lasix and spironolactone but no other nephrotoxic medications. Will continue to monitor. Await further recommendations from Nephrology. (5) Hyperkalemia: Code(s): E87.5 - Hyperkalemia Status: Acute Assessment and Plan: P
--- NOTE | 2019-03-23 20:30 | PC.NURSE ---
pt transferred to room 202 belonging list checked, VSS.
[2019-03-24] VITALS (29 sets, daily range): BP systolic 113–121; BP diastolic 59–99; PULSE 87–147; RESP 18–36; TEMP 36.1–36.6; O2SAT 92–100
[2019-03-24] MEDS: IPRATROPIUM BR 0.02% INH SOLN 0.5 MG/2.5 ML VIAL INHALATION ×4 (01:40→20:08)
[2019-03-24 05:46] LABS: Hematocrit 35.8 % (42.0-52.0); Hemoglobin 10.4 g/dL (14.0-18.0); Immature Platelet Fraction Pct 13.4 % (0.9-11.2); Mean Corpuscular HGB Conc 29.1 g/dl (32-36); Mean Corpuscular Hemoglobin 25.9 pg (26-34); Mean Corpuscular Volume 89.1 fl (80-100); Platelet Count Result 111 k/mm3 (150-375); Red Blood Count 4.02 M/mm3 (4.6-6.20); Red Cell Distribution Width 19.9 % (11.5-14.5)
[2019-03-24 05:53] LABS: Magnesium 2.2 mg/dL (1.6-2.3)
[2019-03-24 05:54] LABS: INR 2.2; Prothrombin Time 23.7 Seconds (11.1-14.7)
[2019-03-24 05:55] LABS: Albumin Level 3.3 g/dL (3.5-5.1); Blood Urea Nitrogen 89 mg/dL (9-20); Calcium 8.3 mg/dL (8.4-10.2); Carbon Dioxide 38 mmol/L (22-30); Chloride 95 mmol/L (98-107); Estimated CRCL calculation 18 ml/min; Estimated Glomerular Filt Rate 25; Glucose 219 mg/dL (75-110); Phosphorus 4.1 mg/dL (2.5-4.5); Potassium 3.5 mmol/L (3.4-5.0); Sodium 142 mmol/L (137-145)
[2019-03-24] MEDS: methylPREDNISolone SOD SUCC 40 MG VIAL IV PUSH ×3 (06:07→20:40)
[2019-03-24] MEDS: LEVOTHYROXINE SODIUM INJ 100 MCG/5 ML VIAL 25 MCG IV PUSH (06:07)
[2019-03-24] MEDS: PANTOPRAZOLE SODIUM IV 40 MG VIAL IV PUSH ×2 (08:07→20:34)
[2019-03-24] MEDS: METOPROLOL TARTRATE 25 MG TABLET PO ×2 (08:07→20:34)
[2019-03-24] MEDS: AMIODARONE HCL 200 MG TABLET 400 MG PO ×2 (08:07→18:16)
[2019-03-24] MEDS: DORNASE ALFA INH SOLN 1 MG/ML 2.5 ML AMP 2.5 MG INHALATION ×2 (08:49→20:07)
--- NOTE | 2019-03-24 10:54 | PM.PNCARD ---
Progress Note: A&P Assessment and Plan (1) Atrial fibrillation with rapid ventricular response: Code(s): I48.91 - Unspecified atrial fibrillation Status: Acute Assessment and Plan: History of paroxysmal atrial fibrillation. Heart rate elevated, refractory, persistent since admission. -Increase metoprolol 25 mg p.o. TID. Monitor heart rate and BP. -Follow INR daily. Heparin drip INR sustained less than 2 unless contraindication. -Warfarin on hold due to increasing INR. (2) Cardiomyopathy: Qualifiers: Cardiomyopathy type: dilated Qualified Code(s): I42.0 - Dilated cardiomyopathy Code(s): I42.9 - Cardiomyopathy, unspecified Status: Acute Assessment and Plan: Moderate LV dysfunction EF 35%, chronic. History of nonischemic cardiomyopathy. Had an episode of pulseless VT lasted 44 seconds at 196 beets per min. Spontaneously converted to afib RVR. Continue amiodarone 400 mg p.o. b.i.d. Continue Lasix at 40 mg daily. . (3) S/P AVR (aortic valve replacement): Code(s): Z95.2 - Presence of prosthetic heart valve Status: Acute Assessment and Plan: INR is better today after vitamin K. likely resume warfarin tomorrow (4) Acute on chronic systolic heart failure: Code(s): I50.23 - Acute on chronic systolic (congestive) heart failure Status: Acute Assessment and Plan: Appears to be fairly euvolemic at this time. BUN and creatinine increasing slowly. May reduce Lasix and reserve volume status closely. (5) Acute kidney injury superimposed on chronic kidney disease: Code(s): N17.9 - Acute kidney failure, unspecified; N18.9 - Chronic kidney disease, unspecified Status: Acute Assessment and Plan: Per primary service. Creatinine slowly climbing. Nephrology on board. Lasix reduced. (6) COPD exacerbation: Code(s): J44.1 - Chronic obstructive pulmonary disease with (acute) exacerbation Status: Acute Assessment and Plan: Severe underlying lung disease. Defer primary management to Medicine Service. Remains on BiPAP today. (7) Pulseless ventricular tachycardia: Code(s): I47.2 - Ventricular tachycardia Status: Acute Assessment and Plan: On oral amiodarone. Monitor and replete potassium and magnesium to keep around 4.0 and 2.0 respectively. Increase metoprolol to 25 mg p.o. t.i.d.. Continue telemetry. Patient is DNR. Repeat 2D echocardiogram. Additional Plan Patient complicated with multiple medical problems including history of mechanical aortic valve prosthesis, persistent atrial fibrillation, moderate LV dysfunction, coagulopathy, acute on chronic respiratory failure, and acute on chronic renal failure. Subjective Date/time seen: 03/24/19 10:54 Interval history: Reason for visit: atrial fibrillation, ventricular tachycardia Date of service 03/24/2019: He states he feels okay at the moment. AFib rapid HR 120s to 130s on BiPAP frequently as he is currently. He does not complaining of any active chest pain. Short of breath off BiPAP. Denies palpitations. Eating okay but cannot tolerate BiPAP off for long. No fevers or chills. Review of Systems Review of Systems: All systems reviewed & are unremarkable except as noted in HPI and below Constitutional: Constitutional: Reports as per HPI, Reports fatigue and Reports weakness Eyes: Eyes: Reports as per HPI and Denies blurry vision ENT: Reports as per HPI, Reports hearing normal, Denies dysphagia, Denies epistaxis and Denies neck pain Cardiovascular: Cardiovascular: Reports as per HPI, Denies chest pain, Denies diaphoresis, Denies pedal edema, Denies leg edema, Denies
--- NOTE | 2019-03-24 12:51 | P.PNNP_ITS ---
Progress Note: A&P Assessment and Plan (1) [place] (acute kidney injury): Code(s): N17.9 - Acute kidney failure, unspecified Status: Acute Assessment and Plan: * creatinine stable. * Probably resolved. (2) Chronic kidney disease, stage 3 (moderate): Code(s): N18.3 - Chronic kidney disease, stage 3 (moderate) Status: Acute Assessment and Plan: * baseline creatinine earlier this year ~ 1.5 - 1.8mg/dl * suspect due to vascular disease coupled with need for diuretics in the setting of chronic pre-renal azotemia * He is at a new baseline in the mid 2s. (3) Atrial fibrillation with rapid ventricular response: Code(s): I48.91 - Unspecified atrial fibrillation Status: Acute Assessment and Plan: * continue rate control strategy * on amiodarone * Cardiology following (4) Cardiomyopathy: Qualifiers: Cardiomyopathy type: dilated Qualified Code(s): I42.0 - Dilated cardiomyopathy Code(s): I42.9 - Cardiomyopathy, unspecified Status: Acute Assessment and Plan: * as noted by recent Echo * both systolic and diastolic component * On a small dose of a diuretic (5) Chronic respiratory failure: Qualifiers: Respiratory failure complication: hypoxia Qualified Code(s): J96.11 - Chronic respiratory failure with hypoxia Code(s): J96.10 - Chronic respiratory failure, unspecified whether with hypoxia or hypercapnia Status: Acute Assessment and Plan: * quite significant and severe * This is most of his shortness of breath * continue supportive therapy * He has sleep apnea as well in is on BiPAP. (6) Anemia: Code(s): D64.9 - Anemia, unspecified Status: Acute Assessment and Plan: * Hemoglobin ranging from 9-11. Today it is 10.4 * likely related to CKD * however, stools are guaiac positive Subjective Date/time seen: 03/24/19 12:51 Interval history: Patient is alert. He feels okay. He is on the BiPAP machine and is about to take a nap Not too short of breath. He is lying flat in bed. Exam Narrative: Exam Narrative: General: chronically ill appearing male in NAD Heart: IRRR, normal S1 and S2; no rub or gallop Lungs: Decreased breath sounds. Increased expiratory phase. Symmetric. Abdomen: BS+ and soft Extremities: 1 - 2+ edema Skin: no rash Objective Data Vital Signs Vital Signs: Vital Signs - 24 hr 03/23/19 14:00 03/23/19 14:20 03/23/19 14:29 Temperature Pulse Rate 103 H 100 99 Respiratory Rate 14 14 Blood Pressure Pulse Oximetry 03/23/19 16:00 03/23/19 17:17 03/23/19 18:00 Temperature 37.0 C Pulse Rate 96 96 121 H Respiratory Rate 19 Blood Pressure 98/65 L Pulse Oximetry 96 03/23/19 19:55 03/23/19 20:07 03/23/19 20:48 Temperature Pulse Rate 130 H 126 H 104 H Respiratory Rate 18 21 H Blood Pressure Pulse Oximetry 03/23/19 20:53 03/23/19 21:45 03/23/19 22:00 Temperature 36.7 C Pulse Rate 108 H 93 101 H Respiratory Rate 1 L 22 H Blood Pressure 124/58 L Pulse Oximetry 96 95 03/23/19 23:27 03/24/19 00:00 03/24/19 01:40 Temperature 36.2 C L
--- NOTE | 2019-03-24 12:51 | PM.PNNEP ---
Progress Note: A&P Assessment and Plan (1) [place] (acute kidney injury): Code(s): N17.9 - Acute kidney failure, unspecified Status: Acute Assessment and Plan: creatinine stable. Probably resolved. (2) Chronic kidney disease, stage 3 (moderate): Code(s): N18.3 - Chronic kidney disease, stage 3 (moderate) Status: Acute Assessment and Plan: baseline creatinine earlier this year ~ 1.5 - 1.8mg/dl suspect due to vascular disease coupled with need for diuretics in the setting of chronic pre-renal azotemia He is at a new baseline in the mid 2s. (3) Atrial fibrillation with rapid ventricular response: Code(s): I48.91 - Unspecified atrial fibrillation Status: Acute Assessment and Plan: continue rate control strategy on amiodarone Cardiology following (4) Cardiomyopathy: Qualifiers: Cardiomyopathy type: dilated Qualified Code(s): I42.0 - Dilated cardiomyopathy Code(s): I42.9 - Cardiomyopathy, unspecified Status: Acute Assessment and Plan: as noted by recent Echo both systolic and diastolic component On a small dose of a diuretic (5) Chronic respiratory failure: Qualifiers: Respiratory failure complication: hypoxia Qualified Code(s): J96.11 - Chronic respiratory failure with hypoxia Code(s): J96.10 - Chronic respiratory failure, unspecified whether with hypoxia or hypercapnia Status: Acute Assessment and Plan: quite significant and severe This is most of his shortness of breath continue supportive therapy He has sleep apnea as well in is on BiPAP. (6) Anemia: Code(s): D64.9 - Anemia, unspecified Status: Acute Assessment and Plan: Hemoglobin ranging from 9-11. Today it is 10.4 likely related to CKD however, stools are guaiac positive Subjective Date/time seen: 03/24/19 12:51 Interval history: Patient is alert. He feels okay. He is on the BiPAP machine and is about to take a nap Not too short of breath. He is lying flat in bed. Exam Narrative: Exam Narrative: General: chronically ill appearing male in NAD Heart: IRRR, normal S1 and S2; no rub or gallop Lungs: Decreased breath sounds. Increased expiratory phase. Symmetric. Abdomen: BS+ and soft Extremities: 1 - 2+ edema Skin: no rash Objective Data Vital Signs Vital Signs: Vital Signs - 24 hr 03/23/19 14:00 03/23/19 14:20 03/23/19 14:29 Temperature Pulse Rate 103 H 100 99 Respiratory Rate 14 14 Blood Pressure Pulse Oximetry 03/23/19 16:00 03/23/19 17:17 03/23/19 18:00 Temperature 37.0 C Pulse Rate 96 96 121 H Respiratory Rate 19 Blood Pressure 98/65 L Pulse Oximetry 96 03/23/19 19:55 03/23/19 20:07 03/23/19 20:48 Temperature Pulse Rate 130 H 126 H 104 H Respiratory Rate 18 21 H Blood Pressure Pulse Oximetry 03/23/19 20:53 03/23/19 21:45 03/23/19 22:00 Temperature 36.7 C Pulse Rate 108 H 93 101 H Respiratory Rate 1 L 22 H Blood Pressure 124/58 L Pulse Oximetry 96 95 03/23/19 23:27 03/24/19 00:00 03/24/19 01:40 Temperature 36.2 C L Pulse Rate 81 89 98 Respiratory Rate 22 H 20 Blood Pressure 116/62 Pulse Oximetry 99 03/24/19 01:48 03/24/19 02:00 03/24/19 04:00 Temperature 36.2 C L Pulse Rate 98 95 94 Respiratory Rate 18 20 Blood Pressure 113/66 Pulse Oximetry 94 96 03/24/19 06:00 03/24/19 08:00 03/24/19 08:07 Temperature 36.6 C Pulse Rate 97 147 H 147 H Respiratory Rate 36 H Blood Pressure 121/81 Pulse Oximetry 95 03/24/19 08:50 03/24/19 08:51 03/24/19 09:08 Temperature Pulse Rate 87 92 102 H Respiratory Rate 20 19 Blood Pressure Pulse Oximetry 92 03/24/19 10:00 03/24/19 11:05 03/24/19 12:00 Temperature Pulse Rate 128 H 107 H 100 Respiratory Rate 24 H Blood Pressure Pulse Oximetry 94 Intake/Output Intake/Output: Intake & Output 03/21/19 1
--- NOTE | 2019-03-24 13:09 | PM.IMPN ---
Progress Note: A&P Assessment and Plan (1) Respiratory failure: Qualifiers: Chronicity: acute on chronic Respiratory failure complication: hypoxia and hypercapnia Qualified Code(s): J96.21 - Acute and chronic respiratory failure with hypoxia; J96.22 - Acute and chronic respiratory failure with hypercapnia Code(s): J96.90 - Respiratory failure, unspecified, unspecified whether with hypoxia or hypercapnia Status: Acute Assessment and Plan: 03/24/19 13:09Developed acute respiratory failure on 03/08/2019 while being treated for COPD exacerbation requiring intubation. Successfully extubated on 03/10/2019. Increased problems with breathing on the evening of 03/14/2019 requiring BiPAP. Has been back on oxygen by nasal cannula since 03/15/2019. Normally on 4 L of oxygen at home. Currently on 2 L of oxygen. Will continue nebulizer treatments and inhaled Pulmicort. Continue Pulmozyme. Did have MBS on 03/11/2019 with recommendation for mildly thickened liquids with minced and moist diet but no ivis aspiration. Was given dose of IV Bumex by Nephrology with the increased edema. Suspect will do better once able to have femoral central line removed and more mobile. IV ceftriaxone discontinued on 03/17. No other regularly scheduled IV medications. was seen by by Nephrology femoral catheter was removed recommended continue oral diuresis if needed may use IV and closely monitor kidney function, on 03/19 patient was seen estate planning counselor for A. 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 (2) Severe sepsis: Code(s): A41.9 - Sepsis, unspecified organism; R65.20 - Severe sepsis without septic shock Status: Acute Assessment and Plan: Criteria met on admission. Result of pneumonia. Blood cultures negative. MRSA surveillance culture negative. Sputum culture growing Serratia marcescens with patient on IV ceftriaxone alone for the past 5 days. discontinued IV antibiotics as no longer felt necessary at this time. Will confirm when monitor. (3) Pneumonia: Qualifiers: Pneumonia type: due to other aerobic Gram-negative bacteria Laterality: bilateral Lung location: unspecified part of lung Qualified Code(s): J15.6 - Pneumonia due to other Gram-negative bacteria Code(s): J18.9 - Pneumonia, unspecified organism Status: Acute Assessment and Plan: Chest xray on 03/14/19 with slight improvement in bilateral infiltrates. Sputum culture as noted above. Discontinue IV ceftriaxone stay after 5 days treatment. Did have IV Unasyn and IV vancomycin prior to IV ceftriaxone. Continue other respiratory treatments. Will monitor. (4) Acute kidney injury superimposed on chronic kidney disease: Code(s): N17.9 - Acute kidney failure, unspecified; N18.9 - Chronic kidney disease, unspecified Status: Acute Assessment and Plan: Precipitating etiology is not clear. Nephrology consulted and appreciate input. Creatinine remains close 2 today which is above his baseline of 1.[address] Jensen suspect patient new baseline creatinine is 2 with vascular events and need for diureses, will monitor (5) Hyperkalemia: Code(s): E87.5 - Hyperkalemia Status: Acute Assessment and Plan: Potassium 3.5 today. No oral replacement being given but is on spironolactone. Will monitor. (6) Hypokalemia:
[2019-03-24] MEDS: FUROSEMIDE 20 MG TABLET PO (13:52)
[2019-03-24] MEDS: busPIRone HCL 5 MG TABLET PO ×2 (13:52→20:34)
[2019-03-24] MEDS: POTASSIUM CHLORIDE 20 MEQ PACKET (FOR LIQUID) 40 MEQ PO (13:53)
--- NOTE | 2019-03-24 14:16 | PCDIET ---
Nutrition Follow-Up Complete: Nutrition Diagnosis: Inadequate oral intake related to oral intubation as evidenced by NPO status. Nutrition Goal: Patient to meet estimated nutritional needs. Goal not met. Diet was advanced to minced and moist with mildly thick liquids; however, patient only eating 0-50% of meals and is currently on bipap. Last recorded weight is 60.5 kg which is decreased. I/O's negative and oral intakes not adequate. Bowel Motility: +BM on 03/23/19. Labs Reviewed: Glu (219), BUN (89), Cr (2.5), Alb (3.3), Hgb (10.4), Hct (35.8) Meds Noted: Colace, Lasix, Solu Medrol, Protonix, Prednisone Additional Notes: Coccyx with friction shear; scrotum macerated. Patient sleeping on bipap during visit. Spoke with daughter who reports he would normally take 2-3 Ensure supplements (chocolate) and would likely accept if he is able to tolerate being off bipap. Recommend Ensure Enlive (350kcal, 20g protein) TID. Would not recommend further dietary restrictions until intakes have improved. Nutrition Monitoring and Evaluation: Follow up every 3 days.
[2019-03-25] VITALS (29 sets, daily range): BP systolic 99–125; BP diastolic 61–82; PULSE 79–133; RESP 20–32; TEMP 35.9–36.1; O2SAT 86–98
[2019-03-25] MEDS: IPRATROPIUM BR 0.02% INH SOLN 0.5 MG/2.5 ML VIAL INHALATION ×4 (02:38→19:20)
[2019-03-25 05:21] LABS: Blood Urea Nitrogen 98 mg/dL (9-20); Calcium 8.6 mg/dL (8.4-10.2); Carbon Dioxide 34 mmol/L (22-30); Chloride 93 mmol/L (98-107); Estimated CRCL calculation 13 ml/min; Estimated Glomerular Filt Rate 17; Glucose 208 mg/dL (75-110); Potassium 4.3 mmol/L (3.4-5.0); Sodium 142 mmol/L (137-145)
[2019-03-25 05:26] LABS: INR 2.6; Prothrombin Time 27.3 Seconds (11.1-14.7)
[2019-03-25] MEDS: LEVOTHYROXINE SODIUM INJ 100 MCG/5 ML VIAL 25 MCG IV PUSH (06:24)
[2019-03-25] MEDS: methylPREDNISolone SOD SUCC 40 MG VIAL IV PUSH ×3 (06:24→20:35)
[2019-03-25] MEDS: DORNASE ALFA INH SOLN 1 MG/ML 2.5 ML AMP 2.5 MG INHALATION ×2 (08:21→19:20)
[2019-03-25] MEDS: FUROSEMIDE 20 MG TABLET PO (08:35)
[2019-03-25] MEDS: busPIRone HCL 5 MG TABLET PO ×2 (08:35→20:35)
[2019-03-25] MEDS: METOPROLOL TARTRATE 25 MG TABLET PO (08:35)
[2019-03-25] MEDS: PANTOPRAZOLE SODIUM IV 40 MG VIAL IV PUSH ×2 (08:36→20:35)
[2019-03-25] MEDS: AMIODARONE HCL 200 MG TABLET 400 MG PO ×2 (08:36→16:24)
--- NOTE | 2019-03-25 09:02 | ECHO_ITS ---
Patient Info Name: Jeff Sampson Age: 83 years : 1935 Gender: Male Ht: 70 in Wt: 134 lbs BSA: 1.72 m2 HR: 100 bpm BP: 120 / 82 mmHg Heart Rhythm: Atrial Fibrillation Technical Quality: Good Exam Date: 03/25/2019 2:27 PM Exam Location: [facility] Patient Status: Inpatient Admit Date: 03/06/2019 Staff Ordering Physician: Bryan Joel MD Validation Consultant: Danny Guallpa RDCS, RT Attending Provider: Jimenez Sevilla MD Referring Physician: Marycruz KAUFMAN; Exam Type: CA echo doppler color flow Study Info Indications I48.1 - Persistent atrial fibrillation Complete two-dimensional, color flow and Doppler transthoracic echocardiogram is performed. Summary 1. Technically difficult study with limited views. 2. Left ventricular systolic function is severely reduced, estimated at 25-30%. 3. There is mildly increased left ventricular wall thickness. 4. Akinetic mid inferior and mid inferolateral reynolds. 5. Left atrial chamber dimension is severely enlarged. 6. Right atrial chamber dimension is moderately enlarged. 7. Prosthetic aortic valve not well visualized. No evidence of prosthetic aortic valve stenosis peak velocity 1.8 m/sec, mean gradient 6mmHg, and GALILEA of 1.8cm2. 8. There is mild regurgitation of the mechanical aortic valve. 9. There is moderate mitral valve regurgitation. 10. Moderate mitral annular calcification. 11. The mitral valve has moderately thickened leaflets. 12. Unable to estimate PA systolic pressure due to poor spectral resolution of tricuspid regurgitant jet. 13. Dilated inferior vena cava with >50% collapse upon inspiration consistent with elevated right atrial pressure, 10 mmHg. Left Ventricle Left ventricular chamber dimension is normal. Left ventricular systolic function is severely reduced, estimated at 25-30%. There is mildly increased left ventricular wall thickness. The left ventricular diastolic function is indeterminate. Global longitudinal strain is severely elevated at -3 %. Technically difficult study with limited views. Akinetic mid inferior and mid inferolateral reynolds. Right Ventricle Right ventricular chamber dimension is normal. Right ventricular systolic function is normal. Left Atria Left atrial chamber dimension is severely enlarged. Right Atria Right atrial chamber dimension is moderately enlarged. Aortic Valve There is mild regurgitation of the mechanical aortic valve. Prosthetic aortic valve not well visualized. No evidence of prosthetic aortic valve stenosis peak velocity 1.8 m/sec, mean gradient 6mmHg, and GALILEA of 1.8cm2. Pulmonic Valve The pulmonic valve is not well visualized. There is trace pulmonic regurgitation. Mitral Valve The mitral valve has moderately thickened leaflets. There is moderate mitral valve regurgitation. Moderate mitral annular calcification. Tricuspid Valve The tricuspid valve leaflets are normal. Unable to estimate PA systolic pressure due to poor spectral resolution of tricuspid regurgitant jet. Pericardium/Pleural The pericardium appears normal. There is no pericardial effusion. Inferior Vena Cava Dilated inferior vena cava with >50% collapse upon inspiration consistent with elevated right atrial pressure, 10 mmHg. Aorta The aortic root size at the sinus of Valsalva is normal. Left Ventricular Outflow Tract Name Value Normal ------
--- NOTE | 2019-03-25 10:00 | PM.PNCARD ---
Progress Note: A&P Assessment and Plan (1) Atrial fibrillation with rapid ventricular response: Code(s): I48.91 - Unspecified atrial fibrillation Status: Acute Assessment and Plan: Heart rate remains poorly controlled, refractory, persistent since admission. -Increase metoprolol to 37.5 mg p.o. TID. Monitor heart rate and BP. -Follow INR daily. Heparin drip INR sustained less than 2 unless contraindication. INR increasing despite warfarin on hold and Vit K 03/22. Monitor closely. -Warfarin on hold due to increasing INR. (2) Cardiomyopathy: Qualifiers: Cardiomyopathy type: dilated Qualified Code(s): I42.0 - Dilated cardiomyopathy Code(s): I42.9 - Cardiomyopathy, unspecified Status: Acute Assessment and Plan: Moderate LV dysfunction EF 35%, chronic by Echo 10/2018. History of nonischemic cardiomyopathy. Had an episode of pulseless VT lasted 44 seconds at 196 beets per min. Spontaneously converted to afib RVR. Continue amiodarone 400 mg p.o. b.i.d. Continue Lasix at 40 mg daily. (3) S/P AVR (aortic valve replacement): Code(s): Z95.2 - Presence of prosthetic heart valve Status: Acute Assessment and Plan: INR in therapeutic range despite holding warfarin consistent with coagulopathy. Continue to hold warfarin. Monitor for bleeding, follow INR daily and CBC. (4) Acute on chronic systolic heart failure: Code(s): I50.23 - Acute on chronic systolic (congestive) heart failure Status: Acute Assessment and Plan: Appears to be fairly euvolemic by exam, yet worsening respiratory status despite BiPAP and bronchodilator therapy. Worsening renal failure places pt at increased CHF risk. Repeat 2D Echocardiogram to assess LV function, pulmonary pressures. (5) Acute kidney injury superimposed on chronic kidney disease: Code(s): N17.9 - Acute kidney failure, unspecified; N18.9 - Chronic kidney disease, unspecified Status: Acute Assessment and Plan: More abrupt acute on chronic renal failure with BUN 98, up significantly from yesterday despite reduction in Lasix and BP stability. Nephrology on board. Lasix reduced. May need HD if continues. Code status, comfort measures appropriate if pt not interested in HD if recommended by Nephrology. Hold nephrotoxic agents. (6) COPD exacerbation: Code(s): J44.1 - Chronic obstructive pulmonary disease with (acute) exacerbation Status: Acute Assessment and Plan: Worsening respiratory status despite BiPAP. Severe underlying lung disease. Defer primary management to Medicine Service. STAT CXR. IV Lasix if pulm vascular congestion noted. PT has very poor prognosis, concerns for impending respiratory and/or cardiac arrest if not tolerating BiPAP in setting of cardiomyopathy and acute renal failure/uremia (multiorgan system failure) which carries grave prognosis. Code status discussions with pt and family appropriate particularly as pt may require intubation once again. (7) Pulseless ventricular tachycardia: Code(s): I47.2 - Ventricular tachycardia Status: Acute Assessment and Plan: On oral amiodarone. Monitor and replete potassium and magnesium to keep around 4.0 and 2.0 respectively. Increase metoprolol to 37.5 mg p.o. t.i.d.. Continue telemetry. Patient is DNR. Repeat 2D echocardiogram. Additional Plan Patient complicated with multiple medical problems including history of mechanical aortic valve prosthesis, persistent atrial fibrillation, moderate LV dysfunction, coagulopathy, acute on chronic respiratory failure, and acute on chronic renal failure. Pt has very poor overall prognosis.
[2019-03-25] MEDS: METOPROLOL TARTRATE 12.5 MG TABLET PO (10:27)
[2019-03-25] MEDS: METOPROLOL TARTRATE TAB 25 MG, METOPROLOL TARTRATE TAB 12.5 MG 37.5 MG PO ×2 (15:52→20:35)
[2019-03-25] MEDS: FUROSEMIDE INJ 40 MG/4 ML VIAL IV PUSH (16:26)
--- NOTE | 2019-03-25 17:13 | PM.IMPN ---
Progress Note: A&P Assessment and Plan (1) Respiratory failure: Qualifiers: Chronicity: acute on chronic Respiratory failure complication: hypoxia and hypercapnia Qualified Code(s): J96.21 - Acute and chronic respiratory failure with hypoxia; J96.22 - Acute and chronic respiratory failure with hypercapnia Code(s): J96.90 - Respiratory failure, unspecified, unspecified whether with hypoxia or hypercapnia Status: Acute Assessment and Plan: 03/25/19 13:09Developed acute respiratory failure on 03/08/2019 while being treated for COPD exacerbation requiring intubation. Successfully extubated on 03/10/2019. Increased problems with breathing on the evening of 03/14/2019 requiring BiPAP and again this a.m. Has been back on oxygen by nasal cannula since . Normally on 4 L of oxygen at home. Currently on 2 L of oxygen. Will continue nebulizer treatments and inhaled Pulmicort. Continue Pulmozyme. Did have MBS on 03/11/2019 with recommendation for mildly thickened liquids with minced and moist diet but no ivis aspiration. Respiratory failure probably multifactorial, with COPD, CHF, and now acute on chronic renal failure. (2) Severe sepsis: Code(s): A41.9 - Sepsis, unspecified organism; R65.20 - Severe sepsis without septic shock Status: Acute Assessment and Plan: Criteria met on admission. Result of pneumonia. Blood cultures negative. MRSA surveillance culture negative. Sputum culture growing Serratia marcescens with patient on IV ceftriaxone alone and now off antibiotics (3) Pneumonia: Qualifiers: Pneumonia type: due to other aerobic Gram-negative bacteria Laterality: bilateral Lung location: unspecified part of lung Qualified Code(s): J15.6 - Pneumonia due to other Gram-negative bacteria Code(s): J18.9 - Pneumonia, unspecified organism Status: Acute Assessment and Plan: Chest xray on 03/14/19 with slight improvement in bilateral infiltrates. Sputum culture as noted above. Discontinue IV ceftriaxone stay after 5 days treatment. Did have IV Unasyn and IV vancomycin prior to IV ceftriaxone. Continue other respiratory treatments. Will monitor. (4) Acute kidney injury superimposed on chronic kidney disease: Code(s): N17.9 - Acute kidney failure, unspecified; N18.9 - Chronic kidney disease, unspecified Status: Acute Assessment and Plan: Precipitating etiology is not clear. Nephrology consulted and appreciate input. Creatinine at 3.4 today which is above his baseline of 1.[address] Jensen suspect patient new baseline creatinine is 2 with vascular events and need for diureses, will monitor (5) Hyperkalemia: Code(s): E87.5 - Hyperkalemia Status: Acute Assessment and Plan: Potassium 4.3 today. No oral replacement being given but is on spironolactone. Will monitor. (6) Hypokalemia: Code(s): E87.6 - Hypokalemia Status: Acute Assessment and Plan: Potassium as noted above. 4.3 today (7) Atrial fibrillation with rapid ventricular response: Code(s): I48.91 - Unspecified atrial fibrillation Status: Acute Assessment and Plan: Cardiology consulted and appreciate input. Rate is still rapid and beta-jacqueline increased today. INR was 2.6 today with warfarin was on hold will resume tomorrow, Continue to monitor INR. Warfarin dosing per Cardiology. Plan is above (8) Coagulopathy: Code(s): D68.9 - Coagulation defect, unspecified Status: Acute Assessment and Plan: INR climbed to 7.8 related to the sepsis and patient received FFP and cryoglobulin. INR now at 2.6 today. Warfarin dosing per Cardiology. (9) CHF (congestive heart failure): Qualifiers: Heart failure type: combined systolic and diastolic Heart failure chronicity: chronic Qualified Code(s): I50.42 - Chronic combined systolic (congestive) and diastolic (congestive) heart failure
[2019-03-26] VITALS (13 sets, daily range): BP systolic 99–100; BP diastolic 63–64; PULSE 90–118; RESP 21–36; TEMP 35.9–36.1; O2SAT 91–96
[2019-03-26] MEDS: IPRATROPIUM BR 0.02% INH SOLN 0.5 MG/2.5 ML VIAL INHALATION ×2 (02:10→08:50)
[2019-03-26 05:07] LABS: Basophils Percent Auto 0.2 % (0.2-1.2); Hematocrit 38.4 % (42.0-52.0); Immature Granulocyte Percent A 1.3 % (0-0.5); Immature Platelet Fraction Pct 16.5 % (0.9-11.2); Lymphocytes Percent Auto 0.4 % (18.3-44.2); Mean Corpuscular HGB Conc 28.6 g/dl (32-36); Mean Corpuscular Hemoglobin 25.8 pg (26-34); Mean Corpuscular Volume 90.1 fl (80-100); Monocytes Absolute Auto 0.3 K/mm3 (0.1-0.6); Monocytes Percent Auto 1.4 % (2.6-8.5); Neutrophils Absolute Auto 22.9 K/mm3 (1.3-6.7); Neutrophils Percent Auto 96.7 % (45.5-73.1); Platelet Count Result 97 k/mm3 (150-375); Red Blood Count 4.26 M/mm3 (4.6-6.20); Red Cell Distribution Width 21.4 % (11.5-14.5); White Blood Count 23.7 K/mm3 (4.5-10.0)
[2019-03-26 05:13] LABS: INR 2.8; Prothrombin Time 29.1 Seconds (11.1-14.7)
[2019-03-26 05:25] LABS: Blood Urea Nitrogen 111 mg/dL (9-20); Calcium 8.7 mg/dL (8.4-10.2); Carbon Dioxide 28 mmol/L (22-30); Chloride 89 mmol/L (98-107); Estimated CRCL calculation 12 ml/min; Estimated Glomerular Filt Rate 15; Glucose 195 mg/dL (75-110); Potassium 4.5 mmol/L (3.4-5.0); Sodium 136 mmol/L (137-145)
[2019-03-26] MEDS: METOPROLOL TARTRATE 25 MG TABLET 37.5 MG PO (06:21)
[2019-03-26] MEDS: methylPREDNISolone SOD SUCC 40 MG VIAL IV PUSH (06:21)
[2019-03-26] MEDS: LEVOTHYROXINE SODIUM INJ 100 MCG/5 ML VIAL 25 MCG IV PUSH (06:22)
[2019-03-26] MEDS: PANTOPRAZOLE SODIUM IV 40 MG VIAL IV PUSH (08:26)
[2019-03-26] MEDS: busPIRone HCL 5 MG TABLET PO (08:26)
[2019-03-26] MEDS: AMIODARONE HCL 200 MG TABLET 400 MG PO (08:26)
[2019-03-26] MEDS: FUROSEMIDE 20 MG TABLET PO (08:26)
[2019-03-26 08:30] LABS: Hypochromasia 1+ (NORMAL); Ovalocytes 1+ (NORMAL); Platelet Estimate Decreased (Adequate)
[2019-03-26] MEDS: DORNASE ALFA INH SOLN 1 MG/ML 2.5 ML AMP 2.5 MG INHALATION (08:51)
--- NOTE | 2019-03-26 10:17 | PM.PNCARD ---
Progress Note: A&P Additional Plan Continue to manage the patient's chronic atrial fibrillation with beta-jacqueline and amiodarone. Amiodarone dosage is rather high will consider weaning this while he still in the hospital This constellation of comorbidities particularly now including relatively severe renal failure results and very poor prognosis. Time Spent With Patient Time with patient: 15 - 25 minutes Subjective Date/time seen: Date of service, 03/26/19 10:17 Interval history: Follow-up visit for management of atrial fibrillation as well as LV dysfunction. Patient appears extremely weak was sleeping upon entering the room other than significant generalized weakness no specific cardiovascular complaints Exam Const: General: no acute distress HENMT: Mouth: Yes dry mucous membranes Eyes: Sclera: sclerae normal Pupils: PERRL Neck: Neck: no JVD Thyroid: thyroid normal Resp: Effort & Inspection: normal respiratory effort Auscultation: rhonchi Other: Large airway rhonchi are scattered throughout both lung lanza, patient has weak cough reflex to clear these Cardio: Rhythm: abnormal rhythm irregularly irregular GI: Auscultation: normal bowel sounds Extrem: General: normal to inspection Objective Data Vital Signs Vital Signs: Vital Signs - 24 hr 03/25/19 10:27 03/25/19 12:00 03/25/19 14:00 Temperature 36.1 C L Pulse Rate 133 H 79 105 H Respiratory Rate 30 H Blood Pressure 120/67 Pulse Oximetry 96 03/25/19 15:16 03/25/19 15:23 03/25/19 15:52 Temperature Pulse Rate 108 H 106 H 126 H Respiratory Rate 20 20 Blood Pressure Pulse Oximetry 03/25/19 16:00 03/25/19 16:24 03/25/19 18:00 Temperature 35.9 C L Pulse Rate 117 H 108 H 123 H Respiratory Rate 26 H Blood Pressure 120/68 Pulse Oximetry 95 03/25/19 19:20 03/25/19 19:30 03/25/19 19:55 Temperature 36.1 C L Pulse Rate 117 H 106 H 110 H Respiratory Rate 20 20 24 H Blood Pressure 99/61 L Pulse Oximetry 86 L 03/25/19 20:00 03/25/19 20:35 03/25/19 22:00 Temperature Pulse Rate 112 H 102 H 94 Respiratory Rate Blood Pressure Pulse Oximetry 03/26/19 00:00 03/26/19 02:00 03/26/19 02:10 Temperature Pulse Rate 105 H 108 H 109 H Respiratory Rate 25 H Blood Pressure Pulse Oximetry 03/26/19 02:23 03/26/19 02:27 03/26/19 04:00 Temperature 36.1 C L Pulse Rate 109 H 104 H 102 H Respiratory Rate 24 H 21 H 24 H Blood Pressure 99/63 L Pulse Oximetry 92 96 03/26/19 06:00 03/26/19 06:21 03/26/19 08:00 Temperature 35.9 C L Pulse Rate 103 H 101 H 115 H Respiratory Rate 24 H Blood Pressure 100/64 Pulse Oximetry 91 03/26/19 08:53 03/26/19 09:12 Temperature Pulse Rate 113 H 110 H Respiratory Rate 24 H 24 H Blood Pressure Pulse Oximetry 94 Intake/Output Intake/Output: Intake & Output 03/23/19 03/24/19 03/25/19 03/26/19 23:59 23:59 23:59 23:59 Intake Total 819 57 4363 50 Output Total 950 700 175 200 Balance -130 -650 2175 -150 Meds/Results Medications: Active Medications Generic Name Dose Route Start Last Admin Trade Name Jacintoq PRN Reason Stop Dose Admin Amiodarone HCl 400 mg 03/22/19 17:00 03/26/19 08:26 Pacerone PO 400 mg BID JAVY Administration Budesonide 0.5 mg 03/10/19 08:00 03/26/19 08:50 Pulmicort Respule INHALATION 0.5 mg Q12HRT JAVY Administration Buspirone HCl 5 mg 03/22/19 21:00 03/26/19 08:26 Buspar PO 5 mg Q12HR JAVY Administration Docusate Sodium 100 mg 03/16/19 09:00 03/20/19 10:46 Colace Cap PO Not Given DAILY JAVY Dornase Johnny 2.5 mg 03/19/19 08:00 03/26/19 08:51 Pulmozyme INHALATION 2.5 mg Q12HRT JAVY Administration Furosemide 20 mg 03/24/19 09:00 03/26/19 08:26 Lasix Tablet PO 20 mg DAILY JAVY Administration Gabapentin 800 mg 03/06/19 21:00 03/19/19 20:00 Neurontin PO 800 mg HS JAVY Administration Ipratropium [place] 0.5 mg 03/06/19 14:00
--- NOTE | 2019-03-28 22:18 | DS_ITS ---
DATE OF DISCHARGE: 03/26/2019 DIAGNOSES: 1. Tqwaq-ip-qoqkozd respiratory failure. 2. Aortic stenosis, status post aortic valve replacement. 3. Nagoc-vl-hvgperp renal failure. 4. Ltblj-lf-sicsuob systolic heart failure. 5. Pneumonia with sepsis. 6. Atrial fibrillation. HISTORY OF PRESENT ILLNESS: The patient is an 83-year-old gentleman with multiple medical problems, chronic respiratory failure, heart failure, stenotic mechanical valve, who presented to the emergency room with increasing shortness of breath. It has been increasing over the last few weeks. Occasionally, he has some edema. He was found to be in heart failure and was admitted for evaluation and treatment of the same. Complete history and physical is enumerated in his admitting history and physical. On admission, chest x-ray showed pleural effusions and cardiomegaly. He had atrial fibrillation and rapid ventricular response on EKG. White count 11.8, hemoglobin 12.2, hematocrit 42. Sodium 142, potassium 5.5, total CO2 28, creatinine 2.6, glucose 190, bilirubin 1.7. AST and ALT normal. HOSPITAL COURSE: 1. Respiratory failure. By the , he deteriorated further and was intubated and mechanically ventilated total of 16. He is extubated well and was improving. At that point, the patient's family decided against any further intubation. Continued to have further respiratory problems and by the , he is becoming more short of breath, retaining more CO2 and not responding well to BiPAP. By the morning of his demise, his respiratory status was poor. His pressure started falling, bradycardic and . Cause of was thought to be primarily heart failure with respiratory failure. 2. Stenotic aortic valve. His recent echo showed an area of only 0.9 cm2. 3. Cjiov-yh-akquvkn renal failure. As his respiratory status deteriorated, so did his renal function. He had improved slightly from admission, and creatinine had dropped to 2.1, but then started climbing again by the day of discharge is up to 3.8. He was not a candidate for dialysis. 4. Efxxw-fi-dszwwsw systolic heart failure. Despite diuresis and treatment, he did not respond and thus on the morning of the . 5. Pneumonia and sepsis. See history. Full course of antibiotics while here. Improved slightly but then had heart failure. 6. Atrial fibrillation paroxysmal. He has had episodes of paroxysmal atrial fibrillation while here, was treated with the amiodarone and the rate was controlled. PROCEDURES DURING THIS HOSPITALIZATION: Include the CT of the chest, abdomen and pelvis, renal sonogram, modified barium swallow, and echocardiogram. CONSULTANTS: 1. Dr. Stout, [employer]. 2. Dr. Calix, [facility]. 3. Dr. Hernandez, Nephrology. He on the morning of the and became hypotensive, bradycardic. Cause of thought to be congestive heart failure secondary to aortic stenosis as well as his renal failure. D I MT: [place]
== END 2019-03-26 12:10 | disposition expired | DRG 871 ==
LOC: ANHED 11:02 → ANHIMU 13:13 → ANHICU 03-27 12:24 → ANHIMU 03-27 12:24
PROVIDERS: Family Medicine; Hospitalist; Internal Medicine; Internal Medicine Critical Care Medicine; Internal Medicine Nephrology; Nurse Practitioner; Physician Assistant; Admitting Provider Internal Medicine; Emergency Provider Emergency Medicine; PCP Internal Medicine; Visit Provider Internal Medicine
DX: A41.9 Sepsis, unspecified organism (principal); J15.6 Pneumonia due to other Gram-negative bacteria; J96.21 Acute and chronic respiratory failure with hypoxia; I50.43 Acute on chronic combined systolic (congestive) and diastolic (congestive) heart failure; J44.1 Chronic obstructive pulmonary disease with (acute) exacerbation; N17.9 Acute kidney failure, unspecified; E87.4 Mixed disorder of acid-base balance; J44.0 Chronic obstructive pulmonary disease with (acute) lower respiratory infection; D68.9 Coagulation defect, unspecified; I47.2 Ventricular tachycardia; I35.0 Nonrheumatic aortic (valve) stenosis; R65.20 Severe sepsis without septic shock; I48.0 Paroxysmal atrial fibrillation; N18.3 Chronic kidney disease, stage 3 (moderate); I25.5 Ischemic cardiomyopathy; D64.9 Anemia, unspecified; K21.9 Gastro-esophageal reflux disease without esophagitis; E03.9 Hypothyroidism, unspecified; E87.5 Hyperkalemia; Z95.2 Presence of prosthetic heart valve; Z87.891 Personal history of nicotine dependence; Z85.118 Personal history of other malignant neoplasm of bronchus and lung; Z87.11 Personal history of peptic ulcer disease; Z99.81 Dependence on supplemental oxygen; Z79.01 Long term (current) use of anticoagulants
CPT/HCPCS: 31500; 36415; 36430; 36600; 71045; 71046; 71250; 74018; 74019; 74176; 74230; 76775; 80048; 80053; 80069; 80202; 81001; 81050; 82375; 82550; 82570; 82805; 83036; 83050; 83605; 83735; 83880; 83883; 84100; 84132; 84155; 84156; 84165; 84300; 84443; 84484; 84540; 85014; 85018; 85025; 85027; 85049; 85380; 85384; 85610; 85652; 85730; 85999; 86038; 86039; 86140; 86160; 86162; 86334; 86335; 86900; 86901; 87040; 87070; 87077; 87081; 87086; 87186; 87205; 87804; 92507; 92526; 92610; 92611; 93005; 93306; 94002; 94003; 94640; 94660; 94667; 94668; 96361; 96365; 96376; 97161; 97165; 97168; 99285; C1752; A9270; C1751; C9113; J0282; J0295; J0330; J0610; J0696; J1644; J1815; J1940; J2060; J2250; J2920; J2930; J3010; J3370; J3430; J3480; J7030; J7040; J7050; J7070; J7120; J7512; P9012; P9017